=== PATIENT | male | born 1940 | race Caucasian/White ===

== ENCOUNTER 2017-02-26 05:14 | Emergency (ER) | payer MEDICARE, MEDICAID ==
[~2017-02-26] VITALS: Ht 165.1 cm; Wt 81.6 kg
[~2017-02-26 05:14] MED LIST: ACHD5005 PO; ALBU8.5H4 IH; ALLO100T PO; ALLP100T PO; ALPR0.254 PO; AMLO5TAB2 PO; AMOX-358 PO; ASP325T PO; ASPI-983 PO; ATOR20TA66 PO; ATOR40TA70 PO; ATOR80TA2 PO; BACL10TA PO; CEPH500C PO; CETI1SOL11; CETI1TAB2 PO; CFP200T PO; CILO50TA; CLOP75TA PO; CLOP75TA28 PO; CODE118S2 PO; CYCL10TA9 PO; DICY10CA12 PO; DICY10CA26 PO; FURO-124 PO; FURO20TA4 PO; GLUCOPHAGE; GLYB5TAB6 PO; HUM100VI15 SC; HUM100VI15 SQ; HUM100VI4 SQ; HYDR-707 PO; HYDR1TAB PO; INSU100V31; INSU300I SQ; LEVO250T7 PO; LEVOFLOXACIN OD; LINA5TAB PO; LISI-556 PO; LISI20TA PO; LISI5TAB PO; LORA10TA2; LSNP20T PO; MAGN300C PO; MAGN400C PO; METO-270 PO; METO25TA PO; METO50TA7 PO; MTF500T PO; MTP25TSR PO; MULT1CAP27 PO; MV,M1TAB2 PO; NF-PLET100 PO; NITR0.3T7 SL; ONDA-43 PO; PANT40TA3 PO; PHEN10TA32 PO; PIOG1TAB PO; PNT40TEC PO; POTA10TA10 PO; POTA20TA15 PO; PRD20T PO; PROP10DR3 OU; RFMP300C PO; ROSI1TAB25; SIMV40TA2; SIMV40TA2 PO; SULF1TAB38 PO; THP300TCR PO; [UNRECOGNIZED DRUG - OTHER]
[2017-02-26] MEDS ORDERED: PRAV40TA2 PO (05:30)
--- NOTE | 2017-02-26 05:33 | ED General ---
General Chief Complaint: Lower Extremity Stated Complaint: ANEURYSM,RT LEG Source of Information: Patient Exam Limitations: No Limitations History of Present Illness Time Seen by Provider: 05:17 Initial Comments This 76-year-old gentleman presents to the emergency room with complaints of paresthesias in his right thigh and buttock. Paresthesias resolved after he got up and walked around. He denies any pain. He is concerned because of history of lower extremity aneurysms. He believes he may be having a complication from aneurysm. Review of his chart reveals history of bypass grafting to the right lower extremity with chronically occluded SFA based on arterial ultrasound from last year. 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 Allergies and Home Medications Allergies Coded Allergies: NKANo Known Allergies (Unverified Allergy, Mild, 06/21/09) Home Medications Allopurinol 100 Mg Tablet, 200 MG PO DAILY, (Reported) TAKES 2 (100 MG) TABLETS / LAST FILLED 08/03/16 #60 Alprazolam 0.25 Mg Tablet, 0.25 MG PO DAILY@1900, (Reported) Amlodipine Besylate 5 Mg Tablet, 5 MG PO DAILY, (Reported) Aspirin 81 Mg Tablet.dr, 81 MG PO DAILY, (Reported) Atorvastatin Calcium 40 Mg Tablet, 40 MG PO HS, (Reported) Baclofen 10 Mg Tablet, 10 MG PO TID, (Reported) Clopidogrel Bisulfate 75 Mg Tablet, 75 MG PO DAILY, (Reported) Dicyclomine HCl 10 Mg Capsule, 10 MG PO QID, (Reported) LAST FILLED 08/03/16 #120 Furosemide 40 Mg Tablet, 40 MG PO UD for 30 Days, Ref 2 40MG LASIX EVERY OTHER DAY. Prescribed by: DEANA DIAZ on 09/17/161512 Insulin Glargine,Hum.rec.anlog 300 Unit/1 Ml Insuln.pen, 65 UNITS SQ BID, ( Reported) Mv,Minerals/FA/Lycopene/Ginkgo 1 Each Tablet, 1 TAB PO DAILY, (Reported) Nitroglycerin 0.3 Mg Tab.subl, 0.3 MG SL PRN, #30 Prescribed by: DEANA DIAZ on 09/17/161512 Pantoprazole Sodium 40 Mg Tablet.dr, 40 MG PO DAILY, (Reported) Phenylephrine HCl 10 Mg Tablet, 10 MG PO Q4H PRN for CONGESTION, (Reported) Potassium Chloride 10 Meq Tablet.er, 10 MEQ PO UD for 30 Days, Ref 2 10 MEQ POTASSIUM EVERY OTHER DAY. Prescribed by: DEANA DIAZ on 09/17/16 1513 Pravastatin Sodium 40 Mg Tablet, 1 TAB PO UD, #30 (Reported) Theophylline Anhydrous 300 Mg Tab.er.12h, 300 MG PO Q12H, (Reported) Constitutional: no symptoms reported EENTM: see HPI Respiratory: no symptoms reported Cardiovascular: no symptoms reported Musculoskeletal: no symptoms reported Skin: no symptoms reported Psychiatric/Neurological: See HPI Past Uaisnli-Kwoxhq-Dlpikp Hx Patient Social History Type Used: Cigarettes Recent Foreign Travel: No Contact w/Someone Who Travel: No Recent Hopitalizations: No Immunizations Up To Date Tetanus Booster (TDap): Less than 5yrs Date of Pneumonia Vaccine: Nov 18, 2009 Date of Influenza Vaccine: Sep 28, 2015 Seasonal Allergies Seasonal Allergies: No Surgeries HX Surgeries: Yes (CARDIAC CATHS/STENT, HIATAL HERNIA, TURP, LEFT FEM-TIB BYPASS, right lower extremity bypass) Surgeries: Abdominal, Cardiac, Coronary Stent, Transurethral Resection, Vascular Surgery Respiratory Hx Respiratory Disorders: Yes (COPD) Respiratory Disorders: COPD Cardiovascular Hx Cardiac Disorders: Yes Cardiac Disorders: Chronic Edema/Swelling, Coronary Artery Disease, High Cholesterol, Hypertension, Peripheral Vascular Neurological Hx Neurological Disorders: Yes (?PERIPHERAL NEUROPATHY?) Neurological Disorders: Dementia Reproductive System Hx Reproductive Disorders: No Sexually Transmitted Disease: No Genitourinary Hx Genitourinary Disorders: Yes (TURP) Genitourinary Disorders: Benign Prostatic Hyperpl, Prostate Problems Gastrointestinal Hx Gastrointestinal Disorders: Yes (GERD) Gastrointestinal Disorders: Gastroesophageal Reflux, Hiatal Hernia Musculoskeletal Hx Musculoskeletal Disorders: Yes Musculoskeletal Disorders: Arthritis Endocrine Hx Endocrine Disorders: Yes Endocrine Disorders: Diabetes, Insulin dep HEENT HX ENT Disorders: Yes HEENT Disorders: Cataract Loss of Vision: Right Hearing Impairment: Hard of Hearing Cancer Hx Cancer: No Psychosocial Hx Psychiatric Problems: No Integumentary HX Skin/Integumentary Disorder: Yes (MRSA) Blood Transfusions Hx Blood Disorders: No Family Medical History Family Medial History: Cancer 19 FATHER 19 MOTHER Family history: Cardiovascular disease Family history: Diabetes mellitus G8 SISTER 19 MOTHER Family history: Hypertension G8 BROTHER Physical Exam Vital Signs Vital Sign - Last 12Hours 02/26/17 05:30 Temp 97.7 Pulse 91 Resp 18 B/P (MAP) 197/89 Pulse Ox 94 O2 Delivery Room Air Capillary Refill : General Appearance: No Apparent Distress, WD/WN HEENT: Normal ENT Inspection, Other (blindness of right eye) Respiratory: Normal Breath Sounds, No Respiratory Distress Cardiovascular: Regular Rate, Rhythm, Normal Peripheral Pulses Extremity: Normal Inspection, Other (normal motor function, sensation, and pedal pulse of the right lower extremity. No tenderness in the thigh or buttock ) Neurologic/Psychiatric: Alert, Oriented x3, No Motor/Sensory Deficits, Normal Mood/Affect, acquisitions analyst II-XII Norm as Tested Skin: Normal Color, Warm/Dry Progress/Results/Core Measures Results/Orders Vital Signs/I&O Vital Sign - Last 12Hours 02/26/17 02/26/17 05:30 05:35 Temp 97.7 97.7 Pulse 91 90 Resp 18 18 B/P (MAP) 197/89 Pulse Ox 94 92 O2 Delivery Room Air Progress Note : Progress Note Symptoms resolved. Patient given reassurance after review of prior imaging. Departure Impression Impression: Primary Impression: Paresthesia of right leg Disposition: 01 HOME, SELF-CARE Condition: Stable Departure-Patient Inst. Decision time for Depature: 05:32 Referrals: ESTRELLITA العراقي MD (PCP/Family) Primary Care Physician Patient Instructions: Paresthesias (DC) Add. Discharge Instructions: Return to care if symptoms worsen. Otherwise follow-up with your primary care provider. All discharge instructions reviewed with patient and/or family. Voiced understanding. CINDY BARRIOS MD Feb 26, 2017 05:33
[2017-02-26 05:35] VITALS: BP 153/78
== END 2017-02-26 05:41 | disposition home or self-care (01) ==
LOC: EDUNIT# 05:14 → ER 05:17
DX: R20.2 Paresthesia of skin (principal); I72.4 Aneurysm of artery of lower extremity; I25.10 Atherosclerotic heart disease of native coronary artery without angina pectoris; I10 Essential (primary) hypertension; J44.9 Chronic obstructive pulmonary disease, unspecified; Z79.02 Long term (current) use of antithrombotics/antiplatelets; Z79.82 Long term (current) use of aspirin; Z79.899 Other long term (current) drug therapy
CPT/HCPCS: 99283

== ENCOUNTER 2017-04-05 02:07 | Emergency (ER) | payer MEDICARE, MEDICAID ==
[~2017-04-05] VITALS: Ht 165.1 cm; Wt 90.7 kg
[~2017-04-05 02:07] MED LIST changes: +PRAV40TA2 PO
--- NOTE | 2017-04-05 02:22 | ED Chest Pain ---
General Chief Complaint: Chest Pain Stated Complaint: CP,RT RT ARM PAIN Source: patient, RN notes reviewed Exam Limitations: no limitations History of Present Illness Time seen by provider: 02:10 Initial Comments Patient presents c/ c/o right sided chest pain that radiates into his right arm. States it began couple hours ago. Wasn't doing anything @ the time. Denies any associated diaphoresis, or N/V. Pain is worse c/ inspiration and cough. No known fever. Still smoking 2 packs of cigarettes a day. Timing/Duration: 1-3 hours Severity/Quality: mild, sharp, stabbing Location: other (right sided) Radiation: arms (right) Activities at Onset: none Prior CP/Workup: cardiac cath, echocardiography, stress test Modifying Factors: worse with breathing, worse with coughing ASA po AIR OPERATIONS MANAGER: No NTG SL AIR OPERATIONS MANAGER: No Associated Symptoms: No back pain, No diaphoresis, No fever/chills, No nausea/ vomiting, shortness of breath Allergies and Home Medications Allergies Coded Allergies: NKANo Known Allergies (Unverified Allergy, Mild, 06/21/09) Home Medications Allopurinol 100 Mg Tablet, 200 MG PO DAILY, (Reported) TAKES 2 (100 MG) TABLETS / LAST FILLED 08/03/16 #60 Alprazolam 0.25 Mg Tablet, 0.25 MG PO DAILY@1900, (Reported) Amlodipine Besylate 5 Mg Tablet, 5 MG PO DAILY, (Reported) Aspirin 81 Mg Tablet.dr, 81 MG PO DAILY, (Reported) Atorvastatin Calcium 40 Mg Tablet, 40 MG PO HS, (Reported) Baclofen 10 Mg Tablet, 10 MG PO TID, (Reported) Clopidogrel Bisulfate 75 Mg Tablet, 75 MG PO DAILY, (Reported) Dicyclomine HCl 10 Mg Capsule, 10 MG PO QID, (Reported) LAST FILLED 08/03/16 #120 Furosemide 40 Mg Tablet, 40 MG PO UD for 30 Days, Ref 2 40MG LASIX EVERY OTHER DAY. Prescribed by: DEANA DIAZ on 09/17/16 1513 Insulin Glargine,Hum.rec.anlog 300 Unit/1 Ml Insuln.pen, 65 UNITS SQ BID, ( Reported) Ipratropium/Albuterol Sulfate 3 Ml Ampul.neb, 3 ML IH Q6H PRN for SHORTNESS OF BREATH, #30 Ref 2 Prescribed by: CHELSI BARRERA on 04/05/17313 Methylprednisolone 4 Mg Tab.ds.pk, 4 MG PO UD, #1 Ref 0 Prescribed by: CHELSI BARRERA on 04/05/17313 Mv,Minerals/FA/Lycopene/Ginkgo 1 Each Tablet, 1 TAB PO DAILY, (Reported) Nitroglycerin 0.3 Mg Tab.subl, 0.3 MG SL PRN, #30 Prescribed by: DEANA DIAZ on 09/17/161512 Pantoprazole Sodium 40 Mg Tablet.dr, 40 MG PO DAILY, (Reported) Phenylephrine HCl 10 Mg Tablet, 10 MG PO Q4H PRN for CONGESTION, (Reported) Potassium Chloride 10 Meq Tablet.er, 10 MEQ PO UD for 30 Days, Ref 2 10 MEQ POTASSIUM EVERY OTHER DAY. Prescribed by: DEANA DIAZ on 09/17/163 Pravastatin Sodium 40 Mg Tablet, 1 TAB PO UD, #30 (Reported) Theophylline Anhydrous 300 Mg Tab.er.12h, 300 MG PO Q12H, (Reported) Review of Systems Constitutional: see HPI Respiratory: See HPI, Cough, Shortness of Air, SOA With Exertion, SOA at Rest Cardiovascular: See HPI, Chest Pain (inspiratory) All Other Systems Reviewed Negative Unless Noted: Yes (Negative excepted noted.) Past Dewpeew-Nqunfm-Pbmzhj Hx Patient Social History Type Used: Cigarettes Recent Foreign Travel: No Contact w/Someone Who Travel: No Recent Hopitalizations: No Immunizations Up To Date Tetanus Booster (TDap): Less than 5yrs Date of Pneumonia Vaccine: Nov 18, 2009 Date of Influenza Vaccine: Sep 28, 2015 Seasonal Allergies Seasonal Allergies: No Surgeries HX Surgeries: Yes Surgeries: Abdominal, Cardiac, Coronary Stent, Transurethral Resection, Vascular Surgery Respiratory Hx Respiratory Disorders: Yes (COPD) Respiratory Disorders: COPD Cardiovascular Hx Cardiac Disorders: Yes (left femoral aneurysm) Cardiac Disorders: Aneurysm, Chronic Edema/Swelling, Coronary Artery Disease, High Cholesterol, Hypertension, Peripheral Vascular Neurological Hx Neurological Disorders: Yes (PERIPHERAL NEUROPATHY) Neurological Disorders: Dementia Reproductive System Hx Reproductive Disorders: No Sexually Transmitted Disease: No Genitourinary Hx Genitourinary Disorders: Yes Genitourinary Disorders: Benign Prostatic Hyperpl, Prostate Problems Gastrointestinal Hx Gastrointestinal Disorders: Yes (GERD) Gastrointestinal Disorders: Gastroesophageal Reflux, Hiatal Hernia Musculoskeletal Hx Musculoskeletal Disorders: Yes Musculoskeletal Disorders: Arthritis Endocrine Hx Endocrine Disorders: Yes Endocrine Disorders: Diabetes, Insulin dep HEENT HX ENT Disorders: Yes HEENT Disorders: Cataract Loss of Vision: Right Hearing Impairment: Hard of Hearing Cancer Hx Cancer: No Psychosocial Hx Psychiatric Problems: No Integumentary HX Skin/Integumentary Disorder: Yes (MRSA) Blood Transfusions Hx Blood Disorders: No Family Medical History Family Medial History: Cancer 19 FATHER 19 MOTHER Family history: Cardiovascular disease Family history: Diabetes mellitus G8 SISTER 19 MOTHER Family history: Hypertension G8 BROTHER Physical Exam Vital Signs Vital Sign - Last 12Hours 04/05/17 02:51 O2 Flow Rate 2.00 Capillary Refill : General Appearance: No Apparent Distress, WD/WN Neck: Supple Respiratory: No Respiratory Distress, Decreased Breath Sounds Cardiovascular: Regular Rate, Rhythm Rectal: Deferred Neurologic/Psychiatric: Alert, Oriented x3, No Motor/Sensory Deficits Skin: Warm/Dry, Other (patient's hygiene is fair @ best) Progress/Results/Core Measures Results/Orders Lab Results Laboratory Tests Test 04/05/17 02:15 Range/Units White Blood Count 8.0 4.3-11.0 10^3/uL Red Blood Count 4.37 4.35-5.85 10^6/uL Hemoglobin 14.2 13.3-17.7 G/DL Hematocrit 41 40-54 % Mean Corpuscular Volume 93 80-99 FL Mean Corpuscular Hemoglobin 33 25-34 PG Mean Corpuscular Hemoglobin Concent 35 32-36 G/DL Red Cell Distribution Width 14.7 H 10.0-14.5 % Platelet Count 144 130-400 10^3/uL Mean Platelet Volume 11.7 H 7.4-10.4 FL Neutrophils (%) (Auto) 74 42-75 % Lymphocytes (%) (Auto) 14 12-44 % Monocytes (%) (Auto) 8 0-12 % Eosinophils (%) (Auto) 3 0-10 % Basophils (%) (Auto) 1 0-10 % Neutrophils # (Auto) 5.9 1.8-7.8 X 10^3 Lymphocytes # (Auto) 1.2 1.0-4.0 X 10^3 Monocytes # (Auto) 0.7 0.0-1.0 X 10^3 Eosinophils # (Auto) 0.2 0.0-0.3 10^3/uL Basophils # (Auto) 0.0 0.0-0.1 10^3/uL Sodium Level 137 135-145 MMOL/L Potassium Level 4.0 3.6-5.0 MMOL/L Chloride Level 102 98-107 MMOL/L Carbon Dioxide Level 22 21-32 MMOL/L Anion Gap 13 5-14 MMOL/L Blood Urea Nitrogen 36 H 7-18 MG/DL Creatinine 1.49 H 0.60-1.30 MG/DL Estimat Glomerular Filtration Rate 46 BUN/Creatinine Ratio 24 Glucose Level 277 H 70-105 MG/DL Calcium Level 9.6 8.5-10.1 MG/DL Magnesium Level 1.7 L 1.8-2.4 MG/DL Total Bilirubin 0.2 0.1-1.0 MG/DL Aspartate Amino Transf (AST/SGOT) 20 5-34 U/L Alanine Aminotransferase (ALT/SGPT) 18 0-55 U/L Alkaline Phosphatase 104 40-136 U/L Troponin I < 0.30 <0.30 NG/ML B-Type Natriuretic Peptide < 10.0 <100.0 PG/ML Total Protein 6.5 6.4-8.2 G/DL Albumin 3.6 3.2-4.5 G/DL Lipase 33 8-78 U/L My Orders Orders - CHELSI BARRERA DO Saline Lock/Iv-Start (04/05/17 02:19) Ekg Tracing (04/05/17 02:19) BNP (04/05/17 02:19) Cbc With Automated Diff (04/05/17 02:19) Comprehensive Metabolic Panel (04/05/17 02:19) Lipase (04/05/17 02:19) Magnesium (04/05/17 02:19) Troponin I (04/05/17 02:19) Chest 1 View, Ap/Pa Only (04/05/17 02:19) Albuterol/Ipra Inhalation Soln (Duoneb I (04/05/17 02:45) Svn Sm Volume Nebulizer Rt-Rfs (04/05/17 02:44) Dexamethasone Pf Injection (Decadron Pf (04/05/17 03:15) Rx-Albuterol Nebs (Rx-Proventil Nebs) (04/05/17 03:08) Rx-Albuterol Nebs (Rx-Proventil Nebs) (04/05/17 03:15) Svn Sm Volume Nebulizer Rt-Rfs (04/05/17 03:15) Svn Sm Volume Nebulizer Rt-Rfs (04/05/17 03:15) Medications Given in ED Current Medications Medications Dose Ordered Sig/Kuldeep Route Start Time Stop Time Status Last Admin Dose Admin Albuterol/ Ipratropium 3 ml ONCE ONCE INH 04/05/17 02:45 04/05/17 02:46 DC 04/05/17 02:50 3 ML Vital Signs/I&O Vital Sign - Last 12Hours 04/05/17 04/05/17 04/05/17 02:10 02:10 02:51 Temp 97.9 Pulse 89 Resp 20 B/P (MAP) 155/72 Pulse Ox 91 94 O2 Delivery Room Air Room Air O2 Flow Rate 2.00 Progress Note : Progress Note Patient refuses to be admitted. Agrees to sign out AMA. Will Rx a nebulizer for home use since it did seem to really help c/ his cough and air movement. Really needs to stop smoking. ECG Initial ECG Impression Date: April 05, 2017 Initial ECG Impression Time: 02:16 Initial ECG Rate: 88 Initial ECG Rhythm: Normal Sinus Initial ECG Intervals: Normal Initial ECG Impression: Normal Initial ECG Comparisson: Unchanged Diagnostic Imaging Diagonstic Imaging: Xray Plain Films/CT/US/NM/MRI: chest Departure Impression Impression: Primary Impression: Pleuritic chest pain Additional Impressions: COPD exacerbation Tobacco abuse Disposition: Condition: Stable Departure-Patient Inst. Decision time for Depature: 03:12 Referrals: ESTRELLITA العراقي MD (PCP/Family) Primary Care Physician Patient Instructions: Chronic Obstructive Pulmonary Disease (COPD), Including Emphysema, Pleuritic Chest Pain (DC) Scripts Ipratropium/Albuterol Sulfate (Iprat-Albut 0.5-3(2.5) mg/3 ml) 3 Ml Ampul.neb 3 ML IH Q6H Y for SHORTNESS OF BREATH, #30 EACH 2 Refills Prov: CHELSI BARRERA DO 04/05/17 Methylprednisolone (Medrol) 4 Mg Tab.ds.pk 4 MG PO UD, #1 PKG 0 Refills Prov: CHELSI BARRERA DO 04/05/17 CHELSI BARRERA DO April 05, 2017 02:22
[2017-04-05 02:25] LABS: BASOPHILS % (AUTO) 1 % (0-10); EOSINOPHILS # (AUTO) 0.2 10^3/uL (0.0-0.3); EOSINOPHILS % (AUTO) 3 % (0-10); LYMPHOCYTES # (AUTO) 1.2 X 10^3 (1.0-4.0); LYMPHOCYTES % (AUTO) 14 % (12-44); MEAN CORPUSCULAR HEMOGLOBIN 33 PG (25-34); MEAN CORPUSCULAR HGB CONC 35 G/DL (32-36); MEAN CORPUSCULAR VOLUME 93 FL (80-99); MEAN PLATELET VOLUME 11.7 FL (7.4-10.4); MONOCYTES # (AUTO) 0.7 X 10^3 (0.0-1.0); MONOCYTES % (AUTO) 8 % (0-12); NEUTROPHILS # (AUTO) 5.9 X 10^3 (1.8-7.8); NEUTROPHILS % (AUTO) 74 % (42-75); PLATELET COUNT 144 10^3/uL (130-400); RED BLOOD COUNT 4.37 10^6/uL (4.35-5.85); RED CELL DISTRIBUTION WIDTH 14.7 % (10.0-14.5)
[2017-04-05] MEDS ORDERED: RT-ALBUTEROL/IPRATROPIUM 3 ML (DUONEB) VIAL INH ONE (02:45)
[2017-04-05 02:47] LABS: ALANINE AMINOTRANSFERASE 18 U/L (0-55); ALBUMIN 3.6 G/DL (3.2-4.5); ANION GAP 13 MMOL/L (5-14); ASPARTATE AMINO TRANSFERASE 20 U/L (5-34); BILIRUBIN,TOTAL 0.2 MG/DL (0.1-1.0); BLOOD UREA NITROGEN 36 MG/DL (7-18); BUN/CREATININE RATIO 24; CALCIUM 9.6 MG/DL (8.5-10.1); CARBON DIOXIDE 22 MMOL/L (21-32); CHLORIDE 102 MMOL/L (98-107); CREATININE SERUM 1.49 MG/DL (0.60-1.30); GFR ESTIMATED 46; GLUCOSE 277 MG/DL (70-105); LIPASE 33 U/L (8-78); MAGNESIUM 1.7 MG/DL (1.8-2.4); SODIUM 137 MMOL/L (135-145); TOTAL PROTEIN 6.5 G/DL (6.4-8.2)
[2017-04-05 02:53] LABS: TROPONIN I < 0.30 NG/ML (<0.30)
[2017-04-05] MEDS ORDERED: RX-ALBUTEROL NEB 2.5 MG/3 ML PACK #5 IH ONE (03:08)
[2017-04-05] MEDS ORDERED: METH4TAB PO (03:14)
[2017-04-05] MEDS ORDERED: IPRA3AMP IH (03:14)
[2017-04-05] MEDS ORDERED: RX-ALBUTEROL NEB 2.5 MG/3 ML PACK #5 IH PRN (03:15)
[2017-04-05] MEDS ORDERED: DEXAMETHASONE PF 10 MG/ML (DECADRON) VIAL IV ONE (03:15)
[2017-04-05 03:26] VITALS: BP 115/83
--- NOTE | 2017-04-05 06:54 | Diagnostic Imaging Report ---
INDICATION: Chest pain. TECHNIQUE: Single view chest 2:32 a.m. CORRELATION STUDY: 09/17/2016. FINDINGS: Heart size borderline but relatively stable. Vascularity is slightly prominent. Mildly prominent interstitial markings overall appear unchanged. No definitive new infiltrate. IMPRESSION: 1. Heart size is stable, vascular slightly increased from prior study. Suspect chronic change of the lung parenchyma. Dictated by: Dictated on workstation # [id number]
== END 2017-04-05 03:26 | disposition left against medical advice (07) ==
LOC: EDUNIT# 02:07 → ER 02:10
DX: R07.81 Pleurodynia (principal); J44.1 Chronic obstructive pulmonary disease with (acute) exacerbation; F17.210 Nicotine dependence, cigarettes, uncomplicated; E11.9 Type 2 diabetes mellitus without complications; Z79.02 Long term (current) use of antithrombotics/antiplatelets; Z79.4 Long term (current) use of insulin; Z79.84 Long term (current) use of oral hypoglycemic drugs; Z79.899 Other long term (current) drug therapy
CPT/HCPCS: 36415; 71010; 80053; 83690; 83735; 83880; 84484; 85025; 93005; 94640; 96374

== ENCOUNTER 2017-04-27 23:34 | Emergency (ER) | payer MEDICARE, MEDICAID ==
[~2017-04-27] VITALS: Ht 165.1 cm; Wt 81.6 kg
[~2017-04-27 23:34] MED LIST changes: +IPRA3AMP IH; +METH4TAB PO
[2017-04-27] MEDS ORDERED: ASPIRIN 81 MG CHEW (CHILDREN'S ASA) PO ONE (23:45)
[2017-04-27] MEDS ORDERED: RX-NITROGLYCERIN 0.4 MG TAB BTL 25'S SL PRN (23:45)
[2017-04-27 23:58] LABS: BASOPHILS # (AUTO) 0.1 10^3/uL (0.0-0.1); BASOPHILS % (AUTO) 1 % (0-10); EOSINOPHILS # (AUTO) 0.2 10^3/uL (0.0-0.3); EOSINOPHILS % (AUTO) 2 % (0-10); LYMPHOCYTES # (AUTO) 1.1 X 10^3 (1.0-4.0); LYMPHOCYTES % (AUTO) 12 % (12-44); MEAN CORPUSCULAR HEMOGLOBIN 33 PG (25-34); MEAN CORPUSCULAR HGB CONC 35 G/DL (32-36); MEAN CORPUSCULAR VOLUME 93 FL (80-99); MEAN PLATELET VOLUME 11.8 FL (7.4-10.4); MONOCYTES # (AUTO) 0.7 X 10^3 (0.0-1.0); MONOCYTES % (AUTO) 8 % (0-12); NEUTROPHILS % (AUTO) 78 % (42-75); PLATELET COUNT 136 10^3/uL (130-400); RED BLOOD COUNT 4.79 10^6/uL (4.35-5.85); RED CELL DISTRIBUTION WIDTH 14.7 % (10.0-14.5)
--- NOTE | 2017-04-28 | ED Chest Pain ---
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 DENIES BREAKING OUT IN A SWEAT, SOA, N/V AT THIS TIME. Nursing Sepsis Screen: No Definite Risk Source: patient Exam Limitations: no limitations History of Present Illness Time seen by provider: 23:38 Initial Comments Here with report of chest pain that is right-sided and has been going on for about 4 hours. Denies associated symptoms. He did take a nitroglycerin and that did help. He states he really cannot qualify the pain to states that it hurts and gets a little bit. 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: Yes Associated Symptoms: No abdominal pain, No diaphoresis, No fever/chills, No nausea/vomiting, No shortness of breath, No weakness Allergies and Home Medications Allergies Coded Allergies: NKANo Known Allergies (Unverified Allergy, Mild, 06/21/09) Home Medications Allopurinol 100 Mg Tablet, 200 MG PO DAILY, (Reported) TAKES 2 (100 MG) TABLETS / LAST FILLED 08/03/16 #60 Alprazolam 0.25 Mg Tablet, 0.25 MG PO DAILY@1900, (Reported) Amlodipine Besylate 5 Mg Tablet, 5 MG PO DAILY, (Reported) Aspirin 81 Mg Tablet.dr, 81 MG PO DAILY, (Reported) Atorvastatin Calcium 40 Mg Tablet, 40 MG PO HS, (Reported) Baclofen 10 Mg Tablet, 10 MG PO TID, (Reported) Clopidogrel Bisulfate 75 Mg Tablet, 75 MG PO DAILY, (Reported) Dicyclomine HCl 10 Mg Capsule, 10 MG PO QID, (Reported) LAST FILLED 08/03/16 #120 Furosemide 40 Mg Tablet, 40 MG PO UD for 30 Days, Ref 2 40MG LASIX EVERY OTHER DAY. Prescribed by: DEANA DIAZ on 09/17/16 1513 Insulin Glargine,Hum.rec.anlog 300 Unit/1 Ml Insuln.pen, 65 UNITS SQ BID, ( Reported) Ipratropium/Albuterol Sulfate 3 Ml Ampul.neb, 3 ML IH Q6H PRN for SHORTNESS OF BREATH, #30 Ref 2 Prescribed by: CHELSI BARRERA on 04/05/17313 Methylprednisolone 4 Mg Tab.ds.pk, 4 MG PO UD, #1 Ref 0 Prescribed by: CHELSI BARRERA on 04/05/17313 Mv,Minerals/FA/Lycopene/Ginkgo 1 Each Tablet, 1 TAB PO DAILY, (Reported) Nitroglycerin 0.3 Mg Tab.subl, 0.3 MG SL PRN, #30 Prescribed by: DEANA DIAZ on 09/17/163 Pantoprazole Sodium 40 Mg Tablet.dr, 40 MG PO DAILY, (Reported) Phenylephrine HCl 10 Mg Tablet, 10 MG PO Q4H PRN for CONGESTION, (Reported) Potassium Chloride 10 Meq Tablet.er, 10 MEQ PO UD for 30 Days, Ref 2 10 MEQ POTASSIUM EVERY OTHER DAY. Prescribed by: DEANA DIAZ on 09/17/163 Pravastatin Sodium 40 Mg Tablet, 1 TAB PO UD, #30 (Reported) Theophylline Anhydrous 300 Mg Tab.er.12h, 300 MG PO Q12H, (Reported) Review of Systems Constitutional: see HPI, No chills, No fever EENTM: No Symptoms Reported Respiratory: No Symptoms Reported Cardiovascular: See HPI, Chest Pain, Denies Edema Gastrointestinal: Denies Abdominal Pain, Denies Diarrhea, Denies Vomiting Genitourinary: No Symptoms Reported Musculoskeletal: no symptoms reported Skin: no symptoms reported Psychiatric/Neurological: No Symptoms Reported All Other Systems Reviewed Negative Unless Noted: Yes Past Yhnwhot-Ziaipy-Guzizg Hx Patient Social History Alcohol Use: Denies Use Recreational Drug Use: No Smoking Status: Current Everyday Smoker Type Used: Cigarettes 2nd Hand Smoke Exposure: Yes Recent Foreign Travel: No Contact w/Someone Who Travel: No Recent Infectious Disease Expo: No Recent Hopitalizations: No Immunizations Up To Date Tetanus Booster (TDap): Less than 5yrs Date of Pneumonia Vaccine: Nov 18, 2009 Date of Influenza Vaccine: Sep 28, 2015 Seasonal Allergies Seasonal Allergies: No Surgeries HX Surgeries: Yes Surgeries: Abdominal, Cardiac, Coronary Stent, Transurethral Resection, Vascular Surgery Respiratory Hx Respiratory Disorders: Yes (COPD) Respiratory Disorders: COPD Cardiovascular Hx Cardiac Disorders: Yes (left femoral aneurysm) Cardiac Disorders: Aneurysm, Chronic Edema/Swelling, Coronary Artery Disease, High Cholesterol, Hypertension, Peripheral Vascular Neurological Hx Neurological Disorders: Yes (PERIPHERAL NEUROPATHY) Neurological Disorders: Dementia Reproductive System Hx Reproductive Disorders: No Sexually Transmitted Disease: No Genitourinary Hx Genitourinary Disorders: Yes Genitourinary Disorders: Benign Prostatic Hyperpl, Prostate Problems Gastrointestinal Hx Gastrointestinal Disorders: Yes (GERD) Gastrointestinal Disorders: Gastroesophageal Reflux, Hiatal Hernia Musculoskeletal Hx Musculoskeletal Disorders: Yes Musculoskeletal Disorders: Arthritis Endocrine Hx Endocrine Disorders: Yes Endocrine Disorders: Diabetes, Insulin dep HEENT HX ENT Disorders: Yes HEENT Disorders: Cataract Loss of Vision: Right Hearing Impairment: Hard of Hearing Cancer Hx Cancer: No Psychosocial Hx Psychiatric Problems: No Integumentary HX Skin/Integumentary Disorder: Yes (MRSA) Blood Transfusions Hx Blood Disorders: No Reviewed Nursing Assessment Reviewed/Agree w Nursing PMH: Yes Family Medical History Significant Family History: No Pertinent Family Hx Family Medial History: Cancer 19 FATHER 19 MOTHER Family history: Cardiovascular disease Family history: Diabetes mellitus G8 SISTER 19 MOTHER Family history: Hypertension G8 BROTHER Physical Exam Vital Signs Vital Sign - Last 12Hours 04/27/17 23:35 Temp 97.1 Pulse 96 Resp 18 B/P (MAP) 165/72 Pulse Ox 94 O2 Delivery Room Air Capillary Refill : Less Than 3 Seconds General Appearance: No Apparent Distress, WD/WN HEENT: Pharynx Normal, Other (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.) Neck: Non Tender, Supple Respiratory: Lungs Clear, Normal Breath Sounds Cardiovascular: Regular Rate, Rhythm, No Murmur Gastrointestinal: Non Tender, Soft Extremity: Non Tender, No Calf Tenderness, Pedal Edema (trace bilateral) Neurologic/Psychiatric: Alert, Oriented x3 Skin: Normal Color, Warm/Dry Progress/Results/Core Measures Results/Orders Lab Results Laboratory Tests Test 04/27/17 23:45 04/28/17 01:55 Range/Units White Blood Count 9.0 4.3-11.0 10^3/uL Red Blood Count 4.79 4.35-5.85 10^6/uL Hemoglobin 15.6 13.3-17.7 G/DL Hematocrit 44 40-54 % Mean Corpuscular Volume 93 80-99 FL Mean Corpuscular Hemoglobin 33 25-34 PG Mean Corpuscular Hemoglobin Concent 35 32-36 G/DL Red Cell Distribution Width 14.7 H 10.0-14.5 % Platelet Count 136 130-400 10^3/uL Mean Platelet Volume 11.8 H 7.4-10.4 FL Neutrophils (%) (Auto) 78 H 42-75 % Lymphocytes (%) (Auto) 12 12-44 % Monocytes (%) (Auto) 8 0-12 % Eosinophils (%) (Auto) 2 0-10 % Basophils (%) (Auto) 1 0-10 % Neutrophils # (Auto) 7.0 1.8-7.8 X 10^3 Lymphocytes # (Auto) 1.1 1.0-4.0 X 10^3 Monocytes # (Auto) 0.7 0.0-1.0 X 10^3 Eosinophils # (Auto) 0.2 0.0-0.3 10^3/uL Basophils # (Auto) 0.1 0.0-0.1 10^3/uL Prothrombin Time 11.6 L 12.2-14.7 SEC INR Comment 0.9 0.8-1.4 Activated Partial Thromboplast Time 27 24-35 SEC D-Dimer 1.01 H 0.00-0.49 UG/ML Sodium Level 138 135-145 MMOL/L Potassium Level 3.9 3.6-5.0 MMOL/L Chloride Level 99 98-107 MMOL/L Carbon Dioxide Level 25 21-32 MMOL/L Anion Gap 14 5-14 MMOL/L Blood Urea Nitrogen 24 H 7-18 MG/DL Creatinine 1.45 H 0.60-1.30 MG/DL Estimat Glomerular Filtration Rate 47 BUN/Creatinine Ratio 17 Glucose Level 297 H 70-105 MG/DL Calcium Level 10.2 H 8.5-10.1 MG/DL Magnesium Level 1.9 1.8-2.4 MG/DL Total Bilirubin 0.3 0.1-1.0 MG/DL Aspartate Amino Transf (AST/SGOT) 16 5-34 U/L Alanine Aminotransferase (ALT/SGPT) 15 0-55 U/L Alkaline Phosphatase 94 40-136 U/L Myoglobin 64.2 49.9 10.0-92.0 NG/ML Troponin I < 0.30 < 0.30 <0.30 NG/ML Total Protein 7.0 6.4-8.2 G/DL Albumin 3.9 3.2-4.5 G/DL My Orders Orders - BENOIT ALEMAN MD Cbc With Automated Diff (04/27/17 23:44) Magnesium (04/27/17 23:44) Ekg Tracing (04/27/17 23:44) Cardiac Profile 1 (04/27/17 23:44) Comprehensive Metabolic Panel (04/27/17 23:44) Myoglobin Serum (04/27/17 23:44) Protime With Inr (04/27/17 23:44) Partial Thromboplastin Time (04/27/17 23:44) O2 (04/27/17 23:44) Monitor-Rhythm Ecg Trace Only (04/27/17 23:44) Lipid Panel (04/28/17 06:00) Aspirin Chewable Tablet (Baby Aspirin Ch (04/27/17 23:45) Rx-Nitroglycerin Sl Tabs (Rx-Nitrostat S (04/27/17 23:45) Saline Lock/Iv-Start (04/27/17 23:44) Fibrin Degradation Products (04/27/17 23:44) Chest 1 View, Ap/Pa Only (04/28/17 00:01) Troponin I (04/28/17 01:36) Ekg Tracing (04/28/17 01:36) Myoglobin Serum (04/28/17 01:36) Medications Given in ED Current Medications Medications Dose Ordered Sig/Kuldeep Route Start Time Stop Time Status Last Admin Dose Admin Aspirin 324 mg ONCE ONCE PO 04/27/17 23:45 04/27/17 23:46 DC 04/27/17 23:52 324 MG Nitroglycerin 0.4 mg PRN PRN SL 04/27/17 23:45 04/27/17 23:53 0.4 MG Vital Signs/I&O Vital Sign - Last 12Hours 04/27/17 23:35 Temp 97.1 Pulse 96 Resp 18 B/P (MAP) 165/72 Pulse Ox 94 O2 Delivery Room Air Blood Pressure Mean: 103 Progress Note : Progress Note Seen and evaluated. IV, labs, EKG and chest x-ray ordered. ASA 324 mg by mouth. Nitroglycerin sublingual ordered. Monitor patient. Patient does not want to stay. He did relent to staying for repeat troponin and EKG. This will be done at 0145. 0250: Repeat EKG and labs are negative. Patient is with normal heart rate and O2 saturations 97 percent on room air. Discharged home with return precautions. Patient verbalize understanding instructions and agreement with plan. Patient will follow-up with his doctor. He has been chest pain-free for most of the ER visit including now and does not want to stay. ECG Initial ECG Impression Date: Apr 27, 2017 Initial ECG Impression Time: 23:41 Initial ECG Rate: 80 Initial ECG Rhythm: Normal Sinus Comment Sinus rhythm with normal axis. No evidence of ST elevation MS. Overall similar to previous of 04/05/17. Interpreted by me. EKG : EKG Time: 01:54 Rate: 73 Rhythm: Normal Sinus Comment Sinus rhythm with normal axis. No evidence of ST elevation MS. Similar to previous done earlier. Interpreted by me. Diagnostic Imaging Diagonstic Imaging: Xray Plain Films/CT/US/NM/MRI: chest Comments Chronic lung disease Reviewed: Reviewed by Me Departure Impression Impression: Primary Impression: Chest pain Qualified Codes: R07.9 - Chest pain, unspecified Disposition: 01 HOME, SELF-CARE Condition: Improved Departure-Patient Inst. Decision time for Depature: 03:01 Referrals: ESTRELLITA العراقي MD (PCP/Family) Primary Care Physician ANNELISE PIERRE MD [facility] Patient Instructions: Chest Pain (DC) Add. Discharge Instructions: All discharge instructions reviewed with patient and/or family. Voiced understanding. Take medications as previously prescribed. Follow-up with your doctor and your heart doctor this week for recheck and further evaluation. Return for worse pain, fever, vomiting, weakness, breathing problems or other concerns as needed. Copy Copies To 1: ANNELISE PIERRE MD [facility] BENOIT ALEMAN MD Apr 28, 2017 00:00
[2017-04-28 00:04] LABS: INR 0.9 (0.8-1.4); PROTHROMBIN TIME PATIENT 11.6 SEC (12.2-14.7)
[2017-04-28 00:16] LABS: ALANINE AMINOTRANSFERASE 15 U/L (0-55); ALBUMIN 3.9 G/DL (3.2-4.5); ANION GAP 14 MMOL/L (5-14); ASPARTATE AMINO TRANSFERASE 16 U/L (5-34); BILIRUBIN,TOTAL 0.3 MG/DL (0.1-1.0); BLOOD UREA NITROGEN 24 MG/DL (7-18); BUN/CREATININE RATIO 17; CALCIUM 10.2 MG/DL (8.5-10.1); CARBON DIOXIDE 25 MMOL/L (21-32); CHLORIDE 99 MMOL/L (98-107); CREATININE SERUM 1.45 MG/DL (0.60-1.30); GFR ESTIMATED 47; GLUCOSE 297 MG/DL (70-105); MAGNESIUM 1.9 MG/DL (1.8-2.4); POTASSIUM 3.9 MMOL/L (3.6-5.0); SODIUM 138 MMOL/L (135-145)
[2017-04-28 00:24] LABS: MYOGLOBIN SERUM 64.2 NG/ML (10.0-92.0)
[2017-04-28 02:36] LABS: MYOGLOBIN SERUM 49.9 NG/ML (10.0-92.0); TROPONIN I < 0.30 NG/ML (<0.30)
[2017-04-28 03:15] VITALS: BP 159/82
--- NOTE | 2017-04-28 09:50 | Diagnostic Imaging Report ---
INDICATION: Chest pain and shortness of breath. Comparison is made with prior examination from 04/05/17. FINDINGS: The heart size is normal. There is some bibasilar atelectasis and/or pneumonitis. There is no pleural effusion or pneumothorax. The mediastinum is unremarkable. IMPRESSION: Bibasilar atelectasis and/or pneumonitis. There may be some minimal central pulmonary venous congestion. Dictated by: Dictated on workstation # [id number]
== END 2017-04-28 03:15 | disposition home or self-care (01) ==
LOC: EDUNIT# 23:34 → ER 23:35
DX: R07.9 Chest pain, unspecified (principal); K21.9 Gastro-esophageal reflux disease without esophagitis; E11.9 Type 2 diabetes mellitus without complications; I25.10 Atherosclerotic heart disease of native coronary artery without angina pectoris; E78.00 Pure hypercholesterolemia, unspecified; I10 Essential (primary) hypertension; F17.210 Nicotine dependence, cigarettes, uncomplicated; Z79.82 Long term (current) use of aspirin; Z79.4 Long term (current) use of insulin
CPT/HCPCS: 36415; 71010; 80053; 83735; 83874; 84484; 85025; 85379; 85610; 85730; 93005; 93041

== ENCOUNTER 2017-06-25 16:15 | Emergency (ER) | payer MEDICARE, MEDICAID ==
[~2017-06-25] VITALS: Ht 165.1 cm; Wt 72.6 kg
[2017-06-25] MEDS ORDERED: morphine INJ 10 MG/ML 1ML (SYR OR VIAL) IV STA (16:25)
[2017-06-25] MEDS ORDERED: ASPIRIN 81 MG CHEW (CHILDREN'S ASA) PO ONE (16:30)
[2017-06-25 16:47] LABS: BASOPHILS # (AUTO) 0.1 10^3/uL (0.0-0.1); BASOPHILS % (AUTO) 1 % (0-10); EOSINOPHILS # (AUTO) 0.1 10^3/uL (0.0-0.3); EOSINOPHILS % (AUTO) 1 % (0-10); LYMPHOCYTES % (AUTO) 11 % (12-44); MEAN CORPUSCULAR HEMOGLOBIN 32 PG (25-34); MEAN CORPUSCULAR HGB CONC 35 G/DL (32-36); MEAN CORPUSCULAR VOLUME 92 FL (80-99); MEAN PLATELET VOLUME 11.7 FL (7.4-10.4); MONOCYTES # (AUTO) 0.6 X 10^3 (0.0-1.0); MONOCYTES % (AUTO) 6 % (0-12); NEUTROPHILS # (AUTO) 7.5 X 10^3 (1.8-7.8); NEUTROPHILS % (AUTO) 82 % (42-75); PLATELET COUNT 128 10^3/uL (130-400); RED CELL DISTRIBUTION WIDTH 14.1 % (10.0-14.5); WHITE BLOOD COUNT 9.2 10^3/uL (4.3-11.0)
--- NOTE | 2017-06-25 16:51 | ED Chest Pain ---
General Chief Complaint: Chest Pain Stated Complaint: CP History of Present Illness Time seen by provider: 16:15 Initial Comments Patient presents for right-sided chest pain that began yesterday evening, he had difficulty sleeping and awoke with continued chest pain. He reports eating breakfast and lunch today with no nausea or vomiting. He denies a previous cardiac history, however he is a poor historian. His friend is with him, has assisted in providing some of his history. He resides in [place] with his son who had a previous CVA and requires daily by home health aid, she also assists with Amadou's care and gives his insulin injections. The patient reports smoking 1-1/ 2-2 packs of cigarettes a day. He is blind in the right eye. Timing/Duration: 24 hours, intermittent Severity/Quality: mild (4-10) Location: other (right chest wall) Radiation: no radiation Activities at Onset: none Prior CP/Workup: no prior chest pain (per patient) Allergies and Home Medications Allergies Coded Allergies: NKANo Known Allergies (Unverified Allergy, Mild, 06/21/09) Home Medications Allopurinol 100 Mg Tablet, 200 MG PO DAILY, (Reported) TAKES 2 (100 MG) TABLETS / LAST FILLED 08/03/16 #60 Alprazolam 0.25 Mg Tablet, 0.25 MG PO DAILY@1900, (Reported) Amlodipine Besylate 5 Mg Tablet, 5 MG PO DAILY, (Reported) Aspirin 81 Mg Tablet.dr, 81 MG PO DAILY, (Reported) Atorvastatin Calcium 40 Mg Tablet, 40 MG PO HS, (Reported) Baclofen 10 Mg Tablet, 10 MG PO TID, (Reported) Clopidogrel Bisulfate 75 Mg Tablet, 75 MG PO DAILY, (Reported) Dicyclomine HCl 10 Mg Capsule, 10 MG PO QID, (Reported) LAST FILLED 08/03/16 #120 Furosemide 40 Mg Tablet, 40 MG PO UD for 30 Days, Ref 2 40MG LASIX EVERY OTHER DAY. Prescribed by: DEANA DIAZ on 09/17/16 1513 Insulin Glargine,Hum.rec.anlog 300 Unit/1 Ml Insuln.pen, 65 UNITS SQ BID, ( Reported) Ipratropium/Albuterol Sulfate 3 Ml Ampul.neb, 3 ML IH Q6H PRN for SHORTNESS OF BREATH, #30 Ref 2 Prescribed by: CHELSI BARRERA on 04/05/17313 Methylprednisolone 4 Mg Tab.ds.pk, 4 MG PO UD, #1 Ref 0 Prescribed by: CHELSI BARRERA on 04/05/17313 Mv,Minerals/FA/Lycopene/Ginkgo 1 Each Tablet, 1 TAB PO DAILY, (Reported) Nitroglycerin 0.3 Mg Tab.subl, 0.3 MG SL PRN, #30 Prescribed by: DEANA DIAZ on 09/17/161512 Pantoprazole Sodium 40 Mg Tablet.dr, 40 MG PO DAILY, (Reported) Phenylephrine HCl 10 Mg Tablet, 10 MG PO Q4H PRN for CONGESTION, (Reported) Potassium Chloride 10 Meq Tablet.er, 10 MEQ PO UD for 30 Days, Ref 2 10 MEQ POTASSIUM EVERY OTHER DAY. Prescribed by: DEANA DIAZ on 09/17/163 Pravastatin Sodium 40 Mg Tablet, 1 TAB PO UD, #30 (Reported) Theophylline Anhydrous 300 Mg Tab.er.12h, 300 MG PO Q12H, (Reported) Review of Systems Constitutional: no symptoms reported, see HPI Respiratory: See HPI, Denies Cough, Other (right-sided chest wall pain) Cardiovascular: See HPI, Chest Pain All Other Systems Reviewed Negative Unless Noted: Yes Past Fbtrqxd-Wxlytj-Ijndbj Hx Patient Social History Type Used: Cigarettes 2nd Hand Smoke Exposure: Yes Recent Foreign Travel: No Contact w/Someone Who Travel: No Recent Hopitalizations: No Immunizations Up To Date Tetanus Booster (TDap): Less than 5yrs Date of Pneumonia Vaccine: Nov 18, 2009 Date of Influenza Vaccine: Sep 28, 2015 Seasonal Allergies Seasonal Allergies: No Surgeries HX Surgeries: Yes Surgeries: Abdominal, Cardiac, Coronary Stent, Transurethral Resection, Vascular Surgery Respiratory Hx Respiratory Disorders: Yes (COPD) Respiratory Disorders: COPD Cardiovascular Hx Cardiac Disorders: Yes (left femoral aneurysm) Cardiac Disorders: Aneurysm, Chronic Edema/Swelling, Coronary Artery Disease, High Cholesterol, Hypertension, Peripheral Vascular Neurological Hx Neurological Disorders: Yes (PERIPHERAL NEUROPATHY) Neurological Disorders: Dementia Reproductive System Hx Reproductive Disorders: No Sexually Transmitted Disease: No Genitourinary Hx Genitourinary Disorders: Yes Genitourinary Disorders: Benign Prostatic Hyperpl, Prostate Problems Gastrointestinal Hx Gastrointestinal Disorders: Yes (GERD) Gastrointestinal Disorders: Gastroesophageal Reflux, Hiatal Hernia Musculoskeletal Hx Musculoskeletal Disorders: Yes Musculoskeletal Disorders: Arthritis Endocrine Hx Endocrine Disorders: Yes Endocrine Disorders: Diabetes, Insulin dep HEENT HX ENT Disorders: Yes HEENT Disorders: Cataract Loss of Vision: Right Hearing Impairment: Hard of Hearing Cancer Hx Cancer: No Psychosocial Hx Psychiatric Problems: No Integumentary HX Skin/Integumentary Disorder: Yes (MRSA) Blood Transfusions Hx Blood Disorders: No Reviewed Nursing Assessment Reviewed/Agree w Nursing PMH: Yes Family Medical History Significant Family History: No Pertinent Family Hx Family Medial History: Cancer 19 FATHER 19 MOTHER Family history: Cardiovascular disease Family history: Diabetes mellitus G8 SISTER 19 MOTHER Family history: Hypertension G8 BROTHER Physical Exam Vital Signs Vital Sign - Last 12Hours Capillary Refill : General Appearance: No Apparent Distress, WD/WN HEENT: TMs Normal, Pharynx Normal, Other (Opacity right lens, patient reports being blind) Neck: Full Range of Motion, Normal Inspection, Non Tender, Supple, No Carotid Bruit Respiratory: Lungs Clear, Normal Breath Sounds, No Accessory Muscle Use, Other (tenderness palpation right mid ribs) Cardiovascular: Regular Rate, Rhythm, No Murmur Gastrointestinal: Normal Bowel Sounds, Non Tender, Soft Extremity: Normal Inspection, Normal Range of Motion, Non Tender, No Calf Tenderness, Pedal Edema (1+ bilaterally), Slow Capillary Refill (proximally 5 seconds) Neurologic/Psychiatric: No Oriented x3 (oriented to person and place only, for states that it is winter and unable to state the year. Later in the exam he was unable to state that it was summer.), No Motor/Sensory Deficits, Normal Mood/ Affect (appropriate for age) Skin: Normal Color, Warm/Dry Progress/Results/Core Measures Results/Orders Lab Results Laboratory Tests Test 06/25/17 16:40 06/25/17 17:24 Range/Units White Blood Count 9.2 4.3-11.0 10^3/uL Red Blood Count 4.40 4.35-5.85 10^6/uL Hemoglobin 14.2 13.3-17.7 G/DL Hematocrit 41 40-54 % Mean Corpuscular Volume 92 80-99 FL Mean Corpuscular Hemoglobin 32 25-34 PG Mean Corpuscular Hemoglobin Concent 35 32-36 G/DL Red Cell Distribution Width 14.1 10.0-14.5 % Platelet Count 128 L 130-400 10^3/uL Mean Platelet Volume 11.7 H 7.4-10.4 FL Neutrophils (%) (Auto) 82 H 42-75 % Lymphocytes (%) (Auto) 11 L 12-44 % Monocytes (%) (Auto) 6 0-12 % Eosinophils (%) (Auto) 1 0-10 % Basophils (%) (Auto) 1 0-10 % Neutrophils # (Auto) 7.5 1.8-7.8 X 10^3 Lymphocytes # (Auto) 1.0 1.0-4.0 X 10^3 Monocytes # (Auto) 0.6 0.0-1.0 X 10^3 Eosinophils # (Auto) 0.1 0.0-0.3 10^3/uL Basophils # (Auto) 0.1 0.0-0.1 10^3/uL Prothrombin Time 13.9 12.2-14.7 SEC INR Comment 1.1 0.8-1.4 Activated Partial Thromboplast Time 29 24-35 SEC Sodium Level 138 135-145 MMOL/L Potassium Level 3.6 3.6-5.0 MMOL/L Chloride Level 100 98-107 MMOL/L Carbon Dioxide Level 25 21-32 MMOL/L Anion Gap 13 5-14 MMOL/L Blood Urea Nitrogen 24 H 7-18 MG/DL Creatinine 1.21 0.60-1.30 MG/DL Estimat Glomerular Filtration Rate 58 BUN/Creatinine Ratio 20 Glucose Level 141 H 70-105 MG/DL Calcium Level 9.7 8.5-10.1 MG/DL Magnesium Level 1.4 L 1.8-2.4 MG/DL Total Bilirubin 0.4 0.1-1.0 MG/DL Aspartate Amino Transf (AST/SGOT) 16 5-34 U/L Alanine Aminotransferase (ALT/SGPT) 13 0-55 U/L Alkaline Phosphatase 92 40-136 U/L Myoglobin 88.0 10.0-92.0 NG/ML Troponin I < 0.30 <0.30 NG/ML Total Protein 6.6 6.4-8.2 GM/DL Albumin 3.8 3.2-4.5 GM/DL Urine Color YELLOW Urine Clarity CLEAR Urine pH 7 5-9 Urine Specific [place] 1.005 L 1.016-1.022 Urine Protein 3+ H NEGATIVE Urine Glucose (UA) NEGATIVE NEGATIVE Urine Ketones NEGATIVE NEGATIVE Urine Nitrite NEGATIVE NEGATIVE Urine Bilirubin NEGATIVE NEGATIVE Urine Urobilinogen NORMAL NORMAL MG/DL Urine Leukocyte Esterase NEGATIVE NEGATIVE Urine RBC (Auto) 1+ H NEGATIVE Urine RBC 0-2 /HPF Urine WBC NONE /HPF Urine Crystals NONE /LPF Urine Bacteria NONE /HPF Urine Casts NONE /LPF Urine Mucus NEGATIVE /LPF Urine Culture Indicated NO My Orders Orders - GIORGIFRANCK Cbc With Automated Diff (06/25/17 16:25) Magnesium (06/25/17 16:25) Chest 1 View, Ap/Pa Only (06/25/17 16:25) Cardiac Profile 1 (06/25/17 16:25) Comprehensive Metabolic Panel (06/25/17 16:25) Myoglobin Serum (06/25/17 16:25) Protime With Inr (06/25/17 16:25) Partial Thromboplastin Time (06/25/17 16:25) Monitor-Rhythm Ecg Trace Only (06/25/17 16:25) Lipid Panel (06/26/17 06:00) Aspirin Chewable Tablet (Baby Aspirin Ch (06/25/17 16:30) Morphine Injection (Morphine Injection (06/25/17 16:25) Saline Lock/Iv-Start (06/25/17 16:25) Ua Culture If Indicated (06/25/17 17:15) Magnesium Oxide Tablet (Mag Ox Tablet) (06/25/17 17:30) Medications Given in ED Current Medications Medications Dose Ordered Sig/Kuldeep Route Start Time Stop Time Status Last Admin Dose Admin Aspirin 324 mg ONCE ONCE PO 06/25/17 16:30 06/25/17 16:31 DC 06/25/17 16:47 324 MG Vital Signs/I&O Vital Sign - Last 12Hours 06/25/17 06/25/17 16:52 16:52 Temp 98.0 Pulse 96 Resp 18 B/P (MAP) 142/99 Pulse Ox 93 O2 Delivery Room Air Room Air Progress Note : Time: 16:15 Progress Note Initial evaluation for right sided chest wall pain completed. Cardiac pain workup started. Patient unable to provide a medication list. He states that he has been taking his medications, a caregiver that is in the home for his son assists with his nightly insulin injection. 1640 spoke to [facility] the patient has not filled his medications since 04-19-17. They were ready for him on 05-19-17 and he was notified but they were never obtained by the patient. The patient declines that he has obtained his prescriptions elsewhere. He reports he is taking some pills but he is unsure what they are. 1700 reviewed previous emergency department notes from chest pain visit 04/05 and 04/27/17. Both were found to be noncardiac in nature. 1730 all labs essentially normal with hypo-magnesium treated with magnesium oxide 400 mg by mouth. Lung discussion with the patient and his friend regarding the importance of being compliant with daily medications. Discussed the fact that it is difficult for him to get to [place] to see Dr. العراقي on a regular basis and he should consider establishing with a primary care provider closer to his home. List of local medical staff provided to the patient. His friend will assure that the patient or his family make contact with [facility] pharmacy tomorrow to obtain his medications. QUESTIONS answered and discharge instructions reviewed with the patient and his friend. ECG Initial ECG Impression Date: Jun 25, 2017 Initial ECG Impression Time: 16:20 Initial ECG Rate: 92 Initial ECG Rhythm: Normal Sinus Initial ECG Intervals: Normal Initial ECG Intervals [place] 148, QRS D 86, QT 360, QTc 446. [place] P 49, QRS 2, PT 76. Initial ECG Impression: Normal Initial ECG Comparisson: No Previous ECG Available Comment Reviewed with Dr. Meneses concurred with interpretation. Diagnostic Imaging Diagonstic Imaging: Xray Plain Films/CT/US/NM/MRI: chest Comments NAME: AMADOU LEARY MED REC#: [id number] PT STATUS: REG ER : 1940 PHYSICIAN: FRANCK RAND ADMIT DATE: 06/25/17/ER Draft Date of Exam:06/25/17 CHEST 1 VIEW, AP/PA ONLY EXAM: Postoperative radiograph of the chest. INDICATION: Abnormal blood sugar and blood pressure. FINDINGS: The lungs demonstrate prominent interstitial markings similar to 04/28/2017, likely chronic. This is similar to 09/17/2016. There is no significant airspace consolidation otherwise. The heart size is the normal. No effusion or pneumothorax. The mediastinum and karen appear unremarkable. IMPRESSION: Chronic-appearing interstitial thickening with no significant airspace opacity seen. Dictated on workstation # [id number] Dict: 06/25/17 1705 Trans: 06/25/17 1730 [facility] [id number] Interpreted by: ALEX JEONG MD Electronically signed by: Departure Impression Impression: Primary Impression: Right-sided chest wall pain Additional Impressions: Tobacco abuse Noncompliance with medication regimen Disposition: HOME, SELF-CARE Condition: Improved Departure-Patient Inst. Decision time for Depature: 17:30 Referrals: ESTRELLITA العراقي MD (PCP/Family) Primary Care Physician Patient Instructions: Chest Pain That Is Not Caused by the Heart (DC), Smoking : Not Just Harmful to Your Lungs and Heart Add. Discharge Instructions: Call [facility] tomorrow to get Prescriptions [phone] Schedule appointment for this week with Dr. العراقي, if unable to get in with him or he would like to establish care with a local physician refer to list of local medical providers. Follow up with Dr. Jaramillo Ibuprofen 600 mg every 8 hours as needed for pain Continue all home medications, do not skip doses or forget to have prescriptions refilled. Return to emergency department for chest pain, difficulty breathing, or new problems. All discharge instructions reviewed with patient and/or family. Voiced understanding. Work/School Note: Local Medical Staff Listing Copy Copies To 1: ESTRELLITA العراقي MD Copies To 2: ANNELISE JARAMILLO MD FACP [facility] FRANCK RAND Jun 25, 2017 16:51
[2017-06-25 17:01] LABS: INR 1.1 (0.8-1.4); PROTHROMBIN TIME PATIENT 13.9 SEC (12.2-14.7)
[2017-06-25 17:15] LABS: ALANINE AMINOTRANSFERASE 13 U/L (0-55); ALBUMIN 3.8 GM/DL (3.2-4.5); ANION GAP 13 MMOL/L (5-14); ASPARTATE AMINO TRANSFERASE 16 U/L (5-34); BILIRUBIN,TOTAL 0.4 MG/DL (0.1-1.0); BLOOD UREA NITROGEN 24 MG/DL (7-18); BUN/CREATININE RATIO 20; CALCIUM 9.7 MG/DL (8.5-10.1); CARBON DIOXIDE 25 MMOL/L (21-32); CHLORIDE 100 MMOL/L (98-107); CREATININE SERUM 1.21 MG/DL (0.60-1.30); GFR ESTIMATED 58; GLUCOSE 141 MG/DL (70-105); MAGNESIUM 1.4 MG/DL (1.8-2.4); POTASSIUM 3.6 MMOL/L (3.6-5.0); SODIUM 138 MMOL/L (135-145); TOTAL PROTEIN 6.6 GM/DL (6.4-8.2)
[2017-06-25 17:30] LABS: BILIRUBIN,URINE NEGATIVE (NEGATIVE); KETONES,URINE NEGATIVE (NEGATIVE); LEUKOCYTE ESTERASE ,URINE NEGATIVE (NEGATIVE); NITRITE,URINE NEGATIVE (NEGATIVE); PH,URINE 7 (5-9); PROTEIN,URINE 3+ (NEGATIVE); UROBILINOGEN,URINE NORMAL (NORMAL)
[2017-06-25] MEDS ORDERED: MAGNESIUM OXIDE (MAG-OX)400 MG TAB PO ONE (17:30)
--- NOTE | 2017-06-25 17:31 | Diagnostic Imaging Report ---
EXAM: Postoperative radiograph of the chest. INDICATION: Abnormal blood sugar and blood pressure. FINDINGS: The lungs demonstrate prominent interstitial markings similar to 04/28/2017, likely chronic. This is similar to 09/17/2016. There is no significant airspace consolidation otherwise. The heart size is the normal. No effusion or pneumothorax. The mediastinum and karen appear unremarkable. IMPRESSION: Chronic-appearing interstitial thickening with no significant airspace opacity seen. Dictated by: Dictated on workstation # [id number]
[2017-06-25 18:15] VITALS: BP 178/85
== END 2017-06-25 18:15 | disposition home or self-care (01) ==
LOC: EDUNIT# 16:15 → ER 16:16
DX: R07.89 Other chest pain (principal); J44.9 Chronic obstructive pulmonary disease, unspecified; I25.10 Atherosclerotic heart disease of native coronary artery without angina pectoris; E78.00 Pure hypercholesterolemia, unspecified; I10 Essential (primary) hypertension; E11.51 Type 2 diabetes mellitus with diabetic peripheral angiopathy without gangrene; I73.9 Peripheral vascular disease, unspecified; F03.90 Unspecified dementia, unspecified severity, without behavioral disturbance, psychotic disturbance, mood disturbance, and anxiety; N40.0 Benign prostatic hyperplasia without lower urinary tract symptoms; K21.9 Gastro-esophageal reflux disease without esophagitis; E11.40 Type 2 diabetes mellitus with diabetic neuropathy, unspecified; F17.210 Nicotine dependence, cigarettes, uncomplicated; Z87.19 Personal history of other diseases of the digestive system; Z86.14 Personal history of Methicillin resistant Staphylococcus aureus infection; Z82.49 Family history of ischemic heart disease and other diseases of the circulatory system; Z79.82 Long term (current) use of aspirin; Z79.4 Long term (current) use of insulin; Z77.22 Contact with and (suspected) exposure to environmental tobacco smoke (acute) (chronic); Z95.5 Presence of coronary angioplasty implant and graft; Z91.14 Patient's other noncompliance with medication regimen
CPT/HCPCS: 36415; 71010; 80053; 81000; 83735; 83874; 84484; 85025; 85610; 85730; 93005; 93041; 96374

== ENCOUNTER 2017-07-31 06:25 | Emergency (ER) | payer MEDICARE, MEDICAID ==
[~2017-07-31] VITALS: Ht 165.1 cm; Wt 72.6 kg
--- NOTE | 2017-07-31 06:49 | ED Headache ---
General Chief Complaint: General Problems/Pain Stated Complaint: HEAD PAIN,SOB Nursing Triage Note: PT ARRIVED TO ROOM BY [facility]. PT COMPLAINS OF LEFT NECK PAIN RADIATING TO HIS UPPER HEAD SINCE 0300 TODAY. Nursing Sepsis Screen: No Definite Risk Source: patient, EMS Exam Limitations: no limitations History of Present Illness Time seen by provider: 06:40 Initial Comments Patient presents to ER by EMS with a chief complaint of a headache that started at 3:00 this morning. It has been constant, painful, left side of his head parietal and the top of his head. He took Tylenol approximately one to 2 hours ago and now he says the headache at this time is just about resolved. He says the Tylenol did not help however. He denies any weakness, chills, seizures, history of stroke or seizures, numbness, tingling, incontinence, changes in vision, changes in hearing, photophobia, history of migraines, ear pain, dental pain, sore throat, nausea, diarrhea, rash, fevers. He says he did feel a little shaky when the headache first came on but did not check his blood sugar despite being on insulin because he states he does not have a glucometer. EMS reports that sugar was 201 in route. Patient says he did not get anything to eat this morning. Patient does not remark that he's had a headache like this before. Patient denies coronary history. Allergies and Home Medications Allergies Coded Allergies: NKANo Known Allergies (Unverified Allergy, Mild, 06/21/09) Home Medications Allopurinol 100 Mg Tablet, 200 MG PO DAILY, (Reported) TAKES 2 (100 MG) TABLETS / LAST FILLED 08/03/16 #60 Alprazolam 0.25 Mg Tablet, 0.25 MG PO DAILY@1900, (Reported) Amlodipine Besylate 5 Mg Tablet, 5 MG PO DAILY, (Reported) Aspirin 81 Mg Tablet.dr, 81 MG PO DAILY, (Reported) Atorvastatin Calcium 40 Mg Tablet, 40 MG PO HS, (Reported) Baclofen 10 Mg Tablet, 10 MG PO TID, (Reported) Clopidogrel Bisulfate 75 Mg Tablet, 75 MG PO DAILY, (Reported) Dicyclomine HCl 10 Mg Capsule, 10 MG PO QID, (Reported) LAST FILLED 08/03/16 #120 Furosemide 40 Mg Tablet, 40 MG PO UD for 30 Days, Ref 2 40MG LASIX EVERY OTHER DAY. Prescribed by: DEANA DIAZ on 09/17/161512 Insulin Glargine,Hum.rec.anlog 300 Unit/1 Ml Insuln.pen, 65 UNITS SQ BID, ( Reported) Ipratropium/Albuterol Sulfate 3 Ml Ampul.neb, 3 ML IH Q6H PRN for SHORTNESS OF BREATH, #30 Ref 2 Prescribed by: CHELSI BARRERA on 04/05/17313 Methylprednisolone 4 Mg Tab.ds.pk, 4 MG PO UD, #1 Ref 0 Prescribed by: CHELSI BARRERA on 04/05/17313 Mv,Minerals/FA/Lycopene/Ginkgo 1 Each Tablet, 1 TAB PO DAILY, (Reported) Nitroglycerin 0.3 Mg Tab.subl, 0.3 MG SL PRN, #30 Prescribed by: DEANA DIAZ on 09/17/161512 Pantoprazole Sodium 40 Mg Tablet.dr, 40 MG PO DAILY, (Reported) Phenylephrine HCl 10 Mg Tablet, 10 MG PO Q4H PRN for CONGESTION, (Reported) Potassium Chloride 10 Meq Tablet.er, 10 MEQ PO UD for 30 Days, Ref 2 10 MEQ POTASSIUM EVERY OTHER DAY. 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.), Denies Blurred Vision Ears, Nose, Mouth, Throat: denies ear pain, denies ear discharge, denies nose pain, denies nose discharge (positive for nasal congestion), denies epistaxis Respiratory: No cough, No short of breath, No wheezing Cardiovascular: No chest pain, No edema, No Hx of Intervention, No palpitations , No syncope, No vascular heart diseas Gastrointestinal: No abdominal pain, No diarrhea, No nausea Genitourinary: No discharge, No dysuria Musculoskeletal: No back pain, No joint pain Skin: No pruritus, No rash Psychiatric/Neurological: See HPI, Headache, Denies Numbness, Denies Paresthesia, Denies Pre-Existing Deficit, Denies Seizure, Denies Tingling, Denies Tremors, Denies Weakness Past Jgwubtt-Nzrvrw-Qrbscv Hx Patient Social History Alcohol Use: Denies Use Recreational Drug Use: No Smoking Status: Current Everyday Smoker Type Used: Cigarettes 2nd Hand Smoke Exposure: Yes Recent Foreign Travel: No Contact w/Someone Who Travel: No Recent Infectious Disease Expo: No Recent Hopitalizations: No Physical Abuse: No Sexual Abuse: No Immunizations Up To Date Tetanus Booster (TDap): Less than 5yrs Date of Pneumonia Vaccine: Nov 18, 2009 Date of Influenza Vaccine: Sep 28, 2015 Seasonal Allergies Seasonal Allergies: No Surgeries History of Surgeries: Yes (CARDIAC CATH, HIATAL HERNIA, TURP, ) Surgeries: Abdominal, Cardiac, Coronary Stent, Transurethral Resection, Vascular Surgery Respiratory History of Respiratory Disorde: Yes (COPD) Respiratory Disorders: COPD Cardiovascular History of Cardiac Disorders: Yes (left femoral aneurysm) Cardiac Disorders: Aneurysm, Chronic Edema/Swelling, Coronary Artery Disease, High Cholesterol, Hypertension, Peripheral Vascular Neurological History of Neurological Disord: Yes (PERIPHERAL NEUROPATHY) Neurological Disorders: Dementia Reproductive System Hx Reproductive Disorders: No Sexually Transmitted Disease: No Genitourinary History of Genitourinary Disor: Yes Genitourinary Disorders: Benign Prostatic Hyperpl, Prostate Problems Gastrointestinal History of Gastrointestinal Di: Yes (GERD) Gastrointestinal Disorders: Gastroesophageal Reflux, Hiatal Hernia Musculoskeletal History of Musculoskeletal Dis: Yes Musculoskeletal Disorders: Arthritis Endocrine History of Endocrine Disorders: Yes Endocrine Disorders: Diabetes, Insulin dep HEENT History of HEENT Disorders: Yes HEENT Disorders: Cataract Loss of Vision: Right Hearing Impairment: Hard of Hearing Cancer History of Cancer: No Psychosocial History of Psychiatric Problem: No Suicide Risk Score: 0 Integumentary History of Skin or Integumenta: Yes (MRSA) Blood Transfusions History of Blood Disorders: No Family Medical History Significant Family History: No Pertinent Family Hx Family Medial History: Cancer 19 FATHER 19 MOTHER Family history: Cardiovascular disease Family history: Diabetes mellitus G8 SISTER 19 MOTHER Family history: Hypertension G8 BROTHER Physical Exam Vital Signs Vital Sign - Last 12Hours 07/31/17 06:25 Temp 98.1 Pulse 79 Resp 20 B/P (MAP) 186/81 Pulse Ox 97 O2 Delivery Room Air Capillary Refill : Less Than 3 Seconds General Appearance: WD/WN, no apparent distress HEENT: other (right eye is blind with cataracts and history of injury, left eye pupil reactive round and extraocular muscles are intact. Edontulous. Right TM with mild effusion and left TM with otosclerosis and significant mucoid effusion.) Neck: non-tender, full range of motion, supple, normal inspection Cardiovascular: normal peripheral pulses, regular rate, rhythm, no edema, no murmur Respiratory: chest non-tender, lungs clear, normal breath sounds, no respiratory distress, no accessory muscle use Gastrointestinal: normal bowel sounds, non tender, soft Psychiatric: alert, oriented x 3 [place] Nerves: normal hearing, normal speech Coordination/Gait: normal finger to nose, normal gait Motor/Sensory: no motor deficit, no sensory deficit, no pronator drift Skin: normal color, warm/dry Lymphatic: no adenopathy Progress/Results/Core Measures Results/Orders Vital Signs/I&O Vital Sign - Last 12Hours 07/31/17 06:25 Temp 98.1 Pulse 79 Resp 20 B/P (MAP) 186/81 Pulse Ox 97 O2 Delivery Room Air Blood Pressure Mean: 116 Progress Note : Time: 06:51 Progress Note Left-sided headache and there is a left sided otitis media effusion is very significant. No neurologic symptoms. His shaking could've been due to a low blood sugar but he does not have a glucometer. We will give him a prescription for a glucometer and Flonase and have him follow up in 1-2 weeks with his primary care physician. Departure Impression Impression: Primary Impression: Otitis media with effusion Qualified Codes: H65.92 - Unspecified nonsuppurative otitis media, left ear Disposition: 01 HOME, SELF-CARE Condition: Stable Departure-Patient Inst. Decision time for Depature: 06:52 Referrals: ESTRELLITA العراقي MD (PCP/Family) Primary Care Physician Patient Instructions: Serous Otitis Media (DC) Add. Discharge Instructions: You have an left-sided otitis media with mucoid effusion. You need to cloth picker a bottle of Flonase (fluticasone) and twice a day you should insert the nozzle in your nostril and put 1 puff each side of your nose for 2 weeks. He should start seeing some turnaround on your effusion and hopefully reduction of your headaches within 2-3 days. Today please call your primary care physician and make an appointment to follow up in 1-2 weeks for your otitis media as well as management of your diabetes. If you have the shakes again you should immediately checked her blood sugar with a glucometer. You been provided a prescription from the ER to cloth picker a glucometer at the pharmacy. All discharge instructions reviewed with patient and/or family. Voiced understanding. Copy Copies To 1: ESTRELLITA العراقي MD, TITUS J Jul 31, 2017 06:49
[2017-07-31 07:31] VITALS: BP 152/81
== END 2017-07-31 07:31 | disposition home or self-care (01) ==
LOC: EDUNIT# 06:25 → ER 06:27
DX: H60.92 Unspecified otitis externa, left ear (principal); K21.9 Gastro-esophageal reflux disease without esophagitis; E11.40 Type 2 diabetes mellitus with diabetic neuropathy, unspecified; Z87.2 Personal history of diseases of the skin and subcutaneous tissue; Z82.49 Family history of ischemic heart disease and other diseases of the circulatory system; Z80.9 Family history of malignant neoplasm, unspecified
CPT/HCPCS: 99283

== ENCOUNTER 2017-08-02 13:39 | Emergency (ER) | payer MEDICARE, MEDICAID ==
[~2017-08-02] VITALS: Ht 167.6 cm; Wt 79.4 kg
[~2017-08-02 13:39] MED LIST changes: -METO-270 PO; +METO-387 PO
--- NOTE | 2017-08-02 16:49 | ED EENT ---
History of Present Illness General Chief Complaint: Facial Problems Stated Complaint: L EYE SWELLING Nursing Triage Note: c/o facial swelling. Onset yesterday. Seen in ER 9-13 for OM with effusion. Source: patient, family Exam Limitations: no limitations History of Present Illness Time seen by provider: 15:30 Initial Comments 76-year-old male patient presents to the emergency Department with reports of left facial swelling and pain beginning yesterday. Was seen on 07/31/17 in the emergency department by Dr. Paul for left otitis media with effusion. Denies being given antibiotics. States he has been using the Flonase without improvement in symptoms. Timing/Duration: abrupt, yesterday Location: facial Prearrival Treatment: prescription meds (flonase) Presenting Symptoms/Injuries: left facial swelling and pain Modifying Factors: Worse With Other (no improvement with flonase) Allergies and Home Medications Allergies Coded Allergies: NKANo Known Allergies (Unverified Allergy, Mild, 06/21/09) Home Medications Allopurinol 100 Mg Tablet, 200 MG PO DAILY, (Reported) TAKES 2 (100 MG) TABLETS / LAST FILLED 08/03/16 #60 Alprazolam 0.25 Mg Tablet, 0.25 MG PO DAILY@1900, (Reported) Alprazolam 0.25 Mg Tablet, 0.25 MG PO HS, #20 Prescribed by: SYLVIA BONE on 08/19/171928 Amlodipine Besylate 5 Mg Tablet, 5 MG PO DAILY, (Reported) Aspirin 81 Mg Tablet.dr, 81 MG PO DAILY, (Reported) Atorvastatin Calcium 40 Mg Tablet, 40 MG PO HS, (Reported) Baclofen 10 Mg Tablet, 10 MG PO TID, (Reported) Clindamycin HCl 300 Mg Capsule, 300 MG PO Q6H, #21 Ref 0 Prescribed by: PAKO LARSEN on 08/02/17 190 Clopidogrel Bisulfate 75 Mg Tablet, 75 MG PO DAILY, (Reported) Dicyclomine HCl 10 Mg Capsule, 10 MG PO QID, (Reported) LAST FILLED 08/03/16 #120 Furosemide 40 Mg Tablet, 40 MG PO UD for 30 Days, Ref 2 40MG LASIX EVERY OTHER DAY. Prescribed by: DEANA DIAZ on 09/17/16 1513 Hydrocodone/Acetaminophen 1 Each Tablet, 1 EACH PO Q6H PRN for PAIN, #10 Ref 0 Prescribed by: PAKO LARSEN on 08/02/171908 Insulin Glargine,Hum.rec.anlog 300 Unit/1 Ml Insuln.pen, 65 UNITS SQ BID, ( Reported) Insulin Glargine,Hum.rec.anlog 300 Unit/1 Ml Insuln.pen, 65 UNIT SQ BID, #1 Ref 2 Prescribed by: SYLVIA BONE on 08/19/171928 Ipratropium/Albuterol Sulfate 3 Ml Ampul.neb, 3 ML IH Q6H PRN for SHORTNESS OF BREATH, #30 Ref 2 Prescribed by: CHELSI BARRERA on 04/05/17 0314 Levofloxacin 500 Mg Tablet, 500 MG PO DAILY, #7 Ref 0 Prescribed by: PAKO LARSEN on 08/02/171908 Methylprednisolone 4 Mg Tab.ds.pk, 4 MG PO UD, #1 Ref 0 Prescribed by: CHELSI BARRERA on 04/05/17313 Metoprolol Succinate 25 Mg Tab.er.24h, 25 MG PO DAILY, #20 Prescribed by: SYLVIA BONE on 08/19/171929 Mv,Minerals/FA/Lycopene/Ginkgo 1 Each Tablet, 1 TAB PO DAILY, (Reported) Nitroglycerin 0.3 Mg Tab.subl, 0.3 MG SL PRN, #30 Prescribed by: DEANA DIAZ on 09/17/161512 Pantoprazole Sodium 40 Mg Tablet.dr, 40 MG PO DAILY, (Reported) Phenylephrine HCl 10 Mg Tablet, 10 MG PO Q4H PRN for CONGESTION, (Reported) Potassium Chloride 10 Meq Tablet.er, 10 MEQ PO UD for 30 Days, Ref 2 10 MEQ POTASSIUM EVERY OTHER DAY. Prescribed by: DEANA DIAZ on 09/17/16 1513 Pravastatin Sodium 40 Mg Tablet, 1 TAB PO UD, #30 (Reported) Theophylline Anhydrous 300 Mg Tab.er.12h, 300 MG PO Q12H, (Reported) Review of Systems Constitutional: No chills, No dizziness, No fever, No malaise Eyes: See HPI, Denies Foreign Body Sensation, Denies Inflammation, Denies Photophobia, Denies Vision Changes, Other (swelling around the left eye) Ears: See HPI Nose: denies congestion, denies pain, denies bloody discharge, denies clear discharge, denies purulent discharge, denies serosanguinous discharge Mouth: no symptoms reported Throat: denies pain, denies swelling, denies painful swallowing, denies difficulty with fluids Respiratory: No cough, No short of breath, No stridor, No wheezing Cardiovascular: no symptoms reported Gastrointestinal: No abdominal pain, No diarrhea, No nausea, No vomiting Musculoskeletal: no symptoms reported Skin: see HPI Neurological: No Symptoms Reported All Other Systems Reviewed Negative Unless Noted: Yes (Negative excepted noted.) Past Wnpiuod-Khtcry-Hcvubt Hx Patient Social History Alcohol Use: Denies Use Recreational Drug Use: No Smoking Status: Current Everyday Smoker Type Used: Cigarettes 2nd Hand Smoke Exposure: Yes Recent Foreign Travel: No Contact w/Someone Who Travel: No Recent Infectious Disease Expo: No Recent Hopitalizations: No Immunizations Up To Date Tetanus Booster (TDap): Less than 5yrs Date of Pneumonia Vaccine: Nov 18, 2009 Date of Influenza Vaccine: Sep 28, 2015 Seasonal Allergies Seasonal Allergies: No Surgeries History of Surgeries: Yes (CARDIAC CATH, HIATAL HERNIA, TURP, ) Surgeries: Abdominal, Cardiac, Coronary Stent, Transurethral Resection, Vascular Surgery Respiratory History of Respiratory Disorde: Yes (COPD) Respiratory Disorders: COPD Cardiovascular History of Cardiac Disorders: Yes (left femoral aneurysm) Cardiac Disorders: Aneurysm, Chronic Edema/Swelling, Coronary Artery Disease, High Cholesterol, Hypertension, Peripheral Vascular Neurological History of Neurological Disord: Yes (PERIPHERAL NEUROPATHY) Neurological Disorders: Dementia Reproductive System Hx Reproductive Disorders: No Sexually Transmitted Disease: No Genitourinary History of Genitourinary Disor: Yes Genitourinary Disorders: Benign Prostatic Hyperpl, Prostate Problems Gastrointestinal History of Gastrointestinal Di: Yes (GERD) Gastrointestinal Disorders: Gastroesophageal Reflux, Hiatal Hernia Musculoskeletal History of Musculoskeletal Dis: Yes Musculoskeletal Disorders: Arthritis Endocrine History of Endocrine Disorders: Yes Endocrine Disorders: Diabetes, Insulin dep HEENT History of HEENT Disorders: Yes HEENT Disorders: Cataract Loss of Vision: Right Hearing Impairment: Hard of Hearing Cancer History of Cancer: No Psychosocial History of Psychiatric Problem: No Integumentary History of Skin or Integumenta: Yes (MRSA) Blood Transfusions History of Blood Disorders: No Reviewed Nursing Assessment Reviewed/Agree w Nursing PMH: Yes Family Medical History Significant Family History: No Pertinent Family Hx Family Medial History: Cancer 19 FATHER 19 MOTHER Family history: Cardiovascular disease Family history: Diabetes mellitus G8 SISTER 19 MOTHER Family history: Hypertension G8 BROTHER Physical Exam Vital Signs General Appearance: WD/WN, no apparent distress, other (dirty, malodorous, disheveled.) Eyes: left eye PERRL, left eye EOMI, bilateral eye other (rt eye shows cataracts and blindness (patient reports a h/o rt eye injury). left periorbital swelling noted without erythema.) Ears: bilateral ear auricle normal, bilateral ear canal normal, bilateral ear other (bilateral TM's show effusions with L>R. No erythema noted.) Nose: sinus tenderness (left maxillary tenderness. nasal mucosal swelling noted. ) Mouth/Throat: pharynx normal, mandibular swelling (left mandibular swelling noted with mild erythema), maxillary swelling (left maxillary swelling with erythema), other (Edentulous.) Neck: non-tender, full range of motion, supple, lymphadenopathy (R), lymphadenopathy (L) Cardiovascular: regular rate, rhythm, no murmur Respiratory: lungs clear, normal breath sounds, no respiratory distress, no accessory muscle use Gastrointestinal: normal bowel sounds, non tender, soft, no organomegaly Neurologic/Psychiatric: alert, normal mood/affect, oriented x 3 Skin: normal color, warm/dry, other (left facial erythema and swelling noted. no open wounds. ) Progress/Results/Core Measures Results/Orders Lab Results My Orders Medications Given in ED Vital Signs/I&O Blood Pressure Mean: 116 Diagnostic Imaging Diagonstic Imaging: CT Plain Films/CT/US/NM/MRI: facial bones, head Comments FINDINGS: Head CT: No acute intracranial hemorrhage, mass effect or edema is seen. There is mild diffuse atrophy. The ventricles appear normal. There are patchy areas of hypodensity in the periventricular white matter which are nonspecific but likely related to chronic microvascular ischemic change. No acute focal lesion is suspected. No basilar skull fracture is suspected. Maxillofacial CT: No acute osseous abnormality is seen. There is mild tortuosity of the nasal septum. There is mild mucosal thickening in the maxillary sinuses, bilaterally. There is some soft tissue swelling about the left orbit; however, there is no evidence of septal or postseptal involvement. Globes appear intact and symmetric, bilaterally, with bilateral scleral calcification. IMPRESSION: 1. No evidence of an acute intracranial abnormality. Chronic senescent changes. 2. There is some soft tissue swelling about the left orbit without evidence of postseptal cellulitis or osseous abnormality. 3. Incidental maxillary sinusitis. Dictated by: Dictated on workstation # [id number] Reviewed: Reviewed by Me (radiology report reviewed by me) Departure Communication (Admissions) Progress Notes Patient case discussed with dr. limon including history, VS, laboratory findings, diagnostic study findings, and exam findings. Dr. Limon recommends dsch to home with oral levaquin and cleocin. also recommends f/u with Dr. العراقي tomorrow for recheck. All laboratory findings, diagnostic study findings, and recommendations by Dr. Limon were discussed with the patient and family. All verbalize understanding and agree with the treatment plan. Patient case discussed with Dr. Meneses, he agrees with the plan of care. Impression Impression: Primary Impression: Cellulitis of face Additional Impression: Sinusitis, acute maxillary Qualified Codes: J01.00 - Acute maxillary sinusitis, unspecified Disposition: HOME, SELF-CARE Condition: Improved Departure-Patient Inst. Decision time for Depature: 19:06 Referrals: ESTRELLITA العراقي MD (PCP/Family) Primary Care Physician Patient Instructions: Cellulitis (Skin Infection), Adult (DC), Sinusitis, Adult (DC) Add. Discharge Instructions: All discharge instructions reviewed with patient and/or family. Voiced understanding. Medications as instructed. Continue usual home medications. Monitor blood sugars closely. Drink plenty of fluids. Follow-up with Dr. العراقي as an outpatient on Saturday for recheck, call first thing Saturday morning for appointment time. Return to the emergency department for worsened pain, swelling, redness, fever, drainage, or any other concerns. Scripts Hydrocodone/Acetaminophen (Hydrocodon -Acetaminophen 5-325) 1 Each Tablet 1 EACH PO Q6H Y for PAIN, #10 TAB 0 Refills Prov: PAKO LARSEN 08/02/17 Clindamycin HCl (Clindamycin HCl) 300 Mg Capsule 300 MG PO Q6H, #21 CAP 0 Refills Prov: PAKO LARSEN 08/02/17 Levofloxacin (Levofloxacin) 500 Mg Tablet 500 MG PO DAILY, #7 TAB 0 Refills Prov: PAKO LARSEN 08/02/17 PAKO LARSEN Aug 02, 2017 16:49
[2017-08-02 16:51] LABS: BASOPHILS % (AUTO) 0 % (0-10); EOSINOPHILS # (AUTO) 0.1 10^3/uL (0.0-0.3); EOSINOPHILS % (AUTO) 1 % (0-10); LYMPHOCYTES # (AUTO) 0.8 X 10^3 (1.0-4.0); LYMPHOCYTES % (AUTO) 6 % (12-44); MEAN CORPUSCULAR HEMOGLOBIN 32 PG (25-34); MEAN CORPUSCULAR HGB CONC 34 G/DL (32-36); MEAN CORPUSCULAR VOLUME 94 FL (80-99); MEAN PLATELET VOLUME 11.8 FL (7.4-10.4); MONOCYTES % (AUTO) 8 % (0-12); NEUTROPHILS # (AUTO) 10.7 X 10^3 (1.8-7.8); NEUTROPHILS % (AUTO) 85 % (42-75); PLATELET COUNT 111 10^3/uL (130-400); RED CELL DISTRIBUTION WIDTH 14.8 % (10.0-14.5); WHITE BLOOD COUNT 12.6 10^3/uL (4.3-11.0)
[2017-08-02] MEDS ORDERED: cefTRIAXone 1 GM (ROCEPHIN) VIAL IV STA (17:09)
[2017-08-02] MEDS ORDERED: NS IV 1000 ML 2,500 ML IV PRN (17:15)
[2017-08-02 17:17] LABS: ALBUMIN 3.3 GM/DL (3.2-4.5); BILIRUBIN,TOTAL 0.4 MG/DL (0.1-1.0); CALCIUM 9.2 MG/DL (8.5-10.1); CREATININE SERUM 1.45 MG/DL (0.60-1.30); POTASSIUM 3.8 MMOL/L (3.6-5.0); TOTAL PROTEIN 6.3 GM/DL (6.4-8.2); hs C REACTIVE PROTEIN 20.12 MG/DL (0.00-0.50)
[2017-08-02 17:53] LABS: BAND NEUTROPHILS 7 %; BASOPHILS % (MANUAL) 0 %; EOSINOPHILS % (MANUAL) 0 %; LYMPHOCYTES % (MANUAL) 9 %; NEUTROPHILS % (MANUAL) 78 %
[2017-08-02 18:00] LABS: PROTHROMBIN TIME PATIENT 12.8 SEC (12.2-14.7)
--- NOTE | 2017-08-02 18:07 | Diagnostic Imaging Report ---
PROCEDURE: CT head and maxillofacial without contrast. TECHNIQUE: Multiple contiguous axial images were obtained through the head and facial bones without the use of intravenous contrast. INDICATION: Left eye swelling. COMPARISON: None. FINDINGS: Head CT: No acute intracranial hemorrhage, mass effect or edema is seen. There is mild diffuse atrophy. The ventricles appear normal. There are patchy areas of hypodensity in the periventricular white matter which are nonspecific but likely related to chronic microvascular ischemic change. No acute focal lesion is suspected. No basilar skull fracture is suspected. Maxillofacial CT: No acute osseous abnormality is seen. There is mild tortuosity of the nasal septum. There is mild mucosal thickening in the maxillary sinuses, bilaterally. There is some soft tissue swelling about the left orbit; however, there is no evidence of septal or postseptal involvement. Globes appear intact and symmetric, bilaterally, with bilateral scleral calcification. IMPRESSION: 1. No evidence of an acute intracranial abnormality. Chronic senescent changes. 2. There is some soft tissue swelling about the left orbit without evidence of postseptal cellulitis or osseous abnormality. 3. Incidental maxillary sinusitis. Dictated by: Dictated on workstation # [id number]
[2017-08-02] MEDS ORDERED: LEVO500T80 PO (19:09)
[2017-08-02] MEDS ORDERED: CLIN300C11 PO (19:09)
[2017-08-02] MEDS ORDERED: HYDR-3812 PO (19:09)
[2017-08-02 19:31] VITALS: BP 169/72
[2017-08-19] MEDS ORDERED: METO-387 PO (19:30)
== END 2017-08-02 19:29 | disposition home or self-care (01) ==
LOC: EDUNIT# 13:39 → ER 13:41
DX: L03.211 Cellulitis of face (principal); J01.90 Acute sinusitis, unspecified; J44.9 Chronic obstructive pulmonary disease, unspecified; I25.10 Atherosclerotic heart disease of native coronary artery without angina pectoris; E78.00 Pure hypercholesterolemia, unspecified; I10 Essential (primary) hypertension; E11.51 Type 2 diabetes mellitus with diabetic peripheral angiopathy without gangrene; I73.9 Peripheral vascular disease, unspecified; F03.90 Unspecified dementia, unspecified severity, without behavioral disturbance, psychotic disturbance, mood disturbance, and anxiety; E11.40 Type 2 diabetes mellitus with diabetic neuropathy, unspecified; N40.0 Benign prostatic hyperplasia without lower urinary tract symptoms; K21.9 Gastro-esophageal reflux disease without esophagitis; M19.90 Unspecified osteoarthritis, unspecified site; F17.210 Nicotine dependence, cigarettes, uncomplicated; Z95.5 Presence of coronary angioplasty implant and graft; Z82.49 Family history of ischemic heart disease and other diseases of the circulatory system; Z86.19 Personal history of other infectious and parasitic diseases; Z87.19 Personal history of other diseases of the digestive system; Z79.82 Long term (current) use of aspirin; Z79.4 Long term (current) use of insulin
CPT/HCPCS: 36415; 70450; 70486; 80053; 83605; 85007; 85025; 85027; 85610; 85730; 86141; 87040; 96361; 96365

== ENCOUNTER 2017-08-19 19:06 | Emergency (ER) | payer MEDICARE, MEDICAID ==
[~2017-08-19] VITALS: Ht 167.6 cm; Wt 79.4 kg
[~2017-08-19 19:06] MED LIST changes: +CLIN300C11 PO; +HYDR-3812 PO; +LEVO500T80 PO; +METO-270 PO; -METO-387 PO
[2017-08-19] MEDS ORDERED: ALPR0.254 PO (19:29)
[2017-08-19] MEDS ORDERED: INSU300I SQ (19:29)
--- NOTE | 2017-08-19 19:29 | ED General ---
General Chief Complaint: Glucose Problems Stated Complaint: ELEV BLOOD SUGAR Source of Information: Patient Exam Limitations: No Limitations History of Present Illness Time Seen by Provider: 19:24 Initial Comments To ER with reports of needing medication refills. The patient states that his primary care provider is Dr. العراقي out of [facility] but that they have been unable to contact Dr. العراقي lately to get in touch to request refills. He takes Xanax 0.25 mg at bedtime, tujeo 65 units twice a day and something but unknown what for blood pressure. He feels fine and has no complaints. He is worried that his blood sugar will go up high because it has been in the 800 range before. Timing/Duration: 1-2 Days Severity: Moderate Associated Systoms: No Chest Pain, No Cough, No Diaphoresis, No Fever/Chills, No Headaches, No Nausea/Vomiting, No Seizure, No Syncope, No Weakness Allergies and Home Medications Allergies Coded Allergies: NKANo Known Allergies (Unverified Allergy, Mild, 06/21/09) Home Medications Allopurinol 100 Mg Tablet, 200 MG PO DAILY, (Reported) TAKES 2 (100 MG) TABLETS / LAST FILLED 08/03/16 #60 Alprazolam 0.25 Mg Tablet, 0.25 MG PO DAILY@1900, (Reported) Amlodipine Besylate 5 Mg Tablet, 5 MG PO DAILY, (Reported) Aspirin 81 Mg Tablet.dr, 81 MG PO DAILY, (Reported) Atorvastatin Calcium 40 Mg Tablet, 40 MG PO HS, (Reported) Baclofen 10 Mg Tablet, 10 MG PO TID, (Reported) Clindamycin HCl 300 Mg Capsule, 300 MG PO Q6H, #21 Ref 0 Prescribed by: PAKO LARSEN on 08/02/171908 Clopidogrel Bisulfate 75 Mg Tablet, 75 MG PO DAILY, (Reported) Dicyclomine HCl 10 Mg Capsule, 10 MG PO QID, (Reported) LAST FILLED 08/03/16 #120 Furosemide 40 Mg Tablet, 40 MG PO UD for 30 Days, Ref 2 40MG LASIX EVERY OTHER DAY. Prescribed by: DEANA DIAZ on 09/17/16 1513 Hydrocodone/Acetaminophen 1 Each Tablet, 1 EACH PO Q6H PRN for PAIN, #10 Ref 0 Prescribed by: PAKO LARSEN on 08/02/171908 Insulin Glargine,Hum.rec.anlog 300 Unit/1 Ml Insuln.pen, 65 UNITS SQ BID, ( Reported) Ipratropium/Albuterol Sulfate 3 Ml Ampul.neb, 3 ML IH Q6H PRN for SHORTNESS OF BREATH, #30 Ref 2 Prescribed by: CHELSI BARRERA on 04/05/17 031 Levofloxacin 500 Mg Tablet, 500 MG PO DAILY, #7 Ref 0 Prescribed by: PAKO LARSEN on 08/02/17 190 Methylprednisolone 4 Mg Tab.ds.pk, 4 MG PO UD, #1 Ref 0 Prescribed by: CHELSI BARRERA on 04/05/17313 Mv,Minerals/FA/Lycopene/Ginkgo 1 Each Tablet, 1 TAB PO DAILY, (Reported) Nitroglycerin 0.3 Mg Tab.subl, 0.3 MG SL PRN, #30 Prescribed by: DEANA DIAZ on 09/17/16 1513 Pantoprazole Sodium 40 Mg Tablet.dr, 40 MG PO DAILY, (Reported) Phenylephrine HCl 10 Mg Tablet, 10 MG PO Q4H PRN for CONGESTION, (Reported) Potassium Chloride 10 Meq Tablet.er, 10 MEQ PO UD for 30 Days, Ref 2 10 MEQ POTASSIUM EVERY OTHER DAY. Prescribed by: DEANA DIAZ on 09/17/16 1513 Pravastatin Sodium 40 Mg Tablet, 1 TAB PO UD, #30 (Reported) Theophylline Anhydrous 300 Mg Tab.er.12h, 300 MG PO Q12H, (Reported) Constitutional: see HPI, No chills, No diaphoresis, No fever, No weakness EENTM: see HPI Respiratory: no symptoms reported Cardiovascular: no symptoms reported Genitourinary: no symptoms reported Musculoskeletal: no symptoms reported Skin: no symptoms reported Psychiatric/Neurological: No Symptoms Reported Hematologic/Lymphatic: No Symptoms Reported Immunological/Allergic: no symptoms reported Past Chlzosz-Qxemev-Hjyfek Hx Patient Social History Type Used: Cigarettes 2nd Hand Smoke Exposure: Yes Recent Foreign Travel: No Contact w/Someone Who Travel: No Recent Hopitalizations: No Immunizations Up To Date Tetanus Booster (TDap): Less than 5yrs Date of Pneumonia Vaccine: Nov 18, 2009 Date of Influenza Vaccine: Sep 28, 2015 Seasonal Allergies Seasonal Allergies: No Surgeries History of Surgeries: Yes (CARDIAC CATH, HIATAL HERNIA, TURP, ) Surgeries: Abdominal, Cardiac, Coronary Stent, Transurethral Resection, Vascular Surgery Respiratory History of Respiratory Disorde: Yes (COPD) Respiratory Disorders: COPD Cardiovascular History of Cardiac Disorders: Yes (left femoral aneurysm) Cardiac Disorders: Aneurysm, Chronic Edema/Swelling, Coronary Artery Disease, High Cholesterol, Hypertension, Peripheral Vascular Neurological History of Neurological Disord: Yes (PERIPHERAL NEUROPATHY) Neurological Disorders: Dementia Reproductive System Hx Reproductive Disorders: No Sexually Transmitted Disease: No Genitourinary History of Genitourinary Disor: Yes Genitourinary Disorders: Benign Prostatic Hyperpl, Prostate Problems Gastrointestinal History of Gastrointestinal Di: Yes (GERD) Gastrointestinal Disorders: Gastroesophageal Reflux, Hiatal Hernia Musculoskeletal History of Musculoskeletal Dis: Yes Musculoskeletal Disorders: Arthritis Endocrine History of Endocrine Disorders: Yes Endocrine Disorders: Diabetes, Insulin dep HEENT History of HEENT Disorders: Yes HEENT Disorders: Cataract Loss of Vision: Right Hearing Impairment: Hard of Hearing Cancer History of Cancer: No Psychosocial History of Psychiatric Problem: No Integumentary History of Skin or Integumenta: Yes (MRSA) Blood Transfusions History of Blood Disorders: No Family Medical History Significant Family History: No Pertinent Family Hx Family Medial History: Cancer 19 FATHER 19 MOTHER Family history: Cardiovascular disease Family history: Diabetes mellitus G8 SISTER 19 MOTHER Family history: Hypertension G8 BROTHER Physical Exam Vital Signs Capillary Refill : General Appearance: No Apparent Distress, WD/WN Eyes: Bilateral Eye Normal Inspection, Bilateral Eye PERRL, Bilateral Eye EOMI HEENT: PERRL/EOMI, TMs Normal Neck: Full Range of Motion, Normal Inspection Respiratory: No Accessory Muscle Use, No Respiratory Distress Cardiovascular: Regular Rate, Rhythm, Normal Peripheral Pulses Gastrointestinal: Non Tender, Soft Extremity: Normal Capillary Refill, Normal Inspection, Other (his right pointer and middle finger nails are stained yellowish-brown from cigarettes. The right cornea is noted to have a large cataract. No jugular vein distention or distress.) Neurologic/Psychiatric: Alert, Oriented x3, No Motor/Sensory Deficits Skin: Normal Color, Warm/Dry Progress/Results/Core Measures Point of Care Testing Finger Stick Blood Glucose: 281 Blood Glucose Action Taken: RN AND NOTIFIED Departure Impression Impression: Primary Impression: Encounter for medication refill Disposition: HOME, SELF-CARE Condition: Stable Departure-Patient Inst. Decision time for Depature: 19:27 Referrals: ESTRELLITA العراقي MD (PCP/Family) Primary Care Physician Patient Instructions: NO INSTRUCTIONS GIVEN Add. Discharge Instructions: 1. Return to ER for any concerns 2. Follow-up with your doctor next week. If you are unable to contact him still you may start looking for a new physician. A list of local physicians has been provided. All discharge instructions reviewed with patient and/or family. Voiced understanding. Scripts Metoprolol Succinate (Metoprolol Succinate) 25 Mg Tab.er.24h 25 MG PO DAILY, #20 TAB Prov: SYLVIA BONE APRN 08/19/17 Alprazolam (Alprazolam) 0.25 Mg Tablet 0.25 MG PO HS, #20 TAB Prov: SYLVIA BONE APRN 08/19/17 Insulin Glargine,Hum.rec.anlog (Toukrys Solrosalina) 300 Unit/1 Ml Insuln.pen 65 UNIT SQ BID, #1 EA 2 Refills Prov: SYLVIA BONE APRN 08/19/17 SYLVIA BONE APRN Aug 19, 2017 19:29
[2017-08-19] MEDS ORDERED: METO-270 PO (19:30)
[2017-08-19 19:38] VITALS: BP 172/60
== END 2017-08-19 19:38 | disposition home or self-care (01) ==
LOC: EDUNIT# 19:06 → ER 19:07
DX: E11.40 Type 2 diabetes mellitus with diabetic neuropathy, unspecified (principal); K21.9 Gastro-esophageal reflux disease without esophagitis; I25.10 Atherosclerotic heart disease of native coronary artery without angina pectoris; E78.00 Pure hypercholesterolemia, unspecified; J44.9 Chronic obstructive pulmonary disease, unspecified; I10 Essential (primary) hypertension; Z87.438 Personal history of other diseases of male genital organs; Z95.5 Presence of coronary angioplasty implant and graft; Z90.79 Acquired absence of other genital organ(s); Z77.22 Contact with and (suspected) exposure to environmental tobacco smoke (acute) (chronic); Z79.4 Long term (current) use of insulin; Z79.82 Long term (current) use of aspirin
CPT/HCPCS: 82962; 99282

== ENCOUNTER 2017-08-29 01:26 | Emergency (ER) | payer MEDICARE, MEDICAID ==
[~2017-08-29] VITALS: Ht 165.1 cm; Wt 68.0 kg
[2017-08-29] MEDS ORDERED: DEXTROSE 50% 50 ML (IMS) SYR IV ONE (01:45)
[2017-08-29 01:50] LABS: BASOPHILS # (AUTO) 0.1 10^3/uL (0.0-0.1); BASOPHILS % (AUTO) 1 % (0-10); EOSINOPHILS # (AUTO) 0.2 10^3/uL (0.0-0.3); EOSINOPHILS % (AUTO) 3 % (0-10); LYMPHOCYTES # (AUTO) 1.7 X 10^3 (1.0-4.0); LYMPHOCYTES % (AUTO) 19 % (12-44); MEAN CORPUSCULAR HEMOGLOBIN 33 PG (25-34); MEAN CORPUSCULAR HGB CONC 35 G/DL (32-36); MEAN CORPUSCULAR VOLUME 95 FL (80-99); MEAN PLATELET VOLUME 11.2 FL (7.4-10.4); MONOCYTES % (AUTO) 11 % (0-12); NEUTROPHILS # (AUTO) 6.1 X 10^3 (1.8-7.8); NEUTROPHILS % (AUTO) 68 % (42-75); PLATELET COUNT 150 10^3/uL (130-400); RED BLOOD COUNT 4.19 10^6/uL (4.35-5.85); RED CELL DISTRIBUTION WIDTH 15.4 % (10.0-14.5); WHITE BLOOD COUNT 9.1 10^3/uL (4.3-11.0)
[2017-08-29 02:04] LABS: CALCIUM 9.8 MG/DL (8.5-10.1); CREATININE SERUM 1.33 MG/DL (0.60-1.30); POTASSIUM 3.7 MMOL/L (3.6-5.0)
--- NOTE | 2017-08-29 02:41 | ED General ---
General Chief Complaint: Glucose Problems Stated Complaint: HIGH BLOOD SUGAR Nursing Triage Note: PRESENTS TO ED WITH FAMILY, DGT REPORTS PT CAN NOT KEEP HIS BLOOD SUGAR UP. PT IS ALERT BUT APPEARS CONFUSED TO SITUATION/EVENTS. BLOOD SUGAR BEGAN TO GET TOO LOW ON NIGHT AND WENT TO [facility] SATURDAY WHERE ADVISED BY SOMEONE NOT DR العراقي (OUT OF OFFICE) TO ADJUST INSULIN FROM 65 TO 55. DGT STATES BLOOD SUGAR DOWN TO 40 AT HOME. Nursing Sepsis Screen: No Definite Risk Source of Information: Patient, Family, Old Records Exam Limitations: No Limitations History of Present Illness Time Seen by Provider: 01:33 Initial Comments This 77-year-old gentleman presents to the emergency room with hypoglycemia. He presents with his daughter who helps care for him. They apparently had a state worker who was recently dismissed from their service. They report his insulin dose was changed from 65 units twice a day to 55 units twice a day yesterday. Despite this change and continued consumption of 3 meals a day, his blood sugars have been low. He feels a little lightheaded and fatigued as a result. Fingerstick blood sugar on arrival was 42. It was noted the patient had been seen in mid July for cellulitis of the face and was on antibiotics at that time. This issue seems to be resolved which may have resulted in lower insulin requirements. Patient and family also report he has had some falls in recent days. He did strike the back of his head yesterday and has complained of some headache. He does take Plavix. He is slightly disoriented at present as he did not remember was his birthday. Allergies and Home Medications Allergies Coded Allergies: NKANo Known Allergies (Unverified Allergy, Mild, 06/21/09) Home Medications Allopurinol 100 Mg Tablet, 200 MG PO DAILY, (Reported) TAKES 2 (100 MG) TABLETS / LAST FILLED 08/03/16 #60 Alprazolam 0.25 Mg Tablet, 0.25 MG PO DAILY@1900, (Reported) Alprazolam 0.25 Mg Tablet, 0.25 MG PO HS, #20 Prescribed by: SYLVIA BONE on 08/19/171928 Amlodipine Besylate 5 Mg Tablet, 5 MG PO DAILY, (Reported) Aspirin 81 Mg Tablet.dr, 81 MG PO DAILY, (Reported) Atorvastatin Calcium 40 Mg Tablet, 40 MG PO HS, (Reported) Baclofen 10 Mg Tablet, 10 MG PO TID, (Reported) Clindamycin HCl 300 Mg Capsule, 300 MG PO Q6H, #21 Ref 0 Prescribed by: PAKO LARSEN on 08/02/171908 Clopidogrel Bisulfate 75 Mg Tablet, 75 MG PO DAILY, (Reported) Dicyclomine HCl 10 Mg Capsule, 10 MG PO QID, (Reported) LAST FILLED 08/03/16 #120 Furosemide 40 Mg Tablet, 40 MG PO UD for 30 Days, Ref 2 40MG LASIX EVERY OTHER DAY. Prescribed by: DEANA DIAZ on 09/17/161512 Hydrocodone/Acetaminophen 1 Each Tablet, 1 EACH PO Q6H PRN for PAIN, #10 Ref 0 Prescribed by: PAKO LARSEN on 08/02/171908 Insulin Glargine,Hum.rec.anlog 300 Unit/1 Ml Insuln.pen, 65 UNITS SQ BID, ( Reported) Insulin Glargine,Hum.rec.anlog 300 Unit/1 Ml Insuln.pen, 65 UNIT SQ BID, #1 Ref 2 Prescribed by: SYLVIA BONE on 08/19/171928 Ipratropium/Albuterol Sulfate 3 Ml Ampul.neb, 3 ML IH Q6H PRN for SHORTNESS OF BREATH, #30 Ref 2 Prescribed by: CHELSI BARRERA on 04/05/17313 Levofloxacin 500 Mg Tablet, 500 MG PO DAILY, #7 Ref 0 Prescribed by: PAKO LARSEN on 08/02/171908 Methylprednisolone 4 Mg Tab.ds.pk, 4 MG PO UD, #1 Ref 0 Prescribed by: CHELSI BARRERA on 04/05/17313 Metoprolol Succinate 25 Mg Tab.er.24h, 25 MG PO DAILY, #20 Prescribed by: SYLVIA BONE on 08/19/171929 Mv,Minerals/FA/Lycopene/Ginkgo 1 Each Tablet, 1 TAB PO DAILY, (Reported) Nitroglycerin 0.3 Mg Tab.subl, 0.3 MG SL PRN, #30 Prescribed by: DEANA DIAZ on 09/17/161512 Pantoprazole Sodium 40 Mg Tablet.dr, 40 MG PO DAILY, (Reported) Phenylephrine HCl 10 Mg Tablet, 10 MG PO Q4H PRN for CONGESTION, (Reported) Potassium Chloride 10 Meq Tablet.er, 10 MEQ PO UD for 30 Days, Ref 2 10 MEQ POTASSIUM EVERY OTHER DAY. Prescribed by: DEANA DIAZ on 09/17/16 1513 Pravastatin Sodium 40 Mg Tablet, 1 TAB PO UD, #30 (Reported) Theophylline Anhydrous 300 Mg Tab.er.12h, 300 MG PO Q12H, (Reported) Constitutional: see HPI EENTM: no symptoms reported Respiratory: no symptoms reported Cardiovascular: no symptoms reported Gastrointestinal: no symptoms reported Genitourinary: no symptoms reported Musculoskeletal: no symptoms reported Skin: no symptoms reported Psychiatric/Neurological: See HPI Hematologic/Lymphatic: No Symptoms Reported Past Wljfiaj-Jsprlf-Uvmrge Hx Patient Social History Alcohol Use: Denies Use Recreational Drug Use: No Smoking Status: Current Everyday Smoker Type Used: Cigarettes 2nd Hand Smoke Exposure: Yes Recent Foreign Travel: No Contact w/Someone Who Travel: No Recent Infectious Disease Expo: No Recent Hopitalizations: No Physical Abuse: No Sexual Abuse: No Mistreated: No Immunizations Up To Date Tetanus Booster (TDap): Less than 5yrs Date of Pneumonia Vaccine: Nov 18, 2009 Date of Influenza Vaccine: Sep 28, 2015 Seasonal Allergies Seasonal Allergies: No Surgeries History of Surgeries: Yes (CARDIAC CATH, HIATAL HERNIA, TURP, ) Surgeries: Abdominal, Cardiac, Coronary Stent, Transurethral Resection, Vascular Surgery Respiratory History of Respiratory Disorde: Yes Respiratory Disorders: COPD Cardiovascular History of Cardiac Disorders: Yes (LEFT FEMORAL ANEURYSM) Cardiac Disorders: Aneurysm, Chronic Edema/Swelling, Coronary Artery Disease, High Cholesterol, Hypertension, Peripheral Vascular Neurological History of Neurological Disord: Yes (PERIPHERAL NEUROPATHY) Neurological Disorders: Dementia Reproductive System Hx Reproductive Disorders: No Sexually Transmitted Disease: No Genitourinary History of Genitourinary Disor: Yes Genitourinary Disorders: Benign Prostatic Hyperpl, Prostate Problems Gastrointestinal History of Gastrointestinal Di: Yes Gastrointestinal Disorders: Gastroesophageal Reflux, Hiatal Hernia Musculoskeletal History of Musculoskeletal Dis: Yes Musculoskeletal Disorders: Arthritis Endocrine History of Endocrine Disorders: Yes Endocrine Disorders: Diabetes, Insulin dep HEENT History of HEENT Disorders: Yes HEENT Disorders: Cataract Loss of Vision: Right Hearing Impairment: Hard of Hearing Cancer History of Cancer: No Psychosocial History of Psychiatric Problem: No Suicide Risk Score: 0 Integumentary History of Skin or Integumenta: Yes (MRSA) Blood Transfusions History of Blood Disorders: No Family Medical History Significant Family History: No Pertinent Family Hx Family Medial History: Cancer 19 FATHER 19 MOTHER Family history: Cardiovascular disease Family history: Diabetes mellitus G8 SISTER 19 MOTHER Family history: Hypertension G8 BROTHER Physical Exam Vital Signs Vital Sign - Last 12Hours 08/29/17 01:34 Temp 97.2 Pulse 94 Resp 20 B/P (MAP) 140/62 Pulse Ox 93 O2 Delivery Room Air Capillary Refill : Less Than 3 Seconds General Appearance: No Apparent Distress, WD/WN HEENT: Normal ENT Inspection, Other (blind right eye) Neck: Normal Inspection, Non Tender, Supple Respiratory: Lungs Clear, Normal Breath Sounds, No Accessory Muscle Use, No Respiratory Distress Cardiovascular: Regular Rate, Rhythm, No Edema, No Murmur Gastrointestinal: Normal Bowel Sounds, Non Tender, Soft Extremity: Normal Inspection, No Pedal Edema Neurologic/Psychiatric: Alert, No Motor/Sensory Deficits, Normal Mood/Affect, 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 Norm as 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) Skin: Normal Color, Warm/Dry Progress/Results/Core Measures Results/Orders Lab Results Laboratory Tests Test 08/29/17 01:37 08/29/17 01:40 08/29/17 02:39 08/29/17 03:04 Range/Units Glucometer 42 *L 70 106 70-110 MG/DL White Blood Count 9.1 4.3-11.0 10^3/uL Red Blood Count 4.19 L 4.35-5.85 10^6/uL Hemoglobin 13.7 13.3-17.7 G/DL Hematocrit 40 40-54 % Mean Corpuscular Volume 95 80-99 FL Mean Corpuscular Hemoglobin 33 25-34 PG Mean Corpuscular Hemoglobin Concent 35 32-36 G/DL Red Cell Distribution Width 15.4 H 10.0-14.5 % Platelet Count 150 130-400 10^3/uL Mean Platelet Volume 11.2 H 7.4-10.4 FL Neutrophils (%) (Auto) 68 42-75 % Lymphocytes (%) (Auto) 19 12-44 % Monocytes (%) (Auto) 11 0-12 % Eosinophils (%) (Auto) 3 0-10 % Basophils (%) (Auto) 1 0-10 % Neutrophils # (Auto) 6.1 1.8-7.8 X 10^3 Lymphocytes # (Auto) 1.7 1.0-4.0 X 10^3 Monocytes # (Auto) 1.0 0.0-1.0 X 10^3 Eosinophils # (Auto) 0.2 0.0-0.3 10^3/uL Basophils # (Auto) 0.1 0.0-0.1 10^3/uL Sodium Level 141 135-145 MMOL/L Potassium Level 3.7 3.6-5.0 MMOL/L Chloride Level 103 98-107 MMOL/L Carbon Dioxide Level 25 21-32 MMOL/L Anion Gap 13 5-14 MMOL/L Blood Urea Nitrogen 44 H 7-18 MG/DL Creatinine 1.33 H 0.60-1.30 MG/DL Estimat Glomerular Filtration Rate 52 BUN/Creatinine Ratio 33 Glucose Level 39 *L 70-105 MG/DL Calcium Level 9.8 8.5-10.1 MG/DL My Orders Orders - CINDY BARRIOS MD D50w (Emergency) Syringe (Dextrose 50% 5 (08/29/17 01:45) Basic Metabolic Panel (08/29/17 01:40) Cbc With Automated Diff (08/29/17 01:40) Ct Head/Cervical Spine Wo (08/29/17 01:50) Accucheck Stat ONCE (08/29/17 02:09) Accucheck Stat ONCE (08/29/17 02:16) Accucheck Stat ONCE (08/29/17 02:59) Medications Given in ED Current Medications Medications Dose Ordered Sig/Kuldeep Route Start Time Stop Time Status Last Admin Dose Admin Dextrose 25 ml ONCE ONCE IV 08/29/17 01:45 08/29/17 01:46 DC 08/29/17 01:46 25 ML Vital Signs/I&O Vital Sign - Last 12Hours 08/29/17 08/29/17 01:34 04:44 Temp 97.2 97.2 Pulse 94 90 Resp 20 20 B/P (MAP) 140/62 Pulse Ox 93 93 O2 Delivery Room Air Room Air Blood Pressure Mean: 88 Point of Care Testing Finger Stick Blood Glucose: 42 Blood Glucose Action Taken: REPORTED TO GRACIELA LENNON VENOUS Progress Note #1: Progress Note Patient received 25 g of D50 and a meal was provided. Labs were relatively unremarkable. Due to recent history of fall, headache, and Plavix use, CT of the head and neck was obtained. Progress Note #2: Progress Note Blood sugars after eating were [address] head and C-spine was negative. Diagnostic Imaging Diagonstic Imaging: CT Plain Films/CT/US/NM/MRI: c-spine, head Comments CT head and C-spine viewed by me and [employer] report reviewed. No acute injuries were appreciated. Departure Impression Impression: Primary Impression: Hypoglycemia associated with diabetes Additional Impression: Fall on same level Qualified Codes: W18.30XA - Fall on same level, unspecified, initial encounter Disposition: HOME, SELF-CARE Condition: Improved Departure-Patient Inst. Decision time for Depature: 02:40 Referrals: ESTRELLITA العراقي MD (PCP/Family) Primary Care Physician Patient Instructions: HYPOGLYCEMIA Add. Discharge Instructions: Eat 3 well-balanced meals daily. Decrease your insulin dosing to 45 units twice a day. Follow-up with your primary care provider soon as possible. Check your blood sugars frequently until your blood sugars stabilize. Return to care if symptoms worsen. All discharge instructions reviewed with patient and/or family. Voiced understanding. CINDY BARRIOS MD Aug 29, 2017 02:41
[2017-08-29 04:44] VITALS: BP 136/65
--- NOTE | 2017-08-29 07:42 | Diagnostic Imaging Report ---
PROCEDURE: CT head and CT cervical spine without contrast. TECHNIQUE: Multiple contiguous axial images were obtained through the brain and cervical spine without the use of intravenous contrast. Sagittal and coronal reformations through the cervical spine were then performed. INDICATION: Fell, head, and neck pain CT head: There is no mass, shift of the midline or hemorrhage to suggest an acute intracranial abnormality. The ventricles are not abnormally dilated and stable in size when compared to the prior exam of 08/02/17. The senescent changes seen on the prior study including cortical atrophy and periventricular encephalomalacia are again evident and no different. The bone windows show no evidence for a fracture or for a destructive lesion. The previous study did show soft tissue edema over the left orbit. That abnormality has essentially resolved. The orbits where visualized are symmetrical. The sinuses were not imaged in their entirety. Where visualized, the sinuses are clear. IMPRESSION: 1. There is no evidence for an acute intracranial abnormality. 2. The soft tissue edema over the left orbit seen previously has essentially resolved. CT cervical spine: There are no prior studies available for comparison. 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 Specifically, there is marked narrowing of the disc spaces at these 3 levels with sclerosis of the vertebral bodies of C4, C5, and C6. There is also slight retrolisthesis of C4 with respect to C5 and C5 suspected C6. The axial images through these levels do show that there is spinal stenosis with narrowing of the neural foramen bilaterally. There is no fracture or acute bony abnormality identified. There is no sign of retropharyngeal edema. The thyroid gland is generally unremarkable. The lung apices are clear. IMPRESSION: 1. There is no evidence for an acute bony abnormality. 2. 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 Dictated by: Dictated on workstation # [id number]
== END 2017-08-29 04:44 | disposition home or self-care (01) ==
LOC: EDUNIT# 01:26 → ER 01:28
DX: R51 Headache (principal); E11.649 Type 2 diabetes mellitus with hypoglycemia without coma; E11.40 Type 2 diabetes mellitus with diabetic neuropathy, unspecified; K21.9 Gastro-esophageal reflux disease without esophagitis; I10 Essential (primary) hypertension; I25.10 Atherosclerotic heart disease of native coronary artery without angina pectoris; J44.9 Chronic obstructive pulmonary disease, unspecified; F17.210 Nicotine dependence, cigarettes, uncomplicated; Z90.79 Acquired absence of other genital organ(s); Z95.5 Presence of coronary angioplasty implant and graft; Z79.82 Long term (current) use of aspirin; Z79.4 Long term (current) use of insulin; W18.30XA Fall on same level, unspecified, initial encounter
CPT/HCPCS: 36415; 70450; 72125; 80048; 82962; 85025; 99282

== ENCOUNTER 2017-08-29 08:49 | Emergency (ER) | payer MEDICARE, MEDICAID ==
[~2017-08-29] VITALS: Ht 165.1 cm; Wt 68.0 kg
[2017-08-29] MEDS ORDERED: DEXTROSE 50% 50 ML (IMS) SYR IV ONE (09:15)
[2017-08-29 09:19] LABS: BASOPHILS % (AUTO) 0 % (0-10); EOSINOPHILS # (AUTO) 0.2 10^3/uL (0.0-0.3); EOSINOPHILS % (AUTO) 2 % (0-10); LYMPHOCYTES % (AUTO) 11 % (12-44); MEAN CORPUSCULAR HEMOGLOBIN 33 PG (25-34); MEAN CORPUSCULAR HGB CONC 34 G/DL (32-36); MEAN CORPUSCULAR VOLUME 96 FL (80-99); MEAN PLATELET VOLUME 11.8 FL (7.4-10.4); MONOCYTES # (AUTO) 0.6 X 10^3 (0.0-1.0); MONOCYTES % (AUTO) 7 % (0-12); NEUTROPHILS # (AUTO) 7.3 X 10^3 (1.8-7.8); NEUTROPHILS % (AUTO) 80 % (42-75); PLATELET COUNT 133 10^3/uL (130-400); RED BLOOD COUNT 4.33 10^6/uL (4.35-5.85); RED CELL DISTRIBUTION WIDTH 15.6 % (10.0-14.5); WHITE BLOOD COUNT 9.1 10^3/uL (4.3-11.0)
--- NOTE | 2017-08-29 09:27 | ED General ---
General Chief Complaint: Glucose Problems Stated Complaint: LOW BLOOD SUGAR Source of Information: Patient, EMS Exam Limitations: No Limitations History of Present Illness Time Seen by Provider: 08:55 Initial Comments Here by EMS with report of low blood sugar at home. Blood sugar noted to be in the 30s. When I put D50 given and blood sugar increased to the 240s. Apparently he had an additional dosing of his Truojeo because of concerns of blood sugar problems. Patient denies any complaints and states he feels fine now. Does smoke 2 packs of cigarettes a day. Denies breathing problems, fevers , dysuria, vomiting or diarrhea. States he is eating and drinking okay. Timing/Duration: 1 Hour Severity: Moderate Associated Systoms: No Fever/Chills, No Nausea/Vomiting, No Rash, No Shortness of Air, No Weakness Allergies and Home Medications Allergies Coded Allergies: NKANo Known Allergies (Unverified Allergy, Mild, 06/21/09) Home Medications Allopurinol 100 Mg Tablet, 200 MG PO DAILY, (Reported) TAKES 2 (100 MG) TABLETS / LAST FILLED 08/03/16 #60 Alprazolam 0.25 Mg Tablet, 0.25 MG PO DAILY@1900, (Reported) Alprazolam 0.25 Mg Tablet, 0.25 MG PO HS, #20 Prescribed by: SYLVIA BONE on 08/19/171928 Amlodipine Besylate 5 Mg Tablet, 5 MG PO DAILY, (Reported) Aspirin 81 Mg Tablet.dr, 81 MG PO DAILY, (Reported) Atorvastatin Calcium 40 Mg Tablet, 40 MG PO HS, (Reported) Baclofen 10 Mg Tablet, 10 MG PO TID, (Reported) Clindamycin HCl 300 Mg Capsule, 300 MG PO Q6H, #21 Ref 0 Prescribed by: PAKO LARSEN on 08/02/171908 Clopidogrel Bisulfate 75 Mg Tablet, 75 MG PO DAILY, (Reported) Dicyclomine HCl 10 Mg Capsule, 10 MG PO QID, (Reported) LAST FILLED 08/03/16 #120 Furosemide 40 Mg Tablet, 40 MG PO UD for 30 Days, Ref 2 40MG LASIX EVERY OTHER DAY. Prescribed by: DEANA DIAZ on 09/17/16 1513 Hydrocodone/Acetaminophen 1 Each Tablet, 1 EACH PO Q6H PRN for PAIN, #10 Ref 0 Prescribed by: PAKO LARSEN on 08/02/171908 Insulin Glargine,Hum.rec.anlog 300 Unit/1 Ml Insuln.pen, 65 UNITS SQ BID, ( Reported) Insulin Glargine,Hum.rec.anlog 300 Unit/1 Ml Insuln.pen, 65 UNIT SQ BID, #1 Ref 2 Prescribed by: SYLVIA BONE on 08/19/171928 Ipratropium/Albuterol Sulfate 3 Ml Ampul.neb, 3 ML IH Q6H PRN for SHORTNESS OF BREATH, #30 Ref 2 Prescribed by: CHELSI BARRERA on 04/05/17 0314 Levofloxacin 500 Mg Tablet, 500 MG PO DAILY, #7 Ref 0 Prescribed by: PAKO LARSEN on 08/02/171908 Methylprednisolone 4 Mg Tab.ds.pk, 4 MG PO UD, #1 Ref 0 Prescribed by: CHELSI BARRERA on 04/05/17313 Metoprolol Succinate 25 Mg Tab.er.24h, 25 MG PO DAILY, #20 Prescribed by: SYLVIA BONE on 08/19/171929 Mv,Minerals/FA/Lycopene/Ginkgo 1 Each Tablet, 1 TAB PO DAILY, (Reported) Nitroglycerin 0.3 Mg Tab.subl, 0.3 MG SL PRN, #30 Prescribed by: DEANA DIAZ on 09/17/16 1513 Pantoprazole Sodium 40 Mg Tablet.dr, 40 MG PO DAILY, (Reported) Phenylephrine HCl 10 Mg Tablet, 10 MG PO Q4H PRN for CONGESTION, (Reported) Potassium Chloride 10 Meq Tablet.er, 10 MEQ PO UD for 30 Days, Ref 2 10 MEQ POTASSIUM EVERY OTHER DAY. Prescribed by: DEANA DIAZ on 09/17/16 1513 Pravastatin Sodium 40 Mg Tablet, 1 TAB PO UD, #30 (Reported) Theophylline Anhydrous 300 Mg Tab.er.12h, 300 MG PO Q12H, (Reported) Constitutional: see HPI, No chills, No fever EENTM: no symptoms reported Respiratory: no symptoms reported Cardiovascular: no symptoms reported Gastrointestinal: no symptoms reported Genitourinary: no symptoms reported Musculoskeletal: no symptoms reported Skin: no symptoms reported Psychiatric/Neurological: See HPI, Denies Headache, Weakness (resolved) All Other Systems Reviewed Negative Unless Noted: Yes Past Avocggx-Rehpie-Bmvslp Hx Patient Social History Alcohol Use: Denies Use Recreational Drug Use: No Smoking Status: Current Everyday Smoker Type Used: Cigarettes 2nd Hand Smoke Exposure: Yes Recent Hopitalizations: No Immunizations Up To Date Tetanus Booster (TDap): Less than 5yrs Date of Pneumonia Vaccine: Nov 18, 2009 Date of Influenza Vaccine: Sep 28, 2015 Seasonal Allergies Seasonal Allergies: No Surgeries History of Surgeries: Yes (CARDIAC CATH, HIATAL HERNIA, TURP, ) Surgeries: Abdominal, Cardiac, Coronary Stent, Transurethral Resection, Vascular Surgery Respiratory History of Respiratory Disorde: Yes Respiratory Disorders: COPD Cardiovascular History of Cardiac Disorders: Yes (LEFT FEMORAL ANEURYSM) Cardiac Disorders: Aneurysm, Chronic Edema/Swelling, Coronary Artery Disease, High Cholesterol, Hypertension, Peripheral Vascular Neurological History of Neurological Disord: Yes (PERIPHERAL NEUROPATHY) Neurological Disorders: Dementia Reproductive System Hx Reproductive Disorders: No Sexually Transmitted Disease: No Genitourinary History of Genitourinary Disor: Yes Genitourinary Disorders: Benign Prostatic Hyperpl, Prostate Problems Gastrointestinal History of Gastrointestinal Di: Yes Gastrointestinal Disorders: Gastroesophageal Reflux, Hiatal Hernia Musculoskeletal History of Musculoskeletal Dis: Yes Musculoskeletal Disorders: Arthritis Endocrine History of Endocrine Disorders: Yes Endocrine Disorders: Diabetes, Insulin dep HEENT History of HEENT Disorders: Yes HEENT Disorders: Cataract Loss of Vision: Right Hearing Impairment: Hard of Hearing Cancer History of Cancer: No Psychosocial History of Psychiatric Problem: No Integumentary History of Skin or Integumenta: Yes (MRSA) Blood Transfusions History of Blood Disorders: No Reviewed Nursing Assessment Reviewed/Agree w Nursing PMH: Yes Family Medical History Significant Family History: No Pertinent Family Hx Family Medial History: Cancer 19 FATHER 19 MOTHER Family history: Cardiovascular disease Family history: Diabetes mellitus G8 SISTER 19 MOTHER Family history: Hypertension G8 BROTHER Physical Exam Vital Signs Vital Sign - Last 12Hours 08/29/17 09:00 Temp 95.9 Pulse 77 Resp 18 B/P (MAP) 175/85 Pulse Ox 93 O2 Delivery Room Air Capillary Refill : General Appearance: No Apparent Distress, WD/WN HEENT: PERRL/EOMI, Pharynx Normal Neck: Non Tender, Supple Respiratory: No Respiratory Distress, Crackles (bilateral bases) Cardiovascular: Regular Rate, Rhythm, No Murmur Gastrointestinal: Non Tender, Soft Back: Normal Inspection, No CVA Tenderness, No Vertebral Tenderness Extremity: Normal Range of Motion, Non Tender Neurologic/Psychiatric: Alert, Oriented x3 Skin: Normal Color, Warm/Dry Progress/Results/Core Measures Results/Orders Lab Results Laboratory Tests Test 08/29/17 09:10 Range/Units White Blood Count 9.1 4.3-11.0 10^3/uL Red Blood Count 4.33 L 4.35-5.85 10^6/uL Hemoglobin 14.1 13.3-17.7 G/DL Hematocrit 42 40-54 % Mean Corpuscular Volume 96 80-99 FL Mean Corpuscular Hemoglobin 33 25-34 PG Mean Corpuscular Hemoglobin Concent 34 32-36 G/DL Red Cell Distribution Width 15.6 H 10.0-14.5 % Platelet Count 133 130-400 10^3/uL Mean Platelet Volume 11.8 H 7.4-10.4 FL Neutrophils (%) (Auto) 80 H 42-75 % Lymphocytes (%) (Auto) 11 L 12-44 % Monocytes (%) (Auto) 7 0-12 % Eosinophils (%) (Auto) 2 0-10 % Basophils (%) (Auto) 0 0-10 % Neutrophils # (Auto) 7.3 1.8-7.8 X 10^3 Lymphocytes # (Auto) 1.0 1.0-4.0 X 10^3 Monocytes # (Auto) 0.6 0.0-1.0 X 10^3 Eosinophils # (Auto) 0.2 0.0-0.3 10^3/uL Basophils # (Auto) 0.0 0.0-0.1 10^3/uL Sodium Level 141 135-145 MMOL/L Potassium Level 3.9 3.6-5.0 MMOL/L Chloride Level 104 98-107 MMOL/L Carbon Dioxide Level 25 21-32 MMOL/L Anion Gap 12 5-14 MMOL/L Blood Urea Nitrogen 42 H 7-18 MG/DL Creatinine 1.32 H 0.60-1.30 MG/DL Estimat Glomerular Filtration Rate 52 BUN/Creatinine Ratio 32 Glucose Level 91 70-105 MG/DL Calcium Level 9.9 8.5-10.1 MG/DL Total Bilirubin 0.2 0.1-1.0 MG/DL Aspartate Amino Transf (AST/SGOT) 27 5-34 U/L Alanine Aminotransferase (ALT/SGPT) 16 0-55 U/L Alkaline Phosphatase 75 40-136 U/L Total Protein 6.9 6.4-8.2 GM/DL Albumin 3.6 3.2-4.5 GM/DL My Orders Orders - BENOIT ALEMAN MD Cbc With Automated Diff (08/29/17 09:02) Comprehensive Metabolic Panel (08/29/17 09:02) Chest 1 View, Ap/Pa Only (08/29/17 09:02) General/Regular (08/29/17 Breakfast) D50w (Emergency) Syringe (Dextrose 50% 5 (08/29/17 09:15) Medications Given in ED Current Medications Medications Dose Ordered Sig/Kuldeep Route Start Time Stop Time Status Last Admin Dose Admin Dextrose 50 ml ONCE ONCE IV 08/29/17 09:15 08/29/17 09:16 DC 08/29/17 09:15 50 ML Vital Signs/I&O Vital Sign - Last 12Hours 08/29/17 09:00 Temp 95.9 Pulse 77 Resp 18 B/P (MAP) 175/85 Pulse Ox 93 O2 Delivery Room Air Progress Note : Progress Note Seen and evaluated. Repeat blood sugar now 90. Patient states that he can eat. Meal ordered but one amp of D50 IV given in the interim to ensure that his blood sugar stayed up. Labs ordered. Chest x-ray ordered due to moderate congestion bilateral bases. 1015: Tolerated meal well. Repeat blood sugar done and is 188. Discharged home with return precautions. Patient verbalize understanding instructions and agreement with plan. Diagnostic Imaging Diagonstic Imaging: Xray Plain Films/CT/US/NM/MRI: chest Comments NAME: [facility] REC#: [id number] PT STATUS: REG ER : 1940 PHYSICIAN: BENOIT ALEMAN MD ADMIT DATE: 08/29/17/ER Signed Date of Exam: 08/29/17 CHEST 1 VIEW, AP/PA ONLY Portable upright radiograph of the chest. INDICATION: Hypoglycemia. Abnormal breath sounds. FINDINGS: The heart size is borderline. There is interstitial thickening suggestive of pulmonary vascular congestion and this appears slightly more prominent compared to 06/25/2017. No focal significant airspace consolidation. No effusion or pneumothorax. The mediastinum and karen appear unremarkable. IMPRESSION: Borderline cardiac size. Suggestion of pulmonary vascular congestion. Dictated by: Dictated on workstation # [id number] Dict: 08/29/17941 Trans: 08/29/17957 Interpreted by: ALEX JEONG MD Electronically signed by: ALEX JEONG MD 08/29/17957 Departure Impression Impression: Primary Impression: Hypoglycemia associated with diabetes Disposition: 01 HOME, SELF-CARE Condition: Improved Departure-Patient Inst. Referrals: ESTRELLITA العراقي MD (PCP/Family) Primary Care Physician Patient Instructions: HYPOGLYCEMIA Add. Discharge Instructions: All discharge instructions reviewed with patient and/or family. Voiced understanding. Continue home medications as directed. Ensure that you eat while taking your insulin. Follow-up with your Dr. in a few days for recheck. Return for worse pain, fever, vomiting, weakness, breathing problems or other concerns as needed. BENOIT ALEMAN MD Aug 29, 2017 09:27
[2017-08-29 09:37] LABS: ALBUMIN 3.6 GM/DL (3.2-4.5); BILIRUBIN,TOTAL 0.2 MG/DL (0.1-1.0); CALCIUM 9.9 MG/DL (8.5-10.1); CREATININE SERUM 1.32 MG/DL (0.60-1.30); POTASSIUM 3.9 MMOL/L (3.6-5.0); TOTAL PROTEIN 6.9 GM/DL (6.4-8.2)
--- NOTE | 2017-08-29 09:50 | Diagnostic Imaging Report ---
Portable upright radiograph of the chest. INDICATION: Hypoglycemia. Abnormal breath sounds. FINDINGS: The heart size is borderline. There is interstitial thickening suggestive of pulmonary vascular congestion and this appears slightly more prominent compared to 06/25/2017. No focal significant airspace consolidation. No effusion or pneumothorax. The mediastinum and karen appear unremarkable. IMPRESSION: Borderline cardiac size. Suggestion of pulmonary vascular congestion. Dictated by: Dictated on workstation # [id number]
[2017-08-29 11:25] VITALS: BP 177/88
== END 2017-08-29 11:25 | disposition home or self-care (01) ==
LOC: EDUNIT# 08:49 → ER 08:50
DX: E11.649 Type 2 diabetes mellitus with hypoglycemia without coma (principal); E11.40 Type 2 diabetes mellitus with diabetic neuropathy, unspecified; E78.00 Pure hypercholesterolemia, unspecified; I25.10 Atherosclerotic heart disease of native coronary artery without angina pectoris; J44.9 Chronic obstructive pulmonary disease, unspecified; I10 Essential (primary) hypertension; F17.210 Nicotine dependence, cigarettes, uncomplicated; Z79.4 Long term (current) use of insulin; Z90.79 Acquired absence of other genital organ(s); Z95.1 Presence of aortocoronary bypass graft; Z95.5 Presence of coronary angioplasty implant and graft; Z82.49 Family history of ischemic heart disease and other diseases of the circulatory system; Z80.9 Family history of malignant neoplasm, unspecified
CPT/HCPCS: 36415; 71010; 80053; 82962; 85025; 99283

== ENCOUNTER 2017-09-18 03:28 | Emergency (ER) | payer MEDICARE, MEDICAID ==
[~2017-09-18] VITALS: Ht 165.1 cm; Wt 81.6 kg
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
[2017-09-18 04:20] LABS: BASOPHILS % (AUTO) 0 % (0-10); EOSINOPHILS # (AUTO) 0.2 10^3/uL (0.0-0.3); EOSINOPHILS % (AUTO) 2 % (0-10); LYMPHOCYTES % (AUTO) 9 % (12-44); MEAN CORPUSCULAR HEMOGLOBIN 33 PG (25-34); MEAN CORPUSCULAR HGB CONC 35 G/DL (32-36); MEAN CORPUSCULAR VOLUME 94 FL (80-99); MEAN PLATELET VOLUME 11.1 FL (7.4-10.4); MONOCYTES # (AUTO) 0.7 X 10^3 (0.0-1.0); MONOCYTES % (AUTO) 6 % (0-12); NEUTROPHILS # (AUTO) 9.6 X 10^3 (1.8-7.8); NEUTROPHILS % (AUTO) 84 % (42-75); PLATELET COUNT 176 10^3/uL (130-400); RED BLOOD COUNT 4.17 10^6/uL (4.35-5.85); RED CELL DISTRIBUTION WIDTH 14.7 % (10.0-14.5); WHITE BLOOD COUNT 11.5 10^3/uL (4.3-11.0)
[2017-09-18 04:36] LABS: BILIRUBIN,URINE NEGATIVE (NEGATIVE); KETONES,URINE NEGATIVE (NEGATIVE); LEUKOCYTE ESTERASE ,URINE NEGATIVE (NEGATIVE); NITRITE,URINE NEGATIVE (NEGATIVE); PH,URINE 7 (5-9); PROTEIN,URINE 3+ (NEGATIVE); UROBILINOGEN,URINE NORMAL (NORMAL)
[2017-09-18 04:39] LABS: ALBUMIN 3.6 GM/DL (3.2-4.5); BILIRUBIN,TOTAL 0.2 MG/DL (0.1-1.0); CALCIUM 9.4 MG/DL (8.5-10.1); CREATININE SERUM 1.26 MG/DL (0.60-1.30); POTASSIUM 3.7 MMOL/L (3.6-5.0); TOTAL PROTEIN 6.6 GM/DL (6.4-8.2)
[2017-09-18 04:41] LABS: SQUAMOUS EPITHELIAL CELL,UR RARE /HPF; WBC,URINE RARE /HPF
[2017-09-18 05:24] VITALS: BP 130/68
== END 2017-09-18 05:25 | disposition home or self-care (01) ==
LOC: EDUNIT# 03:28 → ER 03:31
DX: E11.649 Type 2 diabetes mellitus with hypoglycemia without coma (principal); J44.9 Chronic obstructive pulmonary disease, unspecified; E78.00 Pure hypercholesterolemia, unspecified; I10 Essential (primary) hypertension; I25.10 Atherosclerotic heart disease of native coronary artery without angina pectoris; E11.40 Type 2 diabetes mellitus with diabetic neuropathy, unspecified; K21.9 Gastro-esophageal reflux disease without esophagitis; F41.9 Anxiety disorder, unspecified; F03.90 Unspecified dementia, unspecified severity, without behavioral disturbance, psychotic disturbance, mood disturbance, and anxiety; F17.210 Nicotine dependence, cigarettes, uncomplicated; Z95.5 Presence of coronary angioplasty implant and graft; Z79.82 Long term (current) use of aspirin; Z79.4 Long term (current) use of insulin
CPT/HCPCS: 36415; 80053; 81000; 82962; 85025

== ENCOUNTER 2017-11-16 04:12 | Emergency (ER) | payer MEDICARE, MEDICAID ==
[~2017-11-16] VITALS: Ht 165.1 cm; Wt 81.6 kg
[~2017-11-16 04:12] MED LIST changes: -HYDR-3812 PO; -METO-270 PO; +METO-387 PO
--- OUTSIDE RECORDS SUMMARY | 2017-11-16 04:26 | XMS REPORT | Continuity of Care Document ---
Author Author [facility] Organization [facility] Address Unknown Phone Unavailable Allergies Active Description Code Type Severity Reaction Onset Reported/Identified Relationship to Patient Clinical Status Yes NKANo Known Allergies NKA Miscellaneous Allergy Mild N/A 06/21/2009 Medications There is no data. Problems Date Dx Coded Attending Type Code Diagnosis Diagnosed By 06/07/2011 Ot 682.3 CELLULITIS OF ARM 07/04/2011 Ot 250.00 DIAB SHAWN WO COMPL, TYPE II OR UNSPEC TY 07/04/2011 Ot 272.4 HYPERLIPIDEMIA NEC/NOS 07/04/2011 Ot 401.9 HYPERTENSION NOS 07/04/2011 Ot 411.1 INTERMED CORONARY SYND 07/04/2011 Ot 412 OLD MYOCARDIAL INFARCT 07/04/2011 Ot 414.01 CORONARY ATHEROSCLEROSIS OF [place] CORON 07/04/2011 Ot 443.9 PERIPH VASCULAR DIS NOS 07/04/2011 Ot 496 CHR AIRWAY OBSTRUCT NEC 07/04/2011 Ot 530.81 ESOPHAGEAL REFLUX 07/04/2011 Ot 553.3 DIAPHRAGMATIC HERNIA 07/04/2011 Ot 564.00 UNSPEC CONSTIPATION 07/04/2011 Ot 575.8 DIS OF GALLBLADDER NEC 07/04/2011 Ot 584.9 ACUTE RENAL FAILURE, UNSPECIFIED 07/04/2011 Ot 600.00 HYPERTROPHY (BENIGN) OF PROSTATE W/O URI 08/31/2011 Ot 250.00 DIAB SHAWN WO COMPL, TYPE II OR UNSPEC TY 08/31/2011 Ot 272.4 HYPERLIPIDEMIA NEC/NOS 08/31/2011 Ot 403.90 HYPTNSV CHR KID DIS, UNSPEC, W CHR KD ST 08/31/2011 Ot 414.01 CORONARY ATHEROSCLEROSIS OF [place] CORON 08/31/2011 Ot 486 PNEUMONIA, ORGANISM NOS 08/31/2011 Ot 492.8 EMPHYSEMA NEC 08/31/2011 Ot 553.3 DIAPHRAGMATIC HERNIA 08/31/2011 Ot 584.9 ACUTE RENAL FAILURE, UNSPECIFIED 08/31/2011 Ot 585.9 CHRONIC KIDNEY DISEASE, UNSPECIFIED 08/31/2011 Ot 600.00 HYPERTROPHY (BENIGN) OF PROSTATE W/O URI 08/31/2011 Ot V12.04 PERSONAL HIST OF METHICILLIN RESISTANT S 08/31/2011 Ot V15.82 HISTORY OF TOBACCO USE 08/31/2011 Ot V17.3 FAM HX- ISCHEM HEART DIS 08/31/2011 Ot V45.82 PERCUTANEOUS TRANSLUM CORON ANGIOPLASTY 07/18/2012 Ot 883.0 OPEN WOUND OF FINGER 07/18/2012 Ot E000.8 OTHER EXTERNAL CAUSE STATUS 07/18/2012 Ot E849.0 ACCIDENT IN HOME 07/18/2012 Ot E885.9 FALL FROM SLIPPING, TRIPPING, OR STUMBLI 07/18/2012 Ot V03.7 TETANUS TOXOID INOCULAT 07/22/2012 Ot V58.30 ENCOUNTER FOR CHANGE OR REMOVAL OF NONSU 09/19/2012 Ot 826.0 FX PHALANX, FOOT-CLOSED 09/19/2012 Ot 959.7 LOWER LEG INJURY NOS 09/19/2012 Ot E000.8 OTHER EXTERNAL CAUSE STATUS 09/19/2012 Ot E849.0 ACCIDENT IN HOME 09/19/2012 Ot E928.9 ACCIDENT NOS 09/22/2012 Ot 250.00 DIAB SHAWN WO COMPL, TYPE II OR UNSPEC TY 09/22/2012 Ot 272.4 HYPERLIPIDEMIA NEC/NOS 09/22/2012 Ot 401.9 HYPERTENSION NOS 09/22/2012 Ot 414.01 CORONARY ATHEROSCLEROSIS OF [place] CORON 09/22/2012 Ot 440.21 ATHEROSCL [place] ARTER EXTREM W INTERMIT 09/22/2012 Ot 440.4 CHRONIC TOTAL OCCLUSION OF ARTERY OF THE 09/22/2012 Ot 496 CHR AIRWAY OBSTRUCT NEC 09/22/2012 Ot 794.30 ABN CARDIOVASC STUDY NOS 09/22/2012 Ot V45.82 PERCUTANEOUS TRANSLUM CORON ANGIOPLASTY 09/22/2012 Ot V58.69 OTH MED,LT, CURRENT USE 11/29/2013 PAKO MOTT Ot 487.1 FLU W RESP MANIFEST NEC 11/29/2013 PAKO MOTT Ot 786.05 SHORTNESS OF BREATH 03/19/2014 IGNACIO MOSES FACC, ALI FACP CCDS Ot 250.40 DIAB W RENAL MANIFEST, TYPE II OR UNSPEC 03/19/2014 IGNACIO MOSES FACC, ALI FACP CCDS Ot 272.4 HYPERLIPIDEMIA NEC/NOS 03/19/2014 IGNACIO MOSES FACC, ALI FACP CCDS Ot 276.50 VOLUME DEPLETION, UNSPECIFIED 03/19/2014 IGNACIO MOSES FACC, ALI FACP CCDS Ot 403.90 HYPTNSV CHR KID DIS, UNSPEC, W CHR KD ST 03/19/2014 IGNACIO MOSES FACC, ALI FACP CCDS Ot 414.01 CORONARY ATHEROSCLEROSIS OF [place] CORON 03/19/2014 IGNACIO MOSES FACC, ALI FACP CCDS Ot 530.81 ESOPHAGEAL REFLUX 03/19/2014 IGNACIO MOSES FACC, ALI FACP CCDS Ot 583.81 NEPHRITIS NOS IN OTH DIS 03/19/2014 IGNACIO MOSES FACC, ALI FACP CCDS Ot 585.9 CHRONIC KIDNEY DISEASE, UNSPECIFIED 03/19/2014 IGNACIO MOSES FACC, ALI FACP CCDS Ot 593.9 RENAL URETERAL DIS NOS 03/19/2014 IGNACIO MOSES FACC, ALI FACP CCDS Ot 716.90 ARTHROPATHY NOS-UNSPEC 03/19/2014 IGNACIO MOSES FACC, ALI FACP CCDS Ot 785.2 CARDIAC MURMURS NEC 03/19/2014 IGNACIO MOSES FACC, ALI FACP CCDS Ot 786.50 CHEST PAIN NOS 03/19/2014 IGNACIO MOSES FACC, ALI FACP CCDS Ot E944.4 ADV EFF DIURETICS NEC 03/19/2014 IGNACIO MOSES FACC, ALI FACP CCDS Ot V45.82 PERCUTANEOUS TRANSLUM CORON ANGIOPLASTY 09/27/2015 Ot 250.00 09/27/2015 Ot 414.01 09/27/2015 Ot 794.4 09/27/2015 Ot 786.50 09/27/2015 Ot V58.63 09/27/2015 Ot V58.69 09/27/2015 Ot 786.50 09/27/2015 Ot 428.0 09/27/2015 Ot 459.9 09/27/2015 Ot 786.05 09/27/2015 Ot 786.50 09/27/2015 Ot 414.00 09/27/2015 Ot 440.20 09/27/2015 Ot 729.5 09/27/2015 Ot 275.2 09/27/2015 Ot 440.22 09/28/2015 JAIME ANTONIO MD Ot E11.21 TYPE 2 DIABETES MELLITUS WITH DIABETIC N 09/28/2015 JAIME ANTONIO MD Ot 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 09/28/2015 JAIME ANTONIO MD Ot E11.65 TYPE 2 DIABETES MELLITUS WITH HYPERGLYCE 09/28/2015 JAIME ANTONIO MD Ot E83.42 HYPOMAGNESEMIA 09/28/2015 JAIME ANTONIO MD Ot F03.90 UNSPECIFIED DEMENTIA WITHOUT BEHAVIORAL 09/28/2015 JAIME ANTONIO MD Ot H54.60 UNQUALIFIED VISUAL LOSS, ONE EYE, UNSPEC 09/28/2015 JAIME ANTONIO MD Ot I12.9 HYPERTENSIVE CHRONIC KIDNEY DISEASE W ST 09/28/2015 JAIME ANTONIO MD Ot I25.10 ATHSCL HEART DISEASE OF [place] CORONARY 09/28/2015 JAIME ANTONIO MD Ot I73.9 PERIPHERAL VASCULAR DISEASE, UNSPECIFIED 09/28/2015 JAIME ANTONIO MD Ot J44.9 CHRONIC OBSTRUCTIVE PULMONARY DISEASE, U 09/28/2015 JAIME ANTONIO MD Ot K21.9 GASTRO-ESOPHAGEAL REFLUX DISEASE WITHOUT 09/28/2015 JAIME ANTONIO MD Ot N18.9 CHRONIC KIDNEY DISEASE, UNSPECIFIED 09/28/2015 JAIME ANTONIO MD Ot Z87.891 PERSONAL HISTORY OF NICOTINE DEPENDENCE 09/28/2015 JAIME ANTONIO MD Ot Z91.14 PATIENT'S OTHER NONCOMPLIANCE WITH MEDIC 03/10/2016 Ot 250.00 DIAB SHAWN WO COMPL, TYPE II OR UNSPEC TY 03/10/2016 Ot 414.01 CORONARY ATHEROSCLEROSIS OF [place] CORON 03/10/2016 Ot 794.4 ABN KIDNEY FUNCT STUDY 03/10/2016 Ot 786.50 CHEST PAIN NOS 03/10/2016 Ot V58.63 LONG-TERM( CURRENT)USE OF ANTIPLATELET/AN 03/10/2016 Ot V58.69 OTH MED,LT, CURRENT USE 03/10/2016 Ot 786.50 CHEST PAIN NOS 03/10/2016 Ot 428.0 CONGESTIVE HEART FAILURE NOS 03/10/2016 Ot 459.9 CIRCULATORY DISEASE NOS 03/10/2016 Ot 786.05 SHORTNESS OF BREATH 03/10/2016 Ot 786.50 CHEST PAIN NOS 03/10/2016 Ot 414.00 CORON ATHEROSCLER NOS TYPE VESSEL, NATIV 03/10/2016 Ot 440.20 ATHEROSCLEROSIS [place] ARTERIES EXTREMIT 03/10/2016 Ot 729.5 PAIN IN LIMB 03/10/2016 Ot 275.2 DIS MAGNESIUM METABOLISM 03/10/2016 Ot 440.22 ATHEROSCL [place] ARTER EXTREMITIES W/ R 03/11/2016 CHELSI BARRERA DO Ot E11.65 TYPE 2 DIABETES MELLITUS WITH HYPERGLYCE 03/11/2016 CHELSI BARRERA DO, Ot R41.0 DISORIENTATION, UNSPECIFIED 03/11/2016 CHELSI BARRERA DO Ot Z79.4 COUNTY AGENT (CURRENT) USE OF INSULIN 03/11/2016 CHELSI BARRERA DO, Ot Z79.82 GROUP HOME (CURRENT) USE OF ASPIRIN 03/11/2016 CHELSI BARRERA DO, Ot Z91.14 PATIENT'S OTHER NONCOMPLIANCE WITH MEDIC 03/13/2016 CHELSI BARRERA DO Ot E11.65 TYPE 2 DIABETES MELLITUS WITH HYPERGLYCE 03/13/2016 CHELSI BARRERA DO, Ot R41.0 DISORIENTATION, UNSPECIFIED 03/13/2016 CHELSI BARRERA DO, Ot Z79.4 GROUP HOME (CURRENT) USE OF INSULIN 03/13/2016 CHELSI BARRERA DO, Ot Z79.82 [place] AGENT (CURRENT) USE OF ASPIRIN 03/13/2016 CHELSI BARRERA DO, Ot Z91.14 PATIENT'S OTHER NONCOMPLIANCE WITH MEDIC 03/31/2016 Ot 250.00 DIAB SHAWN WO COMPL, TYPE II OR UNSPEC TY 03/31/2016 Ot 414.01 CORONARY ATHEROSCLEROSIS OF [place] CORON 03/31/2016 Ot 794.4 ABN KIDNEY FUNCT STUDY 03/31/2016 Ot 786.50 CHEST PAIN NOS 03/31/2016 Ot V58.63 LONG-TERM( CURRENT)USE OF ANTIPLATELET/AN 03/31/2016 Ot V58.69 OTH MED,LT, CURRENT USE 03/31/2016 Ot 786.50 CHEST PAIN NOS 03/31/2016 Ot 428.0 CONGESTIVE HEART FAILURE NOS 03/31/2016 Ot 459.9 CIRCULATORY DISEASE NOS 03/31/2016 Ot 786.05 SHORTNESS OF BREATH 03/31/2016 Ot 786.50 CHEST PAIN NOS 03/31/2016 Ot 414.00 CORON ATHEROSCLER NOS TYPE VESSEL, NATIV 03/31/2016 Ot 440.20 ATHEROSCLEROSIS [place] ARTERIES EXTREMIT 03/31/2016 Ot 729.5 PAIN IN LIMB 03/31/2016 Ot 275.2 DIS MAGNESIUM METABOLISM 03/31/2016 Ot 440.22 ATHEROSCL [place] ARTER EXTREMITIES W/ R 03/31/2016 LISA MOSES QUIQUE Jade Ot E11.65 TYPE 2 DIABETES MELLITUS WITH HYPERGLYCE 03/31/2016 LISA MOSES QUIQUE Jade Ot Z79.4 [place] AGENT (CURRENT) USE OF INSULIN 03/31/2016 LISA MOSES QUIQUE Jade Ot Z87.891 PERSONAL HISTORY OF NICOTINE DEPENDENCE 04/02/2016 LISA MOSES QUIQUE Jade Ot E11.65 TYPE 2 DIABETES MELLITUS WITH HYPERGLYCE 04/02/2016 LISA MOSES QUIQUE Jade Ot Z79.4 [place] AGENT (CURRENT) USE OF INSULIN 04/02/2016 LISA MOSES QUIQUE Jade Ot Z87.891 PERSONAL HISTORY OF NICOTINE DEPENDENCE 04/18/2016 LISA MOSES QUIQUE Jade Ot E11.65 TYPE 2 DIABETES MELLITUS WITH HYPERGLYCE 04/18/2016 LISA MOSES QUIQUE Jade Ot Z79.4 [place] AGENT (CURRENT) USE OF INSULIN 04/18/2016 LISA MOSES QUIQUE Jade Ot Z87.891 PERSONAL HISTORY OF NICOTINE DEPENDENCE 05/23/2016 Ot 250.00 DIAB SHAWN WO COMPL, TYPE II OR UNSPEC TY 05/23/2016 Ot 414.01 CORONARY ATHEROSCLEROSIS OF [place] CORON 05/23/2016 Ot 794.4 ABN KIDNEY FUNCT STUDY 05/23/2016 Ot 786.50 CHEST PAIN NOS 05/23/2016 Ot V58.63 LONG-TERM( CURRENT)USE OF ANTIPLATELET/AN 05/23/2016 Ot V58.69 OTH MED,LT, CURRENT USE 05/23/2016 Ot 786.50 CHEST PAIN NOS 05/23/2016 Ot 428.0 CONGESTIVE HEART FAILURE NOS 05/23/2016 Ot 459.9 CIRCULATORY DISEASE NOS 05/23/2016 Ot 786.05 SHORTNESS OF BREATH 05/23/2016 Ot 786.50 CHEST PAIN NOS 05/23/2016 Ot 414.00 CORON ATHEROSCLER NOS TYPE VESSEL, NATIV 05/23/2016 Ot 440.20 ATHEROSCLEROSIS [place] ARTERIES EXTREMIT 05/23/2016 Ot 729.5 PAIN IN LIMB 05/23/2016 Ot 275.2 DIS MAGNESIUM METABOLISM 05/23/2016 Ot 440.22 ATHEROSCL [place] ARTER EXTREMITIES W/ R 05/23/2016 BENOIT ALEMAN MD Ot E10.65 TYPE 1 DIABETES MELLITUS WITH HYPERGLYCE 05/23/2016 BENOIT ALEMAN MD Ot Z79.4 GROUP HOME (CURRENT) USE OF INSULIN 05/23/2016 BENOIT ALEMAN MD Ot Z79.82 [place] AG[place] (CURRENT) USE OF ASPIRIN 05/25/2016 BENOIT ALEMAN MD Ot E10.65 TYPE 1 DIABETES MELLITUS WITH HYPERGLYCE 05/25/2016 BENOIT ALEMAN MD Ot Z79.4 [place] AGENT (CURRENT) USE OF INSULIN 05/25/2016 BENOIT ALEMAN MD, Ot Z79.82 [place] AG[place] (CURRENT) USE OF ASPIRIN 06/15/2016 CINDY BARRIOS MD Ot E11.65 TYPE 2 DIABETES MELLITUS WITH HYPERGLYCE 06/15/2016 CINDY BARRIOS MD Ot R73.9 HYPERGLYCEMIA, UNSPECIFIED 06/15/2016 CINDY BARRIOS MD Ot E11.65 TYPE 2 DIABETES MELLITUS WITH HYPERGLYCE 06/15/2016 CINDY BARRIOS MD Ot R73.9 HYPERGLYCEMIA, UNSPECIFIED 08/16/2016 Ot 250.00 DIAB SHAWN WO COMPL, TYPE II OR UNSPEC TY 08/16/2016 Ot 414.01 CORONARY ATHEROSCLEROSIS OF [place] CORON 08/16/2016 Ot 794.4 ABN KIDNEY FUNCT STUDY 08/16/2016 Ot 786.50 CHEST PAIN NOS 08/16/2016 Ot V58.63 LONG-TERM( CURRENT)USE OF ANTIPLATELET/AN 08/16/2016 Ot V58.69 OTH MED,LT, CURRENT USE 08/16/2016 Ot 786.50 CHEST PAIN NOS 08/16/2016 Ot 428.0 CONGESTIVE HEART FAILURE NOS 08/16/2016 Ot 459.9 CIRCULATORY DISEASE NOS 08/16/2016 Ot 786.05 SHORTNESS OF BREATH 08/16/2016 Ot 786.50 CHEST PAIN NOS 08/16/2016 Ot 414.00 CORON ATHEROSCLER NOS TYPE VESSEL, NATIV 08/16/2016 Ot 440.20 ATHEROSCLEROSIS [place] ARTERIES EXTREMIT 08/16/2016 Ot 729.5 PAIN IN LIMB 08/16/2016 Ot 275.2 DIS MAGNESIUM METABOLISM 08/16/2016 Ot 440.22 ATHEROSCL [place] ARTER EXTREMITIES W/ R 08/16/2016 SYLVIA BONE APRN Ot E11.9 TYPE 2 DIABETES MELLITUS WITHOUT COMPLIC 08/16/2016 SYLVIA BONE APRN Ot I10 ESSENTIAL (PRIMARY) HYPERTENSION 08/16/2016 SYLVIA BONE APRN Ot L03.116 CELLULITIS OF LEFT LOWER LIMB 08/16/2016 SYLVIA BONE APRN Ot M79.89 OTHER SPECIFIED SOFT TISSUE DISORDERS 08/16/2016 SYLVIA BONE APRN Ot Z79.4 GROUP HOME (CURRENT) USE OF INSULIN 08/16/2016 SYLVIA BONE APRN Ot Z79.82 [place] AG[place] (CURRENT) USE OF ASPIRIN 08/16/2016 SYLVIA BONE APRN Ot Z79.899 OTHER [place] AG[place] (CURRENT) DRUG THERAPY 08/16/2016 SYLVIA BONE APRN Ot Z95.5 PRESENCE OF CORONARY ANGIOPLASTY IMPLANT 08/16/2016 Ot 250.00 DIAB SHAWN WO COMPL, TYPE II OR UNSPEC TY 08/16/2016 Ot 414.01 CORONARY ATHEROSCLEROSIS OF [place] CORON 08/16/2016 Ot 794.4 ABN KIDNEY FUNCT STUDY 08/16/2016 Ot 786.50 CHEST PAIN NOS 08/16/2016 Ot V58.63 LONG-TERM( CURRENT)USE OF ANTIPLATELET/AN 08/16/2016 Ot V58.69 OTH MED,LT, CURRENT USE 08/16/2016 Ot 786.50 CHEST PAIN NOS 08/16/2016 Ot 428.0 CONGESTIVE HEART FAILURE NOS 08/16/2016 Ot 459.9 CIRCULATORY DISEASE NOS 08/16/2016 Ot 786.05 SHORTNESS OF BREATH 08/16/2016 Ot 786.50 CHEST PAIN NOS 08/16/2016 Ot 414.00 CORON ATHEROSCLER NOS TYPE VESSEL, NATIV 08/16/2016 Ot 440.20 ATHEROSCLEROSIS [place] ARTERIES EXTREMIT 08/16/2016 Ot 729.5 PAIN IN LIMB 08/16/2016 Ot 275.2 DIS MAGNESIUM METABOLISM 08/16/2016 Ot 440.22 ATHEROSCL [place] ARTER EXTREMITIES W/ R 08/22/2016 SYLVIA BONE APRN Ot E11.9 TYPE 2 DIABETES MELLITUS WITHOUT COMPLIC 08/22/2016 SYLVIA BONE APRN Ot I10 ESSENTIAL (PRIMARY) HYPERTENSION 08/22/2016 SYLVIA BONE APRN Ot L03.116 CELLULITIS OF LEFT LOWER LIMB 08/22/2016 SYLVIA BONE APRN Ot M79.89 OTHER SPECIFIED SOFT TISSUE DISORDERS 08/22/2016 SYLVIA BONE APRN Ot Z79.4 [place] AG[place] (CURRENT) USE OF INSULIN 08/22/2016 SYLVIA BOEN APRN Ot Z79.82 [place] AG[place] (CURRENT) USE OF ASPIRIN 08/22/2016 SYLVIA BONE APRN Ot Z79.899 OTHER GROUP HOME (CURRENT) DRUG THERAPY 08/22/2016 SYLVIA BONE BABYSITTER Ot Z95.5 PRESENCE OF CORONARY ANGIOPLASTY IMPLANT 09/17/2016 JANIYA DOCHAII Ot E11.21 TYPE 2 DIABETES MELLITUS WITH DIABETIC N 09/17/2016 JANIYA DO WILLIAM Ot E78.5 HYPERLIPIDEMIA, UNSPECIFIED 09/17/2016 DENSON DO WILLIAM Ot E87.8 OTH DISORDERS OF ELECTROLYTE AND FLUID B 09/17/2016 JANIYA DO WILLIAM Ot F03.90 UNSPECIFIED DEMENTIA WITHOUT BEHAVIORAL 09/17/2016 DENSON DO, WILLIAM Ot F17.210 NICOTINE DEPENDENCE, CIGARETTES, UNCOMPL 09/17/2016 DENSON DO, WILLIAM Ot I10 ESSENTIAL (PRIMARY) HYPERTENSION 09/17/2016 JANIYA DO WILLIAM Ot I25.10 ATHSCL HEART DISEASE OF [place] CORONARY 09/17/2016 JANIYA DO WILLIAM Ot J44.9 CHRONIC OBSTRUCTIVE PULMONARY DISEASE, U 09/17/2016 JANIYA LAMAR WILLIAM Ot K21.9 GASTRO-ESOPHAGEAL REFLUX DISEASE WITHOUT 09/17/2016 JANIYA DO, WILLIAM Ot N18.9 CHRONIC KIDNEY DISEASE, UNSPECIFIED 09/17/2016 JANIYA DO WILLIAM Ot R07.89 OTHER CHEST PAIN 09/17/2016 CHAI DENSON DOI Ot Z79.4 GROUP HOME (CURRENT) USE OF INSULIN 09/17/2016 CHAI DENSON DOI Ot Z95.5 PRESENCE OF CORONARY ANGIOPLASTY IMPLANT 09/17/2016 JANIYA DO WILLIAM Ot E11.21 TYPE 2 DIABETES MELLITUS WITH DIABETIC N 09/17/2016 JANIYA DO WILLIAM Ot E78.5 HYPERLIPIDEMIA, UNSPECIFIED 09/17/2016 JANIYA DO WILLIAM Ot E87.8 OTH DISORDERS OF ELECTROLYTE AND FLUID B 09/17/2016 DENSON DO, WILLIAM Ot F03.90 UNSPECIFIED DEMENTIA WITHOUT BEHAVIORAL 09/17/2016 JANIYA DO WILLIAM Ot F17.210 NICOTINE DEPENDENCE, CIGARETTES, UNCOMPL 09/17/2016 DENSON DO, WILLIAM Ot I10 ESSENTIAL (PRIMARY) HYPERTENSION 09/17/2016 DENSON DO WILLIAM Ot I25.10 ATHSCL HEART DISEASE OF [place] CORONARY 09/17/2016 JANIYA DO WILLIAM Ot J44.9 CHRONIC OBSTRUCTIVE PULMONARY DISEASE, U 09/17/2016 JANIYA LAMAR WILLIAM Ot K21.9 GASTRO-ESOPHAGEAL REFLUX DISEASE WITHOUT 09/17/2016 JANIYA LAMAR WILLIAM Ot N18.9 CHRONIC KIDNEY DISEASE, UNSPECIFIED 09/17/2016 JANIYA LAMAR WILLIAM Ot R07.89 OTHER CHEST PAIN 09/17/2016 CHAI DENSON DOI Ot Z79.4 GROUP HOME (CURRENT) USE OF INSULIN 09/17/2016 CHAI DENSON DOI Ot Z95.5 PRESENCE OF CORONARY ANGIOPLASTY IMPLANT 10/09/2016 KIRBY DUEÑAS MD Ot E11.9 TYPE 2 DIABETES MELLITUS WITHOUT COMPLIC 10/09/2016 KIRBY DUEÑAS MD A Ot F03.90 UNSPECIFIED DEMENTIA WITHOUT BEHAVIORAL 10/09/2016 KIRBY DUEÑAS MD A Ot F17.210 NICOTINE DEPENDENCE, CIGARETTES, UNCOMPL 10/09/2016 KIRBY DUEÑAS MD Ot I10 ESSENTIAL (PRIMARY) HYPERTENSION 10/09/2016 KIRBY DUEÑAS MD Ot I25.10 ATHSCL HEART DISEASE OF [place] CORONARY 10/09/2016 KIRBY DUEÑAS MD Ot 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 10/09/2016 KIRBY DUEÑAS MD Ot J44.9 CHRONIC OBSTRUCTIVE PULMONARY DISEASE, U 10/09/2016 KIRBY DUEÑAS MD Ot K42.9 UMBILICAL HERNIA WITHOUT OBSTRUCTION OR 10/09/2016 KIRBY DUEÑAS MD Ot K57.30 DVRTCLOS OF LG INT W/O PERFORATION OR AB 10/09/2016 KIRBY DUEÑAS MD Ot K80.20 CALCULUS OF GALLBLADDER W/O CHOLECYSTITI 10/09/2016 KIRBY DUEÑAS MD Ot M54.5 LOW BACK PAIN 10/09/2016 KIRBY DUEÑAS MD Ot Z79.4 [place] AG[place] (CURRENT) USE OF INSULIN 10/09/2016 KIRBY DUEÑAS MD Ot Z79.82 GROUP HOME (CURRENT) USE OF ASPIRIN 10/09/2016 KIRBY DUEÑAS MD Ot Z79.899 OTHER [place] AG[place] (CURRENT) DRUG THERAPY 10/09/2016 KIRBY DUEÑAS MD Ot Z95.5 PRESENCE OF CORONARY ANGIOPLASTY IMPLANT 10/10/2016 KIRBY DUEÑAS MD Ot E11.9 TYPE 2 DIABETES MELLITUS WITHOUT COMPLIC 10/10/2016 KIRBY DUEÑAS MD Ot F03.90 UNSPECIFIED DEMENTIA WITHOUT BEHAVIORAL 10/10/2016 KIRBY DUEÑAS MD A Ot F17.210 NICOTINE DEPENDENCE, CIGARETTES, UNCOMPL 10/10/2016 KIRBY DUEÑAS MD Ot I10 ESSENTIAL (PRIMARY) HYPERTENSION 10/10/2016 KIRBY DUEÑAS MD Ot I25.10 ATHSCL HEART DISEASE OF [place] CORONARY 10/10/2016 KIRBY DUEÑAS MD Ot 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 10/10/2016 KIRBY DUEÑAS MD Ot J44.9 CHRONIC OBSTRUCTIVE PULMONARY DISEASE, U 10/10/2016 KIRBY DUEÑAS MD Ot K42.9 UMBILICAL HERNIA WITHOUT OBSTRUCTION OR 10/10/2016 KIRBY UDEÑAS MD Ot K57.30 DVRTCLOS OF LG INT W/O PERFORATION OR AB 10/10/2016 KIRBY DUEÑAS MD Ot K80.20 CALCULUS OF GALLBLADDER W/O CHOLECYSTITI 10/10/2016 KIRBY DUEÑAS MD Ot M54.5 LOW BACK PAIN 10/10/2016 KIRBY DUEÑAS MD Ot Z79.4 GROUP HOME (CURRENT) USE OF INSULIN 10/10/2016 KIRBY DUEÑAS MD Ot Z79.82 GROUP HOME (CURRENT) USE OF ASPIRIN 10/10/2016 KIRBY DUEÑAS MD Ot Z79.899 OTHER [place] AGENT (CURRENT) DRUG THERAPY 10/10/2016 KIRBY DUEÑAS MD Ot Z95.5 PRESENCE OF CORONARY ANGIOPLASTY IMPLANT 10/18/2016 Ot 250.00 DIAB SHAWN WO COMPL, TYPE II OR UNSPEC TY 10/18/2016 Ot 414.01 CORONARY ATHEROSCLEROSIS OF [place] CORON 10/18/2016 Ot 794.4 ABN KIDNEY FUNCT STUDY 10/18/2016 Ot 786.50 CHEST PAIN NOS 10/18/2016 Ot V58.63 LONG-TERM( CURRENT)USE OF ANTIPLATELET/AN 10/18/2016 Ot V58.69 OTH MED,LT, CURRENT USE 10/18/2016 Ot 786.50 CHEST PAIN NOS 10/18/2016 Ot 428.0 CONGESTIVE HEART FAILURE NOS 10/18/2016 Ot 459.9 CIRCULATORY DISEASE NOS 10/18/2016 Ot 786.05 SHORTNESS OF BREATH 10/18/2016 Ot 786.50 CHEST PAIN NOS 10/18/2016 Ot 414.00 CORON ATHEROSCLER NOS TYPE VESSEL, NATIV 10/18/2016 Ot 440.20 ATHEROSCLEROSIS [place] ARTERIES EXTREMIT 10/18/2016 Ot 729.5 PAIN IN LIMB 10/18/2016 Ot 275.2 DIS MAGNESIUM METABOLISM 10/18/2016 Ot 440.22 ATHEROSCL [place] ARTER EXTREMITIES W/ R 10/19/2016 IGNACIO MOSES FACC, ALI FACP CCDS Ot E11.9 TYPE 2 DIABETES MELLITUS WITHOUT COMPLIC 10/19/2016 IGNACIO MOSES FACC, ALI FACP CCDS Ot I10 ESSENTIAL (PRIMARY) HYPERTENSION 10/19/2016 IGNACIO MOSES FACC, ALI FACP CCDS Ot R06.02 SHORTNESS OF BREATH 10/19/2016 IGNACIO MOSES FACTrang, ALI FACP CCDS Ot R07.89 OTHER CHEST PAIN 10/19/2016 IGNACIO MOSES FACC, ALI FACP CCDS Ot Z72.0 TOBACCO USE 11/14/2016 IGNACIO MOSES FACTrang, ALI FACP CCDS Ot E11.9 TYPE 2 DIABETES MELLITUS WITHOUT COMPLIC 11/14/2016 IGNACIO MOSES FACC, ALI FACP CCDS Ot I10 ESSENTIAL (PRIMARY) HYPERTENSION 11/14/2016 IGNACIO MOSES FACC, ALI FACP CCDS Ot R06.02 SHORTNESS OF BREATH 11/14/2016 IGNACIO MOSES FACC, ALI FACP CCDS Ot R07.89 OTHER CHEST PAIN 11/14/2016 IGNACIO MOSES FACC, ALI FACP CCDS Ot Z72.0 TOBACCO USE 11/15/2016 IGNACIO MOSES FACC, ALI FACP CCDS Ot E11.9 TYPE 2 DIABETES MELLITUS WITHOUT COMPLIC 11/15/2016 IGNACIO MOSES FACC, ALI FACP CCDS Ot I10 ESSENTIAL (PRIMARY) HYPERTENSION 11/15/2016 IGNACIO MOSES FACC, ALI FACP CCDS Ot R06.02 SHORTNESS OF BREATH 11/15/2016 IGNACIO MOSES FACC, ALI FACP CCDS Ot R07.89 OTHER CHEST PAIN 11/15/2016 IGNACIO MOSES FACC, ALI FACP CCDS Ot Z72.0 TOBACCO USE 02/26/2017 CINDY BARRIOS MD Ot I10 ESSENTIAL (PRIMARY) HYPERTENSION 02/26/2017 CINDY BARRIOS MD Ot I25.10 ATHSCL HEART DISEASE OF [place] CORONARY 02/26/2017 CINDY BARRIOS MD Ot I72.4 ANEURYSM OF ARTERY OF LOWER EXTREMITY 02/26/2017 CINDY BARRIOS MD Ot J44.9 CHRONIC OBSTRUCTIVE PULMONARY DISEASE, U 02/26/2017 CINDY BARRIOS MD Ot R20.2 PARESTHESIA OF SKIN 02/26/2017 DENIS MOSES, CINDY Conrad Ot Z79.02 [place] AG[place] (CURRENT) USE OF ANTITHROMBOTI 02/26/2017 DENIS MOSES, CINDY Conrad Ot Z79.82 [place] (CURRENT) USE OF ASPIRIN 02/26/2017 CINDY BARRIOS MD, Ot Z79.899 OTHER [place] AG[place] (CURRENT) DRUG THERAPY 04/05/2017 CHELSI BARREAR DO Ot E11.9 TYPE 2 DIABETES MELLITUS WITHOUT COMPLIC 04/05/2017 CHELSI BARRERA DO, Ot F17.210 NICOTINE DEPENDENCE, CIGARETTES, UNCOMPL 04/05/2017 CHELSI BARRERA DO, Ot J44.1 CHRONIC OBSTRUCTIVE PULMONARY DISEASE W 04/05/2017 CHELSI BARRERA DO Ot R07.81 PLEURODYNIA 04/05/2017 CHELSI BARRERA DO Ot R07.9 CHEST PAIN, UNSPECIFIED 04/05/2017 CHELSI BARRERA DO, Ot Z79.02 [place] AG[place] (CURRENT) USE OF ANTITHROMBOTI 04/05/2017 CHELSI BARRERA DO Ot Z79.4 [place] AG[place] (CURRENT) USE OF INSULIN 04/05/2017 CHELSI BARRERA DO Ot Z79.84 [place] AG[place] (CURRENT) USE OF ORAL HYPOGLYC 04/05/2017 CHELSI BARRERA DO, Ot Z79.899 OTHER [place] AG[place] (CURRENT) DRUG THERAPY 04/08/2017 CHELSI BARRERA DO Ot E11.9 TYPE 2 DIABETES MELLITUS WITHOUT COMPLIC 04/08/2017 CHELSI BARRERA DO, Ot F17.210 NICOTINE DEPENDENCE, CIGARETTES, UNCOMPL 04/08/2017 CHELSI BARRERA DO Ot J44.1 CHRONIC OBSTRUCTIVE PULMONARY DISEASE W 04/08/2017 CHELSI BARRERA DO Ot R07.81 PLEURODYNIA 04/08/2017 CHELSI BARRERA DO Ot R07.9 CHEST PAIN, UNSPECIFIED 04/08/2017 CHELSI BARRERA DO Ot Z79.02 GROUP HOME (CURRENT) USE OF ANTITHROMBOTI 04/08/2017 CHELSI BARRERA DO Ot Z79.4 [place] AG[place] (CURRENT) USE OF INSULIN 04/08/2017 CHELSI BARRERA DO Ot Z79.84 GROUP HOME (CURRENT) USE OF ORAL HYPOGLYC 04/08/2017 CHELSI BARRERA DO, Ot Z79.899 OTHER [place] AG[place] (CURRENT) DRUG THERAPY 04/28/2017 BENOIT ALEMAN MD, Ot E11.9 TYPE 2 DIABETES MELLITUS WITHOUT COMPLIC 04/28/2017 BENOIT ALEMAN MD, Ot E78.00 PURE HYPERCHOLESTEROLEMIA, UNSPECIFIED 04/28/2017 BENOIT ALEMAN MD, Ot F17.210 NICOTINE DEPENDENCE, CIGARETTES, UNCOMPL 04/28/2017 BENOIT ALEMAN MD Ot I10 ESSENTIAL (PRIMARY) HYPERTENSION 04/28/2017 BENOIT ALEMAN MD Ot I25.10 ATHSCL HEART DISEASE OF [place] CORONARY 04/28/2017 BENOIT ALEMAN MD, Ot K21.9 GASTRO-ESOPHAGEAL REFLUX DISEASE WITHOUT 04/28/2017 BENOIT ALEMAN MD Ot R07.9 CHEST PAIN, UNSPECIFIED 04/28/2017 BENOIT ALEMAN MD Ot Z79.4 [place] AG[place] (CURRENT) USE OF INSULIN 04/28/2017 BENOIT ALEMAN MD Ot Z79.82 [place] AG[place] (CURRENT) USE OF ASPIRIN 04/29/2017 BENOIT ALEMAN MD Ot E11.9 TYPE 2 DIABETES MELLITUS WITHOUT COMPLIC 04/29/2017 BENOIT ALEMAN MD Ot E78.00 PURE HYPERCHOLESTEROLEMIA, UNSPECIFIED 04/29/2017 BENOIT ALEMAN MD, Ot F17.210 NICOTINE DEPENDENCE, CIGARETTES, UNCOMPL 04/29/2017 BENOIT ALEMAN MD Ot I10 ESSENTIAL (PRIMARY) HYPERTENSION 04/29/2017 BENOIT ALEMAN MD Ot I25.10 ATHSCL HEART DISEASE OF [place] CORONARY 04/29/2017 BENOIT ALEMAN MD Ot K21.9 GASTRO-ESOPHAGEAL REFLUX DISEASE WITHOUT 04/29/2017 BENOIT ALEMAN MD Ot R07.9 CHEST PAIN, UNSPECIFIED 04/29/2017 BENOIT ALEMAN MD Ot Z79.4 [place] AG[place] (CURRENT) USE OF INSULIN 04/29/2017 BENOIT ALEMAN MD Ot Z79.82 GROUP HOME (CURRENT) USE OF ASPIRIN 06/25/2017 Ot 459.9 CIRCULATORY DISEASE NOS 06/25/2017 Ot 786.05 SHORTNESS OF BREATH 06/25/2017 Ot 786.50 CHEST PAIN NOS 06/25/2017 Ot 414.00 CORON ATHEROSCLER NOS TYPE VESSEL, NATIV 06/25/2017 Ot 440.20 ATHEROSCLEROSIS [place] ARTERIES EXTREMIT 06/25/2017 Ot 729.5 PAIN IN LIMB 06/25/2017 Ot 275.2 DIS MAGNESIUM METABOLISM 06/25/2017 Ot 440.22 ATHEROSCL [place] ARTER EXTREMITIES W/ R 06/25/2017 IGNACIO MOSES FACTrang, [facility] Ot E11.9 TYPE 2 DIABETES MELLITUS WITHOUT COMPLIC 06/25/2017 IGNACIO MOSES FACC, ALI FACP CCDS Ot I10 ESSENTIAL (PRIMARY) HYPERTENSION 06/25/2017 IGNACIO MOSES FACC, ANNELISE FACP CCDS Ot R06.02 SHORTNESS OF BREATH 06/25/2017 IGNACIO MOSES FACC, ANNELISE FACP CCDS Ot R07.89 OTHER CHEST PAIN 06/25/2017 IGNACIO MOSES FACC, ANNELISE FACP CCDS Ot Z72.0 TOBACCO USE 06/25/2017 FRANCK RAND [employer] TENDER HELPER Ot E11.40 TYPE 2 DIABETES MELLITUS WITH DIABETIC N 06/25/2017 GIORGI, FRANCK [employer] HELPER Ot E11.51 TYPE 2 DIABETES W DIABETIC PERIPHERAL AN 06/25/2017 GIORGI FRANCK [employer] TENDER HELPER Ot E78.00 PURE HYPERCHOLESTEROLEMIA, UNSPECIFIED 06/25/2017 GIORGI, FRANCK [employer]END[employer] HELPER Ot F03.90 UNSPECIFIED DEMENTIA WITHOUT BEHAVIORAL 06/25/2017 GIORGI, FRANCK [employer] TENDER HELPER Ot F17.210 NICOTINE DEPENDENCE, CIGARETTES, UNCOMPL 06/25/2017 GIORGI, FRANCK P[employer] TENDER HELPER Ot I10 ESSENTIAL (PRIMARY) HYPERTENSION 06/25/2017 GIORGI FRANCK PICKER TENDER HELPER Ot I25.10 ATHSCL HEART DISEASE OF [place] CORONARY 06/25/2017 GIORGI, FRANCK PICKER TENDER HELPER Ot I73.9 PERIPHERAL VASCULAR DISEASE, UNSPECIFIED 06/25/2017 GIORGI FRANCK PICKER TENDER HELPER Ot J44.9 CHRONIC OBSTRUCTIVE PULMONARY DISEASE, U 06/25/2017 GIORGI, FRANCK PICKER TENDER HELPER Ot K21.9 GASTRO-ESOPHAGEAL REFLUX DISEASE WITHOUT 06/25/2017 GIORGI, FRANCK PICKER TENDER HELPER Ot N40.0 BENIGN PROSTATIC HYPERPLASIA WITHOUT LOW 06/25/2017 GIORGI, FRANCK PICKER TENDER HELPER Ot R07.89 OTHER CHEST PAIN 06/25/2017 GIORGI FRANCK PICKER TENDER HELPER Ot Z77.22 CNTCT W AND EXPSR TO ENVIRON TOBACCO SMO 06/25/2017 GIORGI FRANCK PICKER TENDER HELPER Ot Z79.4 GROUP HOME (CURRENT) USE OF INSULIN 06/25/2017 FRANCK RAND Ot Z79.82 GROUP HOME (CURRENT) USE OF ASPIRIN 06/25/2017 FRANCK RAND Ot Z82.49 FAMILY HX OF [place] HEART DIS AND OTH DI 06/25/2017 FRANCK RAND Ot Z86.14 PERSONAL HISTORY OF METHICILLIN RESIS ST 06/25/2017 FRANCK RAND Ot Z87.19 PERSONAL HISTORY OF OTHER DISEASES OF TH 06/25/2017 FRANCK RAND Ot Z91.14 PATIENT'S OTHER NONCOMPLIANCE WITH MEDIC 06/25/2017 FRANCK RAND Ot Z95.5 PRESENCE OF CORONARY ANGIOPLASTY IMPLANT 06/25/2017 Ot 459.9 CIRCULATORY DISEASE NOS 06/25/2017 Ot 786.05 SHORTNESS OF BREATH 06/25/2017 Ot 786.50 CHEST PAIN NOS 06/25/2017 Ot 414.00 CORON ATHEROSCLER NOS TYPE VESSEL, NATIV 06/25/2017 Ot 440.20 ATHEROSCLEROSIS [place] ARTERIES EXTREMIT 06/25/2017 Ot 729.5 PAIN IN LIMB 06/25/2017 Ot 275.2 DIS MAGNESIUM METABOLISM 06/25/2017 Ot 440.22 ATHEROSCL [place] ARTER EXTREMITIES W/ R 06/25/2017 IGNACIO MOSES FACC, ALI FACP CCDS Ot E11.9 TYPE 2 DIABETES MELLITUS WITHOUT COMPLIC 06/25/2017 IGNACIO MOSES FACC, ALI FACP CCDS Ot I10 ESSENTIAL (PRIMARY) HYPERTENSION 06/25/2017 IGNACIO MOSES FACC, ALI FACP CCDS Ot R06.02 SHORTNESS OF BREATH 06/25/2017 IGNACIO MOSES FACC, ALI FACP CCDS Ot R07.89 OTHER CHEST PAIN 06/25/2017 IGNACIO MOSES FAC, ALI FACP CCDS Ot Z72.0 TOBACCO USE 07/31/2017 JADEN COLLIER MD Ot E11.40 TYPE 2 DIABETES MELLITUS WITH DIABETIC N 07/31/2017 JADEN COLLIER MD Ot E78.00 PURE HYPERCHOLESTEROLEMIA, UNSPECIFIED 07/31/2017 JADEN COLLIER MD Ot F17.210 NICOTINE DEPENDENCE, CIGARETTES, UNCOMPL 07/31/2017 JADEN COLLIER MD Ot H60.92 UNSPECIFIED OTITIS EXTERNA, LEFT EAR 07/31/2017 JADEN COLLIER MD Ot I10 ESSENTIAL (PRIMARY) HYPERTENSION 07/31/2017 JADEN COLLIER MD Ot I25.10 ATHSCL HEART DISEASE OF [place] CORONARY 07/31/2017 JADEN COLLIER MD Ot J44.9 CHRONIC OBSTRUCTIVE PULMONARY DISEASE, U 07/31/2017 JADEN COLLIER MD Ot K21.9 GASTRO-ESOPHAGEAL REFLUX DISEASE WITHOUT 07/31/2017 JADEN COLLIER MD Ot R51 HEADACHE 07/31/2017 JADEN COLLIER MD Ot Z79.4 GROUP HOME (CURRENT) USE OF INSULIN 07/31/2017 JADEN COLLIER MD Ot Z79.82 COUNTY AGENT (CURRENT) USE OF ASPIRIN 07/31/2017 JADEN COLLIER MD Ot Z80.9 FAMILY HISTORY OF MALIGNANT NEOPLASM, UN 07/31/2017 JADEN COLLIER MD Ot Z82.49 FAMILY HX OF I[place]HE[place] HEART DIS AND OTH DI 07/31/2017 JADEN COLLIER MD Ot Z87.19 PERSONAL HISTORY OF OTHER DISEASES OF TH 07/31/2017 JADEN COLLIER MD Ot Z87.2 PERSONAL HISTORY OF DISEASES OF THE SKIN 07/31/2017 JADEN COLLIER MD Ot 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( 08/02/2017 Ot 459.9 CIRCULATORY DISEASE NOS 08/02/2017 Ot 786.05 SHORTNESS OF BREATH 08/02/2017 Ot 786.50 CHEST PAIN NOS 08/02/2017 Ot 414.00 CORON ATHEROSCLER NOS TYPE VESSEL, NATIV 08/02/2017 Ot 440.20 ATHEROSCLEROSIS [place] ARTERIES EXTREMIT 08/02/2017 Ot 729.5 PAIN IN LIMB 08/02/2017 Ot 275.2 DIS MAGNESIUM METABOLISM 08/02/2017 Ot 440.22 ATHEROSCL [place] ARTER EXTREMITIES W/ R 08/02/2017 IGNACIO MOSES FACC, ALI FACP CCDS Ot E11.9 TYPE 2 DIABETES MELLITUS WITHOUT COMPLIC 08/02/2017 IGNACIO MOSES FACC, ALI FACP CCDS Ot I10 ESSENTIAL (PRIMARY) HYPERTENSION 08/02/2017 IGNACIO MOSES FACC, ALI FACP CCDS Ot R06.02 SHORTNESS OF BREATH 08/02/2017 IGNACIO MOSES FACC, ALI FACP CCDS Ot R07.89 OTHER CHEST PAIN 08/02/2017 IGNACIO MOSES FACC, ANNELISE FACP CCDS Ot Z72.0 TOBACCO USE 08/02/2017 PAKO MOTT Ot E11.40 TYPE 2 DIABETES MELLITUS WITH DIABETIC N 08/02/2017 PAKO MOTT Ot E11.51 TYPE 2 DIABETES W DIABETIC PERIPHERAL AN 08/02/2017 PAKO MOTT Ot E78.00 PURE HYPERCHOLESTEROLEMIA, UNSPECIFIED 08/02/2017 PAKO MOTT Ot F03.90 UNSPECIFIED DEMENTIA WITHOUT BEHAVIORAL 08/02/2017 PAKO MOTT Ot F17.210 NICOTINE DEPENDENCE, CIGARETTES, UNCOMPL 08/02/2017 PAKO MOTT Ot I10 ESSENTIAL (PRIMARY) HYPERTENSION 08/02/2017 PAKO MOTT Ot I25.10 ATHSCL HEART DISEASE OF [place] CORONARY 08/02/2017 PAKO MOTT Ot I73.9 PERIPHERAL VASCULAR DISEASE, UNSPECIFIED 08/02/2017 PAKO MOTT Ot J01.90 ACUTE SINUSITIS, UNSPECIFIED 08/02/2017 PAKO MOTT Ot J44.9 CHRONIC OBSTRUCTIVE PULMONARY DISEASE, U 08/02/2017 PAKO MOTT Ot K21.9 GASTRO-ESOPHAGEAL REFLUX DISEASE WITHOUT 08/02/2017 PAKO MOTT Ot L03.211 CELLULITIS OF FACE 08/02/2017 PAKO MOTT Ot M19.90 UNSPECIFIED OSTEOARTHRITIS, UNSPECIFIED 08/02/2017 PAKO MOTT Ot N40.0 BENIGN PROSTATIC HYPERPLASIA WITHOUT LOW 08/02/2017 PAKO MOTT Ot R22.0 LOCALIZED SWELLING, MASS AND LUMP, HEAD 08/02/2017 PAKO MOTT Ot Z79.4 COUNTY AGENT (CURRENT) USE OF INSULIN 08/02/2017 PAKO MOTT Ot Z79.82 COUNTY AGENT (CURRENT) USE OF ASPIRIN 08/02/2017 PAKO MOTT Ot Z82.49 FAMILY HX OF I[place]HE[place] HEART DIS AND OTH DI 08/02/2017 PAKO MOTT Ot Z86.19 PERSONAL HISTORY OF OTHER INFECTIOUS AND 08/02/2017 PAKO MOTT Ot Z87.19 PERSONAL HISTORY OF OTHER DISEASES OF TH 08/02/2017 PAKO MOTT Ot Z95.5 PRESENCE OF CORONARY ANGIOPLASTY IMPLANT 08/05/2017 PAKO MOTT Ot E11.40 TYPE 2 DIABETES MELLITUS WITH DIABETIC N 08/05/2017 PAKO MOTT Ot E11.51 TYPE 2 DIABETES W DIABETIC PERIPHERAL AN 08/05/2017 PAKO MOTT Ot E78.00 PURE HYPERCHOLESTEROLEMIA, UNSPECIFIED 08/05/2017 PAKO MOTT Ot F03.90 UNSPECIFIED DEMENTIA WITHOUT BEHAVIORAL 08/05/2017 PAKO MOTT Ot F17.210 NICOTINE DEPENDENCE, CIGARETTES, UNCOMPL 08/05/2017 PAKO MOTT Ot I10 ESSENTIAL (PRIMARY) HYPERTENSION 08/05/2017 PAKO MOTT Ot I25.10 ATHSCL HEART DISEASE OF [place] CORONARY 08/05/2017 PAKO MOTT Ot I73.9 PERIPHERAL VASCULAR DISEASE, UNSPECIFIED 08/05/2017 PAKO MOTT Ot J01.90 ACUTE SINUSITIS, UNSPECIFIED 08/05/2017 PAKO MOTT Ot J44.9 CHRONIC OBSTRUCTIVE PULMONARY DISEASE, U 08/05/2017 PAKO MOTT Ot K21.9 GASTRO-ESOPHAGEAL REFLUX DISEASE WITHOUT 08/05/2017 PAKO MOTT Ot L03.211 CELLULITIS OF FACE 08/05/2017 PAKO MOTT Ot M19.90 UNSPECIFIED OSTEOARTHRITIS, UNSPECIFIED 08/05/2017 PAKO MOTT Ot N40.0 BENIGN PROSTATIC HYPERPLASIA WITHOUT LOW 08/05/2017 PAKO MOTT Ot R22.0 LOCALIZED SWELLING, MASS AND LUMP, HEAD 08/05/2017 PAKO MOTT Ot Z79.4 [place] AGENT (CURRENT) USE OF INSULIN 08/05/2017 PAKO MOTT Ot Z79.82 GROUP HOME (CURRENT) USE OF ASPIRIN 08/05/2017 PAKO MOTT Ot Z82.49 FAMILY HX OF [place]HE[place] HEART DIS AND OTH DI 08/05/2017 PAKO MOTT Ot Z86.19 PERSONAL HISTORY OF OTHER INFECTIOUS AND 08/05/2017 PAKO MOTT Ot Z87.19 PERSONAL HISTORY OF OTHER DISEASES OF TH 08/05/2017 PAKO MOTT Ot Z95.5 PRESENCE OF CORONARY ANGIOPLASTY IMPLANT 08/08/2017 JADEN COLLIER MD Ot E11.40 TYPE 2 DIABETES MELLITUS WITH DIABETIC N 08/08/2017 JADEN COLLIER MD Ot E78.00 PURE HYPERCHOLESTEROLEMIA, UNSPECIFIED 08/08/2017 JADEN COLLIER MD Ot F17.210 NICOTINE DEPENDENCE, CIGARETTES, UNCOMPL 08/08/2017 JADEN COLLIER MD Ot H60.92 UNSPECIFIED OTITIS EXTERNA, LEFT EAR 08/08/2017 JADEN COLLIER MD Ot I10 ESSENTIAL (PRIMARY) HYPERTENSION 08/08/2017 JADEN COLLIER MD Ot I25.10 ATHSCL HEART DISEASE OF [place] CORONARY 08/08/2017 JADEN COLLIER MD Ot J44.9 CHRONIC OBSTRUCTIVE PULMONARY DISEASE, U 08/08/2017 JADEN COLLIER MD Ot K21.9 GASTRO-ESOPHAGEAL REFLUX DISEASE WITHOUT 08/08/2017 JADEN COLLIER MD Ot R51 HEADACHE 08/08/2017 JADEN COLLIER MD, Ot Z79.4 [place] AGENT (CURRENT) USE OF INSULIN 08/08/2017 JADEN COLLIER MD Ot Z79.82 GROUP HOME (CURRENT) USE OF ASPIRIN 08/08/2017 JADEN COLLIER MD, Ot Z80.9 FAMILY HISTORY OF MALIGNANT NEOPLASM, UN 08/08/2017 JADEN COLLIER MD, Ot Z82.49 FAMILY HX OF I[place]HE[place] HEART DIS AND OTH DI 08/08/2017 JADEN COLLIER MD, Ot Z87.19 PERSONAL HISTORY OF OTHER DISEASES OF TH 08/08/2017 JADEN COLLIER MD, Ot Z87.2 PERSONAL HISTORY OF DISEASES OF THE SKIN 08/08/2017 JADEN COLLIER MD Ot 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( 08/09/2017 PAKO MOTT Ot E11.40 TYPE 2 DIABETES MELLITUS WITH DIABETIC N 08/09/2017 PAKO MOTT Ot E11.51 TYPE 2 DIABETES W DIABETIC PERIPHERAL AN 08/09/2017 PAKO MOTT Ot E78.00 PURE HYPERCHOLESTEROLEMIA, UNSPECIFIED 08/09/2017 PAKO MOTT Ot F03.90 UNSPECIFIED DEMENTIA WITHOUT BEHAVIORAL 08/09/2017 PAKO MOTT Ot F17.210 NICOTINE DEPENDENCE, CIGARETTES, UNCOMPL 08/09/2017 PAKO MOTT Ot I10 ESSENTIAL (PRIMARY) HYPERTENSION 08/09/2017 PAKO MOTT Ot I25.10 ATHSCL HEART DISEASE OF [place] CORONARY 08/09/2017 PAKO MOTT Ot I73.9 PERIPHERAL VASCULAR DISEASE, UNSPECIFIED 08/09/2017 PAKO MOTT Ot J01.90 ACUTE SINUSITIS, UNSPECIFIED 08/09/2017 PAKO MOTT Ot J44.9 CHRONIC OBSTRUCTIVE PULMONARY DISEASE, U 08/09/2017 PAKO MOTT Ot K21.9 GASTRO-ESOPHAGEAL REFLUX DISEASE WITHOUT 08/09/2017 PAKO MOTT Ot L03.211 CELLULITIS OF FACE 08/09/2017 PAKO MOTT Ot M19.90 UNSPECIFIED OSTEOARTHRITIS, UNSPECIFIED 08/09/2017 PAKO MOTT Ot N40.0 BENIGN PROSTATIC HYPERPLASIA WITHOUT LOW 08/09/2017 PAKO MOTT Ot R22.0 LOCALIZED SWELLING, MASS AND LUMP, HEAD 08/09/2017 PAKO MOTT Ot Z79.4 GROUP HOME (CURRENT) USE OF INSULIN 08/09/2017 PAKO MOTT Ot Z79.82 [place] AGENT (CURRENT) USE OF ASPIRIN 08/09/2017 PAKO MOTT Ot Z82.49 FAMILY HX OF [place] HEART DIS AND OTH DI 08/09/2017 PAKO MOTT Ot Z86.19 PERSONAL HISTORY OF OTHER INFECTIOUS AND 08/09/2017 PAKO MOTT Ot Z87.19 PERSONAL HISTORY OF OTHER DISEASES OF TH 08/09/2017 PAKO MOTT Ot Z95.5 PRESENCE OF CORONARY ANGIOPLASTY IMPLANT 08/19/2017 SYLVIA BONE APRN Ot E11.40 TYPE 2 DIABETES MELLITUS WITH DIABETIC N 08/19/2017 SYLVIA BONE APRN Ot E78.00 PURE HYPERCHOLESTEROLEMIA, UNSPECIFIED 08/19/2017 SYLVIA BONE APRN Ot I10 ESSENTIAL (PRIMARY) HYPERTENSION 08/19/2017 SYLVIA BONE APRN Ot I25.10 ATHSCL HEART DISEASE OF [place] CORONARY 08/19/2017 SYLVIA BONE APRN Ot J44.9 CHRONIC OBSTRUCTIVE PULMONARY DISEASE, U 08/19/2017 SYLVIA BONE APRN Ot K21.9 GASTRO-ESOPHAGEAL REFLUX DISEASE WITHOUT 08/19/2017 SYLVIA BONE APRN Ot R73.09 OTHER ABNORMAL GLUCOSE 08/19/2017 SYLVIA BONE APRN Ot Z77.22 CNTCT W AND EXPSR TO ENVIRON TOBACCO SMO 08/19/2017 SYLVIA BONE BABYSITTER Ot Z79.4 [place] AG[place] (CURRENT) USE OF INSULIN 08/19/2017 SYLVIA BONE BABYSITTER Ot Z79.82 [place] AGENT (CURRENT) USE OF ASPIRIN 08/19/2017 SYLVIA BONE BABYSITTER Ot Z87.438 PERSONAL HISTORY OF OTHER DISEASES OF [place] 08/19/2017 SYLVIA BONE BABYSITTER Ot 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( 08/19/2017 SYLVIA BONE BABYSITTER Ot Z95.5 PRESENCE OF CORONARY ANGIOPLASTY IMPLANT 2017 Ot 459.9 CIRCULATORY DISEASE NOS 2017 Ot 786.05 SHORTNESS OF BREATH 2017 Ot 786.50 CHEST PAIN NOS 2017 Ot 414.00 CORON ATHEROSCLER NOS TYPE VESSEL, NATIV 2017 Ot 440.20 ATHEROSCLEROSIS [place] ARTERIES EXTREMIT 2017 Ot 729.5 PAIN IN LIMB 2017 Ot 275.2 DIS MAGNESIUM METABOLISM 2017 Ot 440.22 ATHEROSCL [place] ARTER EXTREMITIES W/ R 2017 IGNACIO MOSES FACC, ALI FACP CCDS Ot E11.9 TYPE 2 DIABETES MELLITUS WITHOUT COMPLIC 2017 IGNACIO MOSES FACC, ALI FACP CCDS Ot I10 ESSENTIAL (PRIMARY) HYPERTENSION 2017 IGNACIO MOSES FACC, ALI FACP CCDS Ot R06.02 SHORTNESS OF BREATH 2017 IGNACIO MOSES FACC, ALI FACP CCDS Ot R07.89 OTHER CHEST PAIN 2017 IGNACIO MOSES FACC, ALI FACP CCDS Ot Z72.0 TOBACCO USE 2017 CINDY BARRIOS MD Ot E11.40 TYPE 2 DIABETES MELLITUS WITH DIABETIC N 2017 CINDY BARRIOS MD Ot E11.649 TYPE 2 DIABETES MELLITUS WITH HYPOGLYCEM 2017 CINDY BARRIOS MD Ot E16.2 HYPOGLYCEMIA, UNSPECIFIED 2017 CINDY BARRIOS MD Ot F17.210 NICOTINE DEPENDENCE, CIGARETTES, UNCOMPL 2017 CINDY BARRIOS MD Ot I10 ESSENTIAL (PRIMARY) HYPERTENSION 2017 CINDY BARRIOS MD, Ot I25.10 ATHSCL HEART DISEASE OF [place] CORONARY 2017 CINDY BARRIOS MD, Ot J44.9 CHRONIC OBSTRUCTIVE PULMONARY DISEASE, U 2017 CINDY BARRIOS MD, Ot K21.9 GASTRO-ESOPHAGEAL REFLUX DISEASE WITHOUT 2017 CINDY BARRIOS MD Ot R51 HEADACHE 2017 CINDY BARRIOS MD, Ot W18.30XA FALL ON SAME LEVEL, UNSPECIFIED, INITIAL 2017 CINDY BARRIOS MD, Ot Z79.4 GROUP HOME (CURRENT) USE OF INSULIN 2017 CINDY BARRIOS MD, Ot Z79.82 [place] AG[place] (CURRENT) USE OF ASPIRIN 2017 CINDY BARRIOS MD, Ot 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( 2017 CINDY BARRIOS MD, Ot Z95.5 PRESENCE OF CORONARY ANGIOPLASTY IMPLANT 2017 BENOIT ALEMAN MD Ot E11.40 TYPE 2 DIABETES MELLITUS WITH DIABETIC N 2017 BENOIT ALEMAN MD Ot E11.649 TYPE 2 DIABETES MELLITUS WITH HYPOGLYCEM 2017 BENOIT ALEMAN MD Ot E78.00 PURE HYPERCHOLESTEROLEMIA, UNSPECIFIED 2017 BENOIT ALEMAN MD Ot F17.210 NICOTINE DEPENDENCE, CIGARETTES, UNCOMPL 2017 BENOIT ALEMAN MD Ot I10 ESSENTIAL (PRIMARY) HYPERTENSION 2017 BENOIT ALEMAN MD, Ot I25.10 ATHSCL HEART DISEASE OF [place] CORONARY 2017 BENOIT ALEMAN MD, Ot J44.9 CHRONIC OBSTRUCTIVE PULMONARY DISEASE, U 2017 BENOIT ALEMAN MD, Ot R73.09 OTHER ABNORMAL GLUCOSE 2017 BENOIT ALEMAN MD, Ot Z79.4 [place] AG[place] (CURRENT) USE OF INSULIN 2017 BENOIT ALEMAN MD Ot Z80.9 FAMILY HISTORY OF MALIGNANT NEOPLASM, UN 2017 BENOIT ALEMAN MD, Ot Z82.49 FAMILY HX OF [place]HE[place] HEART DIS AND OTH DI 2017 BENOIT LAEMAN MD Ot 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( 2017 BENOIT ALEMAN MD Ot Z95.1 PRESENCE OF AORTOCORONARY BYPASS GRAFT 2017 BENOIT ALEMAN MD Ot Z95.5 PRESENCE OF CORONARY ANGIOPLASTY IMPLANT 09/02/2017 BENOIT ALEMAN MD Ot E11.40 TYPE 2 DIABETES MELLITUS WITH DIABETIC N 09/02/2017 BENOIT ALEMAN MD Ot E11.649 TYPE 2 DIABETES MELLITUS WITH HYPOGLYCEM 09/02/2017 BENOIT ALEMAN MD Ot E78.00 PURE HYPERCHOLESTEROLEMIA, UNSPECIFIED 09/02/2017 BENOIT ALEMAN MD Ot F17.210 NICOTINE DEPENDENCE, CIGARETTES, UNCOMPL 09/02/2017 BENOIT ALEMAN MD Ot I10 ESSENTIAL (PRIMARY) HYPERTENSION 09/02/2017 BENOIT ALEMAN MD Ot I25.10 ATHSCL HEART DISEASE OF [place] CORONARY 09/02/2017 BENOIT ALEMAN MD Ot J44.9 CHRONIC OBSTRUCTIVE PULMONARY DISEASE, U 09/02/2017 BENOIT ALEMAN MD Ot Z79.4 [place] AGENT (CURRENT) USE OF INSULIN 09/02/2017 BENOIT ALEMAN MD Ot Z80.9 FAMILY HISTORY OF MALIGNANT NEOPLASM, UN 09/02/2017 BENOIT ALEMAN MD Ot Z82.49 FAMILY HX OF I[place]HE[place] HEART DIS AND OTH DI 09/02/2017 BENOIT ALEMAN MD Ot 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( 09/02/2017 BENOIT ALEMAN MD Ot Z95.1 PRESENCE OF AORTOCORONARY BYPASS GRAFT 09/02/2017 BENOIT ALEMAN MD Ot Z95.5 PRESENCE OF CORONARY ANGIOPLASTY IMPLANT 09/04/2017 BENOIT ALEMAN MD Ot E11.40 TYPE 2 DIABETES MELLITUS WITH DIABETIC N 09/04/2017 BENOIT ALEMAN MD Ot E11.649 TYPE 2 DIABETES MELLITUS WITH HYPOGLYCEM 09/04/2017 BENOIT ALEMAN MD Ot E78.00 PURE HYPERCHOLESTEROLEMIA, UNSPECIFIED 09/04/2017 BENOIT ALEMAN MD Ot F17.210 NICOTINE DEPENDENCE, CIGARETTES, UNCOMPL 09/04/2017 BENOIT ALEMAN MD Ot I10 ESSENTIAL (PRIMARY) HYPERTENSION 09/04/2017 BENOIT ALEMAN MD, Ot I25.10 ATHSCL HEART DISEASE OF [place] CORONARY 09/04/2017 BENOIT ALEMAN MD, Ot J44.9 CHRONIC OBSTRUCTIVE PULMONARY DISEASE, U 09/04/2017 BENOIT ALEMAN MD, Ot R73.09 OTHER ABNORMAL GLUCOSE 09/04/2017 BENOIT ALEMAN MD, Ot Z79.4 [place] AGENT (CURRENT) USE OF INSULIN 09/04/2017 BENOIT ALEMAN MD, Ot Z80.9 FAMILY HISTORY OF MALIGNANT NEOPLASM, UN 09/04/2017 BENOIT ALEMAN MD, Ot Z82.49 FAMILY HX OF I[place]HE[place] HEART DIS AND OTH DI 09/04/2017 BENOIT ALEMAN MD, Ot 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( 09/04/2017 BENOIT ALEMAN MD, Ot Z95.1 PRESENCE OF AORTOCORONARY BYPASS GRAFT 09/04/2017 BENOIT ALEMAN MD, Ot Z95.5 PRESENCE OF CORONARY ANGIOPLASTY IMPLANT 09/18/2017 DUSTY DO LAKEISHA K Ot E11.40 TYPE 2 DIABETES MELLITUS WITH DIABETIC N 09/18/2017 DUSTY DO LAKEISHA K Ot E11.649 TYPE 2 DIABETES MELLITUS WITH HYPOGLYCEM 09/18/2017 DUSTY DO LAKEISHA K Ot E78.00 PURE HYPERCHOLESTEROLEMIA, UNSPECIFIED 09/18/2017 DUSTY DO LAKEISHA K Ot F03.90 UNSPECIFIED DEMENTIA WITHOUT BEHAVIORAL 09/18/2017 DUSTY DO LAKEISHA K Ot F17.210 NICOTINE DEPENDENCE, CIGARETTES, UNCOMPL 09/18/2017 DUSTY DO LAKEISHA K Ot F41.9 ANXIETY DISORDER, UNSPECIFIED 09/18/2017 DUSTY DO LAKEISHA K Ot I10 ESSENTIAL (PRIMARY) HYPERTENSION 09/18/2017 DUSTY DO LAKEISHA K Ot I25.10 ATHSCL HEART DISEASE OF [place] CORONARY 09/18/2017 DUSTY LAMAR LAKEISHA K Ot J44.9 CHRONIC OBSTRUCTIVE PULMONARY DISEASE, U 09/18/2017 DUSTY DO LAKEISHA K Ot K21.9 GASTRO-ESOPHAGEAL REFLUX DISEASE WITHOUT 09/18/2017 DUSTY DO LAKEISHA K Ot R73.09 OTHER ABNORMAL GLUCOSE 09/18/2017 LAKEISHA MONTANO DO Ot Z79.4 [place] AG[place] (CURRENT) USE OF INSULIN 09/18/2017 LAKEISHA MONTANO DO Ot Z79.82 [place] AG[place] (CURRENT) USE OF ASPIRIN 09/18/2017 LAKEISHA MONTANO DO Ot Z95.5 PRESENCE OF CORONARY ANGIOPLASTY IMPLANT Procedures Code Description Performed By Performed On 00.40 PROCEDURE ON SINGLE VESSEL 07/03/2011 00.46 INSERTION OF TWO VASCULAR STENTS 07/03/2011 00.66 PERC TRANSLUMINAL CORON ANGIOPLASTY PTCA 07/03/2011 36.07 INSRT OF DRUG-ELUTING CORON ARTERY STENT 07/03/2011 37.22 LEFT HEART CARDIAC CATH 07/03/2011 88.53 LT HEART ANGIOCARDIOGRAM 07/03/2011 88.56 CORONAR ARTERIOGR-2 CATH 07/03/2011 Results Test Result Range Capillary blood glucose measurement by glucometer (mass/volume) - 06/15/16 03: 52 Capillary blood glucose measurement by glucometer (mass/volume) 215 mg/dL 70-110 Complete blood count (CBC) with automated white blood cell (WBC) differential - 08/16/16 11:43 Blood leukocytes automated count (number/volume) 8.7 10*3/uL 4.3-11.0 Blood erythrocytes automated count (number/volume) 4.30 10*6/uL 4.35-5.85 Venous blood hemoglobin measurement (mass/volume) 13.1 g/dL 13.3-17.7 Blood hematocrit (volume fraction) 39 % 40-54 Automated erythrocyte mean corpuscular volume 90 [foz_us] 80-99 Automated erythrocyte mean corpuscular hemoglobin (mass per erythrocyte) 31 pg 25-34 Automated erythrocyte mean corpuscular hemoglobin concentration measurement ( mass/volume) 34 g/dL 32-36 Automated erythrocyte distribution width ratio 14.3 % 10.0-14.5 Automated blood platelet count (count/volume) 205 10*3/uL 130-400 Automated blood platelet mean volume measurement 11.0 [foz_us] 7.4-10.4 Automated blood neutrophils/100 leukocytes 81 % 42-75 Automated blood lymphocytes/100 leukocytes 10 % 12-44 Blood monocytes/100 leukocytes 6 % 0-12 Automated blood eosinophils/100 leukocytes 3 % 0-10 Automated blood basophils/100 leukocytes 0 % 0-10 Blood neutrophils automated count (number/volume) 7.1 10*3 1.8-7.8 Blood lymphocytes automated count (number/volume) 0.8 10*3 1.0-4.0 Blood monocytes automated count (number/volume) 0.5 10*3 0.0-1.0 Automated eosinophil count 0.3 10*3/uL 0.0-0.3 Automated blood basophil count (count/volume) 0.0 10*3/uL 0.0-0.1 Whole blood basic metabolic panel - 08/16/16 11:43 Serum or plasma sodium measurement (moles/volume) 143 mmol/L 135-145 Serum or plasma potassium measurement (moles/volume) 3.3 mmol/L 3.6-5.0 Serum or plasma chloride measurement (moles/volume) 108 mmol/L 98-107 Carbon dioxide 21 mmol/L 21-32 Serum or plasma anion gap determination (moles/volume) 14 mmol/L 5-14 Serum or plasma urea nitrogen measurement (mass/volume) 13 mg/dL 7-18 Serum or plasma creatinine measurement (mass/volume) 1.06 mg/dL 0.60-1.30 Serum or plasma urea nitrogen/creatinine mass ratio 12 NRG Serum or plasma creatinine measurement with calculation of estimated glomerular filtration rate > NRG Serum or plasma glucose measurement (mass/volume) 89 mg/dL 70-105 Serum or plasma calcium measurement (mass/volume) 9.6 mg/dL 8.5-10.1 Complete blood count (CBC) with automated white blood cell (WBC) differential - 09/17/16 03:58 Blood leukocytes automated count (number/volume) 9.7 10*3/uL 4.3-11.0 Blood erythrocytes automated count (number/volume) 4.70 10*6/uL 4.35-5.85 Venous blood hemoglobin measurement (mass/volume) 14.6 g/dL 13.3-17.7 Blood hematocrit (volume fraction) 43 % 40-54 Automated erythrocyte mean corpuscular volume 91 [foz_us] 80-99 Automated erythrocyte mean corpuscular hemoglobin (mass per erythrocyte) 31 pg 25-34 Automated erythrocyte mean corpuscular hemoglobin concentration measurement ( mass/volume) 34 g/dL 32-36 Automated erythrocyte distribution width ratio 16.2 % 10.0-14.5 Automated blood platelet count (count/volume) 174 10*3/uL 130-400 Automated blood platelet mean volume measurement 11.4 [foz_us] 7.4-10.4 Automated blood neutrophils/100 leukocytes 83 % 42-75 Automated blood lymphocytes/100 leukocytes 8 % 12-44 Blood monocytes/100 leukocytes 6 % 0-12 Automated blood eosinophils/100 leukocytes 2 % 0-10 Automated blood basophils/100 leukocytes 0 % 0-10 Blood neutrophils automated count (number/volume) 8.1 10*3 1.8-7.8 Blood lymphocytes automated count (number/volume) 0.8 10*3 1.0-4.0 Blood monocytes automated count (number/volume) 0.6 10*3 0.0-1.0 Automated eosinophil count 0.2 10*3/uL 0.0-0.3 Automated blood basophil count (count/volume) 0.0 10*3/uL 0.0-0.1 PT panel in platelet poor plasma by coagulation assay - 09/17/16 03:58 Prothrombin time (PT) in platelet poor plasma by coagulation assay 12.1 s 12.2-14.7 INR in platelet poor plasma or blood by coagulation assay 0.9 0.8-1.4 Activated partial thromboplastin time (aPTT) in platelet poor plasma bycoagulation assay - 09/17/16 03:58 Activated partial thromboplastin time (aPTT) in platelet poor plasma bycoagulation assay 31 s 24-35 Comprehensive metabolic panel - 09/17/16 03:58 Serum or plasma sodium measurement (moles/volume) 139 mmol/L 135-145 Serum or plasma potassium measurement (moles/volume) 3.9 mmol/L 3.6-5.0 Serum or plasma chloride measurement (moles/volume) 103 mmol/L 98-107 Carbon dioxide 25 mmol/L 21-32 Serum or plasma anion gap determination (moles/volume) 11 mmol/L 5-14 Serum or plasma urea nitrogen measurement (mass/volume) 17 mg/dL 7-18 Serum or plasma creatinine measurement (mass/volume) 1.10 mg/dL 0.60-1.30 Serum or plasma urea nitrogen/creatinine mass ratio 15 NRG Serum or plasma creatinine measurement with calculation of estimated glomerular filtration rate > NRG Serum or plasma glucose measurement (mass/volume) 191 mg/dL 70-105 Serum or plasma calcium measurement (mass/volume) 9.6 mg/dL 8.5-10.1 Serum or plasma total bilirubin measurement (mass/volume) 0.3 mg/dL 0.1-1.0 Serum or plasma alkaline phosphatase measurement (enzymatic activity/volume) 150 U/L 40-136 Serum or plasma aspartate aminotransferase measurement (enzymatic activity/ volume) 25 U/L 5-34 Serum or plasma alanine aminotransferase measurement (enzymatic activity/volume ) 42 U/L 0-55 Serum or plasma protein measurement (mass/volume) 7.2 g/dL 6.4-8.2 Serum or plasma albumin measurement (mass/volume) 4.1 g/dL 3.2-4.5 Magnesium - 09/17/16 03:58 Magnesium 1.8 mg/dL 1.8-2.4 Serum or plasma creatine kinase measurement (enzymatic activity/volume) - 09/17 03:58 Serum or plasma creatine kinase measurement (enzymatic activity/volume) 72 U/L 30-200 Serum or plasma creatine kinase MB measurement (enzymatic activity/volume) - 03:58 Serum or plasma creatine kinase MB measurement (enzymatic activity/volume) 2.6 ng/mL <6.6 Serum or plasma troponin i.cardiac measurement (mass/volume) - 09/17/16 03:58 Serum or plasma troponin i.cardiac measurement (mass/volume) < ng/ mL <0.30 Serum or plasma lithium measurement (moles/volume) - 09/17/16 03:58 BNP level 12.7 pg/mL <100.0 Serum or plasma amylase measurement (enzymatic activity/volume) - 09/17/16 03: 58 Serum or plasma amylase measurement (enzymatic activity/volume) 51 U /L 25-125 Lipase - 09/17/16 03:58 Lipase 41 U/L 8-78 Lipid 1996 panel - 09/17/16 03:58 Serum or plasma triglyceride measurement (mass/volume) 142 mg/dL <150 Serum or plasma cholesterol measurement (mass/volume) 137 mg/dL < 200 Serum or plasma cholesterol in HDL measurement (mass/volume) 34 mg/ dL 40-60 Cholesterol in LDL [mass/volume] in serum or plasma by direct assay 80 mg/dL 1-129 Serum or plasma cholesterol in VLDL measurement (mass/volume) 28 mg/ dL 5-40 Serum or plasma troponin i.cardiac measurement (mass/volume) - 09/17/16 09:56 Serum or plasma troponin i.cardiac measurement (mass/volume) < ng/ mL <0.30 Serum or plasma troponin i.cardiac measurement (mass/volume) - 09/17/16 09:56 Serum or plasma troponin i.cardiac measurement (mass/volume) < ng/ mL <0.30 Serum or plasma troponin i.cardiac measurement (mass/volume) - 09/17/16 09:56 Serum or plasma troponin i.cardiac measurement (mass/volume) < ng/ mL <0.30 Capillary blood glucose measurement by glucometer (mass/volume) - 09/17/16 10: 24 Capillary blood glucose measurement by glucometer (mass/volume) 180 mg/dL 70-110 Complete urinalysis with reflex to culture - 10/09/16 15:07 Urine color determination YELLOW NRG Urine clarity determination CLEAR NRG Urine pH measurement by test strip 7 5-9 Specific gravity of urine by test strip 1.015 1.016- 1.022 Urine protein assay by test strip, semi-quantitative 3+ NEGATIVE Urine glucose detection by automated test strip NEGATIVE NEGATIVE Erythrocytes detection in urine sediment by light microscopy NEGATIVE NEGATIVE Urine ketones detection by automated test strip NEGATIVE NEGATIVE Urine nitrite detection by test strip NEGATIVE NEGATIVE Urine total bilirubin detection by test strip NEGATIVE NEGATIVE Urine urobilinogen measurement by automated test strip (mass/volume) NORMAL NORMAL Urine leukocyte esterase detection by dipstick NEGATIVE NEGATIVE Automated urine sediment erythrocyte count by microscopy (number/high power field) RARE NRG Automated urine sediment leukocyte count by microscopy (number/high power field ) [HPF] NRG Bacteria detection in urine sediment by light microscopy NEGATIVE NRG Squamous epithelial cells detection in urine sediment by light microscopy RARE NRG Crystals detection in urine sediment by light microscopy NONE NRG Casts detection in urine sediment by light microscopy NONE NRG Mucus detection in urine sediment by light microscopy NEGATIVE NRG Complete urinalysis with reflex to culture NO NRG Complete blood count (CBC) with automated white blood cell (WBC) differential - 10/09/16 15:20 Blood leukocytes automated count (number/volume) 6.9 10*3/uL 4.3-11.0 Blood erythrocytes automated count (number/volume) 4.92 10*6/uL 4.35-5.85 Venous blood hemoglobin measurement (mass/volume) 15.1 g/dL 13.3-17.7 Blood hematocrit (volume fraction) 44 % 40-54 Automated erythrocyte mean corpuscular volume 89 [foz_us] 80-99 Automated erythrocyte mean corpuscular hemoglobin (mass per erythrocyte) 31 pg 25-34 Automated erythrocyte mean corpuscular hemoglobin concentration measurement ( mass/volume) 35 g/dL 32-36 Automated erythrocyte distribution width ratio 15.9 % 10.0-14.5 Automated blood platelet count (count/volume) 151 10*3/uL 130-400 Automated blood platelet mean volume measurement 11.4 [foz_us] 7.4-10.4 Automated blood neutrophils/100 leukocytes 77 % 42-75 Automated blood lymphocytes/100 leukocytes 13 % 12-44 Blood monocytes/100 leukocytes 9 % 0-12 Automated blood eosinophils/100 leukocytes 2 % 0-10 Automated blood basophils/100 leukocytes 0 % 0-10 Blood neutrophils automated count (number/volume) 5.3 10*3 1.8-7.8 Blood lymphocytes automated count (number/volume) 0.9 10*3 1.0-4.0 Blood monocytes automated count (number/volume) 0.6 10*3 0.0-1.0 Automated eosinophil count 0.1 10*3/uL 0.0-0.3 Automated blood basophil count (count/volume) 0.0 10*3/uL 0.0-0.1 Comprehensive metabolic panel - 10/09/16 15:20 Serum or plasma sodium measurement (moles/volume) 138 mmol/L 135-145 Serum or plasma potassium measurement (moles/volume) 4.0 mmol/L 3.6-5.0 Serum or plasma chloride measurement (moles/volume) 104 mmol/L 98-107 Carbon dioxide 24 mmol/L 21-32 Serum or plasma anion gap determination (moles/volume) 10 mmol/L 5-14 Serum or plasma urea nitrogen measurement (mass/volume) 18 mg/dL 7-18 Serum or plasma creatinine measurement (mass/volume) 1.07 mg/dL 0.60-1.30 Serum or plasma urea nitrogen/creatinine mass ratio 17 NRG Serum or plasma creatinine measurement with calculation of estimated glomerular filtration rate > NRG Serum or plasma glucose measurement (mass/volume) 201 mg/dL 70-105 Serum or plasma calcium measurement (mass/volume) 9.5 mg/dL 8.5-10.1 Serum or plasma total bilirubin measurement (mass/volume) 0.2 mg/dL 0.1-1.0 Serum or plasma alkaline phosphatase measurement (enzymatic activity/volume) 123 U/L 40-136 Serum or plasma aspartate aminotransferase measurement (enzymatic activity/ volume) 20 U/L 5-34 Serum or plasma alanine aminotransferase measurement (enzymatic activity/volume ) 15 U/L 0-55 Serum or plasma protein measurement (mass/volume) 6.2 g/dL 6.4-8.2 Serum or plasma albumin measurement (mass/volume) 3.9 g/dL 3.2-4.5 Complete blood count (CBC) with automated white blood cell (WBC) differential - 04/05/17 02:15 Blood leukocytes automated count (number/volume) 8.0 10*3/uL 4.3-11.0 Blood erythrocytes automated count (number/volume) 4.37 10*6/uL 4.35-5.85 Venous blood hemoglobin measurement (mass/volume) 14.2 g/dL 13.3-17.7 Blood hematocrit (volume fraction) 41 % 40-54 Automated erythrocyte mean corpuscular volume 93 [foz_us] 80-99 Automated erythrocyte mean corpuscular hemoglobin (mass per erythrocyte) 33 pg 25-34 Automated erythrocyte mean corpuscular hemoglobin concentration measurement ( mass/volume) 35 g/dL 32-36 Automated erythrocyte distribution width ratio 14.7 % 10.0-14.5 Automated blood platelet count (count/volume) 144 10*3/uL 130-400 Automated blood platelet mean volume measurement 11.7 [foz_us] 7.4-10.4 Automated blood neutrophils/100 leukocytes 74 % 42-75 Automated blood lymphocytes/100 leukocytes 14 % 12-44 Blood monocytes/100 leukocytes 8 % 0-12 Automated blood eosinophils/100 leukocytes 3 % 0-10 Automated blood basophils/100 leukocytes 1 % 0-10 Blood neutrophils automated count (number/volume) 5.9 10*3 1.8-7.8 Blood lymphocytes automated count (number/volume) 1.2 10*3 1.0-4.0 Blood monocytes automated count (number/volume) 0.7 10*3 0.0-1.0 Automated eosinophil count 0.2 10*3/uL 0.0-0.3 Automated blood basophil count (count/volume) 0.0 10*3/uL 0.0-0.1 Comprehensive metabolic panel - 04/05/17 02:15 Serum or plasma sodium measurement (moles/volume) 137 mmol/L 135-145 Serum or plasma potassium measurement (moles/volume) 4.0 mmol/L 3.6-5.0 Serum or plasma chloride measurement (moles/volume) 102 mmol/L 98-107 Carbon dioxide 22 mmol/L 21-32 Serum or plasma anion gap determination (moles/volume) 13 mmol/L 5-14 Serum or plasma urea nitrogen measurement (mass/volume) 36 mg/dL 7-18 Serum or plasma creatinine measurement (mass/volume) 1.49 mg/dL 0.60-1.30 Serum or plasma urea nitrogen/creatinine mass ratio 24 NRG Serum or plasma creatinine measurement with calculation of estimated glomerular filtration rate 46 NRG Serum or plasma glucose measurement (mass/volume) 277 mg/dL 70-105 Serum or plasma calcium measurement (mass/volume) 9.6 mg/dL 8.5-10.1 Serum or plasma total bilirubin measurement (mass/volume) 0.2 mg/dL 0.1-1.0 Serum or plasma alkaline phosphatase measurement (enzymatic activity/volume) 104 U/L 40-136 Serum or plasma aspartate aminotransferase measurement (enzymatic activity/ volume) 20 U/L 5-34 Serum or plasma alanine aminotransferase measurement (enzymatic activity/volume ) 18 U/L 0-55 Serum or plasma protein measurement (mass/volume) 6.5 g/dL 6.4-8.2 Serum or plasma albumin measurement (mass/volume) 3.6 g/dL 3.2-4.5 Magnesium - 04/05/17 02:15 Magnesium 1.7 mg/dL 1.8-2.4 Serum or plasma troponin i.cardiac measurement (mass/volume) - 04/05/17 02:15 Serum or plasma troponin i.cardiac measurement (mass/volume) < ng/ mL <0.30 Lipase - 04/05/17 02:15 Lipase 33 U/L 8-78 Serum or plasma lithium measurement (moles/volume) - 04/05/17 02:15 BNP level < pg/mL <100.0 Complete blood count (CBC) with automated white blood cell (WBC) differential - 04/27/17 23:45 Blood leukocytes automated count (number/volume) 9.0 10*3/uL 4.3-11.0 Blood erythrocytes automated count (number/volume) 4.79 10*6/uL 4.35-5.85 Venous blood hemoglobin measurement (mass/volume) 15.6 g/dL 13.3-17.7 Blood hematocrit (volume fraction) 44 % 40-54 Automated erythrocyte mean corpuscular volume 93 [foz_us] 80-99 Automated erythrocyte mean corpuscular hemoglobin (mass per erythrocyte) 33 pg 25-34 Automated erythrocyte mean corpuscular hemoglobin concentration measurement ( mass/volume) 35 g/dL 32-36 Automated erythrocyte distribution width ratio 14.7 % 10.0-14.5 Automated blood platelet count (count/volume) 136 10*3/uL 130-400 Automated blood platelet mean volume measurement 11.8 [foz_us] 7.4-10.4 Automated blood neutrophils/100 leukocytes 78 % 42-75 Automated blood lymphocytes/100 leukocytes 12 % 12-44 Blood monocytes/100 leukocytes 8 % 0-12 Automated blood eosinophils/100 leukocytes 2 % 0-10 Automated blood basophils/100 leukocytes 1 % 0-10 Blood neutrophils automated count (number/volume) 7.0 10*3 1.8-7.8 Blood lymphocytes automated count (number/volume) 1.1 10*3 1.0-4.0 Blood monocytes automated count (number/volume) 0.7 10*3 0.0-1.0 Automated eosinophil count 0.2 10*3/uL 0.0-0.3 Automated blood basophil count (count/volume) 0.1 10*3/uL 0.0-0.1 PT panel in platelet poor plasma by coagulation assay - 04/27/17 23:45 Prothrombin time (PT) in platelet poor plasma by coagulation assay 11.6 s 12.2-14.7 INR in platelet poor plasma or blood by coagulation assay 0.9 0.8-1.4 Activated partial thromboplastin time (aPTT) in platelet poor plasma bycoagulation assay - 04/27/17 23:45 Activated partial thromboplastin time (aPTT) in platelet poor plasma bycoagulation assay 27 s 24-35 Fibrin D-dimer FEU measurement in platelet poor plasma (mass/volume) - 23:45 Fibrin D-dimer FEU measurement in platelet poor plasma (mass/volume) 1.01 ug/mL 0.00-0.49 Comprehensive metabolic panel - 04/27/17 23:45 Serum or plasma sodium measurement (moles/volume) 138 mmol/L 135-145 Serum or plasma potassium measurement (moles/volume) 3.9 mmol/L 3.6-5.0 Serum or plasma chloride measurement (moles/volume) 99 mmol/L 98-107 Carbon dioxide 25 mmol/L 21-32 Serum or plasma anion gap determination (moles/volume) 14 mmol/L 5-14 Serum or plasma urea nitrogen measurement (mass/volume) 24 mg/dL 7-18 Serum or plasma creatinine measurement (mass/volume) 1.45 mg/dL 0.60-1.30 Serum or plasma urea nitrogen/creatinine mass ratio 17 NRG Serum or plasma creatinine measurement with calculation of estimated glomerular filtration rate 47 NRG Serum or plasma glucose measurement (mass/volume) 297 mg/dL 70-105 Serum or plasma calcium measurement (mass/volume) 10.2 mg/dL 8.5-10.1 Serum or plasma total bilirubin measurement (mass/volume) 0.3 mg/dL 0.1-1.0 Serum or plasma alkaline phosphatase measurement (enzymatic activity/volume) 94 U/L 40-136 Serum or plasma aspartate aminotransferase measurement (enzymatic activity/ volume) 16 U/L 5-34 Serum or plasma alanine aminotransferase measurement (enzymatic activity/volume ) 15 U/L 0-55 Serum or plasma protein measurement (mass/volume) 7.0 g/dL 6.4-8.2 Serum or plasma albumin measurement (mass/volume) 3.9 g/dL 3.2-4.5 Magnesium - 04/27/17 23:45 Magnesium 1.9 mg/dL 1.8-2.4 Serum or plasma troponin i.cardiac measurement (mass/volume) - 04/27/17 23:45 Serum or plasma troponin i.cardiac measurement (mass/volume) < ng/ mL <0.30 Myoglobin, serum - 04/27/17 23:45 Myoglobin, serum 64.2 ng/mL 10.0-92.0 Serum or plasma troponin i.cardiac measurement (mass/volume) - 04/28/17 01:55 Serum or plasma troponin i.cardiac measurement (mass/volume) < ng/ mL <0.30 Myoglobin, serum - 04/28/17 01:55 Myoglobin, serum 49.9 ng/mL 10.0-92.0 Complete blood count (CBC) with automated white blood cell (WBC) differential - 06/25/17 16:40 Blood leukocytes automated count (number/volume) 9.2 10*3/uL 4.3-11.0 Blood erythrocytes automated count (number/volume) 4.40 10*6/uL 4.35-5.85 Venous blood hemoglobin measurement (mass/volume) 14.2 g/dL 13.3-17.7 Blood hematocrit (volume fraction) 41 % 40-54 Automated erythrocyte mean corpuscular volume 92 [foz_us] 80-99 Automated erythrocyte mean corpuscular hemoglobin (mass per erythrocyte) 32 pg 25-34 Automated erythrocyte mean corpuscular hemoglobin concentration measurement ( mass/volume) 35 g/dL 32-36 Automated erythrocyte distribution width ratio 14.1 % 10.0-14.5 Automated blood platelet count (count/volume) 128 10*3/uL 130-400 Automated blood platelet mean volume measurement 11.7 [foz_us] 7.4-10.4 Automated blood neutrophils/100 leukocytes 82 % 42-75 Automated blood lymphocytes/100 leukocytes 11 % 12-44 Blood monocytes/100 leukocytes 6 % 0-12 Automated blood eosinophils/100 leukocytes 1 % 0-10 Automated blood basophils/100 leukocytes 1 % 0-10 Blood neutrophils automated count (number/volume) 7.5 10*3 1.8-7.8 Blood lymphocytes automated count (number/volume) 1.0 10*3 1.0-4.0 Blood monocytes automated count (number/volume) 0.6 10*3 0.0-1.0 Automated eosinophil count 0.1 10*3/uL 0.0-0.3 Automated blood basophil count (count/volume) 0.1 10*3/uL 0.0-0.1 Comprehensive metabolic panel - 06/25/17 16:40 Serum or plasma sodium measurement (moles/volume) 138 mmol/L 135-145 Serum or plasma potassium measurement (moles/volume) 3.6 mmol/L 3.6-5.0 Serum or plasma chloride measurement (moles/volume) 100 mmol/L 98-107 Carbon dioxide 25 mmol/L 21-32 Serum or plasma anion gap determination (moles/volume) 13 mmol/L 5-14 Serum or plasma urea nitrogen measurement (mass/volume) 24 mg/dL 7-18 Serum or plasma creatinine measurement (mass/volume) 1.21 mg/dL 0.60-1.30 Serum or plasma urea nitrogen/creatinine mass ratio 20 NRG Serum or plasma creatinine measurement with calculation of estimated glomerular filtration rate 58 NRG Serum or plasma glucose measurement (mass/volume) 141 mg/dL 70-105 Serum or plasma calcium measurement (mass/volume) 9.7 mg/dL 8.5-10.1 Serum or plasma total bilirubin measurement (mass/volume) 0.4 mg/dL 0.1-1.0 Serum or plasma alkaline phosphatase measurement (enzymatic activity/volume) 92 U/L 40-136 Serum or plasma aspartate aminotransferase measurement (enzymatic activity/ volume) 16 U/L 5-34 Serum or plasma alanine aminotransferase measurement (enzymatic activity/volume ) 13 U/L 0-55 Serum or plasma protein measurement (mass/volume) 6.6 g/dL 6.4-8.2 Serum or plasma albumin measurement (mass/volume) 3.8 g/dL 3.2-4.5 Magnesium - 06/25/17 16:40 Magnesium 1.4 mg/dL 1.8-2.4 PT panel in platelet poor plasma by coagulation assay - 06/25/17 16:40 Prothrombin time (PT) in platelet poor plasma by coagulation assay 13.9 s 12.2-14.7 INR in platelet poor plasma or blood by coagulation assay 1.1 0.8-1.4 Activated partial thromboplastin time (aPTT) in platelet poor plasma bycoagulation assay - 06/25/17 16:40 Activated partial thromboplastin time (aPTT) in platelet poor plasma bycoagulation assay 29 s 24-35 Serum or plasma troponin i.cardiac measurement (mass/volume) - 06/25/17 16:40 Serum or plasma troponin i.cardiac measurement (mass/volume) < ng/ mL <0.30 Myoglobin, serum - 06/25/17 16:40 Myoglobin, serum 88.0 ng/mL 10.0-92.0 Complete urinalysis with reflex to culture - 06/25/17 17:24 Urine color determination YELLOW NRG Urine clarity determination CLEAR NRG Urine pH measurement by test strip 7 5-9 Specific gravity of urine by test strip 1.005 1.016- 1.022 Urine protein assay by test strip, semi-quantitative 3+ NEGATIVE Urine glucose detection by automated test strip NEGATIVE NEGATIVE Erythrocytes detection in urine sediment by light microscopy 1+ NEGATIVE Urine ketones detection by automated test strip NEGATIVE NEGATIVE Urine nitrite detection by test strip NEGATIVE NEGATIVE Urine total bilirubin detection by test strip NEGATIVE NEGATIVE Urine urobilinogen measurement by automated test strip (mass/volume) NORMAL NORMAL Urine leukocyte esterase detection by dipstick NEGATIVE NEGATIVE Automated urine sediment erythrocyte count by microscopy (number/high power field) [HPF] NRG Automated urine sediment leukocyte count by microscopy (number/high power field ) NONE NRG Bacteria detection in urine sediment by light microscopy NONE NRG Crystals detection in urine sediment by light microscopy NONE NRG Casts detection in urine sediment by light microscopy NONE NRG Mucus detection in urine sediment by light microscopy NEGATIVE NRG Complete urinalysis with reflex to culture NO NRG Complete blood count (CBC) with automated white blood cell (WBC) differential - 08/02/17 16:45 Blood leukocytes automated count (number/volume) 12.6 10*3/uL 4.3-11.0 Blood erythrocytes automated count (number/volume) 4.20 10*6/uL 4.35-5.85 Venous blood hemoglobin measurement (mass/volume) 13.6 g/dL 13.3-17.7 Blood hematocrit (volume fraction) 40 % 40-54 Automated erythrocyte mean corpuscular volume 94 [foz_us] 80-99 Automated erythrocyte mean corpuscular hemoglobin (mass per erythrocyte) 32 pg 25-34 Automated erythrocyte mean corpuscular hemoglobin concentration measurement ( mass/volume) 34 g/dL 32-36 Automated erythrocyte distribution width ratio 14.8 % 10.0-14.5 Automated blood platelet count (count/volume) 111 10*3/uL 130-400 Automated blood platelet mean volume measurement 11.8 [foz_us] 7.4-10.4 Automated blood neutrophils/100 leukocytes 85 % 42-75 Automated blood lymphocytes/100 leukocytes 6 % 12-44 Blood monocytes/100 leukocytes 8 % 0-12 Automated blood eosinophils/100 leukocytes 1 % 0-10 Automated blood basophils/100 leukocytes 0 % 0-10 Blood neutrophils automated count (number/volume) 10.7 10*3 1.8-7.8 Blood lymphocytes automated count (number/volume) 0.8 10*3 1.0-4.0 Blood monocytes automated count (number/volume) 1.0 10*3 0.0-1.0 Automated eosinophil count 0.1 10*3/uL 0.0-0.3 Automated blood basophil count (count/volume) 0.0 10*3/uL 0.0-0.1 Comprehensive metabolic panel - 08/02/17 16:45 Serum or plasma sodium measurement (moles/volume) 138 mmol/L 135-145 Serum or plasma potassium measurement (moles/volume) 3.8 mmol/L 3.6-5.0 Serum or plasma chloride measurement (moles/volume) 101 mmol/L 98-107 Carbon dioxide 25 mmol/L 21-32 Serum or plasma anion gap determination (moles/volume) 12 mmol/L 5-14 Serum or plasma urea nitrogen measurement (mass/volume) 29 mg/dL 7-18 Serum or plasma creatinine measurement (mass/volume) 1.45 mg/dL 0.60-1.30 Serum or plasma urea nitrogen/creatinine mass ratio 20 NRG Serum or plasma creatinine measurement with calculation of estimated glomerular filtration rate 47 NRG Serum or plasma glucose measurement (mass/volume) 332 mg/dL 70-105 Serum or plasma calcium measurement (mass/volume) 9.2 mg/dL 8.5-10.1 Serum or plasma total bilirubin measurement (mass/volume) 0.4 mg/dL 0.1-1.0 Serum or plasma alkaline phosphatase measurement (enzymatic activity/volume) 111 U/L 40-136 Serum or plasma aspartate aminotransferase measurement (enzymatic activity/ volume) 16 U/L 5-34 Serum or plasma alanine aminotransferase measurement (enzymatic activity/volume ) 18 U/L 0-55 Serum or plasma protein measurement (mass/volume) 6.3 g/dL 6.4-8.2 Serum or plasma albumin measurement (mass/volume) 3.3 g/dL 3.2-4.5 Serum or plasma C reactive protein measurement (mass/volume) - 08/02/17 16:45 Serum or plasma C reactive protein measurement (mass/volume) 20.12 mg/dL 0.00-0.50 Blood manual differential performed detection - 08/02/17 16:45 Blood monocytes/100 leukocytes 6 % NRG Manual blood segmented neutrophils/100 leukocytes 78 % NRG Blood band neutrophils/100 leukocytes 7 % NRG Manual blood lymphocytes/100 leukocytes 9 % NRG Manual eosinophils/100 leukocytes in nose 0 % NRG Manual blood basophils/100 leukocytes 0 % NRG Blood erythrocyte morphology finding identification NORMAL NRG Bacterial blood culture - 08/02/17 17:20 Bacterial blood culture NG NRG PT panel in platelet poor plasma by coagulation assay - 08/02/17 17:38 Prothrombin time (PT) in platelet poor plasma by coagulation assay 12.8 s 12.2-14.7 INR in platelet poor plasma or blood by coagulation assay 1.0 0.8-1.4 Activated partial thromboplastin time (aPTT) in platelet poor plasma bycoagulation assay - 08/02/17 17:38 Activated partial thromboplastin time (aPTT) in platelet poor plasma bycoagulation assay 30 s 24-35 Blood lactic acid measurement (moles/volume) - 08/02/17 17:38 Blood lactic acid measurement (moles/volume) 1.89 mmol/L 0.50-2.00 Bacterial blood culture - 08/02/17 17:38 Bacterial blood culture NG NR Capillary blood glucose measurement by glucometer (mass/volume) - 08/19/17 19: 14 Capillary blood glucose measurement by glucometer (mass/volume) 281 mg/dL 70-110 Capillary blood glucose measurement by glucometer (mass/volume) - 08/29/17 01: 37 Capillary blood glucose measurement by glucometer (mass/volume) 42 mg/dL 70-110 Complete blood count (CBC) with automated white blood cell (WBC) differential - 08/29/17 01:40 Blood leukocytes automated count (number/volume) 9.1 10*3/uL 4.3-11.0 Blood erythrocytes automated count (number/volume) 4.19 10*6/uL 4.35-5.85 Venous blood hemoglobin measurement (mass/volume) 13.7 g/dL 13.3-17.7 Blood hematocrit (volume fraction) 40 % 40-54 Automated erythrocyte mean corpuscular volume 95 [foz_us] 80-99 Automated erythrocyte mean corpuscular hemoglobin (mass per erythrocyte) 33 pg 25-34 Automated erythrocyte mean corpuscular hemoglobin concentration measurement ( mass/volume) 35 g/dL 32-36 Automated erythrocyte distribution width ratio 15.4 % 10.0-14.5 Automated blood platelet count (count/volume) 150 10*3/uL 130-400 Automated blood platelet mean volume measurement 11.2 [foz_us] 7.4-10.4 Automated blood neutrophils/100 leukocytes 68 % 42-75 Automated blood lymphocytes/100 leukocytes 19 % 12-44 Blood monocytes/100 leukocytes 11 % 0-12 Automated blood eosinophils/100 leukocytes 3 % 0-10 Automated blood basophils/100 leukocytes 1 % 0-10 Blood neutrophils automated count (number/volume) 6.1 10*3 1.8-7.8 Blood lymphocytes automated count (number/volume) 1.7 10*3 1.0-4.0 Blood monocytes automated count (number/volume) 1.0 10*3 0.0-1.0 Automated eosinophil count 0.2 10*3/uL 0.0-0.3 Automated blood basophil count (count/volume) 0.1 10*3/uL 0.0-0.1 Whole blood basic metabolic panel - 08/29/17 01:40 Serum or plasma sodium measurement (moles/volume) 141 mmol/L 135-145 Serum or plasma potassium measurement (moles/volume) 3.7 mmol/L 3.6-5.0 Serum or plasma chloride measurement (moles/volume) 103 mmol/L 98-107 Carbon dioxide 25 mmol/L 21-32 Serum or plasma anion gap determination (moles/volume) 13 mmol/L 5-14 Serum or plasma urea nitrogen measurement (mass/volume) 44 mg/dL 7-18 Serum or plasma creatinine measurement (mass/volume) 1.33 mg/dL 0.60-1.30 Serum or plasma urea nitrogen/creatinine mass ratio 33 NRG Serum or plasma creatinine measurement with calculation of estimated glomerular filtration rate 52 NRG Serum or plasma glucose measurement (mass/volume) 39 mg/dL 70-105 Serum or plasma calcium measurement (mass/volume) 9.8 mg/dL 8.5-10.1 Capillary blood glucose measurement by glucometer (mass/volume) - 08/29/17 02: 39 Capillary blood glucose measurement by glucometer (mass/volume) 70 mg/dL 70-110 Capillary blood glucose measurement by glucometer (mass/volume) - 08/29/17 03: 04 Capillary blood glucose measurement by glucometer (mass/volume) 106 mg/dL 70-110 Capillary blood glucose measurement by glucometer (mass/volume) - 08/29/17 09: 07 Capillary blood glucose measurement by glucometer (mass/volume) 90 mg/dL 70-110 Complete blood count (CBC) with automated white blood cell (WBC) differential - 08/29/17 09:10 Blood leukocytes automated count (number/volume) 9.1 10*3/uL 4.3-11.0 Blood erythrocytes automated count (number/volume) 4.33 10*6/uL 4.35-5.85 Venous blood hemoglobin measurement (mass/volume) 14.1 g/dL 13.3-17.7 Blood hematocrit (volume fraction) 42 % 40-54 Automated erythrocyte mean corpuscular volume 96 [foz_us] 80-99 Automated erythrocyte mean corpuscular hemoglobin (mass per erythrocyte) 33 pg 25-34 Automated erythrocyte mean corpuscular hemoglobin concentration measurement ( mass/volume) 34 g/dL 32-36 Automated erythrocyte distribution width ratio 15.6 % 10.0-14.5 Automated blood platelet count (count/volume) 133 10*3/uL 130-400 Automated blood platelet mean volume measurement 11.8 [foz_us] 7.4-10.4 Automated blood neutrophils/100 leukocytes 80 % 42-75 Automated blood lymphocytes/100 leukocytes 11 % 12-44 Blood monocytes/100 leukocytes 7 % 0-12 Automated blood eosinophils/100 leukocytes 2 % 0-10 Automated blood basophils/100 leukocytes 0 % 0-10 Blood neutrophils automated count (number/volume) 7.3 10*3 1.8-7.8 Blood lymphocytes automated count (number/volume) 1.0 10*3 1.0-4.0 Blood monocytes automated count (number/volume) 0.6 10*3 0.0-1.0 Automated eosinophil count 0.2 10*3/uL 0.0-0.3 Automated blood basophil count (count/volume) 0.0 10*3/uL 0.0-0.1 Comprehensive metabolic panel - 08/29/17 09:10 Serum or plasma sodium measurement (moles/volume) 141 mmol/L 135-145 Serum or plasma potassium measurement (moles/volume) 3.9 mmol/L 3.6-5.0 Serum or plasma chloride measurement (moles/volume) 104 mmol/L 98-107 Carbon dioxide 25 mmol/L 21-32 Serum or plasma anion gap determination (moles/volume) 12 mmol/L 5-14 Serum or plasma urea nitrogen measurement (mass/volume) 42 mg/dL 7-18 Serum or plasma creatinine measurement (mass/volume) 1.32 mg/dL 0.60-1.30 Serum or plasma urea nitrogen/creatinine mass ratio 32 NRG Serum or plasma creatinine measurement with calculation of estimated glomerular filtration rate 52 NRG Serum or plasma glucose measurement (mass/volume) 91 mg/dL 70-105 Serum or plasma calcium measurement (mass/volume) 9.9 mg/dL 8.5-10.1 Serum or plasma total bilirubin measurement (mass/volume) 0.2 mg/dL 0.1-1.0 Serum or plasma alkaline phosphatase measurement (enzymatic activity/volume) 75 U/L 40-136 Serum or plasma aspartate aminotransferase measurement (enzymatic activity/ volume) 27 U/L 5-34 Serum or plasma alanine aminotransferase measurement (enzymatic activity/volume ) 16 U/L 0-55 Serum or plasma protein measurement (mass/volume) 6.9 g/dL 6.4-8.2 Serum or plasma albumin measurement (mass/volume) 3.6 g/dL 3.2-4.5 Capillary blood glucose measurement by glucometer (mass/volume) - 08/29/17 10: 20 Capillary blood glucose measurement by glucometer (mass/volume) 175 mg/dL 70-110 Capillary blood glucose measurement by glucometer (mass/volume) - 08/29/17 11: 14 Capillary blood glucose measurement by glucometer (mass/volume) 188 mg/dL 70-110 Capillary blood glucose measurement by glucometer (mass/volume) - 09/18/17 03: 38 Capillary blood glucose measurement by glucometer (mass/volume) 83 mg/dL 70-110 Complete blood count (CBC) with automated white blood cell (WBC) differential - 09/18/17 04:10 Blood leukocytes automated count (number/volume) 11.5 10*3/uL 4.3-11.0 Blood erythrocytes automated count (number/volume) 4.17 10*6/uL 4.35-5.85 Venous blood hemoglobin measurement (mass/volume) 13.7 g/dL 13.3-17.7 Blood hematocrit (volume fraction) 39 % 40-54 Automated erythrocyte mean corpuscular volume 94 [foz_us] 80-99 Automated erythrocyte mean corpuscular hemoglobin (mass per erythrocyte) 33 pg 25-34 Automated erythrocyte mean corpuscular hemoglobin concentration measurement ( mass/volume) 35 g/dL 32-36 Automated erythrocyte distribution width ratio 14.7 % 10.0-14.5 Automated blood platelet count (count/volume) 176 10*3/uL 130-400 Automated blood platelet mean volume measurement 11.1 [foz_us] 7.4-10.4 Automated blood neutrophils/100 leukocytes 84 % 42-75 Automated blood lymphocytes/100 leukocytes 9 % 12-44 Blood monocytes/100 leukocytes 6 % 0-12 Automated blood eosinophils/100 leukocytes 2 % 0-10 Automated blood basophils/100 leukocytes 0 % 0-10 Blood neutrophils automated count (number/volume) 9.6 10*3 1.8-7.8 Blood lymphocytes automated count (number/volume) 1.0 10*3 1.0-4.0 Blood monocytes automated count (number/volume) 0.7 10*3 0.0-1.0 Automated eosinophil count 0.2 10*3/uL 0.0-0.3 Automated blood basophil count (count/volume) 0.0 10*3/uL 0.0-0.1 Comprehensive metabolic panel - 09/18/17 04:10 Serum or plasma sodium measurement (moles/volume) 141 mmol/L 135-145 Serum or plasma potassium measurement (moles/volume) 3.7 mmol/L 3.6-5.0 Serum or plasma chloride measurement (moles/volume) 104 mmol/L 98-107 Carbon dioxide 23 mmol/L 21-32 Serum or plasma anion gap determination (moles/volume) 14 mmol/L 5-14 Serum or plasma urea nitrogen measurement (mass/volume) 28 mg/dL 7-18 Serum or plasma creatinine measurement (mass/volume) 1.26 mg/dL 0.60-1.30 Serum or plasma urea nitrogen/creatinine mass ratio 22 NRG Serum or plasma creatinine measurement with calculation of estimated glomerular filtration rate 55 NRG Serum or plasma glucose measurement (mass/volume) 80 mg/dL 70-105 Serum or plasma calcium measurement (mass/volume) 9.4 mg/dL 8.5-10.1 Serum or plasma total bilirubin measurement (mass/volume) 0.2 mg/dL 0.1-1.0 Serum or plasma alkaline phosphatase measurement (enzymatic activity/volume) 88 U/L 40-136 Serum or plasma aspartate aminotransferase measurement (enzymatic activity/ volume) 17 U/L 5-34 Serum or plasma alanine aminotransferase measurement (enzymatic activity/volume ) 12 U/L 0-55 Serum or plasma protein measurement (mass/volume) 6.6 g/dL 6.4-8.2 Serum or plasma albumin measurement (mass/volume) 3.6 g/dL 3.2-4.5 Complete urinalysis with reflex to culture - 09/18/17 04:25 Urine color determination YELLOW NRG Urine clarity determination CLEAR NRG Urine pH measurement by test strip 7 5-9 Specific gravity of urine by test strip 1.005 1.016- 1.022 Urine protein assay by test strip, semi-quantitative 3+ NEGATIVE Urine glucose detection by automated test strip NEGATIVE NEGATIVE Erythrocytes detection in urine sediment by light microscopy 1+ NEGATIVE Urine ketones detection by automated test strip NEGATIVE NEGATIVE Urine nitrite detection by test strip NEGATIVE NEGATIVE Urine total bilirubin detection by test strip NEGATIVE NEGATIVE Urine urobilinogen measurement by automated test strip (mass/volume) NORMAL NORMAL Urine leukocyte esterase detection by dipstick NEGATIVE NEGATIVE Automated urine sediment erythrocyte count by microscopy (number/high power field) RARE NRG Automated urine sediment leukocyte count by microscopy (number/high power field ) RARE NRG Bacteria detection in urine sediment by light microscopy NEGATIVE NRG Squamous epithelial cells detection in urine sediment by light microscopy RARE NRG Crystals detection in urine sediment by light microscopy NONE NRG Casts detection in urine sediment by light microscopy NONE NRG Mucus detection in urine sediment by light microscopy NEGATIVE NRG Complete urinalysis with reflex to culture NO NRG Encounters ACCT No. Visit Date/Time Discharge Status Pt. Type Provider Facility Loc./Unit Complaint [id number] 09/18/2017 03:31:00 09/18/2017 05:25:00 DIS Emergency DUSTY LAMAR, LAKEISHA Puente [facility] ER LOW BLOOD SUGAR 54, SHAKING [id number] 2017 08:50:00 2017 11:25:00 DIS Emergency ASH MOSES, BENOIT Lennon [facility] ER LOW BLOOD SUGAR [id number] 2017 01:28:00 2017 04:44:00 DIS Emergency DENIS MOSES, CINDY Conrad [facility] ER BLOOD SUGAR PROBLEMS, FALL [id number] 08/19/2017 19:07:00 08/19/2017 19:38:00 DIS Emergency SYLVIA BONE APRN [facility] ER ELEV BLOOD SUGAR [id number] 08/02/2017 13:41:00 08/02/2017 19:29:00 DIS Emergency PAKO MOTT [facility] ER L EYE SWELLING [id number] 07/31/2017 06:27:00 07/31/2017 07:31:00 DIS Emergency JADEN COLLIER MD [facility] ER HEAD PAIN,SOB [id number] 06/25/2017 16:16:00 06/25/2017 18:15:00 DIS Emergency GIORGIFRANCK [facility] ER CP [id number] 04/27/2017 23:35:00 04/28/2017 03:15:00 DIS Emergency BENOIT ALEMAN MD [facility] ER CP [id number] 04/05/2017 02:10:00 04/05/2017 03:26:00 DIS Emergency CHELSI BARRERA DO [facility] ER CP,RT RT ARM PAIN [id number] 02/26/2017 05:17:00 02/26/2017 05:41:00 DIS Emergency CINDY BARRIOS MD [facility] ER ANEURYSM,RT LEG [id number] 10/18/2016 08:47:00 10/18/2016 23:59:59 CLS Outpatient IGNACIO MOSES FACC, ANNELISE OSHEA CCDS [facility] CARD CHEST DISCOMFORT,SOB,HTN,DMII [id number] 10/09/2016 15:00:00 10/09/2016 16:25:00 DIS Emergency KIRBY DUEÑAS MD [facility] ER LEFT FLANK PAIN [id number] 09/17/2016 05:41:00 09/17/2016 15:35:00 DIS Inpatient WILLIAM DENSON DO [facility] ICU CHEST PAIN [id number] 08/16/2016 10:01:00 08/16/2016 12:32:00 DIS Emergency SYLVIA BONE APRN [facility] ER L FOOT SWELLING [id number] 06/15/2016 03:47:00 06/15/2016 04:14:00 DIS Emergency CINDY BARRIOS MD [facility] ER HIGH BLOOD SUGAR [id number] 05/23/2016 06:34:00 05/23/2016 08:53:00 DIS Emergency ASH MOSES, BENOIT Lennon [facility] ER LEGS HURTING,BLOOD SUGAR HIGH [id number] 03/31/2016 12:53:00 03/31/2016 16:35:00 DIS Emergency LISA MOSES, QUIQUE S [facility] ER BLOOD SUGAR ISSUES [id number] 03/10/2016 22:54:00 03/11/2016 01:58:00 DIS Emergency BRUCE LAMAR, CHELSI D [facility] ER ELEVATED BLOOD SUGAR [id number] 09/27/2015 09:29:00 09/28/2015 12:45:00 DIS Inpatient PACO MOSES, JAIME Murphy [facility] CSD CHEST PAIN UNCONTROLLED DIABETES [id number] 03/18/2014 08:12:00 03/19/2014 11:15:00 DIS Inpatient IGNACIO MOSES FACC, ANNELISE OSHEA CCDS [facility] CSD CHEST PAIN/ ASHD WITH STENTS [id number] 11/29/2013 12:34:00 11/29/2013 17:59:00 DIS Emergency PAKO MOTT [facility] ER SOA,VOMITING, CONGESTION [id number] 12/19/2012 14:04:00 Document Registration [id number] 12/19/2012 13:34:00 Document Registration [id number] 09/22/2012 09:00:00 Document Registration [id number] 09/19/2012 12:33:00 Document Registration [id number] 09/19/2012 10:42:00 Document Registration [id number] 08/22/2012 08:12:00 Document Registration [id number] 07/22/2012 11:58:00 Document Registration [id number] 07/18/2012 07:33:00 Document Registration [id number] 08/28/2011 01:05:00 Document Registration [id number] 08/08/2011 16:55:00 Document Registration [id number] 07/30/2011 09:45:00 Document Registration [id number] 07/27/2011 08:10:00 Document Registration [id number] 07/20/2011 10:12:00 Document Registration [id number] 07/06/2011 10:38:00 Document Registration [id number] 07/02/2011 13:15:00 Document Registration [id number] 06/07/2011 01:27:00 Document Registration
[2017-11-16] MEDS ORDERED: FUROSEMIDE 40 MG/4 ML INJ (LASIX) IVP ONE (04:30)
--- NOTE | 2017-11-16 04:34 | ED Cardiac General ---
History of Present Illness General Chief Complaint: Cardiac/General Problems Stated Complaint: FEET SWOLLEN,HIGH BLOOD SUGAR,ANXIETY Source: patient, family (daughter) Exam Limitations: no limitations History of Present Illness Time seen by provider: 04:21 Initial Comments Patient resists ER by private conveyance with his daughter with a chief complaint that in the last day he has complained of leg swelling and tenderness especially on the right side. He's had mild shortness of breath but no chest pain, nausea, fatigue, chills, fever. He doesn't history of heart failure and about a month ago his Lasix was reduced to every other day 40 mg by mouth because he had apparently had a kidney injury at that time. He has plans to follow-up with his primary care physician sometime in the next 1-2 weeks. Dress his Lasix dosing. His last dose of Lasix was yesterday morning. He denies dysuria, cough. He has also recently restarted smoking and is up to about 3 packs per day after the of his . Allergies and Home Medications Allergies Coded Allergies: Gerardo Known Allergies (Unverified Allergy, Mild, 06/21/09) Home Medications Allopurinol 100 Mg Tablet, 200 MG PO DAILY, (Reported) TAKES 2 (100 MG) TABLETS / LAST FILLED 08/03/16 #60 Alprazolam 0.25 Mg Tablet, 0.25 MG PO DAILY@1900, (Reported) Alprazolam 0.25 Mg Tablet, 0.25 MG PO HS, #20 Prescribed by: SYLVIA BONE on 08/19/17 192 Amlodipine Besylate 5 Mg Tablet, 5 MG PO DAILY, (Reported) Aspirin 81 Mg Tablet.dr, 81 MG PO DAILY, (Reported) Atorvastatin Calcium 40 Mg Tablet, 40 MG PO HS, (Reported) Baclofen 10 Mg Tablet, 10 MG PO TID, (Reported) Clopidogrel Bisulfate 75 Mg Tablet, 75 MG PO DAILY, (Reported) Furosemide 40 Mg Tablet, 40 MG PO UD for 30 Days, Ref 2 40MG LASIX EVERY OTHER DAY. Prescribed by: DEANA DIAZ on 09/17/16 1513 Hydrocodone Bit/Acetaminophen 1 Each Tablet, 1 EACH PO Q6H PRN for PAIN, #10 Ref 0 Prescribed by: PAKO LARSEN on 08/02/171908 Insulin Glargine,Hum.rec.anlog 300 Unit/1 Ml Insuln.pen, 65 UNITS SQ BID, ( Reported) Insulin Glargine,Hum.rec.anlog 300 Unit/1 Ml Insuln.pen, 65 UNIT SQ BID, #1 Ref 2 Prescribed by: SYLVIA BONE on 08/19/171928 Ipratropium/Albuterol Sulfate 3 Ml Ampul.neb, 3 ML IH Q6H PRN for SHORTNESS OF BREATH, #30 Ref 2 Prescribed by: CHELSI BARRERA on 04/05/17 0314 Metoprolol Succinate 25 Mg Tab.er.24h, 25 MG PO DAILY, #20 Prescribed by: SYLVIA BONE on 08/19/17 193 Mv,Minerals/FA/Lycopene/Ginkgo 1 Each Tablet, 1 TAB PO DAILY, (Reported) Nitroglycerin 0.3 Mg Tab.subl, 0.3 MG SL PRN, #30 Prescribed by: DEANA DIAZ on 09/17/16 1513 Pantoprazole Sodium 40 Mg Tablet.dr, 40 MG PO DAILY, (Reported) Potassium Chloride 10 Meq Tablet.er, 10 MEQ PO UD for 30 Days, Ref 2 10 MEQ POTASSIUM EVERY OTHER DAY. Prescribed by: DEANA DIAZ on 09/17/16 1513 Pravastatin Sodium 40 Mg Tablet, 1 TAB PO UD, #30 (Reported) Theophylline Anhydrous 300 Mg Tab.er.12h, 300 MG PO Q12H, (Reported) Review of Systems Constitutional: No chills, No diaphoresis, No fever, No malaise Respiratory: Denies Cough, Orthopnea, Shortness of Air (mild), Denies Wheezing Cardiovascular: See HPI, Denies Chest Pain, Edema, Denies Palpitations Gastrointestinal: Denies Abdomen Distended, Denies Abdominal Pain Genitourinary: Denies Burning, Denies Discharge, Denies Incontinence Musculoskeletal: No back pain, No joint swelling Skin: No pruritus, No rash Past Xelwmuh-Egcbej-Bzwvlc Hx Patient Social History Alcohol Use: Denies Use Recreational Drug Use: No Smoking Status: Current Everyday Smoker Type Used: Cigarettes 2nd Hand Smoke Exposure: Yes Recent Foreign Travel: No Contact w/Someone Who Travel: No Recent Hopitalizations: No Immunizations Up To Date Tetanus Booster (TDap): Less than 5yrs Date of Pneumonia Vaccine: Nov 18, 2009 Date of Influenza Vaccine: Sep 28, 2015 Seasonal Allergies Seasonal Allergies: No Surgeries History of Surgeries: Yes (CARDIAC CATH/STENT, HIATAL HERNIA REPAIR; TURP; LEFT FEM-TIB BYPASS) Surgeries: Abdominal, Cardiac, Coronary Stent, Transurethral Resection, Vascular Surgery Respiratory History of Respiratory Disorde: Yes Respiratory Disorders: COPD Cardiovascular History of Cardiac Disorders: Yes (LEFT FEMORAL ANEURYSM) Cardiac Disorders: Aneurysm, Chronic Edema/Swelling, Coronary Artery Disease, High Cholesterol, Hypertension, Peripheral Vascular Neurological History of Neurological Disord: Yes (PERIPHERAL NEUROPATHY) Neurological Disorders: Dementia Reproductive System Hx Reproductive Disorders: No Sexually Transmitted Disease: No Genitourinary History of Genitourinary Disor: Yes Genitourinary Disorders: Benign Prostatic Hyperpl, Prostate Problems Gastrointestinal History of Gastrointestinal Di: Yes Gastrointestinal Disorders: Gastroesophageal Reflux, Hiatal Hernia Musculoskeletal History of Musculoskeletal Dis: Yes Musculoskeletal Disorders: Arthritis Endocrine History of Endocrine Disorders: Yes Endocrine Disorders: Diabetes, Insulin dep HEENT History of HEENT Disorders: Yes HEENT Disorders: Cataract Loss of Vision: Right Hearing Impairment: Hard of Hearing Cancer History of Cancer: No Psychosocial History of Psychiatric Problem: Yes Behavioral Health Disorders: Anxiety Integumentary History of Skin or Integumenta: Yes (MRSA) Blood Transfusions History of Blood Disorders: No Family Medical History Significant Family History: No Pertinent Family Hx Family Medial History: Cancer 19 FATHER 19 MOTHER Family history: Cardiovascular disease Family history: Diabetes mellitus G8 SISTER 19 MOTHER Family history: Hypertension G8 BROTHER Physical Exam Vital Signs Vital Sign - Last 12Hours 11/16/17 04:28 Temp 97.7 Pulse 94 Resp 18 B/P (MAP) 184/79 (114) Pulse Ox 97 O2 Delivery Room Air Capillary Refill : General Appearance: No Apparent Distress, WD/WN HEENT: PERRL/EOMI, Normal ENT Inspection, Pharynx Normal Neck: Non Tender, Supple Respiratory: Chest Non Tender, Lungs Clear, Normal Breath Sounds, No Accessory Muscle Use, No Respiratory Distress Cardiovascular: Regular Rate, Rhythm, Normal Peripheral Pulses, Other (edema up to the level of the calves bilateral 2+ pitting) Gastrointestinal: Non Tender, Soft Extremity: Normal Capillary Refill, Non Tender, No Calf Tenderness, Pedal Edema (bilateral, symmetric, 2+ pitting up to the level of the calf) Neurologic/Psychiatric: Alert, Oriented x3 Skin: Normal Color, Warm/Dry Progress/Results/Core Measures Results/Orders Lab Results Laboratory Tests Test 11/16/17 04:24 12/30/17 04:35 Range/Units Glucometer 222 H 70-110 MG/DL White Blood Count 6.8 4.3-11.0 10^3/uL Red Blood Count 4.12 L 4.35-5.85 10^6/uL Hemoglobin 13.8 13.3-17.7 G/DL Hematocrit 39 L 40-54 % Mean Corpuscular Volume 95 80-99 FL Mean Corpuscular Hemoglobin 34 25-34 PG Mean Corpuscular Hemoglobin Concent 35 32-36 G/DL Red Cell Distribution Width 15.0 H 10.0-14.5 % Platelet Count 142 130-400 10^3/uL Mean Platelet Volume 11.2 H 7.4-10.4 FL Neutrophils (%) (Auto) 74 42-75 % Lymphocytes (%) (Auto) 14 12-44 % Monocytes (%) (Auto) 10 0-12 % Eosinophils (%) (Auto) 2 0-10 % Basophils (%) (Auto) 0 0-10 % Neutrophils # (Auto) 5.0 1.8-7.8 X 10^3 Lymphocytes # (Auto) 1.0 1.0-4.0 X 10^3 Monocytes # (Auto) 0.7 0.0-1.0 X 10^3 Eosinophils # (Auto) 0.1 0.0-0.3 10^3/uL Basophils # (Auto) 0.0 0.0-0.1 10^3/uL Sodium Level 142 135-145 MMOL/L Potassium Level 3.8 3.6-5.0 MMOL/L Chloride Level 105 98-107 MMOL/L Carbon Dioxide Level 24 21-32 MMOL/L Anion Gap 13 5-14 MMOL/L Blood Urea Nitrogen 35 H 7-18 MG/DL Creatinine 1.15 0.60-1.30 MG/DL Estimat Glomerular Filtration Rate > 60 BUN/Creatinine Ratio 30 Glucose Level 207 H 70-105 MG/DL Calcium Level 9.3 8.5-10.1 MG/DL Total Bilirubin 0.2 0.1-1.0 MG/DL Aspartate Amino Transf (AST/SGOT) 18 5-34 U/L Alanine Aminotransferase (ALT/SGPT) 21 0-55 U/L Alkaline Phosphatase 99 40-136 U/L B-Type Natriuretic Peptide 10.9 <100.0 PG/ML Total Protein 6.4 6.4-8.2 GM/DL Albumin 3.4 3.2-4.5 GM/DL My Orders Orders - JADEN COLLIER Furosemide Injection (Lasix Injection) (11/16/17 04:30) Saline Lock/Iv-Start (11/16/17 04:27) Cbc With Automated Diff (11/16/17 04:28) Comprehensive Metabolic Panel (11/16/17 04:28) BNP (11/16/17 04:28) Accucheck Stat ONCE (11/16/17 04:28) Medications Given in ED Current Medications Medications Dose Ordered Sig/Kuldeep Route Start Time Stop Time Status Last Admin Dose Admin Furosemide 40 mg ONCE ONCE IVP 11/16/17 04:30 11/16/17 04:31 DC 11/16/17 04:40 40 MG Vital Signs/I&O Vital Sign - Last 12Hours 11/16/17 04:28 Temp 97.7 Pulse 94 Resp 18 B/P (MAP) 184/79 (114) Pulse Ox 97 O2 Delivery Room Air Progress Note #1: Time: 04:34 Progress Note Plan is to give him a dose of Lasix and check some blood work. Seems to 3 day holiday weekend and it may be difficult to get him follow-up in a reasonable amount of time it may be reasonable to do an observation stay trying get his fluid status under control. Echocardiogram from August [address] Jaramillo: 1. Technically difficult study. 2. Well preserved global left ventricular systolic function with an ejection fraction of 50 to 55%. 3. Trivial, mitral and tricuspid regurgitation. 4. Pulmonary artery systolic pressure is estimated to be within normal limits. Progress Note #2: Time: 05:44 Progress Note BNP is negligible he has no cough nor shortness of breath since he's been here. Sats are good vitals are good. He started putting out urine on a gave him the Lasix so are going to try and have him go home due the Lasix one more time this afternoon 40 mg and then daily until he sees his doctor at his scheduled appointment on the fourth, 5 days from now. I've also given the daughters taking care of his medications permission to use an extra dose in the afternoon if she feels he is not improving fast enough. We've also given strict return precautions to the ER. Diagnostic Imaging Diagonstic Imaging: Xray Plain Films/CT/US/NM/MRI: chest (2v) Reviewed: Reviewed by Me Departure Impression Impression: Primary Impression: Congestive heart failure Qualified Codes: I50.9 - Heart failure, unspecified Additional Impression: Pedal edema Disposition: 01 HOME, SELF-CARE Condition: Improved Departure-Patient Inst. Decision time for Depature: 05:45 Referrals: ESTRELLITA العراقي MD (PCP/Family) Primary Care Physician Patient Instructions: Dependent Edema (DC) Add. Discharge Instructions: Watch his diet and keep his blood sugars under control. Keep your follow-up appointment on November 21, 2017 with the primary care physician. Return to the ER to begin to have chest pain, shortness of breath, worsening condition. This afternoon at 1:00 please give him a second dose of 40 mg Lasix. Then given his Lasix daily 40 mg in the morning until you see the primary care physician. If he feels that he is not improving soon enough it's okay to give him 1 extra dose of Lasix in the afternoon. For sleep he may use the 0.25 mg Ativan at bedtime as needed. All discharge instructions reviewed with patient and/or family. Voiced understanding. Scripts Lorazepam (Ativan) 0.5 Mg Tablet 0.25 MG PO HS Y for INSOMNIA, #5 TAB 0 Refills Prov: JADEN COLLIER 11/16/17 Copy Copies To 1: ESTRELLITA العراقي MD, TITUS J Nov 16, 2017 04:34
[2017-11-16 04:43] LABS: BASOPHILS % (AUTO) 0 % (0-10); EOSINOPHILS # (AUTO) 0.1 10^3/uL (0.0-0.3); EOSINOPHILS % (AUTO) 2 % (0-10); HEMATOCRIT 39 % (40-54); HEMOGLOBIN 13.8 G/DL (13.3-17.7); LYMPHOCYTES % (AUTO) 14 % (12-44); MEAN CORPUSCULAR HEMOGLOBIN 34 PG (25-34); MEAN CORPUSCULAR HGB CONC 35 G/DL (32-36); MEAN CORPUSCULAR VOLUME 95 FL (80-99); MEAN PLATELET VOLUME 11.2 FL (7.4-10.4); MONOCYTES # (AUTO) 0.7 X 10^3 (0.0-1.0); MONOCYTES % (AUTO) 10 % (0-12); NEUTROPHILS % (AUTO) 74 % (42-75); PLATELET COUNT 142 10^3/uL (130-400); RED BLOOD COUNT 4.12 10^6/uL (4.35-5.85); WHITE BLOOD COUNT 6.8 10^3/uL (4.3-11.0)
[2017-11-16 05:01] LABS: ALANINE AMINOTRANSFERASE 21 U/L (0-55); ALBUMIN 3.4 GM/DL (3.2-4.5); ALKALINE PHOSPHATASE 99 U/L (40-136); BILIRUBIN,TOTAL 0.2 MG/DL (0.1-1.0); BUN/CREATININE RATIO 30; CALCIUM 9.3 MG/DL (8.5-10.1); CARBON DIOXIDE 24 MMOL/L (21-32); CHLORIDE 105 MMOL/L (98-107); CREATININE SERUM 1.15 MG/DL (0.60-1.30); GFR ESTIMATED > 60; GLUCOSE 207 MG/DL (70-105); POTASSIUM 3.8 MMOL/L (3.6-5.0); SODIUM 142 MMOL/L (135-145); TOTAL PROTEIN 6.4 GM/DL (6.4-8.2)
[2017-11-16] MEDS ORDERED: LORA-404 PO (05:49)
[2017-11-16 05:58] VITALS: BP 160/75
== END 2017-11-16 05:51 | disposition home or self-care (01) ==
LOC: EDUNIT# 04:12 → ER 04:15
DX: I50.9 Heart failure, unspecified (principal); R60.0 Localized edema; J44.9 Chronic obstructive pulmonary disease, unspecified; I25.10 Atherosclerotic heart disease of native coronary artery without angina pectoris; E78.00 Pure hypercholesterolemia, unspecified; I10 Essential (primary) hypertension; E11.51 Type 2 diabetes mellitus with diabetic peripheral angiopathy without gangrene; I73.9 Peripheral vascular disease, unspecified; K21.9 Gastro-esophageal reflux disease without esophagitis; N40.0 Benign prostatic hyperplasia without lower urinary tract symptoms; E11.9 Type 2 diabetes mellitus without complications; F41.9 Anxiety disorder, unspecified; F03.90 Unspecified dementia, unspecified severity, without behavioral disturbance, psychotic disturbance, mood disturbance, and anxiety; Z79.82 Long term (current) use of aspirin; Z86.14 Personal history of Methicillin resistant Staphylococcus aureus infection; Z82.49 Family history of ischemic heart disease and other diseases of the circulatory system; Z79.02 Long term (current) use of antithrombotics/antiplatelets; Z95.5 Presence of coronary angioplasty implant and graft; Z87.19 Personal history of other diseases of the digestive system; Z98.890 Other specified postprocedural states
CPT/HCPCS: 36415; 80053; 82962; 83880; 85025

== ENCOUNTER 2018-04-19 12:17 | Observation (INO) | payer MEDICARE, MEDICAID ==
[~2018-04-19] VITALS: Ht 165.1 cm; Wt 73.2 kg
[~2018-04-19 12:17] MED LIST changes: +LORA-404 PO
[2018-04-19 12:54] LABS: BASOPHILS % (AUTO) 0 % (0-10); EOSINOPHILS # (AUTO) 0.1 10^3/uL (0.0-0.3); EOSINOPHILS % (AUTO) 0 % (0-10); HEMATOCRIT 36 % (40-54); HEMOGLOBIN 12.3 G/DL (13.3-17.7); LYMPHOCYTES # (AUTO) 0.6 X 10^3 (1.0-4.0); LYMPHOCYTES % (AUTO) 5 % (12-44); MEAN CORPUSCULAR HEMOGLOBIN 33 PG (25-34); MEAN CORPUSCULAR HGB CONC 35 G/DL (32-36); MEAN CORPUSCULAR VOLUME 96 FL (80-99); MEAN PLATELET VOLUME 11.6 FL (7.4-10.4); MONOCYTES # (AUTO) 0.6 X 10^3 (0.0-1.0); MONOCYTES % (AUTO) 5 % (0-12); NEUTROPHILS # (AUTO) 10.9 X 10^3 (1.8-7.8); NEUTROPHILS % (AUTO) 90 % (42-75); PLATELET COUNT 179 10^3/uL (130-400); RED BLOOD COUNT 3.72 10^6/uL (4.35-5.85); WHITE BLOOD COUNT 12.1 10^3/uL (4.3-11.0)
--- NOTE | 2018-04-19 13:03 | Diagnostic Imaging Report ---
INDICATION: Confusion. COMPARISON: 08/29/2017. TECHNIQUE: Single frontal radiograph of the chest dated 04/19/2018. FINDINGS: The cardiac silhouette is stable, though borderline enlarged. Mild central pulmonary vascular congestion. Calcified granuloma are associated with the lungs bilaterally. Chronic senescent-type interstitial opacities are also identified. However, bibasilar interstitial opacities have slightly increased since the prior examination. No significant pleural effusion. No pneumothorax. No acute osseous abnormality. IMPRESSION: Mild bibasilar atelectasis and/or pneumonitis superimposed upon mild chronic interstitial lung changes. Dictated by: Dictated on workstation # [id number]
[2018-04-19 13:05] LABS: PROTHROMBIN TIME PATIENT 13.3 SEC (12.2-14.7)
[2018-04-19 13:12] LABS: ALANINE AMINOTRANSFERASE 10 U/L (0-55); ALBUMIN 3.9 GM/DL (3.2-4.5); ALKALINE PHOSPHATASE 90 U/L (40-136); BILIRUBIN,TOTAL 0.3 MG/DL (0.1-1.0); BUN/CREATININE RATIO 17; CARBON DIOXIDE 23 MMOL/L (21-32); CHLORIDE 105 MMOL/L (98-107); CREATININE SERUM 2.94 MG/DL (0.60-1.30); GFR ESTIMATED 21; GLUCOSE 155 MG/DL (70-105); MAGNESIUM 1.8 MG/DL (1.8-2.4); POTASSIUM 4.2 MMOL/L (3.6-5.0); SODIUM 142 MMOL/L (135-145); TOTAL PROTEIN 6.9 GM/DL (6.4-8.2)
--- NOTE | 2018-04-19 13:17 | Diagnostic Imaging Report ---
CT head without contrast. INDICATION: Altered mental status. TECHNIQUE: Contiguous axial sections were taken through the skull. FINDINGS: There is no mass, shift of midline or hemorrhage to suggest an acute intracranial abnormality. The ventricles are prominent but stable in size when compared to the prior exam of 08/29/2017. The cortical atrophy and periventricular encephalomalacia seen on the prior study are again evident and no different. The bone windows show no sign of a fracture or of a destructive lesion. The orbits and sinuses were not visualized in their entirety. Where visualized, there is no acute abnormality. As noted on the prior exam, there has been a scleral banding procedure on the right. IMPRESSION: 1. There is no evidence for an acute intracranial abnormality. 2. If clinical concern regarding an acute abnormality persists, then MRI would be recommended for further study. Dictated by: Dictated on workstation # [id number]
[2018-04-19 13:31] LABS: TSH (THYROID ANALYZER) 0.88 UIU/ML (0.35-4.94)
[2018-04-19 13:35] LABS: BASOPHILS % (MANUAL) 1 %; LYMPHOCYTES % (MANUAL) 2 %; MONOCYTES % (MANUAL) 3 %; NEUTROPHILS % (MANUAL) 94 %; RBC MORPH NORMAL
[2018-04-19 13:42] LABS: CLARITY,URINE SLIGHTLY CLOUDY; COLOR,URINE YELLOW; GLUCOSE, URINE (UA) NEGATIVE (NEGATIVE); KETONES,URINE NEGATIVE (NEGATIVE); LEUKOCYTE ESTERASE ,URINE 1+ (NEGATIVE); NITRITE,URINE NEGATIVE (NEGATIVE); PH,URINE 5 (5-9); PROTEIN,URINE 4+ (NEGATIVE); UROBILINOGEN,URINE 1 MG/DL (NORMAL)
[2018-04-19] MEDS ORDERED: LACTATED RINGERS 1,000 ML IV ONE (13:43)
[2018-04-19 14:00] LABS: BACTERIA,URINE TRACE /HPF; BILIRUBIN,URINE 1+ (NEGATIVE); WBC,URINE 0-2 /HPF
[2018-04-19 14:01] LABS: AMPHETAMINE SCREEN, URINE NEGATIVE (NEGATIVE); BARBITURATE SCREEN URINE NEGATIVE (NEGATIVE); BENZODIAZEPINES SCREEN URINE POSITIVE (NEGATIVE); CANNABINOID SCREEN, URINE NEGATIVE (NEGATIVE); COCAINE SCREEN URINE NEGATIVE (NEGATIVE); METHADONE STAT NEGATIVE (NEGATIVE); METHAMPHETAMINE SCREEN URINE S NEGATIVE (NEGATIVE); OPIATE SCREEN URINE POSITIVE (NEGATIVE); OXYCODONE STAT NEGATIVE (NEGATIVE); PROPOXYPHENE STAT NEGATIVE (NEGATIVE); TRICYCLIC ANTIDEPRESSANTS SCRE NEGATIVE (NEGATIVE)
--- NOTE | 2018-04-19 14:22 | ED General ---
General Chief Complaint: Altered Mental Status Stated Complaint: CONFUSION Source of Information: Family (DAUGHTER), Old Records Exam Limitations: Other (PT IS UNABLE TO GIVE ANY INFORMATION--MINIMALLY VERBAL AND NOT FOLLOWING COMMANDS) History of Present Illness Date Seen by Provider: Apr 19, 2018 Time Seen by Provider: 12:16 Initial Comments PT ARRIVES VIA [facility] FROM HOME--LIVES WITH DAUGHTER DAUGHTER REPORTS THAT PT WAS CONFUSED ON WAKING THIS AM, AND SLEPT LATER THAN NORMAL--WOKE UP BETWEEN 10 AND 11:00 AM INITIALLY WAS REPORTED THAT PT HAD BOTTLE OF MORPHINE ER 15 MG, FILLED ON FOR #30 --TO BE TAKEN BID, WITH ONLY 2 PILLS LEFT IN BOTTLE. DAUGHTER LATER REPORTS THAT ALL OF HIS PILLS ARE ACCOUNTED FOR, SHE KEEPS THEM IN A PILL ORGANIZER. PILL ORGANIZER AND PILL BOTTLES WERE NOT BROUGHT TO ER. NO RECENT ILLNESS, FEVER, COUGH/CONGESTION/URI SYMPTOMS NO VOMITING OR DIARRHEA PT WAS AT NORMAL BASELINE YESTERDAY--PT HAS DEMENTIA ACCUCHECK 140 PCP: FT. KALPANA BUENO Allergies and Home Medications Allergies Coded Allergies: Gerardo Known Allergies (Unverified Allergy, Mild, 06/21/09) Home Medications Allopurinol 100 Mg Tablet, 200 MG PO DAILY, (Reported) TAKE 2 (100 MG) TABLETS DAILY Alprazolam 0.25 Mg Tablet, 0.25 MG PO HS PRN for ANXIETY, (Reported) Amlodipine Besylate 5 Mg Tablet, 5 MG PO DAILY, (Reported) Baclofen 10 Mg Tablet, 10 MG PO TID, (Reported) Clopidogrel Bisulfate 75 Mg Tablet, 75 MG PO DAILY, (Reported) Furosemide 40 Mg Tablet, 40 MG PO DAILY, (Reported) Insulin Detemir 100 Unit/1 Ml Insuln.pen, 45 UNITS SQ BID, (Reported) Lisinopril 5 Mg Tablet, 5 MG PO DAILY, (Reported) Metoprolol Succinate 25 Mg Tab.er.24h, 25 MG PO DAILY, (Reported) Morphine Sulfate 15 Mg Tablet.er, 15 MG PO Q12H, (Reported) Pantoprazole Sodium 40 Mg Tablet.dr, 40 MG PO DAILY, (Reported) Pravastatin Sodium 40 Mg Tablet, 40 MG PO DAILY, (Reported) Theophylline Anhydrous 300 Mg Tab.er.12h, 300 MG PO Q12H, (Reported) Patient Home Medication List Home Medication List Reviewed: Yes Review of Systems Constitutional: other (PT UNABLE TO ANSWER QUESTIONS) Past Dmxhorp-Fjrgwa-Neelzq Hx Patient Social History Alcohol Use: Past History (HISTORY OF ABUSE) Recreational Drug Use: No (BUT TAKES MORPHINE, XANAX, BACLOFEN ON DAILY BASIS) Smoking Status: Current Everyday Smoker (4 PPD) Type Used: Cigarettes 2nd Hand Smoke Exposure: Yes Recent Hopitalizations: No Immunizations Up To Date Tetanus Booster (TDap): Less than 5yrs Date of Pneumonia Vaccine: Nov 18, 2009 Date of Influenza Vaccine: Sep 28, 2015 Seasonal Allergies Seasonal Allergies: No Past Medical History Surgeries: Yes (CARDIAC CATH/STENT, HIATAL HERNIA REPAIR; TURP; LEFT FEM-TIB BYPASS) Abdominal, Cardiac, Coronary Stent, Transurethral Resection, Vascular Surgery Respiratory: Yes COPD Cardiac: Yes (LEFT FEMORAL ANEURYSM;CARDIAC CATH-STENT; LEFT FEM-TIB BYPASS) Aneurysm, Chronic Edema/Swelling, Coronary Artery Disease, High Cholesterol, Hypertension, Peripheral Vascular Neurological: Yes (PERIPHERAL NEUROPATHY) Dementia, Neuropathy Reproductive Disorders: No Sexually Transmitted Disease: No Genitourinary: Yes Benign Prostatic Hyperpl, Prostate Problems Gastrointestinal: Yes Gastroesophageal Reflux, Hiatal Hernia Musculoskeletal: Yes Arthritis Endocrine: Yes Diabetes, Insulin dep HEENT: Yes Cataract Loss of Vision: Right Hearing Impairment: Hard of Hearing Cancer: No Psychosocial: Yes Anxiety Integumentary: Yes (MRSA) Blood Disorders: No Family Medical History Cancer 19 FATHER 19 MOTHER Family history: Cardiovascular disease Family history: Diabetes mellitus G8 SISTER 19 MOTHER Family history: Hypertension G8 BROTHER No Pertinent Family Hx Physical Exam Vital Signs Capillary Refill : General Appearance: No Apparent Distress, WD/WN, Other (FLAT AFFECT/BLANK STARE ; PT IS FILTHY, MALODOROUS, VERY UNKEMPT, FRONTAL HAIR IS SINGED AND HEAVILY TOBACCO STAINED, FINGERS ARE HEAVILY TOBACCO STAINED. REEKS OF CIGARETTES) HEENT: Other (EDENTULOUS, DRY ORAL MUCOSA; RIGHT CORNEA OPACIFIED. ) Neck: Normal Inspection Respiratory: Normal Breath Sounds, No Accessory Muscle Use, No Respiratory Distress Cardiovascular: Regular Rate, Rhythm, No Murmur Gastrointestinal: Non Tender, Soft Back: No CVA Tenderness Extremity: Normal Capillary Refill, Normal Range of Motion, Non Tender, No Calf Tenderness, Pedal Edema (TRACE-1+ BILATERALLY) Neurologic/Psychiatric: Alert, No Motor/Sensory Deficits (GROSSLY INTACT, BUT HISTORY OF PERIPHERAL NEUROPATHY), Other (PT MINIMALLY VERBAL, VERY FLAT AFFECT. ORIENTED TO PERSON, AND KNOWS HE IS IN HOSPITAL. DOES NOT FOLLOW COMMANDS, OR ANSWER MOST QUESTIONS--MOSTLY BLANK STARE) Skin: Normal Color, Warm/Dry, Other (FINGERS HEAVILY TOBACCO STAINED) Progress/Results/Core Measures Suspected Sepsis SIRS Temperature: Pulse: Respiratory Rate: Laboratory Tests 04/19/18 12:47: White Blood Count 12.1H Blood Pressure / Mean: Laboratory Tests 04/19/18 12:47: Creatinine 2.94H, INR Comment 1.0, Platelet Count 179, Total Bilirubin 0.3 Results/Orders Lab Results Laboratory Tests Test 04/19/18 12:47 04/19/18 13:25 Range/Units White Blood Count 12.1 H 4.3-11.0 10^3/uL Red Blood Count 3.72 L 4.35-5.85 10^6/uL Hemoglobin 12.3 L 13.3-17.7 G/DL Hematocrit 36 L 40-54 % Mean Corpuscular Volume 96 80-99 FL Mean Corpuscular Hemoglobin 33 25-34 PG Mean Corpuscular Hemoglobin Concent 35 32-36 G/DL Red Cell Distribution Width 15.0 H 10.0-14.5 % Platelet Count 179 130-400 10^3/uL Mean Platelet Volume 11.6 H 7.4-10.4 FL Neutrophils (%) (Auto) 90 H 42-75 % Lymphocytes (%) (Auto) 5 L 12-44 % Monocytes (%) (Auto) 5 0-12 % Eosinophils (%) (Auto) 0 0-10 % Basophils (%) (Auto) 0 0-10 % Neutrophils # (Auto) 10.9 H 1.8-7.8 X 10^3 Lymphocytes # (Auto) 0.6 L 1.0-4.0 X 10^3 Monocytes # (Auto) 0.6 0.0-1.0 X 10^3 Eosinophils # (Auto) 0.1 0.0-0.3 10^3/uL Basophils # (Auto) 0.0 0.0-0.1 10^3/uL Neutrophils % (Manual) 94 % Lymphocytes % (Manual) 2 % Monocytes % (Manual) 3 % Basophils % (Manual) 1 % Blood Morphology Comment NORMAL Prothrombin Time 13.3 12.2-14.7 SEC INR Comment 1.0 0.8-1.4 Activated Partial Thromboplast Time 31 24-35 SEC Sodium Level 142 135-145 MMOL/L Potassium Level 4.2 3.6-5.0 MMOL/L Chloride Level 105 98-107 MMOL/L Carbon Dioxide Level 23 21-32 MMOL/L Anion Gap 14 5-14 MMOL/L Blood Urea Nitrogen 51 H 7-18 MG/DL Creatinine 2.94 H 0.60-1.30 MG/DL Estimat Glomerular Filtration Rate 21 BUN/Creatinine Ratio 17 Glucose Level 155 H 70-105 MG/DL Calcium Level 10.0 8.5-10.1 MG/DL Magnesium Level 1.8 1.8-2.4 MG/DL Total Bilirubin 0.3 0.1-1.0 MG/DL Aspartate Amino Transf (AST/SGOT) 10 5-34 U/L Alanine Aminotransferase (ALT/SGPT) 10 0-55 U/L Alkaline Phosphatase 90 40-136 U/L Troponin I < 0.30 <0.30 NG/ML Total Protein 6.9 6.4-8.2 GM/DL Albumin 3.9 3.2-4.5 GM/DL TSH [place] Testing 0.88 0.35-4.94 UIU/ML Serum Alcohol < 10 <10 MG/DL Urine Color YELLOW Urine Clarity SLIGHTLY CLOUDY Urine pH 5 5-9 Urine Specific [place] 1.025 H 1.016-1.022 Urine Protein 4+ NEGATIVE Urine Glucose (UA) NEGATIVE NEGATIVE Urine Ketones NEGATIVE NEGATIVE Urine Nitrite NEGATIVE NEGATIVE Urine Bilirubin 1+ H NEGATIVE Urine Urobilinogen 1 NORMAL MG/DL Urine Leukocyte Esterase 1+ H NEGATIVE Urine RBC (Auto) 1+ H NEGATIVE Urine RBC NONE /HPF Urine WBC 0-2 /HPF Urine Squamous Epithelial Cells 2-5 /HPF Urine Crystals NONE /LPF Urine Bacteria TRACE /HPF Urine Casts PRESENT /LPF Urine Hyaline Casts 10-25 H /LPF Urine Mucus NEGATIVE /LPF Urine Culture Indicated NO Urine Opiates Screen POSITIVE H NEGATIVE Urine Oxycodone Screen NEGATIVE NEGATIVE Urine Methadone Screen NEGATIVE NEGATIVE Urine Propoxyphene Screen NEGATIVE NEGATIVE Urine Barbiturates Screen NEGATIVE NEGATIVE Ur Tricyclic Antidepressants Screen NEGATIVE NEGATIVE Urine Phencyclidine Screen NEGATIVE NEGATIVE Urine Amphetamines Screen NEGATIVE NEGATIVE Urine Methamphetamines Screen NEGATIVE NEGATIVE Urine Benzodiazepines Screen POSITIVE H NEGATIVE Urine Cocaine Screen NEGATIVE NEGATIVE Urine Cannabinoids Screen NEGATIVE NEGATIVE My Orders Orders - DUSTYLAKEISHA K DO Saline Lock/Iv-Start (04/19/18 12:21) Ekg Tracing (04/19/18 12:21) O2 (04/19/18 12:21) Monitor-Rhythm Ecg Trace Only (04/19/18 12:21) Alcohol (04/19/18 12:21) Cbc With Automated Diff (04/19/18 12:21) Comprehensive Metabolic Panel (04/19/18 12:21) Drug Screen Stat (Urine) (04/19/18 12:21) Magnesium (04/19/18 12:21) Protime With Inr (04/19/18 12:21) Partial Thromboplastin Time (04/19/18 12:21) Thyroid Analyzer (04/19/18 12:21) Troponin I (04/19/18 12:21) Ua Culture If Indicated (04/19/18 12:21) Ct Head Wo-R/O Stroke (04/19/18 12:21) Chest 1 View, Ap/Pa Only (04/19/18 12:21) Manual Differential (04/19/18 12:47) Saline Lock/Iv-Start (04/19/18 13:43) Lactated Ringers (Lr 1000 Ml Iv Solution (04/19/18 13:43) Medications Given in ED Current Medications Medications Dose Ordered Sig/Kuldeep Route Start Time Stop Time Status Last Admin Dose Admin Lactated Ringer's 1,000 ml @ 0 mls/hr Q0M ONCE IV 04/19/18 13:43 04/19/18 13:44 DC 04/19/18 13:53 1,000 MLS/HR Vital Signs/I&O Capillary Refill : Progress Note : Progress Note NO DETERIORATION IN PT'S CONDITION DURING ER STAY ECG Initial ECG Impression Date: Apr 19, 2018 Initial ECG Impression Time: 14:12 Initial ECG Rate: 90 Initial ECG Rhythm: Normal Sinus Initial ECG Impression: Nonspecific Changes Initial ECG Comparisson: No Previous ECG Available Diagnostic Imaging Comments CT HEAD--NO ACUTE PROCESS, CHRONIC MICROVASCULAR CHANGES CXR--MILD BIBASILAR ATELECTASIS PER RADIOLOGIST REPORTS @ 1320 Reviewed: Reviewed by Me Departure Communication (Admissions) 1410--SPOKE WITH DR. LARA, HOSPITALIST. ACCEPTS PT FOR ADMIT Impression Primary Impression: Altered mental status Qualified Codes: R41.0 - Disorientation, unspecified Additional Impressions: Dehydration IDDM (insulin dependent diabetes mellitus) Acute renal failure Dementia HX OF NONCOMPLIANCE Tobacco abuse Disposition: ADMITTED INPATIENT Condition: Stable/Unchanged Admissions Decision to Admit Reason: Admit from ER (General) Decision to Admit/Date: Apr 19, 2018 Time/Decision to Admit Time: 14:10 Departure-Patient Inst. Referrals: ESTRELLITA العراقي MD (PCP/Family) Primary Care Physician LAKEISHA MONTANO DO Apr 19, 2018 14:22
--- OUTSIDE RECORDS SUMMARY | 2018-04-19 14:40 | XMS REPORT | Continuity of Care Document ---
Author Author [facility] Organization [facility] Address Unknown Phone Unavailable Allergies Active Description [...] INFARCT 07/04/2011 Ot 414.01 CORONARY ATHEROSCLEROSIS OF [place] CORON 07/04/2011 Ot 443.9 PERIPH VASCULAR DIS [...] ST 08/31/2011 Ot 414.01 CORONARY ATHEROSCLEROSIS OF [place] CORON 08/31/2011 Ot 486 PNEUMONIA, ORGANISM NOS [...] NOS 09/22/2012 Ot 414.01 CORONARY ATHEROSCLEROSIS OF [place] CORON 09/22/2012 Ot 440.21 ATHEROSCL [place] ARTER EXTREM W INTERMIT 09/22/2012 Ot 440.4 [...] FACP CCDS Ot 414.01 CORONARY ATHEROSCLEROSIS OF [place] CORON 03/19/2014 IGNACIO MOSES FACC, ALI FACP [...] 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 09/28/2015 JAIME ANTONIO MD Ot E11.65 TYPE 2 DIABETES MELLITUS WITH HYPERGLYCE 09/28/2015 JAIME ANTONIO MD Ot E83.42 HYPOMAGNESEMIA 09/28/2015 JAIME ANTONIO MD Ot F03.90 UNSPECIFIED DEMENTIA WITHOUT BEHAVIORAL 09/28/2015 JAIME ANTONIO MD Ot H54.60 UNQUALIFIED VISUAL LOSS, ONE EYE, UNSPEC 09/28/2015 JAIME ANTONIO MD Ot I12.9 HYPERTENSIVE CHRONIC KIDNEY DISEASE W ST 09/28/2015 JAIME ANTONIO MD Ot I25.10 ATHSCL HEART DISEASE OF [place] CORONARY 09/28/2015 JAIME ANTONIO MD Ot I73.9 [...] TY 03/10/2016 Ot 414.01 CORONARY ATHEROSCLEROSIS OF [place] CORON 03/10/2016 Ot 794.4 ABN KIDNEY FUNCT [...] TYPE VESSEL, NATIV 03/10/2016 Ot 440.20 ATHEROSCLEROSIS [place] ARTERIES EXTREMIT 03/10/2016 Ot 729.5 PAIN IN LIMB 03/10/2016 Ot 275.2 DIS MAGNESIUM METABOLISM 03/10/2016 Ot 440.22 ATHEROSCL [place] ARTER EXTREMITIES W/ R 03/11/2016 CHELSI BARRERA DO Ot E11.65 TYPE 2 DIABETES MELLITUS WITH HYPERGLYCE 03/11/2016 CHELSI BARRERA DO, Ot R41.0 DISORIENTATION, UNSPECIFIED 03/11/2016 CHELSI BARRERA DO Ot Z79.4 MEDICAL ASST (CURRENT) USE OF INSULIN 03/11/2016 CHELSI BARRERA DO, Ot Z79.82 INTERMEDIATE (CURRENT) USE OF ASPIRIN 03/11/2016 CHELSI BARRERA DO, Ot Z91.14 PATIENT'S OTHER NONCOMPLIANCE WITH MEDIC 03/13/2016 CHELSI BARRERA DO Ot E11.65 TYPE 2 DIABETES MELLITUS WITH HYPERGLYCE 03/13/2016 CHELSI BARRERA DO, Ot R41.0 DISORIENTATION, UNSPECIFIED 03/13/2016 CHELSI BARRERA DO, Ot Z79.4 INTERMEDIATE (CURRENT) USE OF INSULIN 03/13/2016 CHELSI BARRERA DO, Ot Z79.82 MEDICAL ASST (CURRENT) USE OF ASPIRIN 03/13/2016 CHELSI BARRERA DO, Ot Z91.14 PATIENT'S OTHER NONCOMPLIANCE WITH MEDIC 03/31/2016 Ot 250.00 DIAB SHAWN WO COMPL, TYPE II OR UNSPEC TY 03/31/2016 Ot 414.01 CORONARY ATHEROSCLEROSIS OF [place] CORON 03/31/2016 Ot 794.4 ABN KIDNEY FUNCT [...] TYPE VESSEL, NATIV 03/31/2016 Ot 440.20 ATHEROSCLEROSIS [place] ARTERIES EXTREMIT 03/31/2016 Ot 729.5 PAIN IN LIMB 03/31/2016 Ot 275.2 DIS MAGNESIUM METABOLISM 03/31/2016 Ot 440.22 ATHEROSCL [place] ARTER EXTREMITIES W/ R 03/31/2016 LISA MOSES QUIQUE Jade Ot E11.65 TYPE 2 DIABETES MELLITUS WITH HYPERGLYCE 03/31/2016 LISA MOSES QUIQUE Jade Ot Z79.4 MEDICAL ASST (CURRENT) USE OF INSULIN 03/31/2016 LISA MOSES QUIQUE Jade Ot Z87.891 PERSONAL HISTORY OF NICOTINE DEPENDENCE 04/02/2016 LISA MOSES QUIQUE Jade Ot E11.65 TYPE 2 DIABETES MELLITUS WITH HYPERGLYCE 04/02/2016 LISA MOSES QUIQUE Jade Ot Z79.4 MEDICAL ASST (CURRENT) USE OF INSULIN 04/02/2016 LISA MOSES QUIQUE Jade Ot Z87.891 PERSONAL HISTORY OF NICOTINE DEPENDENCE 04/18/2016 LISA MOSES QUIQUE Jade Ot E11.65 TYPE 2 DIABETES MELLITUS WITH HYPERGLYCE 04/18/2016 LISA MOSES QUIQUE Jade Ot Z79.4 MEDICAL ASST (CURRENT) USE OF INSULIN 04/18/2016 LISA MOSES QUIQUE Jade Ot Z87.891 PERSONAL HISTORY OF NICOTINE DEPENDENCE 05/23/2016 Ot 250.00 DIAB SHAWN WO COMPL, TYPE II OR UNSPEC TY 05/23/2016 Ot 414.01 CORONARY ATHEROSCLEROSIS OF [place] CORON 05/23/2016 Ot 794.4 ABN KIDNEY FUNCT [...] TYPE VESSEL, NATIV 05/23/2016 Ot 440.20 ATHEROSCLEROSIS [place] ARTERIES EXTREMIT 05/23/2016 Ot 729.5 PAIN IN LIMB 05/23/2016 Ot 275.2 DIS MAGNESIUM METABOLISM 05/23/2016 Ot 440.22 ATHEROSCL [place] ARTER EXTREMITIES W/ R 05/23/2016 BENOIT ALEMAN MD Ot E10.65 TYPE 1 DIABETES MELLITUS WITH HYPERGLYCE 05/23/2016 BENOIT ALEMAN MD Ot Z79.4 INTERMEDIATE (CURRENT) USE OF INSULIN 05/23/2016 BENOIT ALEMAN MD Ot Z79.82 MEDICAL ASST (CURRENT) USE OF ASPIRIN 05/25/2016 BENOIT ALEMAN MD Ot E10.65 TYPE 1 DIABETES MELLITUS WITH HYPERGLYCE 05/25/2016 BENOIT ALEMAN MD Ot Z79.4 MEDICAL ASST (CURRENT) USE OF INSULIN 05/25/2016 BENOIT ALEMAN MD, Ot Z79.82 MEDICAL ASST (CURRENT) USE OF ASPIRIN 06/15/2016 CINDY BARRIOS MD Ot E11.65 TYPE 2 DIABETES MELLITUS WITH HYPERGLYCE 06/15/2016 CINDY BARRIOS MD Ot R73.9 HYPERGLYCEMIA, UNSPECIFIED 06/15/2016 CINDY BARRIOS MD Ot E11.65 TYPE 2 DIABETES MELLITUS WITH HYPERGLYCE 06/15/2016 CINDY BARRIOS MD Ot R73.9 HYPERGLYCEMIA, UNSPECIFIED 08/16/2016 Ot 250.00 DIAB SHAWN WO COMPL, TYPE II OR UNSPEC TY 08/16/2016 Ot 414.01 CORONARY ATHEROSCLEROSIS OF [place] CORON 08/16/2016 Ot 794.4 ABN KIDNEY FUNCT [...] TYPE VESSEL, NATIV 08/16/2016 Ot 440.20 ATHEROSCLEROSIS [place] ARTERIES EXTREMIT 08/16/2016 Ot 729.5 PAIN IN LIMB 08/16/2016 Ot 275.2 DIS MAGNESIUM METABOLISM 08/16/2016 Ot 440.22 ATHEROSCL [place] ARTER EXTREMITIES W/ R 08/16/2016 SYLVIA BONE APRN Ot E11.9 TYPE 2 DIABETES MELLITUS WITHOUT COMPLIC 08/16/2016 SYLVIA BONE APRN Ot I10 ESSENTIAL (PRIMARY) HYPERTENSION 08/16/2016 SYLVIA BONE APRN Ot L03.116 CELLULITIS OF LEFT LOWER LIMB 08/16/2016 SYLVIA BONE APRN Ot M79.89 OTHER SPECIFIED SOFT TISSUE DISORDERS 08/16/2016 SYLVIA BONE APRN Ot Z79.4 INTERMEDIATE (CURRENT) USE OF INSULIN 08/16/2016 SYLVIA BONE APRN Ot Z79.82 MEDICAL ASST (CURRENT) USE OF ASPIRIN 08/16/2016 SYLVIA BONE APRN Ot Z79.899 OTHER MEDICAL ASST (CURRENT) DRUG THERAPY 08/16/2016 SYLVIA BONE APRN Ot Z95.5 PRESENCE OF CORONARY ANGIOPLASTY IMPLANT 08/16/2016 Ot 250.00 DIAB SHAWN WO COMPL, TYPE II OR UNSPEC TY 08/16/2016 Ot 414.01 CORONARY ATHEROSCLEROSIS OF [place] CORON 08/16/2016 Ot 794.4 ABN KIDNEY FUNCT [...] TYPE VESSEL, NATIV 08/16/2016 Ot 440.20 ATHEROSCLEROSIS [place] ARTERIES EXTREMIT 08/16/2016 Ot 729.5 PAIN IN LIMB 08/16/2016 Ot 275.2 DIS MAGNESIUM METABOLISM 08/16/2016 Ot 440.22 ATHEROSCL [place] ARTER EXTREMITIES W/ R 08/22/2016 SYLVIA BONE APRN Ot E11.9 TYPE 2 DIABETES MELLITUS WITHOUT COMPLIC 08/22/2016 SYLVIA BONE APRN Ot I10 ESSENTIAL (PRIMARY) HYPERTENSION 08/22/2016 SYLVIA BONE APRN Ot L03.116 CELLULITIS OF LEFT LOWER LIMB 08/22/2016 SYLVAI BONE APRN Ot M79.89 OTHER SPECIFIED SOFT TISSUE DISORDERS 08/22/2016 SYLVIA BONE APRN Ot Z79.4 MEDICAL ASST (CURRENT) USE OF INSULIN 08/22/2016 SYLVIA BONE APRN Ot Z79.82 MEDICAL ASST (CURRENT) USE OF ASPIRIN 08/22/2016 SYLVIA BONE APRN Ot Z79.899 OTHER INTERMEDIATE (CURRENT) DRUG THERAPY 08/22/2016 SYLVIA BONE PARACHUTE/COMBATANT DIVER OFFICER Ot Z95.5 PRESENCE OF CORONARY ANGIOPLASTY IMPLANT [...] WILLIAM Ot I25.10 ATHSCL HEART DISEASE OF [place] CORONARY 09/17/2016 JANIYA DO WILLIAM Ot J44.9 CHRONIC OBSTRUCTIVE PULMONARY DISEASE, U 09/17/2016 JANIYA LAMAR WILLIAM Ot K21.9 GASTRO-ESOPHAGEAL REFLUX DISEASE WITHOUT 09/17/2016 JANIYA DO, WILLIAM Ot N18.9 CHRONIC KIDNEY DISEASE, UNSPECIFIED 09/17/2016 JANIYA DO WILLIAM Ot R07.89 OTHER CHEST PAIN 09/17/2016 CHAI DENSON DOI Ot Z79.4 INTERMEDIATE (CURRENT) USE OF INSULIN 09/17/2016 CHAI DENSON [...] WILLIAM Ot I25.10 ATHSCL HEART DISEASE OF [place] CORONARY 09/17/2016 JANIYA DO WILLIAM Ot J44.9 CHRONIC OBSTRUCTIVE PULMONARY DISEASE, U 09/17/2016 JANIYA LAMAR WILLIAM Ot K21.9 GASTRO-ESOPHAGEAL REFLUX DISEASE WITHOUT 09/17/2016 JANIYA LAMAR WILLIAM Ot N18.9 CHRONIC KIDNEY DISEASE, UNSPECIFIED 09/17/2016 JANIYA LMAAR WILLIAM Ot R07.89 OTHER CHEST PAIN 09/17/2016 CHAI DENSON DOI Ot Z79.4 INTERMEDIATE (CURRENT) USE OF INSULIN 09/17/2016 CHAI DENSON [...] MD Ot I25.10 ATHSCL HEART DISEASE OF [place] CORONARY 10/09/2016 KIRBY DUEÑAS MD Ot I72.3 [...] PAIN 10/09/2016 KIRBY DUEÑAS MD Ot Z79.4 MEDICAL ASST (CURRENT) USE OF INSULIN 10/09/2016 KIRBY DUEÑAS MD Ot Z79.82 INTERMEDIATE (CURRENT) USE OF ASPIRIN 10/09/2016 KIRBY DUEÑAS MD Ot Z79.899 OTHER MEDICAL ASST (CURRENT) DRUG THERAPY 10/09/2016 KIRBY DUEÑAS MD Ot Z95.5 PRESENCE OF CORONARY ANGIOPLASTY IMPLANT 10/10/2016 KIRBY DUEÑAS MD Ot E11.9 TYPE 2 DIABETES MELLITUS WITHOUT COMPLIC 10/10/2016 KIRBY DUEÑAS MD Ot F03.90 UNSPECIFIED DEMENTIA WITHOUT BEHAVIORAL 10/10/2016 KIRBY DUEÑAS MD A Ot F17.210 NICOTINE DEPENDENCE, CIGARETTES, UNCOMPL 10/10/2016 KIRBY DUEÑSA MD Ot I10 ESSENTIAL (PRIMARY) HYPERTENSION 10/10/2016 KIRBY DUEÑAS MD Ot I25.10 ATHSCL HEART DISEASE OF [place] CORONARY 10/10/2016 KIRBY DUEÑAS MD Ot 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 10/10/2016 KIRBY DUEÑAS MD Ot J44.9 CHRONIC OBSTRUCTIVE PULMONARY DISEASE, U 10/10/2016 KIRBY DUEÑAS MD Ot K42.9 UMBILICAL HERNIA WITHOUT OBSTRUCTION OR 10/10/2016 KIRBY DUEÑAS MD Ot K57.30 DVRTCLOS OF LG INT W/O PERFORATION OR AB 10/10/2016 KIRBY DUEÑAS MD Ot K80.20 CALCULUS OF GALLBLADDER W/O CHOLECYSTITI 10/10/2016 KIRBY DUEÑAS MD Ot M54.5 LOW BACK PAIN 10/10/2016 KIRBY DUEÑAS MD Ot Z79.4 INTERMEDIATE (CURRENT) USE OF INSULIN 10/10/2016 KIRBY DUEÑAS MD Ot Z79.82 INTERMEDIATE (CURRENT) USE OF ASPIRIN 10/10/2016 KIRBY DUEÑAS MD Ot Z79.899 OTHER MEDICAL ASST (CURRENT) DRUG THERAPY 10/10/2016 KIRBY DUEÑAS MD Ot Z95.5 PRESENCE OF CORONARY ANGIOPLASTY IMPLANT 10/18/2016 Ot 250.00 DIAB SHAWN WO COMPL, TYPE II OR UNSPEC TY 10/18/2016 Ot 414.01 CORONARY ATHEROSCLEROSIS OF [place] CORON 10/18/2016 Ot 794.4 ABN KIDNEY FUNCT [...] TYPE VESSEL, NATIV 10/18/2016 Ot 440.20 ATHEROSCLEROSIS [place] ARTERIES EXTREMIT 10/18/2016 Ot 729.5 PAIN IN LIMB 10/18/2016 Ot 275.2 DIS MAGNESIUM METABOLISM 10/18/2016 Ot 440.22 ATHEROSCL [place] ARTER EXTREMITIES W/ R 10/19/2016 IGNACIO MOSES [...] MD Ot I25.10 ATHSCL HEART DISEASE OF [place] CORONARY 02/26/2017 CINDY BARRIOS MD Ot I72.4 ANEURYSM OF ARTERY OF LOWER EXTREMITY 02/26/2017 CINDY BARRIOS MD Ot J44.9 CHRONIC OBSTRUCTIVE PULMONARY DISEASE, U 02/26/2017 CINDY BARRIOS MD Ot R20.2 PARESTHESIA OF SKIN 02/26/2017 DENIS MOSES, CINDY Conrad Ot Z79.02 MEDICAL ASST (CURRENT) USE OF ANTITHROMBOTI 02/26/2017 DENIS MOSES, CINDY Conrad Ot Z79.82 MEDICAL ASST (CURRENT) USE OF ASPIRIN 02/26/2017 CINDY BARRIOS MD, Ot Z79.899 OTHER MEDICAL ASST (CURRENT) DRUG THERAPY 04/05/2017 CHELSI BARRERA DO Ot E11.9 TYPE 2 DIABETES MELLITUS WITHOUT COMPLIC 04/05/2017 CHELSI BARRERA DO, Ot F17.210 NICOTINE DEPENDENCE, CIGARETTES, UNCOMPL 04/05/2017 CHELSI BARRERA DO, Ot J44.1 CHRONIC OBSTRUCTIVE PULMONARY DISEASE W 04/05/2017 CHELSI BARRERA DO Ot R07.81 PLEURODYNIA 04/05/2017 CHELSI BARRERA DO Ot R07.9 CHEST PAIN, UNSPECIFIED 04/05/2017 CHELSI BARRERA DO, Ot Z79.02 MEDICAL ASST (CURRENT) USE OF ANTITHROMBOTI 04/05/2017 CHELSI BARRERA DO Ot Z79.4 MEDICAL ASST (CURRENT) USE OF INSULIN 04/05/2017 CHELSI BARRERA DO Ot Z79.84 MEDICAL ASST (CURRENT) USE OF ORAL HYPOGLYC 04/05/2017 CHELSI BARRERA DO, Ot Z79.899 OTHER MEDICAL ASST (CURRENT) DRUG THERAPY 04/08/2017 CHELSI BARRERA DO Ot E11.9 TYPE 2 DIABETES MELLITUS WITHOUT COMPLIC 04/08/2017 CHELSI BARRERA DO, Ot F17.210 NICOTINE DEPENDENCE, CIGARETTES, UNCOMPL 04/08/2017 CHELSI BARRERA DO Ot J44.1 CHRONIC OBSTRUCTIVE PULMONARY DISEASE W 04/08/2017 CHELSI BARRERA DO Ot R07.81 PLEURODYNIA 04/08/2017 CHELSI BARRERA DO Ot R07.9 CHEST PAIN, UNSPECIFIED 04/08/2017 CHELSI BARRERA DO Ot Z79.02 INTERMEDIATE (CURRENT) USE OF ANTITHROMBOTI 04/08/2017 CHELSI BARRERA DO Ot Z79.4 MEDICAL ASST (CURRENT) USE OF INSULIN 04/08/2017 CHELSI BARRERA DO Ot Z79.84 INTERMEDIATE (CURRENT) USE OF ORAL HYPOGLYC 04/08/2017 CHELSI BARRERA DO, Ot Z79.899 OTHER MEDICAL ASST (CURRENT) DRUG THERAPY 04/28/2017 BENOIT ALEMAN MD, Ot E11.9 TYPE 2 DIABETES MELLITUS WITHOUT COMPLIC 04/28/2017 BENOIT ALEMAN MD, Ot E78.00 PURE HYPERCHOLESTEROLEMIA, UNSPECIFIED 04/28/2017 BENOIT ALEMAN MD, Ot F17.210 NICOTINE DEPENDENCE, CIGARETTES, UNCOMPL 04/28/2017 BENOIT ALEMAN MD Ot I10 ESSENTIAL (PRIMARY) HYPERTENSION 04/28/2017 BENOIT ALEMAN MD Ot I25.10 ATHSCL HEART DISEASE OF [place] CORONARY 04/28/2017 BENOIT ALEMAN MD, Ot K21.9 GASTRO-ESOPHAGEAL REFLUX DISEASE WITHOUT 04/28/2017 BENOIT ALEMAN MD Ot R07.9 CHEST PAIN, UNSPECIFIED 04/28/2017 BENOIT ALEMAN MD Ot Z79.4 MEDICAL ASST (CURRENT) USE OF INSULIN 04/28/2017 BENOIT ALEMAN MD Ot Z79.82 MEDICAL ASST (CURRENT) USE OF ASPIRIN 04/29/2017 BENOIT ALEMAN MD Ot E11.9 TYPE 2 DIABETES MELLITUS WITHOUT COMPLIC 04/29/2017 BENOIT ALEMAN MD Ot E78.00 PURE HYPERCHOLESTEROLEMIA, UNSPECIFIED 04/29/2017 BENOIT ALEMAN MD, Ot F17.210 NICOTINE DEPENDENCE, CIGARETTES, UNCOMPL 04/29/2017 BENOIT ALEMAN MD Ot I10 ESSENTIAL (PRIMARY) HYPERTENSION 04/29/2017 BENOIT ALEMAN MD Ot I25.10 ATHSCL HEART DISEASE OF [place] CORONARY 04/29/2017 BENOIT ALEMAN MD Ot K21.9 GASTRO-ESOPHAGEAL REFLUX DISEASE WITHOUT 04/29/2017 BENOIT ALEMAN MD Ot R07.9 CHEST PAIN, UNSPECIFIED 04/29/2017 BENOIT ALEMAN MD Ot Z79.4 MEDICAL ASST (CURRENT) USE OF INSULIN 04/29/2017 BENOIT ALEMAN MD Ot Z79.82 INTERMEDIATE (CURRENT) USE OF ASPIRIN 06/25/2017 Ot 459.9 CIRCULATORY DISEASE NOS 06/25/2017 Ot 786.05 SHORTNESS OF BREATH 06/25/2017 Ot 786.50 CHEST PAIN NOS 06/25/2017 Ot 414.00 CORON ATHEROSCLER NOS TYPE VESSEL, NATIV 06/25/2017 Ot 440.20 ATHEROSCLEROSIS [place] ARTERIES EXTREMIT 06/25/2017 Ot 729.5 PAIN IN LIMB 06/25/2017 Ot 275.2 DIS MAGNESIUM METABOLISM 06/25/2017 Ot 440.22 ATHEROSCL [place] ARTER EXTREMITIES W/ R 06/25/2017 IGNACIO MOSES FACTrang, [facility]ISE [facility] CCDS Ot E11.9 TYPE 2 DIABETES MELLITUS WITHOUT COMPLIC 06/25/2017 IGNACIO MOSES FACC, ALI FACP CCDS Ot I10 ESSENTIAL (PRIMARY) HYPERTENSION 06/25/2017 IGNACIO MOSES FACC, ANNELISE FACP CCDS Ot R06.02 SHORTNESS OF BREATH 06/25/2017 IGNACIO MOSES FACC, ANNELISE FACP CCDS Ot R07.89 OTHER CHEST PAIN 06/25/2017 IGNACIO MOSES FACC, ANNELISE FACP CCDS Ot Z72.0 TOBACCO USE 06/25/2017 FRANCK RAND CLINICAL TRAINING COORDINATOR Ot E11.40 TYPE 2 DIABETES MELLITUS WITH DIABETIC N 06/25/2017 GIORGI, FRANCK CLINICAL TRAINING COORDINATOR Ot E11.51 TYPE 2 DIABETES W DIABETIC PERIPHERAL AN 06/25/2017 GIORGI FRANCK CLINICAL TRAINING COORDINATOR Ot E78.00 PURE HYPERCHOLESTEROLEMIA, UNSPECIFIED 06/25/2017 GIORGI, FRANCK CLINICAL TRAINING COORDINATOR Ot F03.90 UNSPECIFIED DEMENTIA WITHOUT BEHAVIORAL 06/25/2017 GIORGI, FRANCK CLINICAL TRAINING COORDINATOR Ot F17.210 NICOTINE DEPENDENCE, CIGARETTES, UNCOMPL 06/25/2017 GIORGI, FRANCK CLINICAL TRAINING COORDINATOR Ot I10 ESSENTIAL (PRIMARY) HYPERTENSION 06/25/2017 GIORGI FRANCK CLINICAL TRAINING COORDINATOR Ot I25.10 ATHSCL HEART DISEASE OF [place] CORONARY 06/25/2017 GIORGI, FRANCK CLINICAL TRAINING COORDINATOR Ot I73.9 PERIPHERAL VASCULAR DISEASE, UNSPECIFIED 06/25/2017 GIORGI FRANCK CLINICAL TRAINING COORDINATOR Ot J44.9 CHRONIC OBSTRUCTIVE PULMONARY DISEASE, U 06/25/2017 GIORGI, FRANCK CLINICAL TRAINING COORDINATOR Ot K21.9 GASTRO-ESOPHAGEAL REFLUX DISEASE WITHOUT 06/25/2017 GIORGI, FRANCK CLINICAL TRAINING COORDINATOR Ot N40.0 BENIGN PROSTATIC HYPERPLASIA WITHOUT LOW 06/25/2017 GIORGI, FRANCK CLINICAL TRAINING COORDINATOR Ot R07.89 OTHER CHEST PAIN 06/25/2017 GIORGI FRANCK CLINICAL TRAINING COORDINATOR Ot Z77.22 CNTCT W AND EXPSR TO ENVIRON TOBACCO SMO 06/25/2017 GIORGI FRANCK CLINICAL TRAINING COORDINATOR Ot Z79.4 INTERMEDIATE (CURRENT) USE OF INSULIN 06/25/2017 FRANCK RAND Ot Z79.82 INTERMEDIATE (CURRENT) USE OF ASPIRIN 06/25/2017 FRANCK RAND [...] TYPE VESSEL, NATIV 06/25/2017 Ot 440.20 ATHEROSCLEROSIS [place] ARTERIES EXTREMIT 06/25/2017 Ot 729.5 PAIN IN LIMB 06/25/2017 Ot 275.2 DIS MAGNESIUM METABOLISM 06/25/2017 Ot 440.22 ATHEROSCL [place] ARTER EXTREMITIES W/ R 06/25/2017 IGNACIO MOSES [...] MD Ot I25.10 ATHSCL HEART DISEASE OF [place] CORONARY 07/31/2017 JADEN COLLIER MD Ot J44.9 CHRONIC OBSTRUCTIVE PULMONARY DISEASE, U 07/31/2017 JADEN COLLIER MD Ot K21.9 GASTRO-ESOPHAGEAL REFLUX DISEASE WITHOUT 07/31/2017 JADEN COLLIER MD Ot R51 HEADACHE 07/31/2017 JADEN COLLIER MD Ot Z79.4 INTERMEDIATE (CURRENT) USE OF INSULIN 07/31/2017 JADEN COLLIER MD Ot Z79.82 MEDICAL ASST (CURRENT) USE OF ASPIRIN 07/31/2017 JADEN COLLIER [...] TYPE VESSEL, NATIV 08/02/2017 Ot 440.20 ATHEROSCLEROSIS [place] ARTERIES EXTREMIT 08/02/2017 Ot 729.5 PAIN IN LIMB 08/02/2017 Ot 275.2 DIS MAGNESIUM METABOLISM 08/02/2017 Ot 440.22 ATHEROSCL [place] ARTER EXTREMITIES W/ R 08/02/2017 IGNACIO MOSES [...] MOTT Ot I25.10 ATHSCL HEART DISEASE OF [place] CORONARY 08/02/2017 PAKO MOTT Ot I73.9 PERIPHERAL [...] LUMP, HEAD 08/02/2017 PAKO MOTT Ot Z79.4 MEDICAL ASST (CURRENT) USE OF INSULIN 08/02/2017 PAKO MOTT Ot Z79.82 MEDICAL ASST (CURRENT) USE OF ASPIRIN 08/02/2017 PAKO MOTT [...] MOTT Ot I25.10 ATHSCL HEART DISEASE OF [place] CORONARY 08/05/2017 PAKO MOTT Ot I73.9 PERIPHERAL [...] LUMP, HEAD 08/05/2017 PAKO MOTT Ot Z79.4 MEDICAL ASST (CURRENT) USE OF INSULIN 08/05/2017 PAKO MOTT Ot Z79.82 INTERMEDIATE (CURRENT) USE OF ASPIRIN 08/05/2017 PAKO MOTT [...] MD Ot I25.10 ATHSCL HEART DISEASE OF [place] CORONARY 08/08/2017 JADEN COLLIER MD Ot J44.9 CHRONIC OBSTRUCTIVE PULMONARY DISEASE, U 08/08/2017 JADEN COLLIER MD Ot K21.9 GASTRO-ESOPHAGEAL REFLUX DISEASE WITHOUT 08/08/2017 JADEN COLLIER MD Ot R51 HEADACHE 08/08/2017 JADEN COLLIER MD, Ot Z79.4 MEDICAL ASST (CURRENT) USE OF INSULIN 08/08/2017 JADEN COLLIER MD Ot Z79.82 INTERMEDIATE (CURRENT) USE OF ASPIRIN 08/08/2017 JADEN COLLIER [...] MOTT Ot I25.10 ATHSCL HEART DISEASE OF [place] CORONARY 08/09/2017 PAKO MOTT Ot I73.9 PERIPHERAL [...] LUMP, HEAD 08/09/2017 PAKO MOTT Ot Z79.4 INTERMEDIATE (CURRENT) USE OF INSULIN 08/09/2017 PAKO MOTT Ot Z79.82 MEDICAL ASST (CURRENT) USE OF ASPIRIN 08/09/2017 PAKO MOTT [...] APRN Ot I25.10 ATHSCL HEART DISEASE OF [place] CORONARY 08/19/2017 SYLVIA BONE APRN Ot J44.9 CHRONIC OBSTRUCTIVE PULMONARY DISEASE, U 08/19/2017 SYLVIA BONE APRN Ot K21.9 GASTRO-ESOPHAGEAL REFLUX DISEASE WITHOUT 08/19/2017 SYLVIA BONE APRN Ot R73.09 OTHER ABNORMAL GLUCOSE 08/19/2017 SYLVIA BONE APRN Ot Z77.22 CNTCT W AND EXPSR TO ENVIRON TOBACCO SMO 08/19/2017 SYLVIA BONE PARACHUTE/COMBATANT DIVER OFFICER Ot Z79.4 MEDICAL ASST (CURRENT) USE OF INSULIN 08/19/2017 SYLVIA BONE PARACHUTE/COMBATANT DIVER OFFICER Ot Z79.82 MEDICAL ASST (CURRENT) USE OF ASPIRIN 08/19/2017 SYLVIA BONE PARACHUTE/COMBATANT DIVER OFFICER Ot Z87.438 PERSONAL HISTORY OF OTHER DISEASES OF [place] 08/19/2017 SYLVIA BONE PARACHUTE/COMBATANT DIVER OFFICER Ot 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( 08/19/2017 SYLVIA BONE PARACHUTE/COMBATANT DIVER OFFICER Ot Z95.5 PRESENCE OF CORONARY ANGIOPLASTY IMPLANT 2017 Ot 459.9 CIRCULATORY DISEASE NOS 2017 Ot 786.05 SHORTNESS OF BREATH 2017 Ot 786.50 CHEST PAIN NOS 2017 Ot 414.00 CORON ATHEROSCLER NOS TYPE VESSEL, NATIV 2017 Ot 440.20 ATHEROSCLEROSIS [place] ARTERIES EXTREMIT 2017 Ot 729.5 PAIN IN LIMB 2017 Ot 275.2 DIS MAGNESIUM METABOLISM 2017 Ot 440.22 ATHEROSCL [place] ARTER EXTREMITIES W/ R 2017 IGNACIO MOSES [...] MD, Ot I25.10 ATHSCL HEART DISEASE OF [place] CORONARY 2017 CINDY BARRIOS MD, Ot J44.9 CHRONIC OBSTRUCTIVE PULMONARY DISEASE, U 2017 CINDY BARRIOS MD, Ot K21.9 GASTRO-ESOPHAGEAL REFLUX DISEASE WITHOUT 2017 CINDY BARRIOS MD Ot R51 HEADACHE 2017 CINDY BARRIOS MD, Ot W18.30XA FALL ON SAME LEVEL, UNSPECIFIED, INITIAL 2017 CINDY BARRIOS MD, Ot Z79.4 INTERMEDIATE (CURRENT) USE OF INSULIN 2017 CINDY BARRIOS MD, Ot Z79.82 MEDICAL ASST (CURRENT) USE OF ASPIRIN 2017 CINDY BARRIOS [...] MD, Ot I25.10 ATHSCL HEART DISEASE OF [place] CORONARY 2017 BENOIT ALEMAN MD, Ot J44.9 CHRONIC OBSTRUCTIVE PULMONARY DISEASE, U 2017 BENOIT ALEMAN MD, Ot R73.09 OTHER ABNORMAL GLUCOSE 2017 BENOIT ALEMAN MD, Ot Z79.4 MEDICAL ASST (CURRENT) USE OF INSULIN 2017 BENOIT ALEMAN MD Ot Z80.9 FAMILY HISTORY OF MALIGNANT NEOPLASM, UN 2017 BENOIT ALEMAN MD, Ot Z82.49 FAMILY HX OF ISCHEM HEART DIS AND OTH DI 2017 BENOIT ALEMAN MD Ot Z90.79 ACQUIRED ABSENCE [...] MD Ot I25.10 ATHSCL HEART DISEASE OF [place] CORONARY 09/02/2017 BENOIT ALEMAN MD Ot J44.9 CHRONIC OBSTRUCTIVE PULMONARY DISEASE, U 09/02/2017 BENOIT ALEMAN MD Ot Z79.4 MEDICAL ASST (CURRENT) USE OF INSULIN 09/02/2017 BENOIT ALEMAN [...] MD, Ot I25.10 ATHSCL HEART DISEASE OF [place] CORONARY 09/04/2017 BENOIT ALEMAN MD, Ot J44.9 CHRONIC OBSTRUCTIVE PULMONARY DISEASE, U 09/04/2017 BENOIT ALEMAN MD, Ot R73.09 OTHER ABNORMAL GLUCOSE 09/04/2017 BENOIT ALEMAN MD, Ot Z79.4 MEDICAL ASST (CURRENT) USE OF INSULIN 09/04/2017 BENOIT ALEMAN [...] K Ot I25.10 ATHSCL HEART DISEASE OF [place] CORONARY 09/18/2017 DUSTY LAMAR [place] K Ot J44.9 CHRONIC OBSTRUCTIVE PULMONARY DISEASE, U 09/18/2017 DUSTY DO [place] K Ot K21.9 GASTRO-ESOPHAGEAL REFLUX DISEASE WITHOUT 09/18/2017 DUSTY DO [place] K Ot R73.09 OTHER ABNORMAL GLUCOSE 09/18/2017 DUSTY LAMAR, [place] K Ot Z79.4 MEDICAL ASST (CURRENT) USE OF INSULIN 09/18/2017 DUSTYLAKEISHA Santiago DO Kwame Ot Z79.82 MEDICAL ASST (CURRENT) USE OF ASPIRIN 09/18/2017 DUSTY DOESTEFANYA Kwame Ot Z95.5 PRESENCE OF CORONARY ANGIOPLASTY IMPLANT 11/16/2017 JADEN COLLIER MD Ot E11.51 TYPE 2 DIABETES W DIABETIC PERIPHERAL AN 11/16/2017 JADEN COLLIER MD Ot E11.9 TYPE 2 DIABETES MELLITUS WITHOUT COMPLIC 11/16/2017 JADEN COLLIER MD Ot E78.00 PURE HYPERCHOLESTEROLEMIA, UNSPECIFIED 11/16/2017 JADEN COLLIER MD Ot F03.90 UNSPECIFIED DEMENTIA WITHOUT BEHAVIORAL 11/16/2017 JADEN COLLIER MD Ot F41.9 ANXIETY DISORDER, UNSPECIFIED 11/16/2017 JADEN COLLIER MD Ot I10 ESSENTIAL (PRIMARY) HYPERTENSION 11/16/2017 JADEN COLLIER MD Ot I25.10 ATHSCL HEART DISEASE OF [place] CORONARY 11/16/2017 JADEN COLLIER MD Ot I50.9 HEART FAILURE, UNSPECIFIED 11/16/2017 JADEN COLLIER MD Ot I73.9 PERIPHERAL VASCULAR DISEASE, UNSPECIFIED 11/16/2017 JADEN COLLIER MD Ot J44.9 CHRONIC OBSTRUCTIVE PULMONARY DISEASE, U 11/16/2017 JADEN COLLIER MD Ot K21.9 GASTRO-ESOPHAGEAL REFLUX DISEASE WITHOUT 11/16/2017 JADEN COLLIER MD Ot M79.89 OTHER SPECIFIED SOFT TISSUE DISORDERS 11/16/2017 JADEN COLLIER MD Ot N40.0 BENIGN PROSTATIC HYPERPLASIA WITHOUT LOW 11/16/2017 JADEN COLLIER MD Ot R60.0 LOCALIZED EDEMA 11/16/2017 JADEN COLLIER MD Ot Z79.02 INTERMEDIATE (CURRENT) USE OF ANTITHROMBOTI 11/16/2017 JADEN COLLIER MD Ot Z79.82 INTERMEDIATE (CURRENT) USE OF ASPIRIN 11/16/2017 JADEN COLLIER MD Ot Z82.49 FAMILY HX OF ISCHEM HEART DIS AND OTH DI 11/16/2017 JADEN COLLIER MD Ot Z86.14 PERSONAL HISTORY OF METHICILLIN RESIS ST 11/16/2017 JADEN COLLIER MD Ot Z87.19 PERSONAL HISTORY OF OTHER DISEASES OF TH 11/16/2017 JADEN COLLIER MD, Ot Z95.5 PRESENCE OF CORONARY ANGIOPLASTY IMPLANT 11/16/2017 JADEN COLLIER MD Ot Z98.890 OTHER SPECIFIED POSTPROCEDURAL STATES 01/10/2018 CINDY BARRIOS MD, Ot E11.40 TYPE 2 DIABETES MELLITUS WITH DIABETIC N 01/10/2018 CINDY BARRIOS MD, Ot E11.649 TYPE 2 DIABETES MELLITUS WITH HYPOGLYCEM 01/10/2018 CINDY BARRIOS MD, Ot E16.2 HYPOGLYCEMIA, UNSPECIFIED 01/10/2018 CINDY BARRIOS MD, Ot E78.00 PURE HYPERCHOLESTEROLEMIA, UNSPECIFIED 01/10/2018 CINDY BARRIOS MD, Ot F17.210 NICOTINE DEPENDENCE, CIGARETTES, UNCOMPL 01/10/2018 CINDY BARRIOS MD, Ot I10 ESSENTIAL (PRIMARY) HYPERTENSION 01/10/2018 CINDY BARRIOS MD, Ot I25.10 ATHSCL HEART DISEASE OF [place] CORONARY 01/10/2018 CINDY BARRIOS MD, Ot J44.9 CHRONIC OBSTRUCTIVE PULMONARY DISEASE, U 01/10/2018 CINDY BARRIOS MD, Ot K21.9 GASTRO-ESOPHAGEAL REFLUX DISEASE WITHOUT 01/10/2018 CINDY BARRIOS MD, Ot R51 HEADACHE 01/10/2018 CINDY BARRIOS MD, Ot W18.30XA FALL ON SAME LEVEL, UNSPECIFIED, INITIAL 01/10/2018 CINDY BARRIOS MD, Ot Z79.4 MEDICAL ASST (CURRENT) USE OF INSULIN 01/10/2018 CINDY BARRIOS MD, Ot Z79.82 MEDICAL ASST (CURRENT) USE OF ASPIRIN 01/10/2018 CINDY BARRIOS MD, Ot 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( 01/10/2018 CINDY BARRIOS MD, Ot Z95.5 PRESENCE OF [...] blood glucose measurement by glucometer (mass/volume) - 10/31/16 10: 24 Capillary blood glucose measurement by [...] - 08/02/17 17:38 Bacterial blood culture NG NRG Capillary blood glucose measurement by glucometer (mass/volume) [...] urinalysis with reflex to culture NO NRG Capillary blood glucose measurement by glucometer (mass/volume) - 11/16/17 04: 24 Capillary blood glucose measurement by glucometer (mass/volume) 222 mg/dL 70-110 Complete blood count (CBC) with automated white blood cell (WBC) differential - 11/16/17 04:35 Blood leukocytes automated count (number/volume) 6.8 10*3/uL 4.3-11.0 Blood erythrocytes automated count (number/volume) 4.12 10*6/uL 4.35-5.85 Venous blood hemoglobin measurement (mass/volume) 13.8 g/dL 13.3-17.7 Blood hematocrit (volume fraction) 39 % 40-54 Automated erythrocyte mean corpuscular volume 95 [foz_us] 80-99 Automated erythrocyte mean corpuscular hemoglobin (mass per erythrocyte) 34 pg 25-34 Automated erythrocyte mean corpuscular hemoglobin concentration measurement ( mass/volume) 35 g/dL 32-36 Automated erythrocyte distribution width ratio 15.0 % 10.0-14.5 Automated blood platelet count (count/volume) 142 10*3/uL 130-400 Automated blood platelet mean volume measurement 11.2 [foz_us] 7.4-10.4 Automated blood neutrophils/100 leukocytes 74 % 42-75 Automated blood lymphocytes/100 leukocytes 14 % 12-44 Blood monocytes/100 leukocytes 10 % 0-12 Automated blood eosinophils/100 leukocytes 2 % 0-10 Automated blood basophils/100 leukocytes 0 % 0-10 Blood neutrophils automated count (number/volume) 5.0 10*3 1.8-7.8 Blood lymphocytes automated count (number/volume) 1.0 10*3 1.0-4.0 Blood monocytes automated count (number/volume) 0.7 10*3 0.0-1.0 Automated eosinophil count 0.1 10*3/uL 0.0-0.3 Automated blood basophil count (count/volume) 0.0 10*3/uL 0.0-0.1 Comprehensive metabolic panel - 11/16/17 04:35 Serum or plasma sodium measurement (moles/volume) 142 mmol/L 135-145 Serum or plasma potassium measurement (moles/volume) 3.8 mmol/L 3.6-5.0 Serum or plasma chloride measurement (moles/volume) 105 mmol/L 98-107 Carbon dioxide 24 mmol/L 21-32 Serum or plasma anion gap determination (moles/volume) 13 mmol/L 5-14 Serum or plasma urea nitrogen measurement (mass/volume) 35 mg/dL 7-18 Serum or plasma creatinine measurement (mass/volume) 1.15 mg/dL 0.60-1.30 Serum or plasma urea nitrogen/creatinine mass ratio 30 NRG Serum or plasma creatinine measurement with calculation of estimated glomerular filtration rate > NRG Serum or plasma glucose measurement (mass/volume) 207 mg/dL 70-105 Serum or plasma calcium measurement (mass/volume) 9.3 mg/dL 8.5-10.1 Serum or plasma total bilirubin measurement (mass/volume) 0.2 mg/dL 0.1-1.0 Serum or plasma alkaline phosphatase measurement (enzymatic activity/volume) 99 U/L 40-136 Serum or plasma aspartate aminotransferase measurement (enzymatic activity/ volume) 18 U/L 5-34 Serum or plasma alanine aminotransferase measurement (enzymatic activity/volume ) 21 U/L 0-55 Serum or plasma protein measurement (mass/volume) 6.4 g/dL 6.4-8.2 Serum or plasma albumin measurement (mass/volume) 3.4 g/dL 3.2-4.5 Serum or plasma lithium measurement (moles/volume) - 11/16/17 04:35 BNP level 10.9 pg/mL <100.0 Complete blood count (CBC) with automated white blood cell (WBC) differential - 04/19/18 12:47 Blood leukocytes automated count (number/volume) 12.1 10*3/uL 4.3-11.0 Blood erythrocytes automated count (number/volume) 3.72 10*6/uL 4.35-5.85 Venous blood hemoglobin measurement (mass/volume) 12.3 g/dL 13.3-17.7 Blood hematocrit (volume fraction) 36 % 40-54 Automated erythrocyte mean corpuscular volume 96 [foz_us] 80-99 Automated erythrocyte mean corpuscular hemoglobin (mass per erythrocyte) 33 pg 25-34 Automated erythrocyte mean corpuscular hemoglobin concentration measurement ( mass/volume) 35 g/dL 32-36 Automated erythrocyte distribution width ratio 15.0 % 10.0-14.5 Automated blood platelet count (count/volume) 179 10*3/uL 130-400 Automated blood platelet mean volume measurement 11.6 [foz_us] 7.4-10.4 Automated blood neutrophils/100 leukocytes 90 % 42-75 Automated blood lymphocytes/100 leukocytes 5 % 12-44 Blood monocytes/100 leukocytes 5 % 0-12 Automated blood eosinophils/100 leukocytes 0 % 0-10 Automated blood basophils/100 leukocytes 0 % 0-10 Blood neutrophils automated count (number/volume) 10.9 10*3 1.8-7.8 Blood lymphocytes automated count (number/volume) 0.6 10*3 1.0-4.0 Blood monocytes automated count (number/volume) 0.6 10*3 0.0-1.0 Automated eosinophil count 0.1 10*3/uL 0.0-0.3 Automated blood basophil count (count/volume) 0.0 10*3/uL 0.0-0.1 PT panel in platelet poor plasma by coagulation assay - 04/19/18 12:47 Prothrombin time (PT) in platelet poor plasma by coagulation assay 13.3 s 12.2-14.7 INR in platelet poor plasma or blood by coagulation assay 1.0 0.8-1.4 Activated partial thromboplastin time (aPTT) in platelet poor plasma bycoagulation assay - 04/19/18 12:47 Activated partial thromboplastin time (aPTT) in platelet poor plasma bycoagulation assay 31 s 24-35 Comprehensive metabolic panel - 04/19/18 12:47 Serum or plasma sodium measurement (moles/volume) 142 mmol/L 135-145 Serum or plasma potassium measurement (moles/volume) 4.2 mmol/L 3.6-5.0 Serum or plasma chloride measurement (moles/volume) 105 mmol/L 98-107 Carbon dioxide 23 mmol/L 21-32 Serum or plasma anion gap determination (moles/volume) 14 mmol/L 5-14 Serum or plasma urea nitrogen measurement (mass/volume) 51 mg/dL 7-18 Serum or plasma creatinine measurement (mass/volume) 2.94 mg/dL 0.60-1.30 Serum or plasma urea nitrogen/creatinine mass ratio 17 NRG Serum or plasma creatinine measurement with calculation of estimated glomerular filtration rate 21 NRG Serum or plasma glucose measurement (mass/volume) 155 mg/dL 70-105 Serum or plasma calcium measurement (mass/volume) 10.0 mg/dL 8.5-10.1 Serum or plasma total bilirubin measurement (mass/volume) 0.3 mg/dL 0.1-1.0 Serum or plasma alkaline phosphatase measurement (enzymatic activity/volume) 90 U/L 40-136 Serum or plasma aspartate aminotransferase measurement (enzymatic activity/ volume) 10 U/L 5-34 Serum or plasma alanine aminotransferase measurement (enzymatic activity/volume ) 10 U/L 0-55 Serum or plasma protein measurement (mass/volume) 6.9 g/dL 6.4-8.2 Serum or plasma albumin measurement (mass/volume) 3.9 g/dL 3.2-4.5 Magnesium - 04/19/18 12:47 Magnesium 1.8 mg/dL 1.8-2.4 Serum or plasma troponin i.cardiac measurement (mass/volume) - 04/19/18 12:47 Serum or plasma troponin i.cardiac measurement (mass/volume) < ng/ mL <0.30 Serum or plasma thyrotropin measurement by detection limit <=0.05 miu/l (units/ volume) - 04/19/18 12:47 Serum or plasma thyrotropin measurement by detection limit <=0.05 miu/l (units/ volume) 0.88 u[iU]/mL 0.35-4.94 Blood manual differential performed detection - 04/19/18 12:47 Blood monocytes/100 leukocytes 3 % NRG Manual blood segmented neutrophils/100 leukocytes 94 % NRG Manual blood lymphocytes/100 leukocytes 2 % NRG Manual blood basophils/100 leukocytes 1 % NRG Blood erythrocyte morphology finding identification NORMAL NRG Serum or plasma ethanol measurement (mass/volume) - 04/19/18 12:47 Serum or plasma ethanol measurement (mass/volume) < mg/dL <10 Complete urinalysis with reflex to culture - 04/19/18 13:25 Urine color determination YELLOW NRG Urine clarity determination SLIGHTLY CLOUDY NRG Urine pH measurement by test strip 5 5-9 Specific gravity of urine by test strip 1.025 1.016- 1.022 Urine protein assay by test strip, semi-quantitative 4+ NEGATIVE Urine glucose detection by automated test strip NEGATIVE NEGATIVE Erythrocytes detection in urine sediment by light microscopy 1+ NEGATIVE Urine ketones detection by automated test strip NEGATIVE NEGATIVE Urine nitrite detection by test strip NEGATIVE NEGATIVE Urine total bilirubin detection by test strip 1+ NEGATIVE Urine urobilinogen measurement by automated test strip (mass/volume) 1 mg/dL NORMAL Urine leukocyte esterase detection by dipstick 1+ NEGATIVE Automated urine sediment erythrocyte count by microscopy (number/high power field) NONE NRG Automated urine sediment leukocyte count by microscopy (number/high power field ) [HPF] NRG Bacteria detection in urine sediment by light microscopy TRACE NRG Squamous epithelial cells detection in urine sediment by light microscopy 2-5 NRG Crystals detection in urine sediment by light microscopy NONE NRG Casts detection in urine sediment by light microscopy PRESENT NRG Mucus detection in urine sediment by light microscopy NEGATIVE NRG Complete urinalysis with reflex to culture NO NRG Hyaline casts detection in urine sediment by light microscopy 10-25 NRG Urine drug screening test - 04/19/18 13:25 Urine phencyclidine detection by screening method NEGATIVE NEGATIVE Urine benzodiazepines detection by screening method POSITIVE NEGATIVE Urine cocaine detection NEGATIVE NEGATIVE Urine amphetamines detection by screening method NEGATIVE NEGATIVE Urine methamphetamine detection by screening method NEGATIVE NEGATIVE Urine cannabinoids detection by screening method NEGATIVE NEGATIVE Urine opiates detection by screening method POSITIVE NEGATIVE Urine barbiturates detection NEGATIVE NEGATIVE Screening urine tricyclic antidepressants detection NEGATIVE NEGATIVE Urine methadone detection by screening method NEGATIVE NEGATIVE Urine oxycodone detection NEGATIVE NEGATIVE Urine propoxyphene detection NEGATIVE NEGATIVE Encounters ACCT No. Visit Date/Time Discharge Status Pt. Type Provider Facility Loc./Unit Complaint [id number] 11/16/2017 04:15:00 11/16/2017 05:51:00 DIS Emergency JADEN COLLIER MD [facility] ER FEET SWOLLEN,HIGH BLOOD SUGAR,ANXIETY [id number] 09/18/2017 03:31:00 09/18/2017 05:25:00 DIS Emergency LAKEISHA MONTANO DO [facility] ER LOW BLOOD SUGAR 54, SHAKING [id number] 2017 08:50:00 2017 11:25:00 DIS Emergency BENOIT ALEMAN MD [facility] ER LOW BLOOD SUGAR [id number] 2017 01:28:00 2017 04:44:00 DIS Outpatient CINDY BARRIOS MD [facility] ER BLOOD SUGAR PROBLEMS ,FALL [id number] 08/19/2017 19:07:00 08/19/2017 19:38:00 DIS Emergency SYLVIA BONE APRN [facility] ER ELEV BLOOD SUGAR [id number] 08/02/2017 13:41:00 08/02/2017 19:29:00 DIS Emergency PAKO MOTT [facility] ER L EYE SWELLING [id number] 07/31/2017 06:27:00 07/31/2017 07:31:00 DIS Emergency JADEN COLLIER MD [facility] ER HEAD PAIN,SOB [id number] 06/25/2017 16:16:00 06/25/2017 18:15:00 DIS Emergency GIORGIFRANCK CLINICAL TRAINING COORDINATOR [facility] ER CP [id number] 04/27/2017 23:35:00 04/28/2017 03:15:00 DIS Emergency BENOIT ALEMAN MD [facility] ER CP [id number] 04/05/2017 02:10:00 04/05/2017 03:26:00 DIS Emergency CHELSI BARRERA DO [facility] ER CP,RT RT ARM PAIN [id number] 02/26/2017 05:17:00 02/26/2017 05:41:00 DIS Emergency CINDY BARRIOS MD [facility] ER ANEURYSM,RT LEG [id number] 10/18/2016 08:47:00 10/18/2016 23:59:59 CLS Outpatient IGNACIO MOSES FACC, ANNELISE FACP CCDS [facility] CARD CHEST DISCOMFORT,SOB,HTN,DMII [id number] 10/09/2016 15:00:00 10/09/2016 16:25:00 DIS Emergency LEANA MOSES, KIRBY Dewitt [facility] ER LEFT FLANK PAIN [id number] 09/17/2016 05:41:00 09/17/2016 15:35:00 DIS Inpatient WILLIAM DENSON DO [facility] ICU CHEST PAIN [id number] 08/16/2016 10:01:00 08/16/2016 12:32:00 DIS Emergency SYLVIA BONE APRN [facility] ER L FOOT SWELLING [id number] 06/15/2016 03:47:00 06/15/2016 04:14:00 DIS Emergency DENIS MOSES, CINDY Conrad [facility] ER HIGH BLOOD SUGAR [id number] 05/23/2016 06:34:00 05/23/2016 08:53:00 DIS Emergency ASH MOSES, BENOIT Lennon [facility] ER LEGS HURTING,BLOOD SUGAR HIGH [id number] 03/31/2016 12:53:00 03/31/2016 16:35:00 DIS Emergency LISA MOSES, QUIQUE S [facility] ER BLOOD SUGAR ISSUES [id number] 03/10/2016 22:54:00 03/11/2016 01:58:00 DIS Emergency CHELSI BARRERA DO [facility] ER ELEVATED BLOOD SUGAR [id number] 09/27/2015 09:29:00 09/28/2015 12:45:00 DIS Inpatient PACO MOSES, JAIME Murphy [facility] CSD CHEST PAIN UNCONTROLLED DIABETES [id number] 03/18/2014 08:12:00 03/19/2014 11:15:00 DIS Inpatient IGNACIO MOSES FACC, ANNELISE OSHEA CCDS [facility] CSD CHEST PAIN/ ASHD WITH STENTS [id number] 11/29/2013 12:34:00 11/29/2013 17:59:00 DIS Emergency PAKO MOTT [facility] ER SOA,VOMITING, CONGESTION [id number] 04/19/2018 12:55:00 Document Registration [id number] 12/19/2012 14:04:00 Document Registration [id number] 12/19/2012 13:34:00 Document Registration [id number] 09/22/2012 09:00:00 Document Registration [id number] 09/19/2012 12:33:00 Document Registration [id number] 09/19/2012 10:42:00 Document Registration [id number] 08/22/2012 08:12:00 Document Registration [id number] 07/22/2012 11:58:00 Document Registration [id number] 07/18/2012 07:33:00 Document Registration [id number] 08/28/2011 01:05:00 Document Registration [id number] 08/08/2011 16:55:00 Document Registration [id number] 07/30/2011 09:45:00 Document Registration [id number] 07/27/2011 08:10:00 Document Registration [id number] 07/20/2011 10:12:00 Document Registration [id number] 07/06/2011 10:38:00 Document Registration [id number] 07/02/2011 13:15:00 Document Registration [id number] 06/07/2011 01:27:00 Document Registration
[2018-04-19 15:08] VITALS: BP 183/69
[2018-04-19 16:00] VITALS: BP 124/50
[2018-04-19] MEDS ORDERED: D5 1/2 NS W/KCL 20 MEQ/L 1,000 ML IV SCH (16:30)
[2018-04-19] MEDS ORDERED: CATHETER FLUSH 10 ML SYR IV PRN (16:30)
[2018-04-19] MEDS: inSUlin ASPART (NovoLOG) 1 UNIT/0.01 ML (CHARGE PER UNIT) SC SCH ×2 (16:46→22:13)
[2018-04-19] MEDS ORDERED: ANTACID SUSP 30 ML UDC (MYLANTA) PO PRN (18:00)
[2018-04-19] MEDS ORDERED: MELATONIN 3 MG TABLET PO PRN (18:00)
[2018-04-19] MEDS ORDERED: ACETAMINOPHEN 500 MG TAB (TYLENOL) PO PRN (18:00)
[2018-04-19] MEDS ORDERED: MILK OF MAGNESIA 400 MG/5 ML 30 ML UDC PO PRN (18:00)
[2018-04-19] MEDS ORDERED: ONDANSETRON 4 MG/2 ML (SDV) Z0FRAN IV PRN (18:00)
[2018-04-19] MEDS: NS IV 1000 ML 1,000 ML IV SCH (18:59)
[2018-04-19] MEDS: HALOPERIDOL 5 MG/ML (HALDOL) AMP IM/IV PRN (20:38)
[2018-04-19] MEDS ORDERED: inSUlin DETERMIR 1 UNIT/0.01 ML (LEVEMIR) CHARGE PER UNIT SQ SCH ×2 (21:00)
[2018-04-19] MEDS ORDERED: ZIPRASIDONE 20 MG INJ (GEODON) VIAL IM ONE (21:25)
[2018-04-19] MEDS ORDERED: WATER (STERILE) FOR INJECTION 10 ML ONE (21:26)
[2018-04-19] MEDS: ZIPRASIDONE 20 MG INJ (GEODON) VIAL IM PRN (21:32)
[2018-04-19 22:00] VITALS: BP 110/38
[2018-04-19 23:00] VITALS: BP 86/73
[2018-04-20] VITALS (14 sets, daily range): BP systolic 114–187; BP diastolic 43–75
[2018-04-20] MEDS: HALOPERIDOL 5 MG/ML (HALDOL) AMP IM/IV PRN ×4 (01:01→14:11)
[2018-04-20] MEDS: NS IV 1000 ML 1,000 ML IV SCH ×3 (03:03→18:34)
[2018-04-20] MEDS: ZIPRASIDONE 20 MG INJ (GEODON) VIAL IM PRN ×4 (03:28→21:12)
[2018-04-20 03:39] LABS: BASOPHILS # (AUTO) 0.1 10^3/uL (0.0-0.1); BASOPHILS % (AUTO) 1 % (0-10); EOSINOPHILS # (AUTO) 0.2 10^3/uL (0.0-0.3); EOSINOPHILS % (AUTO) 3 % (0-10); HEMATOCRIT 35 % (40-54); HEMOGLOBIN 11.9 G/DL (13.3-17.7); LYMPHOCYTES % (AUTO) 13 % (12-44); MEAN CORPUSCULAR HEMOGLOBIN 32 PG (25-34); MEAN CORPUSCULAR HGB CONC 34 G/DL (32-36); MEAN CORPUSCULAR VOLUME 96 FL (80-99); MEAN PLATELET VOLUME 11.1 FL (7.4-10.4); MONOCYTES # (AUTO) 0.7 X 10^3 (0.0-1.0); MONOCYTES % (AUTO) 9 % (0-12); NEUTROPHILS % (AUTO) 75 % (42-75); PLATELET COUNT 161 10^3/uL (130-400); RED BLOOD COUNT 3.67 10^6/uL (4.35-5.85); RED CELL DISTRIBUTION WIDTH 15.1 % (10.0-14.5); WHITE BLOOD COUNT 8.1 10^3/uL (4.3-11.0)
[2018-04-20 03:58] LABS: ALBUMIN 3.4 GM/DL (3.2-4.5); BILIRUBIN,TOTAL 0.3 MG/DL (0.1-1.0); CALCIUM 9.6 MG/DL (8.5-10.1); CREATININE SERUM 2.15 MG/DL (0.60-1.30); POTASSIUM 4.1 MMOL/L (3.6-5.0); TOTAL PROTEIN 6.3 GM/DL (6.4-8.2)
[2018-04-20] MEDS: inSUlin ASPART (NovoLOG) 1 UNIT/0.01 ML (CHARGE PER UNIT) SC SCH ×4 (06:21→20:32)
--- NOTE | 2018-04-20 09:35 | History & Physical-Hospitalist ---
History of Present Illness HPI/Chief Complaint Pt is a 78yoCM with a PMH of IDDMII and dementia who presented to the ER with CC of AMS. He is unablet o provide me any history. He is alert and responds to some questions but only knows his name and that he is in a hospital. He does not know why he is here and did not answer and did not respond to most of my questions. Per ER physician report he was brought in by his daughter for confusion. He does have opiate prescriptions at home which were originally believed to be the cause of his confusion (they thought he took too many) but his daughter reported to the ED staff that his bottles and pill boxes were not missing any pills. He again is not able to tell me any of this and there is no family at bedside. He was admitted for AMS and ANGEL. Overnight he was very agitated and attempted to leave multiple times despite being unsteady on his feet. He required multiple doses of Geodon to control his agitation. Source: patient Exam Limitations: clinical condition Date Seen 04/20/18 Time Seen by Provider: 09:30 Attending Physician Beverly Rose MD PCP Duarte Lopes MD Referring Physician Date of Admission Apr 19, 2018 at 14:29 Home Medications & Allergies Home Medications Reviewed patient Home Medication Reconciliation performed by pharmacy medication reconciliations technician biological health and/or nursing. Patients Allergies have been reviewed. Allergies Allergies Coded Allergies NKANo Known Allergies (Unverified Allergy, Mild, 06/21/09) Past Mzblune-Ywerca-Nabqff Hx Past Med/Social Hx: Reviewed Nursing Past Med/Soc Hx Patient Social History Alcohol Use: Denies Use Recreational Drug Use: No Smoking Status: Current Everyday Smoker Type Used: Cigarettes 2nd Hand Smoke Exposure: Yes Recent Foreign Travel: No Contact w/other who traveled: No Recent Hopitalizations: No Recent Infectious Disease Expo: No Immunizations Up To Date Tetanus Booster (TDap): Less than 5yrs Date of Pneumonia Vaccine: Nov 18, 2009 Date of Influenza Vaccine: Sep 28, 2015 Seasonal Allergies Seasonal Allergies: No Past Medical History Surgeries: Abdominal, Cardiac, Coronary Stent, Transurethral Resection, Vascular Surgery Cardiac: Aneurysm, Chronic Edema/Swelling, Coronary Artery Disease, High Cholesterol, Hypertension, Peripheral Vascular Neurological: Dementia Reproductive: No Sexually Transmitted Disease: No Genitourinary: Benign Prostatic Hyperpl, Prostate Problems Gastrointestinal: Gastroesophageal Reflux, Hiatal Hernia Musculoskeletal: Arthritis Endocrine: Diabetes, Insulin dep HEENT: Cataract Loss of Vision: Right Hearing Impairment: Hard of Hearing Psychosocial: Anxiety History of Blood Disorders: No Family History Reviewed Nursing Family Hx Cancer 19 FATHER 19 MOTHER Family history: Cardiovascular disease Family history: Diabetes mellitus G8 SISTER 19 MOTHER Family history: Hypertension G8 BROTHER Heart Disease, Cancer, Diabetes, Hypertension Review of Systems ROS-Unable to Obtain: AMS Constitutional: see HPI Physical Exam Physical Exam Vital Signs Vital Signs - First Documented 04/19/18 12:17 Temp 97.1 Pulse 95 Resp 18 B/P (MAP) 166/75 (105) Pulse Ox 95 O2 Delivery Nasal Cannula O2 Flow Rate 2.00 Capillary Refill : Less Than 3 Seconds General Appearance: No Apparent Distress, Chronically ill, Other (disheveled) HEENT: Moist Mucous Membranes; No Scleral Icterus (L), No Scleral Icterus (R); Other (cataract noted- right eye) Neck: Supple; No JVD, No Thyromegaly Respiratory: Lungs Clear, No Accessory Muscle Use, No Respiratory Distress Cardiovascular: Regular Rate, Rhythm, No Murmur Gastrointestinal: Normal Bowel Sounds, Non Tender, Soft Extremity: No Calf Tenderness, Swelling (trace-bilateral) Neurologic/Psychiatric: Alert, Other (oriented to person and place only) Results Results/Procedures Labs Laboratory Tests 04/19/18 12:47 04/20/18 03:14 Patient resulted labs reviewed. Imaging: Reviewed Imaging Report Assessment/Plan Admission Diagnosis ANGEL, AMS Admission Status: Inpatient Order (span 2 midnights) Reason for Inpatient Admission: altered mental status, unsafe to ambulate, ANGEL, needs IVF Diagnosis/Problems Diagnosis/Problems (1) Altered mental status Status: Acute Assessment & Plan: Reviewed most recent note from October and was reportedly alert and oriented x3 so markedly off from baseline at that time Likely multifactorial from ANGEL and narcotic build up Attempted to leave multipel times overnight so will keep in ICU for ability to lock unit Can transition to [facility] bed if needed Continue to reorient as able Qualifiers: Altered mental status type: disorientation Qualified Codes: R41.0 - Disorientation, unspecified (2) ANGEL (acute kidney injury) Status: Acute Assessment & Plan: Continue IVF Monitor UOP Trend labs (3) Insulin dependent diabetes mellitus Assessment & Plan: Fill records show that his rx is for 45 units BID Has history of noncompliance and has multiple ER visit due to hypoglycemia Levemir 30 units given last night and fasting BS is 102 Continue SSI as well as trend Likely does not need 45 units BID at discharge Last a1c on file was 10.5 2.5 years ago (4) Tobacco abuse Status: Acute Assessment & Plan: Reportedly smokes 4ppd Will start nicotine patch prn Clinical Quality Measures DVT/VTE Risk/Contraindication: Risk Factor Score Per Nursin RFS Level Per Nursing on Admit: 4+=Very High BEVERLY ROSE MD Apr 20, 2018 09:35
[2018-04-20] MEDS ORDERED: NICOTINE 21 MG (NICODERM) PATCH TD NR (10:00)
[2018-04-20] MEDS: hydrALAZINE (APESOLINE) 20 MG/ML VIAL IV PRN (20:32)
[2018-04-20] MEDS ORDERED: inSUlin DETERMIR 1 UNIT/0.01 ML (LEVEMIR) CHARGE PER UNIT SQ SCH (21:00)
[2018-04-20] MEDS ORDERED: WATER (STERILE) FOR INJECTION 10 ML ONE (21:09)
[2018-04-21] MEDS: NS IV 1000 ML 1,000 ML IV SCH ×3 (03:01→19:35)
[2018-04-21 04:00] VITALS: BP 130/59
[2018-04-21] MEDS: ZIPRASIDONE 20 MG INJ (GEODON) VIAL IM PRN ×2 (07:08→22:54)
[2018-04-21] MEDS: inSUlin ASPART (NovoLOG) 1 UNIT/0.01 ML (CHARGE PER UNIT) SC SCH ×4 (07:08→21:17)
[2018-04-21 07:30] VITALS: BP 184/69
[2018-04-21] MEDS: LORazepam INJ 2 MG/ML (ATIVAN) VIAL IVP PRN (08:16)
[2018-04-21] MEDS: NICOTINE PATCH REMOVAL TP SCH (08:16)
[2018-04-21] MEDS: NICOTINE 21 MG (NICODERM) PATCH TD SCH (08:16)
[2018-04-21] MEDS: hydrALAZINE (APESOLINE) 20 MG/ML VIAL IV PRN (08:20)
[2018-04-21] MEDS ORDERED: PRAV40TA2 PO (10:23)
[2018-04-21] MEDS ORDERED: MORP-33 PO (10:23)
[2018-04-21] MEDS ORDERED: LISI-556 PO (10:23)
[2018-04-21] MEDS ORDERED: INSU100I29 SQ (10:23)
[2018-04-21] MEDS ORDERED: ALLO100T PO (10:23)
[2018-04-21] MEDS ORDERED: FURO40TA4 PO (10:23)
[2018-04-21] MEDS ORDERED: ALPR0.254 PO (10:23)
[2018-04-21] MEDS ORDERED: METO-387 PO (10:26)
[2018-04-21] MEDS: HALOPERIDOL 5 MG/ML (HALDOL) AMP IM/IV PRN (11:19)
[2018-04-21 11:21] VITALS: BP 183/69
[2018-04-21] MEDS ORDERED: THEOPHYLLINE CR 300 MG (THEO-DUR) TAB PO SCH (14:15)
[2018-04-21] MEDS ORDERED: morphine ER 15 MG (MS CONTIN) TAB PO SCH (14:15)
--- NOTE | 2018-04-21 14:29 | Progress Note-Hospitalist ---
Progress Note Progress Notes/Assess & Plan Date Seen 04/21/18 Time Seen by Provider: 14:24 Assessment & Plan The patient is a 77-year-old white male known to me from previous admission. His family states that he became apparently confused on Saturday morning. He has had previous admissions with confusion. On 1 when I provided care for him he was quite confused. He had the a tendency to get aggressive during this stay. He smokes rather considerably and continues to do so. His laboratory suggested dehydration by virtue of creatinine and urine specific gravity. There was no history of vomiting or diarrhea. The UA shows no evidence of pyuria. Physical exam showed a rather poorly groomed white male. He knew that he was in [facility]. He had little other memory of the events of the past 2 days. His mustache and frontal scalp hair are stained with cigarette smoke. Lungs show distant breath sounds and inspiratory rhonchi. CV is regular. Abdomen is soft. Ankles show no pedal edema. Impression: Confusion. 2.evidence of dehydration. 3.tobaccoism Plan: Transfer to floor. RACHAEL SY MD Apr 21, 2018 14:29
[2018-04-21 15:20] VITALS: BP 182/74
[2018-04-21 20:30] VITALS: BP 144/64
[2018-04-21] MEDS ORDERED: NON-FORMULARY MEDICATION 1 EA EA (Insulin Detemir (Levemir Flextouch) 45 UNITS) SQ SCH (21:00)
[2018-04-21] MEDS: morphine ER 15 MG (MS CONTIN) TAB PO SCH (21:16)
[2018-04-21] MEDS: inSUlin DETERMIR 1 UNIT/0.01 ML (LEVEMIR) CHARGE PER UNIT SQ SCH (21:17)
[2018-04-21] MEDS ORDERED: WATER (STERILE) FOR INJECTION 20 ML ONE (22:48)
[2018-04-21 23:14] VITALS: BP 148/68
[2018-04-22] MEDS: LORazepam INJ 2 MG/ML (ATIVAN) VIAL IVP PRN (01:31)
[2018-04-22] MEDS: NS IV 1000 ML 1,000 ML IV SCH (03:18)
[2018-04-22 04:08] VITALS: BP 140/71
[2018-04-22] MEDS: HALOPERIDOL 5 MG/ML (HALDOL) AMP IM/IV PRN (04:28)
[2018-04-22] MEDS: inSUlin ASPART (NovoLOG) 1 UNIT/0.01 ML (CHARGE PER UNIT) SC SCH ×2 (06:13→12:05)
[2018-04-22] MEDS ORDERED: PANTOPRAZOLE 40 MG (PROTONIX) TAB PO SCH (07:00)
[2018-04-22 08:50] VITALS: BP 157/77
[2018-04-22] MEDS ORDERED: CLOPIDOGREL 75 MG (PLAVIX) TABLET PO SCH (09:00)
[2018-04-22] MEDS ORDERED: lisINopril 5 MG (PRINIVIL) TABLET PO SCH (09:00)
[2018-04-22] MEDS ORDERED: FUROSEMIDE 40 MG (LASIX) TAB PO SCH (09:00)
[2018-04-22] MEDS: morphine ER 15 MG (MS CONTIN) TAB PO SCH (10:14)
[2018-04-22] MEDS: NICOTINE 21 MG (NICODERM) PATCH TD SCH (10:15)
[2018-04-22] MEDS: inSUlin DETERMIR 1 UNIT/0.01 ML (LEVEMIR) CHARGE PER UNIT SQ SCH (10:15)
[2018-04-22] MEDS: NICOTINE PATCH REMOVAL TP SCH (10:16)
--- NOTE | 2018-04-22 11:46 | Progress Note-Hospitalist ---
Progress Note Progress Notes/Assess & Plan Date Seen 04/22/18 Time Seen by Provider: 11:42 Assessment & Plan The patient is alert and sitting up in a chair. He reports he is eager to get out of here. He is unable to tell me where he is or what the date is. This is consistent with his performance on a previous admission in which I participated. Physical exam: Lungs show distant breath sounds but are clear. CV is regular without murmur. Ankles show no pedal edema. Skin particularly on the arms shows actinic injury. Impression: Dementia. 2.COPD/tobaccoism. 3.dehydration/acute kidney failure Plan: Discharge to home. See discharge sequence for medications and routines RACHAEL SY MD Apr 22, 2018 11:46
--- NOTE | 2018-04-22 11:59 | Discharge Instructions ---
Discharge Instructions Patient Instructions Patient Instructions: Lots of liquids Minimize cigarette use Discussed with your primary care physician relative to stream lining your medications, especially sedatives and pain medicines Activity & Diet Discharge Diet: No Restrictions Activity as Tolerated: Yes Copy Copies To 1: ESTRELLITA العراقي MD, RODNEY K MD Apr 22, 2018 11:59
[2018-04-22 12:22] LABS: CALCIUM 9.1 MG/DL (8.5-10.1); CREATININE SERUM 1.2 MG/DL (0.60-1.30)
[2018-04-22 13:07] VITALS: BP 174/77
[2018-04-22 15:11] VITALS: BP 174/77
== END 2018-04-22 11:57 | disposition home or self-care (01) ==
LOC: EDUNIT# 12:17 → ER 12:18 → UNDOADMOB 14:29 → ICU 14:29 → 4TH 04-21 15:30 → UNDODISOB 04-22 14:55
PROVIDERS: ADMIT Family Medicine; ATTEND Family Medicine
DX: F03.90 Unspecified dementia, unspecified severity, without behavioral disturbance, psychotic disturbance, mood disturbance, and anxiety (principal); R41.0 Disorientation, unspecified; J44.9 Chronic obstructive pulmonary disease, unspecified; F17.210 Nicotine dependence, cigarettes, uncomplicated; E86.0 Dehydration; N17.9 Acute kidney failure, unspecified; I25.10 Atherosclerotic heart disease of native coronary artery without angina pectoris; E78.00 Pure hypercholesterolemia, unspecified; I10 Essential (primary) hypertension; I73.9 Peripheral vascular disease, unspecified; Z95.5 Presence of coronary angioplasty implant and graft; N40.0 Benign prostatic hyperplasia without lower urinary tract symptoms; K21.9 Gastro-esophageal reflux disease without esophagitis; E11.51 Type 2 diabetes mellitus with diabetic peripheral angiopathy without gangrene; F41.9 Anxiety disorder, unspecified; Z79.4 Long term (current) use of insulin
CPT/HCPCS: 36415; 70450; 71045; 80048; 80053; 80198; 80306; 80320; 81000; 82962; 83735; 84443; 84484; 85007; 85025; 85027; 85610; 85730; 93005; 93041; 96360

== ENCOUNTER 2018-04-26 03:28 | Inpatient (IN) | payer MEDICARE, MEDICAID ==
[~2018-04-26] VITALS: Ht 162.6 cm; Wt 74.6 kg
[~2018-04-26 03:28] MED LIST changes: +FURO40TA4 PO; +INSU100I29 SQ; +MORP-33 PO
[2018-04-26 04:17] LABS: BASOPHILS % (AUTO) 0 % (0-10); EOSINOPHILS # (AUTO) 0.2 10^3/uL (0.0-0.3); EOSINOPHILS % (AUTO) 2 % (0-10); HEMATOCRIT 37 % (40-54); HEMOGLOBIN 12.4 G/DL (13.3-17.7); LYMPHOCYTES # (AUTO) 0.9 X 10^3 (1.0-4.0); LYMPHOCYTES % (AUTO) 9 % (12-44); MEAN CORPUSCULAR HEMOGLOBIN 32 PG (25-34); MEAN CORPUSCULAR HGB CONC 34 G/DL (32-36); MEAN CORPUSCULAR VOLUME 94 FL (80-99); MEAN PLATELET VOLUME 11.5 FL (7.4-10.4); MONOCYTES % (AUTO) 10 % (0-12); NEUTROPHILS # (AUTO) 7.7 X 10^3 (1.8-7.8); NEUTROPHILS % (AUTO) 79 % (42-75); PLATELET COUNT 182 10^3/uL (130-400); RED BLOOD COUNT 3.92 10^6/uL (4.35-5.85); WHITE BLOOD COUNT 9.8 10^3/uL (4.3-11.0)
[2018-04-26 04:27] LABS: INR 1.1 (0.8-1.4); PROTHROMBIN TIME PATIENT 14.4 SEC (12.2-14.7)
--- NOTE | 2018-04-26 04:31 | ED General ---
General Chief Complaint: Altered Mental Status Stated Complaint: RENAL FAILURE Nursing Triage Note: PT TO ED 6 PER [facility] FOR C/O "RENAL FAILURE". PER FAMILY, PT WAS RECENLTY DISCHARGED FROM THIS FACILITY W/ LETHARGY, DECREASED APPETITE ET ALTERED MENTAL STATUS. PT MUMBLES INCOHERENTLY AT THIS TIME. DOES NOT FOLLOW COMMANDS AT THIS TIME. Nursing Sepsis Screen: No Definite Risk Source of Information: Old Records (ALL PMH IS FROM OLD CHART) Exam Limitations: Other (PT IS NOT TALKING, FOLLOWING COMMANDS OR ANSWERING QUESTIONS. NO FAMILY CAME WITH PT, AND ESSENTIALLY NO INFORMATION FROM EMS. ) History of Present Illness Date Seen by Provider: Apr 26, 2018 Time Seen by Provider: 03:52 Initial Comments PT ARRIVES VIA [facility] FROM HOME NO IV, NO ACCUCHECK OR MEDICATIONS GIVEN BY EMS REPORTEDLY THE FAMILY CALLED EMS, BUT DID NOT ACCOMPANY PT TO ER PT IS UNABLE TO ANSWER QUESTIONS--REPEATEDLY ASKED PT WHY HE WAS HERE, AND EITHER DID NOT ACKNOWLEDGE THAT ANY ONE WAS IN ROOM, OR GAVE A BLANK STARE. PT DID EVENTUALLY SPEAK "MY HEAD" AND "MIGRAINE" --THESE WERE THE ONLY WORDS PT UTTERED, AND SPEECH WAS MUMBLED, BUT IS PT'S NORMAL BASELINE PT WILL NOT SIT DOWN, IS NOT FOLLOWING COMMANDS, AND IS WANDERING AIMLESSLY AROUND THE ROOM. PT DOES NOT APPEAR TO BE IN ANY DISCOMFORT OR DISTRESS WHATSOEVER RN CALLED FAMILY TO OBTAIN INFORMATION TO WHY HE IS HERE. PT WAS ADMITTED 04/19/18-04/22/18 FOR ALTERED MENTAL STATUS, DEHYDRATION/RENAL FAILURE, LETHARGY, NOT EATING. PT HAS HISTORY OF DEMENTIA FAMILY REPORTS TO RN THAT HE IS THE SAME WHEN HE WAS ADMITTED LAST WEEK, AND HAS NOT IMPROVED---IS NO DIFFERENT AT ALL TONIGHT/THIS AM--IS UNCLEAR WHY EMS WAS CALLED, THEY DO NOT REPORT ANY ACUTE CHANGE IN PT'S CONDITION. FAMILY WAS ADVISED THAT SOMEONE WHO COULD PROVIDE INFORMATION ABOUT THE PT SHOULD COME TO ER, BUT DID NOT APPEAR THAT ANYONE WOULD BE COMING. PT LIVES WITH DAUGHTER PT WITH MULTIPLE VISITS FOR VARIOUS COMPLAINTS PT HAS LONG HISTORY OF NON-COMPLIANCE IN ALL ASPECTS OF CARE PT IS INSULIN DEPENDENT DIABETIC--IS UNKNOWN IF HE HAS HAD ANY MEDICATIONS TODAY ON PRIOR VISITS, DAUGHTER HAS REPORTED THAT PT STAYS UP ALL NIGHT DRINKING COFFEE, AND WILL NOT DRINK ANYTHING ELSE. WAS REPORTED ON 09/18/17 VISIT, THAT PT HAD LOST 30# IN THE LAST YEAR. IS UNKNOWN IF HE HAS CONTINUED TO LOSE WEIGHT. PCP: DULCE [facility] Allergies and Home Medications Allergies Coded Allergies: SELMAAlexandra Known Allergies (Unverified Allergy, Mild, 06/21/09) Home Medications Allopurinol 100 Mg Tablet, 200 MG PO DAILY, (Reported) TAKE 2 (100 MG) TABLETS DAILY Alprazolam 0.25 Mg Tablet, 0.25 MG PO HS PRN for ANXIETY, (Reported) Amlodipine Besylate 5 Mg Tablet, 5 MG PO DAILY, (Reported) Baclofen 10 Mg Tablet, 10 MG PO TID, (Reported) Clopidogrel Bisulfate 75 Mg Tablet, 75 MG PO DAILY, (Reported) Furosemide 40 Mg Tablet, 40 MG PO DAILY, (Reported) Insulin Detemir 100 Unit/1 Ml Insuln.pen, 45 UNITS SQ BID, (Reported) Lisinopril 5 Mg Tablet, 5 MG PO DAILY, (Reported) Metoprolol Succinate 25 Mg Tab.er.24h, 25 MG PO DAILY, (Reported) Morphine Sulfate 15 Mg Tablet.er, 15 MG PO Q12H, (Reported) Pantoprazole Sodium 40 Mg Tablet.dr, 40 MG PO DAILY, (Reported) Pravastatin Sodium 40 Mg Tablet, 40 MG PO DAILY, (Reported) Theophylline Anhydrous 300 Mg Tab.er.12h, 300 MG PO Q12H, (Reported) Patient Home Medication List Home Medication List Reviewed: Yes Review of Systems Constitutional: other (UNABLE TO OBTAIN FROM PT) Past Tbrmzgz-Ulfdnb-Ofsxfu Hx Patient Social History Alcohol Use: Past History (HISTORY OF ABUSE) Recreational Drug Use: No (BUT IS ON MORPHINE, XANAX, BACLOFEN DAILY) Smoking Status: Current Everyday Smoker (4 PPD) Type Used: Cigarettes (4 PPD) 2nd Hand Smoke Exposure: Yes Recent Foreign Travel: No Contact w/Someone Who Travel: No Recent Infectious Disease Expo: No Recent Hopitalizations: No Immunizations Up To Date Tetanus Booster (TDap): Less than 5yrs Date of Pneumonia Vaccine: Nov 18, 2009 Date of Influenza Vaccine: Sep 28, 2015 Seasonal Allergies Seasonal Allergies: No Past Medical History Surgeries: Yes (CARDIAC CATH/STENT, HIATAL HERNIA REPAIR; TURP; LEFT FEM-TIB BYPASS) Abdominal, Cardiac, Coronary Stent, Transurethral Resection, Vascular Surgery Respiratory: Yes COPD Cardiac: Yes (LEFT FEMORAL ANEURYSM; CARDIAC STENT; LEFT FEM-TIB BYPASS) Aneurysm, Chronic Edema/Swelling, Coronary Artery Disease, High Cholesterol, Hypertension, Peripheral Vascular Neurological: Yes (PERIPHERAL NEUROPATHY) Dementia, Neuropathy Reproductive Disorders: No Sexually Transmitted Disease: No Genitourinary: Yes Benign Prostatic Hyperpl, Prostate Problems Gastrointestinal: Yes Gastroesophageal Reflux, Hiatal Hernia Musculoskeletal: Yes Arthritis Endocrine: Yes Diabetes, Insulin dep HEENT: Yes (RIGHT CORNEA OPACIFIED) Cataract Loss of Vision: Right Hearing Impairment: Hard of Hearing Cancer: No Psychosocial: Yes Anxiety Integumentary: Yes (MRSA) Blood Disorders: No Family Medical History Cancer 19 FATHER 19 MOTHER Family history: Cardiovascular disease Family history: Diabetes mellitus G8 SISTER 19 MOTHER Family history: Hypertension G8 BROTHER Heart Disease, Cancer, Diabetes, Hypertension Physical Exam Vital Signs Vital Signs - First Documented 04/26/18 03:28 Temp 96.8 Pulse 85 Resp 16 B/P (MAP) 156/89 (111) Pulse Ox 93 O2 Delivery Room Air Capillary Refill : Less Than 3 Seconds General Appearance: No Apparent Distress, Other (PT FILTHY, MALODOROUS, VERY POOR HYGIENE/UMKEMPT, BAREFOOT, REEKS OF CIGARETTES, FRONT PART OF HAIR HEAVILY TOBACCO STAINED, FINGERS HEAVILY TOBACCO STAINED. PT IS WANDERING AIMLESSLY AROUND IN ROOM, SHUFFLING GAIT. ) HEENT: Other (RIGHT CORNEA OPACIFIED. LEFT PUPIL PINPOINT; EDENTULOUS, ORAL MUCOSA VERY DRY) Neck: Normal Inspection Respiratory: Normal Breath Sounds, No Accessory Muscle Use, No Respiratory Distress Cardiovascular: Regular Rate, Rhythm, No Murmur, Other (1+ EDEMA BILATERALLY) Gastrointestinal: Non Tender, Soft Back: No CVA Tenderness Extremity: Normal Capillary Refill, Normal Range of Motion, Non Tender, No Calf Tenderness, Pedal Edema (1+ BILATERALLY) Neurologic/Psychiatric: Alert, No Motor/Sensory Deficits (GROSS MOTOR INTACT. PT WITH HISTORY OF PERIPHERAL NEUROPATHY), Other (UNABLE TO DETERMINE ORIENTATION BUT KNOWS NAME, BUT APPEARS DISORIENTED TO PLACE, TIME, SITUATION. PT IS MINIMALLY VERBAL AND CANNOT FOLLOW SIMPLE COMMANDS. PT WITH BLANK STARE/ VERY FLAT AFFECT. ) Skin: Normal Color, Warm/Dry, Other (FINGERS AND HAIR HEAVILY TOBACCO STAINED. ) Focused Exam Lactate Level 04/26/18 04:51: Lactic Acid Level 0.91 Lactic Acid Level Laboratory Tests Test 04/26/18 04:51 Lactic Acid Level 0.91 MMOL/L (0.50-2.00) Progress/Results/Core Measures Suspected Sepsis Recent Fever Within 48 Hours: No Infection Criteria Present: None New/Unexplained Altered Menta: No Sepsis Screen: No Definite Risk SIRS Temperature:96.8 Pulse: 85 Respiratory Rate: 16 Laboratory Tests 04/26/18 04:05: White Blood Count 9.8 Blood Pressure 156 /89 Mean: 111 04/26/18 04:51: Lactic Acid Level 0.91 Laboratory Tests 04/26/18 04:05: Creatinine 2.25H, INR Comment 1.1, Platelet Count 182, Total Bilirubin 0.4 Results/Orders Lab Results Laboratory Tests Test 04/26/18 04:05 04/26/18 04:06 04/26/18 04:51 Range/Units White Blood Count 9.8 4.3-11.0 10^3/uL Red Blood Count 3.92 L 4.35-5.85 10^6/uL Hemoglobin 12.4 L 13.3-17.7 G/DL Hematocrit 37 L 40-54 % Mean Corpuscular Volume 94 80-99 FL Mean Corpuscular Hemoglobin 32 25-34 PG Mean Corpuscular Hemoglobin Concent 34 32-36 G/DL Red Cell Distribution Width 15.0 H 10.0-14.5 % Platelet Count 182 130-400 10^3/uL Mean Platelet Volume 11.5 H 7.4-10.4 FL Neutrophils (%) (Auto) 79 H 42-75 % Lymphocytes (%) (Auto) 9 L 12-44 % Monocytes (%) (Auto) 10 0-12 % Eosinophils (%) (Auto) 2 0-10 % Basophils (%) (Auto) 0 0-10 % Neutrophils # (Auto) 7.7 1.8-7.8 X 10^3 Lymphocytes # (Auto) 0.9 L 1.0-4.0 X 10^3 Monocytes # (Auto) 1.0 0.0-1.0 X 10^3 Eosinophils # (Auto) 0.2 0.0-0.3 10^3/uL Basophils # (Auto) 0.0 0.0-0.1 10^3/uL Prothrombin Time 14.4 12.2-14.7 SEC INR Comment 1.1 0.8-1.4 Activated Partial Thromboplast Time 33 24-35 SEC Sodium Level 143 135-145 MMOL/L Potassium Level 4.2 3.6-5.0 MMOL/L Chloride Level 108 H 98-107 MMOL/L Carbon Dioxide Level 20 L 21-32 MMOL/L Anion Gap 15 H 5-14 MMOL/L Blood Urea Nitrogen 44 H 7-18 MG/DL Creatinine 2.25 H 0.60-1.30 MG/DL Estimat Glomerular Filtration Rate 28 BUN/Creatinine Ratio 20 Glucose Level 143 H 70-105 MG/DL Calcium Level 9.8 8.5-10.1 MG/DL Magnesium Level 1.7 L 1.8-2.4 MG/DL Total Bilirubin 0.4 0.1-1.0 MG/DL Aspartate Amino Transf (AST/SGOT) 38 H 5-34 U/L Alanine Aminotransferase (ALT/SGPT) 23 0-55 U/L Alkaline Phosphatase 90 40-136 U/L Ammonia 27 11-32 UMOL/L Troponin I < 0.30 <0.30 NG/ML Total Protein 7.0 6.4-8.2 GM/DL Albumin 3.8 3.2-4.5 GM/DL TSH [place] Testing 0.87 0.35-4.94 UIU/ML Acetaminophen Level < 10 L 10-30 UG/ML Serum Alcohol < 10 <10 MG/DL Glucometer 142 H 70-110 MG/DL Lactic Acid Level 0.91 0.50-2.00 MMOL/L My Orders Orders - LAKEISHA MONTANO DO Accucheck Stat ONCE (04/26/18 03:57) Saline Lock/Iv-Start (04/26/18 03:57) Ekg Tracing (04/26/18 03:57) Monitor-Rhythm Ecg Trace Only (04/26/18 03:57) Acetaminophen (04/26/18 03:57) Alcohol (04/26/18 03:57) Ammonia (04/26/18 03:57) Cbc With Automated Diff (04/26/18 03:57) Comprehensive Metabolic Panel (04/26/18 03:57) Drug Screen Stat (Urine) (04/26/18 03:57) Lactic Acid Analyzer (04/26/18 03:57) Magnesium (04/26/18 03:57) Protime With Inr (04/26/18 03:57) Partial Thromboplastin Time (04/26/18 03:57) Thyroid Analyzer (04/26/18 03:57) Troponin I (04/26/18 03:57) Ua Culture If Indicated (04/26/18 03:57) Chest 1 View, Ap/Pa Only (04/26/18 03:57) Saline Lock/Iv-Start (04/26/18 03:57) Theophylline (04/26/18 03:57) Ct Head Wo-R/O Stroke (04/26/18 03:57) Vital Signs/I&O 04/26/18 03:28 Temp 96.8 Pulse 85 Resp 16 B/P (MAP) 156/89 (111) Pulse Ox 93 O2 Delivery Room Air Capillary Refill : Less Than 3 Seconds Blood Pressure Mean: 111 Point of Care Testing Finger Stick Blood Glucose: 142 Progress Note : Progress Note ACCUCHECK 142 ON ARRIVAL NO DETERIORATION IN PT'S CONDITION PT WAS MINIMALLY VERBAL DURING ER STAY. PT CONTINUED TO TRY TO GET OUT OF BED, TRYING TO PULL OUT IV/PULL OFF TAPE, UNABLE TO FOLLOW COMMANDS. PT DID NOT VOID DURING ER STAY ECG Initial ECG Impression Date: Apr 26, 2018 Initial ECG Impression Time: 04:37 Initial ECG Rate: 82 Initial ECG Rhythm: Normal Sinus Initial ECG Impression: Nonspecific Changes Initial ECG Comparisson: Unchanged Diagnostic Imaging Comments CXR--NO ACUTE PROCESS, CHRONIC BIBASILAR ATELECTASIS--UNCHANGED FROM PREVIOUS. PENDING RADIOLOGIST REVIEW CT HEAD--CHRONIC MICROVASCULAR CHANGES/WHITE MATTER DISEASE AND ATROPHY, NO ACUTE PROCESS, UNCHANGED FROM PREVIOUS--PER [facility] VIA FAX @ [phone] Reviewed: Reviewed by Id Departure Communication (Admissions) [id number]--SPOKE WITH DR. ANTONIO, HOSPITALIST, ACCEPTS PT FOR ADMIT. Impression Primary Impression: Altered mental status Additional Impressions: Dehydration Acute renal failure IDDM (insulin dependent diabetes mellitus) Hypomagnesemia INABILITY TO CARE FOR SELF Disposition: ADMITTED INPATIENT Condition: Stable/Unchanged Admissions Decision to Admit Reason: Admit from ER (General) Decision to Admit/Date: Apr 26, 2018 Time/Decision to Admit Time: 05:00 Departure-Patient Inst. Referrals: ESTRELLITA العراقي MD (PCP/Family) Primary Care Physician LAKEISHA MONTANO DO Apr 26, 2018 04:31
[2018-04-26 04:33] LABS: ALANINE AMINOTRANSFERASE 23 U/L (0-55); ALBUMIN 3.8 GM/DL (3.2-4.5); ALKALINE PHOSPHATASE 90 U/L (40-136); AMMONIA 27 UMOL/L (11-32); BILIRUBIN,TOTAL 0.4 MG/DL (0.1-1.0); BUN/CREATININE RATIO 20; CALCIUM 9.8 MG/DL (8.5-10.1); CARBON DIOXIDE 20 MMOL/L (21-32); CHLORIDE 108 MMOL/L (98-107); CREATININE SERUM 2.25 MG/DL (0.60-1.30); GFR ESTIMATED 28; GLUCOSE 143 MG/DL (70-105); MAGNESIUM 1.7 MG/DL (1.8-2.4); POTASSIUM 4.2 MMOL/L (3.6-5.0); SODIUM 143 MMOL/L (135-145)
[2018-04-26 04:46] LABS: ACETAMINOPHEN < 10 UG/ML (10-30)
[2018-04-26 04:57] LABS: TSH (THYROID ANALYZER) 0.87 UIU/ML (0.35-4.94)
--- NOTE | 2018-04-26 06:02 | Diagnostic Imaging Report ---
INDICATION: Altered mental status. COMPARISON: 04/19/2018. FINDINGS: No hyperdense hemorrhage or space-occupying mass. No hydrocephalus or midline shift. Age-appropriate global atrophy. Periventricular white matter hypoattenuation is unchanged and compatible with chronic microvascular ischemic disease. No acute calvarial abnormality. Paranasal sinuses and mastoid air cells are clear. IMPRESSION: 1. No acute intracranial process by CT. 2. Stable exam compared to 04/19/2018. 3. Findings are in agreement with the preliminary report. Dictated by: Dictated on workstation # [id number]
--- NOTE | 2018-04-26 06:03 | Diagnostic Imaging Report ---
INDICATION: Altered mental status. COMPARISON: 04/19/2018. FINDINGS: Bibasilar heterogeneous consolidations have not changed. No pleural effusion or pneumothorax. Heart is normal in size. IMPRESSION: Stable bibasilar heterogeneous consolidations which may be due to multifocal pneumonia or aspiration. Dictated by: Dictated on workstation # [id number]
[2018-04-26] MEDS ORDERED: MAGNESIUM 1 GM/D5W 100 ML IVPB IV ONE (06:30)
[2018-04-26] MEDS: D5 1/2 NS 1000 ML IV SOLUTION 1,000 ML IV SCH ×3 (06:39→21:00)
[2018-04-26] MEDS: ZIPRASIDONE 20 MG INJ (GEODON) VIAL IM PRN ×2 (06:53→22:31)
[2018-04-26 08:00] VITALS: BP 179/67
--- NOTE | 2018-04-26 08:02 | Pulmonary Consultation ---
History of Present Illness History of Present Illness Date of Consultation 04/26/18 07:49 Time Seen by Provider: 07:49 Date of Admission History of Present Illness 77yo with hx of dementia, renal failure, recent hospitalization pt presented to ER secondary to increased confusion and lethargy. Family called EMS however was not sure what his main complaint was. It appears patient continues to become progressively more weak and is unable to take care of him self. It appears this admission is for ECF placement. Family is not at bedside. Can not obtain info from patient. Allergies and Home Medications Allergies Coded Allergies: SELMAANo Known Allergies (Unverified Allergy, Mild, 06/21/09) Home Medications Allopurinol 100 Mg Tablet, 200 MG PO DAILY, (Reported) TAKE 2 (100 MG) TABLETS DAILY Alprazolam 0.25 Mg Tablet, 0.25 MG PO HS PRN for ANXIETY, (Reported) Amlodipine Besylate 5 Mg Tablet, 5 MG PO DAILY, (Reported) Baclofen 10 Mg Tablet, 10 MG PO TID, (Reported) Clopidogrel Bisulfate 75 Mg Tablet, 75 MG PO DAILY, (Reported) Furosemide 40 Mg Tablet, 40 MG PO DAILY, (Reported) Insulin Detemir 100 Unit/1 Ml Insuln.pen, 45 UNITS SQ BID, (Reported) Lisinopril 5 Mg Tablet, 5 MG PO DAILY, (Reported) Metoprolol Succinate 25 Mg Tab.er.24h, 25 MG PO DAILY, (Reported) Morphine Sulfate 15 Mg Tablet.er, 15 MG PO Q12H, (Reported) Pantoprazole Sodium 40 Mg Tablet.dr, 40 MG PO DAILY, (Reported) Pravastatin Sodium 40 Mg Tablet, 40 MG PO DAILY, (Reported) Theophylline Anhydrous 300 Mg Tab.er.12h, 300 MG PO Q12H, (Reported) Past Xwynvze-Wlvqqf-Uhgyvp Hx Patient Social History Alcohol Use: Past History (HISTORY OF ABUSE) Recreational Drug Use: No (BUT IS ON MORPHINE, XANAX, BACLOFEN DAILY) Smoking Status: Current Everyday Smoker (4 PPD) Type Used: Cigarettes (4 PPD) 2nd Hand Smoke Exposure: Yes Recent Foreign Travel: No Contact w/Someone Who Travel: No Recent Infectious Disease Expo: No Recent Hopitalizations: No Immunizations Up To Date Tetanus Booster (TDap): Less than 5yrs Date of Pneumonia Vaccine: Nov 18, 2009 Date of Influenza Vaccine: Sep 28, 2015 Seasonal Allergies Seasonal Allergies: No Past Medical History Surgeries: Yes (CARDIAC CATH/STENT, HIATAL HERNIA REPAIR; TURP; LEFT FEM-TIB BYPASS) Abdominal, Cardiac, Coronary Stent, Transurethral Resection, Vascular Surgery Respiratory: Yes COPD Cardiac: Yes (LEFT FEMORAL ANEURYSM; CARDIAC STENT; LEFT FEM-TIB BYPASS) Aneurysm, Chronic Edema/Swelling, Coronary Artery Disease, High Cholesterol, Hypertension, Peripheral Vascular Neurological: Yes (PERIPHERAL NEUROPATHY) Dementia, Neuropathy Reproductive Disorders: No Sexually Transmitted Disease: No Genitourinary: Yes Benign Prostatic Hyperpl, Prostate Problems Gastrointestinal: Yes Gastroesophageal Reflux, Hiatal Hernia Musculoskeletal: Yes Arthritis Endocrine: Yes Diabetes, Insulin dep HEENT: Yes (RIGHT CORNEA OPACIFIED) Cataract Loss of Vision: Right Hearing Impairment: Hard of Hearing Cancer: No Psychosocial: Yes Anxiety Integumentary: Yes (MRSA) Blood Disorders: No Family Medical History Cancer 19 FATHER 19 MOTHER Family history: Cardiovascular disease Family history: Diabetes mellitus G8 SISTER 19 MOTHER Family history: Hypertension G8 BROTHER Heart Disease, Cancer, Diabetes, Hypertension Review of Systems Time Seen by Provider: 08:04 Exam Exam Vital Signs Date Time Temp Pulse Resp B/P (MAP) Pulse Ox O2 Delivery O2 Flow Rate FiO2 04/26/18 05:37 79 16 124/56 95 Room Air 04/26/18 03:28 96.8 85 16 156/89 (111) 93 Room Air I & O 04/26/18 07:00 Intake Total 0 ml Output Total 0 ml Balance 0 ml General Appearance: No Apparent Distress, Other (PT FILTHY, MALODOROUS, VERY POOR HYGIENE/UMKEMPT, BAREFOOT, REEKS OF CIGARETTES, FRONT PART OF HAIR HEAVILY TOBACCO STAINED, FINGERS HEAVILY TOBACCO STAINED. PT IS WANDERING AIMLESSLY AROUND IN ROOM, SHUFFLING GAIT. ) HEENT: Other (RIGHT CORNEA OPACIFIED. LEFT PUPIL PINPOINT; EDENTULOUS, ORAL MUCOSA VERY DRY) Neck: Normal Inspection Respiratory: Normal Breath Sounds, No Accessory Muscle Use, No Respiratory Distress Cardiovascular: Regular Rate, Rhythm, No Murmur, Other (1+ EDEMA BILATERALLY) Capillary Refill: Less Than 3 Seconds Extremity: Normal Capillary Refill, Normal Range of Motion, Non Tender, No Calf Tenderness, Pedal Edema (1+ BILATERALLY) Neurologic/Psychiatric: Alert, No Motor/Sensory Deficits (GROSS MOTOR INTACT. PT WITH HISTORY OF PERIPHERAL NEUROPATHY), Other (UNABLE TO DETERMINE ORIENTATION BUT KNOWS NAME, BUT APPEARS DISORIENTED TO PLACE, TIME, SITUATION. PT IS MINIMALLY VERBAL AND CANNOT FOLLOW SIMPLE COMMANDS. PT WITH BLANK STARE/ VERY FLAT AFFECT. ) Skin: Normal Color, Warm/Dry, Other (FINGERS AND HAIR HEAVILY TOBACCO STAINED. ) Results Lab Laboratory Tests 04/26/18 04:05 Assessment/Plan Assessment/Plan Chronic progressive dementia Debility/weakness Pt needs ECF placement vs hospice care. Will consult SW and Hospice for education. Transfer to 4th floor status. I am going to sign off. 254 RYLEY FERRER DO Apr 26, 2018 08:02
[2018-04-26] MEDS: NICOTINE 21 MG (NICODERM) PATCH TD SCH (08:31)
--- NOTE | 2018-04-26 09:36 | History & Physical-Hospitalist ---
History of Present Illness HPI/Chief Complaint This is a 77-year-old white male recently discharged after an admission for mental status changes. The patient was brought to the emergency room by EMS and at the time of my interview this morning is no one present to give additional history. The patient himself is unable to give me any additional history but he knows his name and that he said to the hospital. Other than that he won't answer questions and does not follow commands well. He sits hunched forward with his mouth open drooling. Source: RN/MD, old records Exam Limitations: clinical condition Date Seen 04/26/18 Time Seen by Provider: 08:30 Attending Physician Cecilia Liu MD PCP Estrellita Lopes MD Referring Physician Date of Admission Apr 26, 2018 at 05:00 Home Medications & Allergies Home Medications Reviewed patient Home Medication Reconciliation performed by pharmacy medication reconciliations tissue technician and/or nursing. Patients Allergies have been reviewed. Allergies Allergies Coded Allergies NKANo Known Allergies (Unverified Allergy, Mild, 06/21/09) Past Eaotdla-Rycqfv-Aonseq Hx Past Med/Social Hx: Reviewed Nursing Past Med/Soc Hx Patient Social History Marrital Status: Employed/Student: retired Alcohol Use: Past History (HISTORY OF ABUSE) Recreational Drug Use: No (BUT IS ON MORPHINE, XANAX, BACLOFEN DAILY) Smoking Status: Current Everyday Smoker (4 PPD) Type Used: Cigarettes (4 PPD) 2nd Hand Smoke Exposure: Yes Physical Abuse Screen: No Sexual Abuse: No Recent Foreign Travel: No Contact w/other who traveled: No Recent Hopitalizations: No Recent Infectious Disease Expo: No Immunizations Up To Date Tetanus Booster (TDap): Less than 5yrs Date of Pneumonia Vaccine: Nov 18, 2009 Date of Influenza Vaccine: Sep 28, 2015 Seasonal Allergies Seasonal Allergies: No Past Medical History Surgeries: Abdominal, Cardiac, Coronary Stent, Transurethral Resection, Vascular Surgery Cardiac: Aneurysm, Chronic Edema/Swelling, Coronary Artery Disease, High Cholesterol, Hypertension, Peripheral Vascular Neurological: Dementia, Neuropathy Reproductive: No Sexually Transmitted Disease: No Genitourinary: Benign Prostatic Hyperpl, Prostate Problems Gastrointestinal: Gastroesophageal Reflux, Hiatal Hernia Musculoskeletal: Arthritis Endocrine: Diabetes, Insulin dep HEENT: Cataract Loss of Vision: Right Hearing Impairment: Hard of Hearing Psychosocial: Anxiety History of Blood Disorders: No Family History Reviewed Nursing Family Hx Cancer 19 FATHER 19 MOTHER Family history: Cardiovascular disease Family history: Diabetes mellitus G8 SISTER 19 MOTHER Family history: Hypertension G8 BROTHER Heart Disease, Cancer, Diabetes, Hypertension Review of Systems Constitutional: no symptoms reported EENTM: no symptoms reported Respiratory: no symptoms reported Cardiovascular: no symptoms reported Gastrointestinal: no symptoms reported Genitourinary: no symptoms reported Musculoskeletal: no symptoms reported Skin: no symptoms reported Psychiatric/Neurological: No Symptoms Reported Physical Exam Physical Exam Vital Signs Vital Signs - First Documented 04/26/18 03:28 Temp 96.8 Pulse 85 Resp 16 B/P (MAP) 156/89 (111) Pulse Ox 93 O2 Delivery Room Air Capillary Refill : Less Than 3 Seconds General Appearance: Chronically ill Eyes: Right Eye Other ([place]) Neck: Limited Range of Motion Respiratory: Lungs Clear, Normal Breath Sounds, No Accessory Muscle Use, No Respiratory Distress Cardiovascular: Regular Rate, Rhythm, No Gallop, No Murmur Gastrointestinal: Normal Bowel Sounds, Non Tender, Soft Rectal: Deferred Extremity: Pedal Edema Neurologic/Psychiatric: Depressed Affect, Disoriented, Motor Weakness Skin: Pallor Lymphatic: No Adenopathy Results Results/Procedures Labs Laboratory Tests 04/26/18 04:05 Patient resulted labs reviewed. Imaging: Reviewed Imaging Report Assessment/Plan Admission Diagnosis 1. Acute renal failure 2. Dehydration 3. Type II diabetes on insulin 4. Mental status changes acute on chronic 5. Inability to care for self 6. 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 History of hypertension 8. History of COPD Plan to admit for IV fluid hydration social work consult and discharge to full care facility Admission Status: Inpatient Order (span 2 midnights) Reason for Inpatient Admission: Patient will have to be hydrated slowly has multiple medical problems and is unable to care for self Diagnosis/Problems Diagnosis/Problems (1) ANGEL (acute kidney injury) Status: Acute (2) Dehydration (3) Insulin dependent diabetes mellitus Status: Chronic (4) Non-compliance Status: Chronic (5) Hypomagnesemia Status: Acute (6) Altered mental status Status: Acute Qualifiers: Altered mental status type: disorientation Qualified Codes: R41.0 - Disorientation, unspecified (7) Tobacco abuse Status: Chronic (8) Dementia Status: Chronic Qualifiers: Dementia type: vascular dementia Dementia behavioral disturbance: with behavioral disturbance Qualified Codes: F01.51 - Vascular dementia with behavioral disturbance Clinical Quality Measures DVT/VTE Risk/Contraindication: Risk Factor Score Per Nursin RFS Level Per Nursing on Admit: 4+=Very High Copy Copies To 1: ESTRELLITA LOPES MD, KATHLEEN M MD Apr 26, 2018 09:36
[2018-04-26] MEDS: ENOXAPARIN 30 MG/0.3 ML (LOVENOX) SYR SC SCH (11:20)
[2018-04-26] MEDS: amLODIPine 5 MG (NORVASC) TAB PO SCH (11:20)
[2018-04-26] MEDS: CLOPIDOGREL 75 MG (PLAVIX) TABLET PO SCH (11:21)
[2018-04-26] MEDS: PANTOPRAZOLE 40 MG (PROTONIX) TAB PO SCH (11:21)
[2018-04-26] MEDS: inSUlin ASPART (NovoLOG) 1 UNIT/0.01 ML (CHARGE PER UNIT) SC SCH ×3 (11:21→20:55)
[2018-04-26 12:00] VITALS: BP 188/67
[2018-04-26 16:40] VITALS: BP 168/69
[2018-04-26] MEDS: ZIPRASIDONE 20 MG (GEODON) CAP PO SCH (17:00)
[2018-04-26 19:03] VITALS: BP 170/67
[2018-04-26] MEDS: SIMvastatin 10 MG (ZOCOR) TAB PO SCH (21:01)
[2018-04-27] VITALS (8 sets, daily range): BP systolic 144–192; BP diastolic 69–85
[2018-04-27] MEDS: D5 1/2 NS 1000 ML IV SOLUTION 1,000 ML IV SCH ×4 (03:41→23:33)
[2018-04-27] MEDS: ZIPRASIDONE 20 MG (GEODON) CAP PO SCH ×3 (06:37→16:40)
[2018-04-27] MEDS: inSUlin ASPART (NovoLOG) 1 UNIT/0.01 ML (CHARGE PER UNIT) SC SCH ×4 (06:37→21:00)
[2018-04-27] MEDS: PANTOPRAZOLE 40 MG (PROTONIX) TAB PO SCH (07:35)
[2018-04-27] MEDS: ENOXAPARIN 30 MG/0.3 ML (LOVENOX) SYR SC SCH (07:36)
[2018-04-27] MEDS: amLODIPine 5 MG (NORVASC) TAB PO SCH (07:36)
[2018-04-27] MEDS: CLOPIDOGREL 75 MG (PLAVIX) TABLET PO SCH (07:36)
[2018-04-27] MEDS: NICOTINE 21 MG (NICODERM) PATCH TD SCH (07:36)
[2018-04-27] MEDS: ZIPRASIDONE 20 MG INJ (GEODON) VIAL IM PRN ×2 (07:51→23:34)
[2018-04-27] MEDS: WATER (STERILE) FOR INJECTION 20 ML VIAL IV PRN (07:52)
[2018-04-27] MEDS ORDERED: WATER (STERILE) FOR INJECTION 20 ML VIAL IV PRN (08:00)
--- NOTE | 2018-04-27 09:26 | Progress Note-Hospitalist ---
Subjective HPI/CC On Admission Date Seen by Provider: Apr 27, 2018 Time Seen by Provider: 08:45 This is a 77-year-old white male recently discharged after an admission for mental status changes. The patient was brought to the emergency room by EMS and at the time of my interview this morning is no one present to give additional history. The patient himself is unable to give me any additional history but he knows his name and that he said to the hospital. Other than that he won't answer questions and does not follow commands well. He sits hunched forward with his mouth open drooling. Subjective/Events-last exam Patient has been very active overnight getting up and wanted to go to the bathroom repeatedly. He is been willing to take his pills but he has not been willing to eat. He has extremely dry oral mucosa. Many of his medications of been held since they were sedating types of medications. He has recently been started on some Geodon low dose twice a day and is sleeping peacefully at the time of my interview this morning. Focused Exam Lactate Level 04/26/18 04:51: Lactic Acid Level 0.91 Objective Exam Vital Signs Vital Signs Date Time Temp Pulse Resp B/P (MAP) Pulse Ox O2 Delivery O2 Flow Rate FiO2 04/27/18 08:00 97.6 80 18 192/85 (120) Room Air 04/27/18 04:00 93 Capillary Refill : Less Than 3 Seconds General Appearance: No Apparent Distress HEENT: Other (Poor dentition with very dry mucous membranes possible thrush) Neck: Limited Range of Motion Respiratory: Lungs Clear, Normal Breath Sounds, No Accessory Muscle Use, No Respiratory Distress Cardiovascular: Regular Rate, Rhythm, Systolic Murmur Gastrointestinal: Normal Bowel Sounds, No Organomegaly, Non Tender, Soft Rectal: Deferred Extremity: Normal Capillary Refill, Normal Range of Motion, No Pedal Edema Neurologic/Psychiatric: Other (Sleeping) Skin: Normal Color Results/Procedures Lab Patient resulted labs reviewed. Imaging: Reviewed Imaging Report Assessment/Plan Assessment and Plan Assess & Plan/Chief Complaint 1. Acute renal failure labs pending 2. Dementia with increased confusion and agitation secondary to number 1 3. History of hypertension-restarted on home medications 4. Type II diabetes on insulin currently on sliding scale because of erratic oral intake 5. COPD on theophylline, currently exam is clear Plan is for aids social worker consult in the morning for jail placement since patient is no longer able to state care for himself. Diagnosis/Problems Diagnosis/Problems (1) ANGEL (acute kidney injury) Status: Acute (2) Dehydration (3) Insulin dependent diabetes mellitus Status: Chronic (4) Non-compliance Status: Chronic (5) Hypomagnesemia Status: Acute (6) Altered mental status Status: Acute Qualifiers: Altered mental status type: disorientation Qualified Codes: R41.0 - Disorientation, unspecified (7) Tobacco abuse Status: Chronic (8) Dementia Status: Chronic Qualifiers: Dementia type: vascular dementia Dementia behavioral disturbance: with behavioral disturbance Qualified Codes: F01.51 - Vascular dementia with behavioral disturbance Clinical Quality Measures DVT/VTE Risk/Contraindication: Risk Factor Score Per Nursin RFS Level Per Nursing on Admit: 4+=Very High JAIME ANTONIO MD Apr 27, 2018 09:26
[2018-04-27] MEDS: lisINopril 5 MG (PRINIVIL) TABLET PO SCH (09:36)
[2018-04-27 09:55] LABS: BASOPHILS % (AUTO) 1 % (0-10); EOSINOPHILS # (AUTO) 0.2 10^3/uL (0.0-0.3); EOSINOPHILS % (AUTO) 3 % (0-10); HEMATOCRIT 30 % (40-54); HEMOGLOBIN 10.5 G/DL (13.3-17.7); LYMPHOCYTES # (AUTO) 0.8 X 10^3 (1.0-4.0); LYMPHOCYTES % (AUTO) 11 % (12-44); MEAN CORPUSCULAR HEMOGLOBIN 33 PG (25-34); MEAN CORPUSCULAR HGB CONC 35 G/DL (32-36); MEAN CORPUSCULAR VOLUME 94 FL (80-99); MEAN PLATELET VOLUME 11.2 FL (7.4-10.4); MONOCYTES # (AUTO) 0.8 X 10^3 (0.0-1.0); MONOCYTES % (AUTO) 11 % (0-12); NEUTROPHILS # (AUTO) 5.5 X 10^3 (1.8-7.8); NEUTROPHILS % (AUTO) 75 % (42-75); PLATELET COUNT 156 10^3/uL (130-400); RED BLOOD COUNT 3.22 10^6/uL (4.35-5.85); RED CELL DISTRIBUTION WIDTH 14.4 % (10.0-14.5); WHITE BLOOD COUNT 7.4 10^3/uL (4.3-11.0)
[2018-04-27 10:16] LABS: SMEAR SCAN COMMENT YES
[2018-04-27 10:19] LABS: ALBUMIN 3.2 GM/DL (3.2-4.5); BILIRUBIN,TOTAL 0.5 MG/DL (0.1-1.0); CALCIUM 8.8 MG/DL (8.5-10.1); CREATININE SERUM 1.23 MG/DL (0.60-1.30); MAGNESIUM 1.7 MG/DL (1.8-2.4); POTASSIUM 3.8 MMOL/L (3.6-5.0); TOTAL PROTEIN 5.8 GM/DL (6.4-8.2)
[2018-04-27] MEDS: SIMvastatin 10 MG (ZOCOR) TAB PO SCH (21:24)
[2018-04-28] VITALS (7 sets, daily range): BP systolic 158–179; BP diastolic 69–84
[2018-04-28] MEDS: ZIPRASIDONE 20 MG INJ (GEODON) VIAL IM PRN (05:37)
[2018-04-28] MEDS: D5 1/2 NS 1000 ML IV SOLUTION 1,000 ML IV SCH (06:19)
[2018-04-28] MEDS: inSUlin ASPART (NovoLOG) 1 UNIT/0.01 ML (CHARGE PER UNIT) SC SCH ×4 (06:24→22:50)
[2018-04-28 06:40] LABS: MEAN PLATELET VOLUME 11.8 FL (7.4-10.4); RED BLOOD COUNT 3.51 10^6/uL (4.35-5.85); RED CELL DISTRIBUTION WIDTH 14.4 % (10.0-14.5)
[2018-04-28 07:10] LABS: BUN/CREATININE RATIO 17; CALCIUM 8.7 MG/DL (8.5-10.1); CARBON DIOXIDE 22 MMOL/L (21-32); CHLORIDE 108 MMOL/L (98-107); CREATININE SERUM 1.09 MG/DL (0.60-1.30); GFR ESTIMATED > 60; GLUCOSE 213 MG/DL (70-105); POTASSIUM 3.4 MMOL/L (3.6-5.0); SODIUM 141 MMOL/L (135-145)
[2018-04-28] MEDS: ENOXAPARIN 40 MG/0.4 ML (LOVENOX) SYR SC SCH (08:59)
[2018-04-28] MEDS: ZIPRASIDONE 20 MG (GEODON) CAP PO SCH ×2 (09:00→17:28)
[2018-04-28] MEDS: amLODIPine 5 MG (NORVASC) TAB PO SCH (09:00)
[2018-04-28] MEDS: lisINopril 5 MG (PRINIVIL) TABLET PO SCH (09:00)
[2018-04-28] MEDS: CLOPIDOGREL 75 MG (PLAVIX) TABLET PO SCH (09:00)
[2018-04-28] MEDS: PANTOPRAZOLE 40 MG (PROTONIX) TAB PO SCH (09:00)
[2018-04-28] MEDS: NICOTINE 21 MG (NICODERM) PATCH TD SCH (09:01)
--- NOTE | 2018-04-28 11:23 | Progress Note-Hospitalist ---
Subjective HPI/CC On Admission Date Seen by Provider: Apr 28, 2018 Time Seen by Provider: 11:19 This is a 77-year-old white male recently discharged after an admission for mental status changes. The patient was brought to the emergency room by EMS and at the time of my interview this morning is no one present to give additional history. The patient himself is unable to give me any additional history but he knows his name and that he said to the hospital. Other than that he won't answer questions and does not follow commands well. He sits hunched forward with his mouth open drooling. Subjective/Events-last exam Pt is very confused. He does not know why he is in the hospital. He doesn't know that he had been here previously. I did called his daughter to discuss his living situation and discussed discharge planning. Focused Exam Lactate Level 04/26/18 04:51: Lactic Acid Level 0.91 Objective Exam Vital Signs Vital Signs Date Time Temp Pulse Resp B/P (MAP) Pulse Ox O2 Delivery O2 Flow Rate FiO2 04/28/18 11:53 98.3 76 20 158/70 (99) 98 Room Air Capillary Refill : Less Than 3 Seconds General Appearance: No Apparent Distress, Chronically ill Respiratory: Lungs Clear, No Respiratory Distress Cardiovascular: Regular Rate, Rhythm, No Murmur Gastrointestinal: Normal Bowel Sounds, Non Tender, Soft Neurologic/Psychiatric: Alert, Disoriented Results/Procedures Lab Laboratory Tests 04/28/18 06:07 Patient resulted labs reviewed. Imaging: Reviewed Imaging Report Assessment/Plan Assessment and Plan Assess & Plan/Chief Complaint ANGEL and AMS Diagnosis/Problems Diagnosis/Problems (1) ANGEL (acute kidney injury) Status: Acute Assessment & Plan: Improving Will DC IVF and monitor volume status with oral intake only Monitor I/Os as able (2) Altered mental status Status: Acute Assessment & Plan: Improving but not back to baseline Qualifiers: Altered mental status type: disorientation Qualified Codes: R41.0 - Disorientation, unspecified (3) Insulin dependent diabetes mellitus Status: Chronic Assessment & Plan: Continue on Sliding Scale A Will add Levemir nightly as fasting still >200 (4) Dementia Status: Chronic Assessment & Plan: Time spent 1112 to 1138 on the phone with patient's out of town daughter to discuss discharge plan Discussed worsening status over the past few months Currently still not back to baseline Discharged home and had 24/7 care by family but still had multiple falls and poor oral intake Discussed possibility of SNF placement Does not have DPOA assigned and pt unwilling to consider behavioral unit placement Daughter also relayed that he has been reluctant to seek care or go to hospital since his Discussed option of hospice as well given patient's desire to seek comfort measures Will have family meeting tomorrow Qualifiers: Dementia type: vascular dementia Dementia behavioral disturbance: with behavioral disturbance Qualified Codes: F01.51 - Vascular dementia with behavioral disturbance (5) Tobacco abuse Status: Chronic Assessment & Plan: Smokes 3ppd Continue Nicotine patch Clinical Quality Measures DVT/VTE Risk/Contraindication: Risk Factor Score Per Nursin RFS Level Per Nursing on Admit: 4+=Very High BEVERLY LARA MD Apr 28, 2018 11:23
--- NOTE | 2018-04-28 11:53 | Physical Therapy Evaluation ---
PT Evaluation-General Medical Diagnosis Admission Date Apr 26, 2018 at 05:00 Medical Diagnosis: AMS Onset Date: Apr 26, 2018 Therapy Diagnosis Therapy Diagnosis: weakness; abn gait Height/Weight Height (Feet): 5 Height (Inches): 4.00 Weight (Pounds): 164 Weight (Ounces): 6.0 Precautions Precautions/Isolations: Fall Prevention Weight Bear Status Right Lower Extremity: Right Weight Bearing/Tolerated Left Lower Extremity: Left Weight Bearing/Tolerated Referral Physician: Milton Reason for Referral: Evaluation/Treatment Medical History Pertinent Medical History: DM, Dementia, GERD, HTN Additional Medical History anxiety Current History Pt admitted with diagnosis of AMS and found to be in ARF. Reviewed History: Yes Social History Home: Single Level Current Living Status: Children Entry Into Home: Stairs With Railing Prior/Core FIM Prior Level of Function Functional [place] Measure 0=Not Assessed/NA 4=Minimal Assistance 1=Total Assistance 5=Supervision or Setup 2=Maximal Assistance 6=Modified [place] 3=Moderate Assistance 7=Complete [place] Bed Mobility: 7 Transfers (B,C,W/C) (FIM): 7 Gait: 7 Per patient report; he also reports that he still drives. PT Evaluation-Current Subjective Agreeable to PT. no complaints. Pain Numeric Pain Scale: 0-No Pain Location: No Pain Reported Objective Patient Orientation: Person, Confused (slightly), Place, Time, Situation Problem Solving: Fair (due to light confusion) Attachments: IV ROM/Strength ROM Lower Extremities WFL Strength Lower Extremities WFL Integumentary/Posture Integumentary Refer to nursing notes. Bowel Incontinence: No Bladder Incontinence: No Posture symmetrical Neuromuscular (Tone, Coordination, Reflexes) intact and functional Sensory Vision: Functional Hearing: Functional Hand Dominance: Right Sensation Right Lower Extremit: Intact Sensation Left Lower Extremity: Intact Transfers Functional [place] Measure 0=Not Assessed/NA 4=Minimal Assistance 1=Total Assistance 5=Supervision or Setup 2=Maximal Assistance 6=Modified [place] 3=Moderate Assistance 7=Complete [place] Transfers (B, C, W/C) (FIM): 5 Sit to/from Stand: 5 SBA for safety. Gait Mode of Locomotion: Walk Anticipated Mode of Locomotion: Walk Gait (FIM): 5 Distance (FIM): 3=150 ft Distance: 200 ft Gait Level of Assist: 5 (SBA for safety) Gait Assistive Device: FWW Comments/Gait Description Tends to keep left knee straight during ambulation. Safe and steady; no noted LOB with gait this visit. Balance Sitting Static: Good Sitting Dynamic: Good Standing Static: Good Standing Dynamic: Fair Treatment PT eval this date. Assessment/Needs Recent hospital stay due to AMS. will benefit from short term PT to work on functional safety and mobility to allow him to return to his PLOF with safe mobility. Rehab Potential: Good PT Buddhist Monk Goals Buddhist Monk Goals PT Buddhist Monk Goals Time Frame: May 02, 2018 Transfers (B,C,W/C) (FIM): 7 Gait (FIM): 6 Gait distance (FIM): 3=150 ft Gait Assistive Device: FWW PT Plan Problem List Problem List: Activity Tolerance, Functional Strength, Safety, Balance, Gait, Transfer, Bed Mobility Treatment/Plan Treatment Plan: Continue Plan of Care Treatment Plan: Bed Mobility, Education, Functional Activity Jerilyn, Functional Strength, Gait, Safety, Therapeutic Exercise, Transfers Treatment Duration: May 02, 2018 Frequency: 6 times per week Estimated Hrs Per Day: .25 hour per day Patient and/or Family Agrees t: Yes Safety Risks/Education Patient Education: Transfer Techniques, Safety Issues Teaching Recipient: Patient Teaching Methods: Discussion Response to Teaching: Reinforcement Needed Time/GCodes Time In: 1130 Time Out: 1151 Total Billed Treatment Time: 21 Total Billed Treatment visit EVL 21 NINFA RUBIN PT Apr 28, 2018 11:53
--- NOTE | 2018-04-28 15:28 | Occupational Therapy Eval ---
OT Evaluation-General/PLF Medical Diagnosis Admission Date Apr 26, 2018 at 05:00 Medical Diagnosis: AMS Onset Date: Apr 26, 2018 Therapy Diagnosis Therapy Diagnosis: decreased self care, decr funct mobility Height/Weight Height (Feet): 5 Height (Inches): 4.00 Weight (Pounds): 164 Weight (Ounces): 6.0 Precautions Precautions/Isolations: Fall Prevention, Contact/Enteric Isolation Safety Interventions: Diversional Activity, Reorient-Attempt, Move Closer to Desk Referral Physician: Milton Referral Reason: Evaluation/Treatment Medical History Pertinent Medical History: Arthritis, CAD, COPD, DM, Dementia, GERD, HTN, Neuropathy, PVD, Renal Insufficiency, Smoking (4 PPD) Additional Medical History Hx alcohol abuse. Cardiac cath and stent. Left fem-tib bypass. Chronic edema. BPH. Cataract R. [place] Current History Admitted with confusion and lethargy. Has acute renal failure, dehydration, inability to care for himself, dementia Reviewed History: Yes Social History Home: Single Level Current Living Status: Children (daughter) Entry Into Home: Stairs With Railing ADL-Prior Level of Function ADL PLOF Comments Pt reported that he has been able to care for his basic self care needs but it is unclear if he is an accurate historian. 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 No pain mentioned but he winced when moving R leg. Unable to identify location of pain or rate it. Appearance Alert to name, and location Mental Status/Objective Attachments: Saline Lock Current Dentures/Partials: No (no teeth) Hand Dominance: Right Upper Extremity ROM Grossly WFL bilat Upper Extremity Strength Grossly 4/5 bilat ADL-Treatment ADL-Current Pt was able to move from supine to sit EOB but did wince with pain when he moved his R leg. He could get slipper socks off and on but needed skilled cues for alternate technique to don sock on L foot. he could scoot up in bed and stood with SBA to sidestep. He also was able to get a drink of water. Nursing reported that he toileted SBA, FWW. Coban wrap on R hand over IV is tight and hand is edematous distal to wrap. Nursing notified and changing dressing. He has a sitter for safety Functional [place] Measure 0=Not Assessed/NA 4=Minimal Assistance 1=Total Assistance 5=Supervision or Setup 2=Maximal Assistance 6=Modified [place] 3=Moderate Assistance 7=Complete IndependenceIRFPAI Quality Coding Scale 6 Independent with activity with or without an assistive device 5 Patient requires set up or clean up by helper. Patient completes activity by themselves 4 Supervision or touching assist (CGA). [place] provide cues , steadying assist 3 The helper provides less than half the effort to complete the activity 2 The helper provides more than half the effort to complete the activity 1 Dependent. The helper does all the effort to complete an activity 7 Patient refused to complete or attempt activity 9 The patient did not perform the activity before the current illness or injury 88 Not attempted due to Medical conditions or safety concerns Grooming (FIM): 5 Toileting (FIM): 5 Education OT Patient Education: Modified ADL techniques, Purpose of tx/functional activities, Rehab process, Transfer techniques Teaching Recipient: Patient Teaching Methods: Discussion Response to Teaching: Return Demonstration, Reinforcement Needed OT Fpc Goals Fpc Goals Time Frame: May 05, 2018 Eating (FIM): 6 Grooming(FIM): 6 Bathing(FIM): 5 Upper Body Dressing(FIM): 5 Lower Body Dressing(FIM): 5 Toileting(FIM): 6 Toilet/Commode Transfer(FIM): 6 Shower Transfer(FIM): 5 Additional Goals: 1-Demonstrate ADL Tasks, 2-Verbalize Understanding, 3- ImproveStrength/Jerilyn 1=Demonstrate adherence to instructed precautions during ADL tasks. 2=Patient will verbalize/demonstrate understanding of assistive devices/ modifications for ADL. 3=Patient will improve strength/tolerance for activity to enable patient to perform ADL's. OT Education/Plan Problem List/Assessment Assessment: Decreased Safety Aware, Decreased UE Strength, Dependent Transfers , Impaired Cognition, Impaired Self-Care Skills Pt would benefit from skilled OT to increase his independence in basic self care Discharge Recommendations Plan/Recommendations: Continue POC Treatment Plan/Plan of Care Treatment,Training & Education: Yes Patient would benefit from OT for education, treatment and training to promote independence in ADL's, mobility, safety and/or upper extremity function for ADL' s. Plan of Care: ADL Retraining, Functional Mobility, UE Funct Exercise/Act, UE Neuromus Re-Ed/Coord Treatment Duration: May 05, 2018 Frequency: 5 times per week Estimated Hrs Per Day: .25 hour per day (to .5) Agreement: Yes Rehab Potential: Good Time/GCodes Start Time: 14:17 Stop Time: 14:37 Total Time Billed (hr/min): 20 Billed Treatment Time visit, 20 minutes evaluation moderate intensity DEANA HAYES OT Apr 28, 2018 15:28
[2018-04-28] MEDS: SIMvastatin 10 MG (ZOCOR) TAB PO SCH (22:49)
[2018-04-28] MEDS: inSUlin DETERMIR 1 UNIT/0.01 ML (LEVEMIR) CHARGE PER UNIT SQ SCH (22:50)
[2018-04-29 03:15] VITALS: BP 148/62
[2018-04-29] MEDS: ZIPRASIDONE 20 MG INJ (GEODON) VIAL IM PRN (05:07)
[2018-04-29] MEDS: WATER (STERILE) FOR INJECTION 20 ML VIAL IV PRN (05:08)
[2018-04-29] MEDS: inSUlin ASPART (NovoLOG) 1 UNIT/0.01 ML (CHARGE PER UNIT) SC SCH ×4 (05:14→23:17)
[2018-04-29 07:57] VITALS: BP 165/75
[2018-04-29] MEDS: NICOTINE 21 MG (NICODERM) PATCH TD SCH (08:06)
[2018-04-29] MEDS: CLOPIDOGREL 75 MG (PLAVIX) TABLET PO SCH (08:07)
[2018-04-29] MEDS: lisINopril 5 MG (PRINIVIL) TABLET PO SCH (08:07)
[2018-04-29] MEDS: amLODIPine 5 MG (NORVASC) TAB PO SCH (08:07)
[2018-04-29] MEDS: ENOXAPARIN 40 MG/0.4 ML (LOVENOX) SYR SC SCH (08:07)
[2018-04-29] MEDS: PANTOPRAZOLE 40 MG (PROTONIX) TAB PO SCH (08:07)
[2018-04-29] MEDS: ZIPRASIDONE 20 MG (GEODON) CAP PO SCH ×2 (08:07→18:27)
--- NOTE | 2018-04-29 10:17 | Physical Therapy Daily Note ---
PT Daily Note-Current Subjective Patient agrees to PT. No c/o. Pain Numeric Pain Scale: 0-No Pain Location: No Pain Reported Mental Status Patient Orientation: Confused Transfers Functional [place] Measure 0=Not Assessed/NA 4=Minimal Assistance 1=Total Assistance 5=Supervision or Setup 2=Maximal Assistance 6=Modified [place] 3=Moderate Assistance 7=Complete IndependenceIRFPAI Quality Coding Scale 6 Independent with activity with or without an assistive device 5 Patient requires set up or clean up by helper. Patient completes activity by themselves 4 Supervision or touching assist (CGA). [place] provide cues , steadying assist 3 The helper provides less than half the effort to complete the activity 2 The helper provides more than half the effort to complete the activity 1 Dependent. The helper does all the effort to complete an activity 7 Patient refused to complete or attempt activity 9 The patient did not perform the activity before the current illness or injury 88 Not attempted due to Medical conditions or safety concerns Transfers (B, C, W/C) (FIM): 7 Scootin Rollin Supine to/from Sit: 7 Sit to/from Stand: 7 Bed to/from Chair: 7 Weight Bearing Right Lower Extremity: Right Weight Bearing/Tolerated Left Lower Extremity: Left Weight Bearing/Tolerated Gait Training Gait (FIM): 1 Distance (FIM): 1=up to 49 ft Distance: 45' x 3 Gait Level of Assist: 6 Gait Assistive Device: FWW patient ambulates with and without FWW without difficulty Assessment Patient is currently at [facility] with gross motor skills safely and does not require continued skilled therapy. PT to dismiss patient from services at this time. PT Residential Goals Residential Goals PT Telegraphic Instrument Supervisor Goals Time Frame: May 02, 2018 Transfers (B,C,W/C) (FIM): 7 Gait (FIM): 6 Gait distance (FIM): 3=150 ft Gait Assistive Device: FWW PT Plan Treatment/Plan Treatment Plan: Discontinue PT, goals met Treatment Plan: Bed Mobility, Education, Functional Activity Jerilyn, Functional Strength, Gait, Safety, Therapeutic Exercise, Transfers Treatment Duration: May 02, 2018 Frequency: 6 times per week Estimated Hrs Per Day: .25 hour per day Patient and/or Family Agrees t: Yes Time/GCodes Time In: 921 Time Out: 935 Total Billed Treatment Time: 14 Total Billed Treatment 1 visit FA 14 min ROGELIO BHARDWAJ PT Apr 29, 2018 10:17
[2018-04-29] MEDS ORDERED: VANCOMYCIN ORAL SUSPENSION 60 ML BOTTLE PO SCH (10:45)
--- NOTE | 2018-04-29 10:48 | Occupational Ther Daily Note ---
OT Current Status-Daily Note Subjective Pt alert, sitting up in recliner. Pt required encouragement to participate in therapy. Pt stated that if he didn't have to work with his foot he would do something. No c/o pain. Pt kept talking about going to the hospital and when told he was in a hospital he said he knew he was. Then would say he would go to the hospital if that didn't work he would go to the one in [place]. Mental Status/Objective Patient Orientation: Person Functional [place] Measure 0=Not Assessed/NA 4=Minimal Assistance 1=Total Assistance 5=Supervision or Setup 2=Maximal Assistance 6=Modified [place] 3=Moderate Assistance 7=Complete [place] Other Treatment Pt stated that he had a shower last night, nrsg confirmed. Encouragement and physical/visual cues to complete UE exercises. Pt completed 4 UE exercises slowly and took increased time between each one. B shldr flexion approximately 90 degrees. After therapy, physician and nrsg in room. All needs met in room. OT Short Term Goals Short Term Goals 1=Demonstrate adherence to instructed precautions during ADL tasks. 2=Patient will verbalize/demonstrate understanding of assistive devices/ modifications for ADL. 3=Patient will improve strength/tolerance for activity to enable patient to perform ADL's. OT Harvesting Contractor Goals Harvesting Contractor Goals Time Frame: May 05, 2018 Eating (FIM): 6 Grooming(FIM): 6 Bathing(FIM): 5 Upper Body Dressing(FIM): 5 Lower Body Dressing(FIM): 5 Toileting(FIM): 6 Toilet/Commode Transfer(FIM): 6 Shower Transfer(FIM): 5 Additional Goals: 1-Demonstrate ADL Tasks, 2-Verbalize Understanding, 3- ImproveStrength/Jerilyn 1=Demonstrate adherence to instructed precautions during ADL tasks. 2=Patient will verbalize/demonstrate understanding of assistive devices/ modifications for ADL. 3=Patient will improve strength/tolerance for activity to enable patient to perform ADL's. OT Education/Plan Problem List/Assessment Pt would benefit from skilled OT to increase his independence in basic self care Discharge Recommendations Plan/Recommendations: Continue POC Treatment Plan/Plan of Care Patient would benefit from OT for education, treatment and training to promote independence in ADL's, mobility, safety and/or upper extremity function for ADL' s. Plan of Care: ADL Retraining, Functional Mobility, UE Funct Exercise/Act, UE Neuromus Re-Ed/Coord Treatment Duration: May 05, 2018 Frequency: 5 times per week Estimated Hrs Per Day: .25 hour per day (to .5) Agreement: Yes Rehab Potential: Good Time/GCodes Start Time: 10:20 Stop Time: 10:43 Total Time Billed (hr/min): 23 Billed Treatment Time 1 visit-EX 2 (23 min) NINFA PHAM Apr 29, 2018 10:48
--- NOTE | 2018-04-29 10:53 | Progress Note-Hospitalist ---
Subjective HPI/CC On Admission Date Seen by Provider: Apr 29, 2018 Time Seen by Provider: 10:47 This is a 77-year-old white male recently discharged after an admission for mental status changes. The patient was brought to the emergency room by EMS and at the time of my interview this morning is no one present to give additional history. The patient himself is unable to give me any additional history but he knows his name and that he said to the hospital. Other than that he won't answer questions and does not follow commands well. He sits hunched forward with his mouth open drooling. Subjective/Events-last exam More alert today. Recognized me as his doctor but otherwise still confused. Informed of c diff infection and he denied any BMs today or yesterday. Objective Exam Vital Signs Vital Signs Date Time Temp Pulse Resp B/P (MAP) Pulse Ox O2 Delivery O2 Flow Rate FiO2 04/29/18 08:59 Room Air 04/29/18 07:57 82 20 165/75 (105) 99 04/29/18 03:15 98.3 Capillary Refill : Less Than 3 Seconds General Appearance: No Apparent Distress, Chronically ill Respiratory: Lungs Clear, No Respiratory Distress Cardiovascular: Regular Rate, Rhythm, No Murmur Gastrointestinal: Normal Bowel Sounds, Non Tender, Soft; No Distended, No Guarding Neurologic/Psychiatric: Alert, Disoriented Results/Procedures Lab Patient resulted labs reviewed. Imaging: Reviewed Imaging Report Assessment/Plan Assessment and Plan Assess & Plan/Chief Complaint ANGEL and AMS Diagnosis/Problems Diagnosis/Problems (1) ANGEL (acute kidney injury) Status: Acute Assessment & Plan: Resolved Tolerating oral intake (2) C. difficile diarrhea Status: Acute Assessment & Plan: Oral Vanc started (3) Altered mental status Status: Acute Assessment & Plan: Improving but not back to baseline per family Family meeting today Qualifiers: Altered mental status type: disorientation Qualified Codes: R41.0 - Disorientation, unspecified (4) Insulin dependent diabetes mellitus Status: Chronic Assessment & Plan: Continue on Sliding Scale A Levemir given last night Trend Has a history of labile BS so will tolerate high BS for now (5) Dementia Status: Chronic Assessment & Plan: Discussed worsening status over the past few months with daughter on 04/28 Currently still not back to baseline Discharged home last admission and had 24/7 care by family but still had multiple falls and poor oral intake Discussed possibility of SNF placement Does not have DPOA assigned and pt unwilling to consider behavioral unit placement Daughter also relayed that he has been reluctant to seek care or go to hospital since his Discussed option of hospice as well given patient's desire to seek comfort measures Will have family meeting today at 3pm Qualifiers: Dementia type: vascular dementia Dementia behavioral disturbance: with behavioral disturbance Qualified Codes: F01.51 - Vascular dementia with behavioral disturbance (6) Tobacco abuse Status: Chronic Assessment & Plan: Smokes 3ppd Continue Nicotine patch Clinical Quality Measures DVT/VTE Risk/Contraindication: Risk Factor Score Per Nursin RFS Level Per Nursing on Admit: 4+=Very High BEVERLY LARA MD Apr 29, 2018 10:53 am
[2018-04-29] MEDS: VANCOMYCIN ORAL 250 MG/5 ML 120 ML PO SCH ×4 (12:07→18:27)
[2018-04-29 12:30] VITALS: BP 150/60
[2018-04-29 15:45] VITALS: BP 162/77
[2018-04-29 19:58] VITALS: BP 164/74
[2018-04-29] MEDS: SIMvastatin 10 MG (ZOCOR) TAB PO SCH (23:14)
[2018-04-29] MEDS: inSUlin DETERMIR 1 UNIT/0.01 ML (LEVEMIR) CHARGE PER UNIT SQ SCH (23:14)
[2018-04-30 00:18] VITALS: BP 160/71
[2018-04-30] MEDS: VANCOMYCIN ORAL 250 MG/5 ML 120 ML PO SCH ×6 (01:16→12:37)
[2018-04-30 03:54] VITALS: BP 163/70
[2018-04-30 06:03] LABS: BASOPHILS % (AUTO) 0 % (0-10); EOSINOPHILS # (AUTO) 0.2 10^3/uL (0.0-0.3); EOSINOPHILS % (AUTO) 3 % (0-10); HEMATOCRIT 36 % (40-54); LYMPHOCYTES # (AUTO) 0.9 X 10^3 (1.0-4.0); LYMPHOCYTES % (AUTO) 13 % (12-44); MEAN CORPUSCULAR HEMOGLOBIN 31 PG (25-34); MEAN CORPUSCULAR HGB CONC 34 G/DL (32-36); MEAN CORPUSCULAR VOLUME 93 FL (80-99); MEAN PLATELET VOLUME 10.9 FL (7.4-10.4); MONOCYTES # (AUTO) 0.6 X 10^3 (0.0-1.0); MONOCYTES % (AUTO) 8 % (0-12); NEUTROPHILS # (AUTO) 5.1 X 10^3 (1.8-7.8); NEUTROPHILS % (AUTO) 75 % (42-75); PLATELET COUNT 171 10^3/uL (130-400); RED BLOOD COUNT 3.83 10^6/uL (4.35-5.85); RED CELL DISTRIBUTION WIDTH 14.6 % (10.0-14.5); WHITE BLOOD COUNT 6.8 10^3/uL (4.3-11.0)
[2018-04-30 06:35] LABS: CALCIUM 9.3 MG/DL (8.5-10.1); CREATININE SERUM 1.36 MG/DL (0.60-1.30); POTASSIUM 3.7 MMOL/L (3.6-5.0)
[2018-04-30] MEDS: ZIPRASIDONE 20 MG (GEODON) CAP PO SCH (06:52)
[2018-04-30] MEDS: inSUlin ASPART (NovoLOG) 1 UNIT/0.01 ML (CHARGE PER UNIT) SC SCH ×2 (06:52→12:28)
[2018-04-30 08:00] VITALS: BP 180/80
[2018-04-30] MEDS: ENOXAPARIN 40 MG/0.4 ML (LOVENOX) SYR SC SCH (09:25)
[2018-04-30] MEDS: NICOTINE 21 MG (NICODERM) PATCH TD SCH (09:26)
[2018-04-30] MEDS: PANTOPRAZOLE 40 MG (PROTONIX) TAB PO SCH (09:26)
[2018-04-30] MEDS: CLOPIDOGREL 75 MG (PLAVIX) TABLET PO SCH (09:26)
[2018-04-30] MEDS: amLODIPine 5 MG (NORVASC) TAB PO SCH (09:26)
[2018-04-30] MEDS: lisINopril 5 MG (PRINIVIL) TABLET PO SCH (09:26)
--- NOTE | 2018-04-30 11:05 | Occupational Ther Daily Note ---
OT Current Status-Daily Note Subjective Pt alert, sitting on EOB. Sitter in room. Pt confused, required encouragement to participate with therapy. Pt continuously asked for cigarette, explained to pt that there were no cigarettes. Pt did not realize he was in the hospital, asked to lay down in the other room. YOST explained he was sitting on his bed at [facility] in [place]. Same conversations throughout the treatment session. Mental Status/Objective Patient Orientation: Person, Confused Functional [place] Measure 0=Not Assessed/NA 4=Minimal Assistance 1=Total Assistance 5=Supervision or Setup 2=Maximal Assistance 6=Modified [place] 3=Moderate Assistance 7=Complete [place] Attachments: IV ADL-Treatment Pt agrees to 'wash up'. Pt's movements are slow and unsteady. Pt would be using FWW then reach for something to steady self. Verbal and physical cues to place hand on FWW and to keep FWW close when ambulating. Assist to doff R sock , doffed L sock after encouragement. Pt wanted YOST to complete all dressing for pt. Mod A for sit to stands. Pt stood to doff pants and shirt, attempted to redirect and have pt sit for safety, would not sit. After set up, pt completed shower with supervision for safety using shower bench, grabbar and hand held shower. Pt onned shirt by self after set up. Assist to don lower body clothing. Pt ambulated back to bed and sat EOB. Took increased time to direct pt to lay down in bed, see subjective note. After therapy, pt lying in bed asking for cigarette with call light in reach. All needs met in room. Safety measures in place. Bathing (FIM): 5 Bathing Location: L Arm, R Arm, L Upper Leg, R Upper Leg, L Lower Leg ( including foot), R Lower Leg (including foot), Chest, Abdomen, Buttocks, Perineal Area Upper Body (FIM): 5 Lower Body Dressing (FIM): 2 Toilet/Commode Transfer (FIM): 4 Shower Transfer(FIM): 4 OT Short Term Goals Short Term Goals 1=Demonstrate adherence to instructed precautions during ADL tasks. 2=Patient will verbalize/demonstrate understanding of assistive devices/ modifications for ADL. 3=Patient will improve strength/tolerance for activity to enable patient to perform ADL's. OT Manager Of Case Management Goals Manager Of Case Management Goals Time Frame: May 05, 2018 Eating (FIM): 6 Grooming(FIM): 6 Bathing(FIM): 5 Upper Body Dressing(FIM): 5 Lower Body Dressing(FIM): 5 Toileting(FIM): 6 Toilet/Commode Transfer(FIM): 6 Shower Transfer(FIM): 5 Additional Goals: 1-Demonstrate ADL Tasks, 2-Verbalize Understanding, 3- ImproveStrength/Jerilyn 1=Demonstrate adherence to instructed precautions during ADL tasks. 2=Patient will verbalize/demonstrate understanding of assistive devices/ modifications for ADL. 3=Patient will improve strength/tolerance for activity to enable patient to perform ADL's. OT Education/Plan Problem List/Assessment Pt would benefit from skilled OT to increase his independence in basic self care Discharge Recommendations Plan/Recommendations: Continue POC Treatment Plan/Plan of Care Patient would benefit from OT for education, treatment and training to promote independence in ADL's, mobility, safety and/or upper extremity function for ADL' s. Plan of Care: ADL Retraining, Functional Mobility, UE Funct Exercise/Act, UE Neuromus Re-Ed/Coord Treatment Duration: May 05, 2018 Frequency: 5 times per week Estimated Hrs Per Day: .25 hour per day (to .5) Agreement: Yes Rehab Potential: Good Time/GCodes Start Time: 09:35 Stop Time: 10:40 Total Time Billed (hr/min): 65 Billed Treatment Time 1 visit-ADL 4 (65 min) NINFA PHAM Apr 30, 2018 11:05
--- NOTE | 2018-04-30 11:34 | Discharge Summary-Hospitalist ---
Diagnosis/Chief Complaint Date of Admission Apr 26, 2018 at 05:00 Date of Discharge Admission Diagnosis 1. Acute renal failure 2. Dehydration 3. Type II diabetes on insulin 4. Mental status changes acute on chronic 5. Inability to care for self 6. 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 History of hypertension 8. History of COPD Plan to admit for IV fluid hydration social work consult and discharge to full care facility Discharge Diagnosis (1) ANGEL (acute kidney injury) Status: Acute Assessment & Plan: Back to baseline (2) C. difficile diarrhea Status: Acute Assessment & Plan: Oral Vanc started (3) Altered mental status Status: Acute Assessment & Plan: Continues to improve Has baseline dementia Had family meeting with all children yesterday and they are pursuing enrollment in hospice Discussed with Sascha today and he believes they met with two hospice agencies but he is not sure who they picked (4) Insulin dependent diabetes mellitus Status: Chronic Assessment & Plan: Continue on Sliding Scale A Levemir given last night Trend Has a history of labile BS so will tolerate high BS for now (5) Dementia Status: Chronic Assessment & Plan: Discussed worsening status over the past few months with daughter on 04/28 Currently still not back to baseline Discharged home last admission and had 24/7 care by family but still had multiple falls and poor oral intake Discussed possibility of SNF placement Does not have DPOA assigned and pt unwilling to consider behavioral unit placement Daughter also relayed that he has been reluctant to seek care or go to hospital since his Discussed option of hospice as well given patient's desire to seek comfort measures Had family meeting on 04/29- family interested in pursuing hospice Informed patient of that today and he was agreeable as well (6) Tobacco abuse Status: Chronic Assessment & Plan: Smokes 3ppd Continue Nicotine patch Discharge Summary Discharge Physical Exam Allergies: Coded Allergies: NKANo Known Allergies (Unverified Allergy, Mild, 06/21/09) Vitals & I&Os Vital Signs Date Time Temp Pulse Resp B/P (MAP) Pulse Ox O2 Delivery O2 Flow Rate FiO2 04/30/18 17:10 77 18 189/85 97 Room Air 04/30/18 12:00 97.5 General Appearance: Alert Respiratory: Clear to Auscultation Cardiovascular: Regular Rate Hospital Course Pt was admitted for ANGEL and altered mental status which resolved with IVF. Discussions were had with his family regarding his prognosis and decline since his . The family felt very strongly about keeping him home as long as they were able in accordance with his wishes. They ultimately elected hospice and were discharged home. Labs (last 24 hrs) Microbiology 04/28/18 C. difficile DNA Amplification - Final, Complete Patient resulted labs reviewed. Pending Labs Imaging: Reviewed Imaging Report Discussion & Recommendations Discharge Planning: >30 minutes discharge planning Discharge Home Medications: Active Scripts Active Ziprasidone HCl 20 Mg Capsule 20 Mg PO BID WITH MEALS Levemir (Insulin Determir) 1,000 Units/10 Ml Soln 10 Unit SQ HS Reported Allopurinol 100 Mg Tablet 200 Mg PO DAILY TAKE 2 (100 MG) TABLETS DAILY Alprazolam 0.25 Mg Tablet 0.25 Mg PO HS PRN Pantoprazole Sodium 40 Mg Tablet.dr 40 Mg PO DAILY Instructions to patient/family Please see electronic discharge instructions given to patient. Clinical Quality Measures DVT/VTE Risk/Contraindication: Risk Factor Score Per Nursin RFS Level Per Nursing on Admit: 4+=Very High Problem Qualifiers (1) Altered mental status: Altered mental status type: disorientation Qualified Codes: R41.0 - Disorientation, unspecified (2) Dementia: Dementia type: vascular dementia Dementia behavioral disturbance: with behavioral disturbance Qualified Codes: F01.51 - Vascular dementia with behavioral disturbance BEVERLY LARA MD Apr 30, 2018 11:34
[2018-04-30] MEDS ORDERED: INSU100V5 SQ (11:35)
[2018-04-30 12:00] VITALS: BP 189/85
[2018-04-30] MEDS: ZIPRASIDONE 20 MG INJ (GEODON) VIAL IM PRN (13:26)
[2018-04-30] MEDS: WATER (STERILE) FOR INJECTION 20 ML VIAL IV PRN (13:27)
[2018-04-30] MEDS ORDERED: RELABEL FOR HOME USE MC SCH (14:00)
--- NOTE | 2018-04-30 14:00 | Discharge Inst-Simple/Standard ---
Discharge Inst-Standard Discharge Medications New, Converted or Re-Newed RX: RX Given to Pt/Family Patient Instructions/Follow Up Plan of Care/Instructions/FU: Please continue to take your medications as written. Please follow up with the hospice agencies this evening for education and possible enrollment. Activity as Tolerated: Yes Discharge Diet: No Restrictions Return to The Hospital For: If you feel you are getting worse. Planned Outpatient Orders/Ref. Pneu Vac Indicated: Yes BEVERLY LARA MD Apr 30, 2018 2:00 pm
[2018-04-30] MEDS ORDERED: ZIPR20CA24 PO (15:08)
[2018-04-30 17:10] VITALS: BP 189/85
== END 2018-04-30 17:10 | disposition hospice, home (50) | DRG 683 ==
LOC: EDUNIT# 03:36 → ER 03:38 → ICU 05:00 → 4TH 16:33
PROVIDERS: ADMIT Internal Medicine; ATTEND Internal Medicine
DX: N17.9 Acute kidney failure, unspecified (principal); A04.72 Enterocolitis due to Clostridium difficile, not specified as recurrent; F01.51 Vascular dementia, unspecified severity, with behavioral disturbance; E86.0 Dehydration; I10 Essential (primary) hypertension; E83.42 Hypomagnesemia; R41.0 Disorientation, unspecified; J44.9 Chronic obstructive pulmonary disease, unspecified; E11.51 Type 2 diabetes mellitus with diabetic peripheral angiopathy without gangrene; E11.42 Type 2 diabetes mellitus with diabetic polyneuropathy; I25.10 Atherosclerotic heart disease of native coronary artery without angina pectoris; F17.210 Nicotine dependence, cigarettes, uncomplicated; E78.00 Pure hypercholesterolemia, unspecified; R63.4 Abnormal weight loss; F41.9 Anxiety disorder, unspecified; M19.91 Primary osteoarthritis, unspecified site; H91.90 Unspecified hearing loss, unspecified ear; N40.0 Benign prostatic hyperplasia without lower urinary tract symptoms; K21.9 Gastro-esophageal reflux disease without esophagitis; K44.9 Diaphragmatic hernia without obstruction or gangrene; Z91.19 Patient's noncompliance with other medical treatment and regimen; Z95.5 Presence of coronary angioplasty implant and graft; Z79.4 Long term (current) use of insulin; Z74.2 Need for assistance at home and no other household member able to render care; Z95.828 Presence of other vascular implants and grafts; Z86.14 Personal history of Methicillin resistant Staphylococcus aureus infection
CPT/HCPCS: 36415; 70450; 71045; 80048; 80053; 80198; 80320; 80329; 82140; 82962; 83605; 83735; 84443; 84484; 85025; 85027; 85610; 85730; 87324; 87449; 87493; 93005

== ENCOUNTER 2018-08-27 08:17 | Emergency (ER) | payer MEDICARE, MEDICAID ==
[~2018-08-27] VITALS: Ht 175.3 cm; Wt 79.4 kg
[~2018-08-27 08:17] MED LIST changes: +AMLO5TAB7 PO; +INSU100V5 SQ; -IPRA3AMP IH; +IPRA3AMP31 IH; +ZIPR20CA24 PO
--- OUTSIDE RECORDS SUMMARY | 2018-08-27 08:21 | XMS REPORT ---
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 Active 572133079 Problem Hypertension, benign I10 Active 04707269 Problem Chronic systolic congestive heart failure I50.22 Active 508968797 ALLERGIES No Information ENCOUNTERS Encounter Location Date Diagnosis [place] [address] [address] [id number] [place] [phone] Aug, [place] [address] [phone] Jul, Bilateral edema of lower extremity R60.0 [place] [id number] [place] [phone] Jul, PVD (peripheral vascular disease) I73.9 [place] [id number] [place] [address] 07 Jul, 2018 PVD (peripheral vascular disease) I73.9 ; 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 ; Tobacco abuse Z72.0 ; Tobacco abuse counseling Z71.6 ; Panlobular emphysema J43.1 ; Hypertension, benign I10 ; Chronic systolic congestive heart failure I50.22 and Unsteady gait R26.81 [place] [address] [place] [address] [id number] [place] [address] Jun, [facility] [address] [facility] [id number] [place] [address] Oct, [facility] [address] [facility] [id number] [place] [address] Oct, IMMUNIZATIONS No Known Immunizations SOCIAL HISTORY Never Assessed REASON FOR VISIT Home Health PLAN OF CARE VITAL SIGNS MEDICATIONS Medication Instructions Dosage Frequency Start Date End Date Duration Status Support Compression Sock Mens - wear on nivia lower extremities 24h Jul Active RESULTS No Results PROCEDURES No Known procedures INSTRUCTIONS MEDICATIONS ADMINISTERED No Known Medications MEDICAL (GENERAL) HISTORY Type Description Date Medical History dementia Medical History COPD Medical History Hypertension Surgical History Prostate surgery
--- OUTSIDE RECORDS SUMMARY | 2018-08-27 08:21 | XMS REPORT ---
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 Active 240872577 Problem Hypertension, benign I10 Active 26026804 Problem Chronic systolic congestive heart failure I50.22 Active 910638467 ALLERGIES No Known Allergies ENCOUNTERS Encounter Location Date Diagnosis [place] [address] [place] [id number] [place] [phone] Aug, [place] [address] [id number] [place] [address] Jul, Bilateral edema of lower extremity R60.0 [place] [address] [place] [id number] [place] [address] Jul, PVD (peripheral vascular disease) I73.9 [facility] [id number] [place] [address] 07 Jul, 2018 PVD (peripheral vascular disease) I73.9 ; 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 ; Tobacco abuse Z72.0 ; Tobacco abuse counseling Z71.6 ; Panlobular emphysema J43.1 ; Hypertension, benign I10 ; Chronic systolic congestive heart failure I50.22 and Unsteady gait R26.81 [place] [address] [place] [address] [id number] [place] [address] Jun, [facility] [address] [facility] [id number] [place] [address] Oct, [facility] [address] [facility] [id number] [place] [address] Oct, IMMUNIZATIONS No Known Immunizations SOCIAL HISTORY Never Assessed REASON FOR VISIT Establish Care, Daughter reports the pt has severe edema in his feet -Omar HERNANDEZ PLAN OF CARE Activity Details Follow Up 4 Weeks Reason:diabetes 2 VITAL SIGNS Height 66 in 2018-07-25 Weight 155.7 lbs 2018-07-25 Temperature 98.1 degrees Fahrenheit 2018-07-25 Heart Rate 78 bpm 2018-07-25 Respiratory Rate 20 2018-07-25 Oximetry on room air:94 % 2018-07-25 BMI 25.13 kg/m2 2018-07-25 Blood pressure systolic 148 mmHg 2018-07-25 Blood pressure diastolic 70 mmHg 2018-07-25 MEDICATIONS Medication Instructions Dosage Frequency Start Date End Date Duration Status True Metrix Blood Glucose Test - USE TO TEST THREE TIMES DAILY 33 Active Quetiapine Fumarate 50 mg Oral 2 times a day 1 tablet 12h Active Lisinopril 5 MG TAKE 1 TABLET BY MOUTH ONCE DAILY 30 Active Allopurinol 100 MG TAKE 2 TABLETS BY MOUTH ONCE DAILY 30 Active Lorazepam 0.5 MG Orally Once a day, at night 1 tablet at bedtime as needed Jul, Active Wheel Chair K1 Basic Desk Arm - as directed Jul, Active Senexon-S 8.6-50 MG Oral 2 times a day 3 tablets as needed 12h Active Commode Bedside - as directed Jul, lifetime Active Morphine Sulfate ER 15 mg Oral 3 times a day 1 tablet 8h Jul, Active Furosemide 40 MG TAKE 1 TABLET BY MOUTH ONCE DAILY 30 Active Oxycodone HCl 5 mg Orally 3 times a day 1 tablet as needed 8h Jul, Active Cane - as directed Jul, Active RESULTS No Results PROCEDURES Procedure Date Ordered Result Body Site [facility] VISIT ESTABLISHED PATIENT Jul 25, 2018 INSTRUCTIONS MEDICATIONS ADMINISTERED No Known Medications MEDICAL (GENERAL) HISTORY Type Description Date Medical History dementia Medical History COPD Medical History Hypertension Surgical History Prostate surgery
--- OUTSIDE RECORDS SUMMARY | 2018-08-27 08:21 | XMS REPORT ---
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 Active 264128335 Problem Hypertension, benign I10 Active 13052133 Problem Chronic systolic congestive heart failure I50.22 Active 969163267 ALLERGIES No Information ENCOUNTERS Encounter Location Date Diagnosis [place] [address] [place] [id number] [place] [phone] Aug, [place] [address] [place] [address] [id number] [place] [address] Jul, 2018 PVD (peripheral vascular disease) I73.9 [place] [address] [place] [address] [id number] [place] [address] 07 Jul, 2018 PVD (peripheral vascular disease) I73.9 ; 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 ; Tobacco abuse Z72.0 ; Tobacco abuse counseling Z71.6 ; Panlobular emphysema J43.1 ; Hypertension, benign I10 ; Chronic systolic congestive heart failure I50.22 and Unsteady gait R26.81 [facility] [address] [place] [address] [id number] [place] [address] Jun, [place] [address] [place] [id number] [place] [phone] Oct, [place] [id number] [place] [address] Oct, IMMUNIZATIONS No Known Immunizations SOCIAL HISTORY Never Assessed REASON FOR VISIT home health PLAN OF CARE VITAL SIGNS MEDICATIONS Unknown Medications RESULTS No Results PROCEDURES No Known procedures INSTRUCTIONS MEDICATIONS ADMINISTERED No Known Medications MEDICAL (GENERAL) HISTORY Type Description Date Medical History dementia Medical History COPD Medical History Hypertension Surgical History Prostate surgery
--- OUTSIDE RECORDS SUMMARY | 2018-08-27 08:21 | XMS REPORT | Clinical Summary ---
Author Author [facility] Organization [facility] Address Unknown Phone Unavailable Care Team Providers Care Delimer Name Role Phone PCP Unavailable Allergies Not on File Current Medications Not on file Active Problems Not on file Social History Tobacco Use Types Packs/Day Years Used Date Never Assessed Sex Assigned at Date Recorded Not on file Last Filed Vital Signs Not on file Plan of Treatment Not on file Results Not on filefrom Last 3 Months
[2018-08-27 08:42] LABS: BASOPHILS % (AUTO) 0 % (0-10); EOSINOPHILS % (AUTO) 0 % (0-10); HEMATOCRIT 32 % (40-54); HEMOGLOBIN 10.9 G/DL (13.3-17.7); LYMPHOCYTES # (AUTO) 0.4 X 10^3 (1.0-4.0); LYMPHOCYTES % (AUTO) 6 % (12-44); MEAN CORPUSCULAR HEMOGLOBIN 34 PG (25-34); MEAN CORPUSCULAR HGB CONC 34 G/DL (32-36); MEAN CORPUSCULAR VOLUME 98 FL (80-99); MEAN PLATELET VOLUME 10.9 FL (7.4-10.4); MONOCYTES # (AUTO) 0.2 X 10^3 (0.0-1.0); MONOCYTES % (AUTO) 3 % (0-12); NEUTROPHILS # (AUTO) 6.3 X 10^3 (1.8-7.8); NEUTROPHILS % (AUTO) 91 % (42-75); PLATELET COUNT 166 10^3/uL (130-400); RED BLOOD COUNT 3.25 10^6/uL (4.35-5.85); RED CELL DISTRIBUTION WIDTH 16.8 % (10.0-14.5); WHITE BLOOD COUNT 6.9 10^3/uL (4.3-11.0)
--- NOTE | 2018-08-27 08:50 | Diagnostic Imaging Report ---
PROCEDURE: CT head without contrast. TECHNIQUE: Multiple contiguous axial images were obtained through the brain without the use of intravenous contrast. INDICATION: Altered mental status. Comparison made with prior examination of 04/26/2018. FINDINGS: There is prominence of the ventricles and sulci. There is no hydrocephalus or cerebral edema. There is no midline shift or mass-effect. There is no intracranial mass, hemorrhage, or extra-axial fluid collection. There is some diffuse decreased attenuation of the periventricular white matter which is nonspecific. The visualized paranasal sinuses and mastoid air cells are clear. There are no regional areas of decreased attenuation appreciated to suggest an acute CVA. IMPRESSION: 1. No acute intracranial process. 2. Age-appropriate atrophy. 3. Decreased attenuation of the periventricular white matter which is nonspecific, however, likely reflects senescent change and/or chronic small vessel ischemic disease. If there is high clinical concern for an acute CVA further evaluation with MRI should be considered. Dictated by: Dictated on workstation # [id number]
--- NOTE | 2018-08-27 08:59 | Diagnostic Imaging Report ---
Indication: Altered mental status. Frontal chest obtained at 848 hours a.m. is compared to 04/26/2018. Heart is mildly enlarged. Mediastinal silhouette is unremarkable. There are mild chronic-appearing increased basilar markings with improved aeration compared to the previous study. There is no new infiltrate or pneumothorax or pleural fluid. Impression: Mild cardiomegaly. Chronic-appearing increased basilar markings with improved aeration of the lung bases compared to the previous study. There is no definite new infiltrate. Dictated by: Dictated on workstation # [id number]
[2018-08-27 09:03] LABS: ALANINE AMINOTRANSFERASE 18 U/L (0-55); ALBUMIN 3.5 GM/DL (3.2-4.5); ALKALINE PHOSPHATASE 89 U/L (40-136); BILIRUBIN,TOTAL 0.4 MG/DL (0.1-1.0); BUN/CREATININE RATIO 20; CALCIUM 9.8 MG/DL (8.5-10.1); CARBON DIOXIDE 28 MMOL/L (21-32); CHLORIDE 102 MMOL/L (98-107); CREATININE SERUM 1.76 MG/DL (0.60-1.30); GFR ESTIMATED 38; GLUCOSE 265 MG/DL (70-105); MAGNESIUM 1.7 MG/DL (1.8-2.4); POTASSIUM 4.9 MMOL/L (3.6-5.0); SODIUM 139 MMOL/L (135-145); TOTAL PROTEIN 6.3 GM/DL (6.4-8.2)
[2018-08-27 09:06] LABS: ANISOCYTOSIS SLIGHT; BAND NEUTROPHILS 2 %; BASOPHILS % (MANUAL) 0 %; EOSINOPHILS % (MANUAL) 0 %; LYMPHOCYTES % (MANUAL) 5 %; MONOCYTES % (MANUAL) 0 %; NEUTROPHILS % (MANUAL) 93 %
[2018-08-27 09:23] LABS: TSH (THYROID ANALYZER) 0.77 UIU/ML (0.35-4.94)
[2018-08-27] MEDS ORDERED: NS IV 1000 ML 1,000 ML IV ONE (09:56)
[2018-08-27] MEDS ORDERED: cefTRIAXone FOR IV USE 1,000 MG in NS (IVPB) 50 ML IV ONE (12:00)
[2018-08-27 12:01] LABS: BILIRUBIN,URINE NEGATIVE (NEGATIVE); CLARITY,URINE CLEAR; COLOR,URINE YELLOW; GLUCOSE, URINE (UA) 1+ (NEGATIVE); KETONES,URINE NEGATIVE (NEGATIVE); LEUKOCYTE ESTERASE ,URINE NEGATIVE (NEGATIVE); NITRITE,URINE NEGATIVE (NEGATIVE); PH,URINE 7 (5-9); PROTEIN,URINE 3+ (NEGATIVE); UROBILINOGEN,URINE NORMAL (NORMAL)
[2018-08-27 12:09] LABS: BACTERIA,URINE NEGATIVE /HPF; SQUAMOUS EPITHELIAL CELL,UR RARE /HPF
--- NOTE | 2018-08-27 13:23 | ED General ---
General Chief Complaint: Altered Mental Status Stated Complaint: CONFUSED Nursing Triage Note: PT ARRIVED PER EMS, PT FAMILY STATES PT DIFF TO AWAKEN, PT HAS ALTERED MENTAL STATUS. PT KNOWS , AND THAT HE IS IN HOSP. PT IS URINE SOAKED. Nursing Sepsis Screen: No Definite Risk Source of Information: Patient, EMS, Family Exam Limitations: No Limitations History of Present Illness Date Seen by Provider: Aug 27, 2018 Time Seen by Provider: 08:17 Initial Comments This 77-year-old gentleman presents to the emergency room via EMS with complaint of altered mental status. Family reported that he was very difficult to wake this morning. He seemed "lethargic" yesterday. Patient is confused upon arrival but conversational. His pants are urine soaked. Patient has home health once a week that addresses his lower extremity edema. He lives at home and is cared for by his family including his daughter. He is afebrile and denies any pain. Allergies and Home Medications Allergies Coded Allergies: NKANo Known Allergies (Unverified Allergy, Mild, 06/21/09) Home Medications Allopurinol 100 Mg Tablet, 200 MG PO DAILY, (Reported) TAKE 2 (100 MG) TABLETS DAILY Alprazolam 0.25 Mg Tablet, 0.25 MG PO HS PRN for ANXIETY, (Reported) Cephalexin 500 Mg Capsule, 500 MG PO BID Prescribed by: CINDY FAIR on 08/27/18 1327 Insulin Determir 1,000 Units/10 Ml Soln, 10 UNIT SQ HS Prescribed by: BEVERLY LARA on 04/30/18 1135 Pantoprazole Sodium 40 Mg Tablet.dr, 40 MG PO DAILY, (Reported) Ziprasidone HCl 20 Mg Capsule, 20 MG PO BID WITH MEALS Prescribed by: BEVERLY LARA on 04/30/18 1508 Patient Home Medication List Home Medication List Reviewed: Yes Review of Systems Review of Systems Constitutional: no symptoms reported EENTM: no symptoms reported Respiratory: no symptoms reported Cardiovascular: see HPI, edema Gastrointestinal: no symptoms reported Genitourinary: see HPI Musculoskeletal: no symptoms reported Skin: no symptoms reported Psychiatric/Neurological: See HPI Hematologic/Lymphatic: No Symptoms Reported Immunological/Allergic: no symptoms reported Past Oqptick-Tfibqt-Rcdnwm Hx Patient Social History Type Used: Cigarettes 2nd Hand Smoke Exposure: Yes Recent Foreign Travel: No Contact w/Someone Who Travel: No Recent Infectious Disease Expo: No Recent Hopitalizations: No Immunizations Up To Date Tetanus Booster (TDap): Less than 5yrs Date of Pneumonia Vaccine: Nov 18, 2009 Date of Influenza Vaccine: Sep 28, 2015 Seasonal Allergies Seasonal Allergies: No Past Medical History Surgeries: Yes (CARDIAC CATH/STENT, HIATAL HERNIA REPAIR; TURP; LEFT FEM-TIB BYPASS) Abdominal, Cardiac, Coronary Stent, Transurethral Resection, Vascular Surgery Respiratory: Yes COPD Cardiac: Yes (LEFT FEMORAL ANEURYSM; CARDIAC STENT; LEFT FEM-TIB BYPASS) Aneurysm, Chronic Edema/Swelling, Coronary Artery Disease, High Cholesterol, Hypertension, Peripheral Vascular Neurological: Yes (PERIPHERAL NEUROPATHY) Dementia, Neuropathy Reproductive Disorders: No Sexually Transmitted Disease: No Genitourinary: Yes Benign Prostatic Hyperpl, Prostate Problems Gastrointestinal: Yes Gastroesophageal Reflux, Hiatal Hernia Musculoskeletal: Yes Arthritis Endocrine: Yes Diabetes, Insulin dep HEENT: Yes (RIGHT CORNEA OPACIFIED) Cataract Loss of Vision: Right Hearing Impairment: Hard of Hearing Cancer: No Psychosocial: Yes Anxiety Integumentary: Yes (MRSA) Blood Disorders: No Family Medical History Cancer 19 FATHER 19 MOTHER Family history: Cardiovascular disease Family history: Diabetes mellitus G8 SISTER 19 MOTHER Family history: Hypertension G8 BROTHER Heart Disease, Cancer, Diabetes, Hypertension Physical Exam Vital Signs Vital Signs - First Documented 08/27/18 08:20 Temp 97.8 Pulse 72 Resp 18 B/P (MAP) 151/70 (97) Pulse Ox 93 O2 Delivery Room Air Capillary Refill : Less Than 3 Seconds Height, Weight, BMI Height: 5'9.00" Weight: 175lbs. 6.0oz. 79.410220di; 28.2 BMI Method:Estimated General Appearance: No Apparent Distress, WD/WN HEENT: Normal ENT Inspection, Pharynx Normal, Other (right eye blindness) Neck: Normal Inspection Respiratory: Lungs Clear, Normal Breath Sounds, No Accessory Muscle Use, No Respiratory Distress Cardiovascular: Regular Rate, Rhythm, No Murmur, Other (pitting edema of the lower extremities bilaterally) Gastrointestinal: Normal Bowel Sounds, Non Tender, Soft Extremity: Normal Inspection, Pedal Edema, Swelling, Other (warm erythema of the distal right lower leg and foot. 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 Norm as Tested, Other (disoriented to place and month) Skin: Normal Color, Warm/Dry Progress/Results/Core Measures Suspected Sepsis Recent Fever Within 48 Hours: No Infection Criteria Present: None New/Unexplained Altered Menta: No Sepsis Screen: No Definite Risk SIRS Temperature:97.8 Pulse: 72 Respiratory Rate: 18 Laboratory Tests 08/27/18 08:30: White Blood Count 6.9 Blood Pressure 151 /70 Mean: 97 Laboratory Tests 08/27/18 08:30: Creatinine 1.76H, Platelet Count 166, Total Bilirubin 0.4 Results/Orders Lab Results Laboratory Tests Test 08/27/18 08:30 08/27/18 11:50 Range/Units White Blood Count 6.9 4.3-11.0 10^3/uL Red Blood Count 3.25 L 4.35-5.85 10^6/uL Hemoglobin 10.9 L 13.3-17.7 G/DL Hematocrit 32 L 40-54 % Mean Corpuscular Volume 98 80-99 FL Mean Corpuscular Hemoglobin 34 25-34 PG Mean Corpuscular Hemoglobin Concent 34 32-36 G/DL Red Cell Distribution Width 16.8 H 10.0-14.5 % Platelet Count 166 130-400 10^3/uL Mean Platelet Volume 10.9 H 7.4-10.4 FL Neutrophils (%) (Auto) 91 H 42-75 % Lymphocytes (%) (Auto) 6 L 12-44 % Monocytes (%) (Auto) 3 0-12 % Eosinophils (%) (Auto) 0 0-10 % Basophils (%) (Auto) 0 0-10 % Neutrophils # (Auto) 6.3 1.8-7.8 X 10^3 Lymphocytes # (Auto) 0.4 L 1.0-4.0 X 10^3 Monocytes # (Auto) 0.2 0.0-1.0 X 10^3 Eosinophils # (Auto) 0.0 0.0-0.3 10^3/uL Basophils # (Auto) 0.0 0.0-0.1 10^3/uL Neutrophils % (Manual) 93 % Lymphocytes % (Manual) 5 % Monocytes % (Manual) 0 % Eosinophils % (Manual) 0 % Basophils % (Manual) 0 % Band Neutrophils 2 % Anisocytosis SLIGHT Sodium Level 139 135-145 MMOL/L Potassium Level 4.9 3.6-5.0 MMOL/L Chloride Level 102 98-107 MMOL/L Carbon Dioxide Level 28 21-32 MMOL/L Anion Gap 9 5-14 MMOL/L Blood Urea Nitrogen 36 H 7-18 MG/DL Creatinine 1.76 H 0.60-1.30 MG/DL Estimat Glomerular Filtration Rate 38 BUN/Creatinine Ratio 20 Glucose Level 265 H 70-105 MG/DL Calcium Level 9.8 8.5-10.1 MG/DL Corrected Calcium 10.2 H 8.5-10.1 MG/DL Magnesium Level 1.7 L 1.8-2.4 MG/DL Total Bilirubin 0.4 0.1-1.0 MG/DL Aspartate Amino Transf (AST/SGOT) 18 5-34 U/L Alanine Aminotransferase (ALT/SGPT) 18 0-55 U/L Alkaline Phosphatase 89 40-136 U/L C-Reactive Protein High Sensitivity 5.37 H 0.00-0.50 MG/DL B-Type Natriuretic Peptide 62.4 <100.0 PG/ML Total Protein 6.3 L 6.4-8.2 GM/DL Albumin 3.5 3.2-4.5 GM/DL TSH [facility] Testing 0.77 0.35-4.94 UIU/ML Serum Alcohol < 10 <10 MG/DL Urine Color YELLOW Urine Clarity CLEAR Urine pH 7 5-9 Urine Specific [place] 1.005 L 1.016-1.022 Urine Protein 3+ H NEGATIVE Urine Glucose (UA) 1+ H NEGATIVE Urine Ketones NEGATIVE NEGATIVE Urine Nitrite NEGATIVE NEGATIVE Urine Bilirubin NEGATIVE NEGATIVE Urine Urobilinogen NORMAL NORMAL MG/DL Urine Leukocyte Esterase NEGATIVE NEGATIVE Urine RBC (Auto) NEGATIVE NEGATIVE Urine RBC 2-5 H /HPF Urine WBC NONE /HPF Urine Squamous Epithelial Cells RARE /HPF Urine Crystals NONE /LPF Urine Bacteria NEGATIVE /HPF Urine Casts NONE /LPF Urine Mucus NEGATIVE /LPF Urine Culture Indicated NO My Orders Orders - CINDY BARRIOS MD Alcohol (08/27/18 08:24) Cbc With Automated Diff (08/27/18 08:24) Comprehensive Metabolic Panel (08/27/18 08:24) Hs C Reactive Protein (08/27/18 08:24) Magnesium (08/27/18 08:24) Thyroid Analyzer (08/27/18 08:24) Ua Culture If Indicated (08/27/18 08:24) Saline Lock/Iv-Start (08/27/18 08:24) Chest 1 View, Ap/Pa Only (08/27/18 08:24) Ct Head Wo (08/27/18 08:24) BNP (08/27/18 08:26) Manual Differential (08/27/18 08:30) Saline Lock/Iv-Start (08/27/18 09:56) Ns Iv 1000 Ml (Sodium Chloride 0.9%) (08/27/18 09:56) Ceftriaxone For Iv Use (Rocephin For I (08/27/18 12:00) Us Venous Lower Ext Rt (08/27/18 11:57) Medications Given in ED Current Medications Medications Dose Ordered Sig/Kuldeep Route Start Time Stop Time Status Last Admin Dose Admin Ceftriaxone Sodium 1000 mg/ Sodium Chloride 50 ml @ 100 mls/hr ONCE ONCE IV 08/27/18 12:00 08/27/18 12:29 DC 08/27/18 13:05 100 MLS/HR Sodium Chloride 1,000 ml @ 0 mls/hr Q0M ONCE IV 08/27/18 09:56 08/27/18 09:57 DC 08/27/18 11:04 1,000 MLS/HR Vital Signs/I&O 08/27/18 08:20 Temp 97.8 Pulse 72 Resp 18 B/P (MAP) 151/70 (97) Pulse Ox 93 O2 Delivery Room Air Capillary Refill : Less Than 3 Seconds Blood Pressure Mean: 97 Progress Note : Progress Note Patient had a bump in his creatinine. A liter of IV fluid was administered. No source of infection was found. Labs were otherwise fairly unremarkable. Patient did have a warm erythema to the right lower extremity this seemed to worsen over his ER course. An ultrasound was obtained and was negative for DVT. He was given a gram of Rocephin to treat possible cellulitis. Keflex was prescribed as further treatment. Departure Impression Primary Impression: Confusion Additional Impressions: Cellulitis of right lower extremity Acute renal insufficiency Disposition: 01 HOME, SELF-CARE Condition: Improved Departure-Patient Inst. Decision time for Depature: 13:25 Referrals: ESTRELLITA العراقي MD (PCP/Family) Primary Care Physician Patient Instructions: Cellulitis (Skin Infection), Adult (DC) Add. Discharge Instructions: Keep the legs elevated toward the level of the heart is much as possible. Complete the antibiotics as prescribed. Follow-up with your doctor as soon as possible. Return to care if symptoms are worsening. All discharge instructions reviewed with patient and/or family. Voiced understanding. Scripts Cephalexin (Keflex) 500 Mg Capsule 500 MG PO BID, #20 CAP Prov: CINDY BARRIOS MD 08/27/18 Copy Copies To 1: ESTRELLITA العراقي MD, JOSHUA T MD Aug 27, 2018 13:23
--- NOTE | 2018-08-27 13:26 | Diagnostic Imaging Report ---
INDICATION: Right leg swelling, pain. TECHNIQUE: Grayscale with color-flow and Doppler waveform evaluation of the right lower extremity deep venous system. CORRELATION STUDY: None FINDINGS: Color and grayscale sonographic images demonstrate no intraluminal defect within the visualized portion of the common femoral, superficial femoral and/or popliteal veins to suggest thrombus formation. These vessels demonstrate normal response to compression and augmentation. No soft tissue fluid collection. IMPRESSION: 1. Negative for deep venous thrombosis of the right leg. Dictated by: Dictated on workstation # [id number]
[2018-08-27] MEDS ORDERED: CEPH-507 PO (13:27)
[2018-08-27 16:22] VITALS: BP 151/70
== END 2018-08-27 16:22 | disposition home or self-care (01) ==
LOC: EDUNIT# 08:17 → ER 08:17
DX: L03.115 Cellulitis of right lower limb (principal); N17.9 Acute kidney failure, unspecified; R41.0 Disorientation, unspecified; R41.82 Altered mental status, unspecified; M79.604 Pain in right leg; J44.9 Chronic obstructive pulmonary disease, unspecified; I25.10 Atherosclerotic heart disease of native coronary artery without angina pectoris; E78.00 Pure hypercholesterolemia, unspecified; I10 Essential (primary) hypertension; I73.9 Peripheral vascular disease, unspecified; F03.90 Unspecified dementia, unspecified severity, without behavioral disturbance, psychotic disturbance, mood disturbance, and anxiety; K21.9 Gastro-esophageal reflux disease without esophagitis; E11.42 Type 2 diabetes mellitus with diabetic polyneuropathy; F41.9 Anxiety disorder, unspecified; Z87.448 Personal history of other diseases of urinary system; Z86.14 Personal history of Methicillin resistant Staphylococcus aureus infection; Z82.49 Family history of ischemic heart disease and other diseases of the circulatory system; Z79.4 Long term (current) use of insulin; Z79.52 Long term (current) use of systemic steroids; Z77.22 Contact with and (suspected) exposure to environmental tobacco smoke (acute) (chronic); Z95.5 Presence of coronary angioplasty implant and graft; Z98.890 Other specified postprocedural states; Z87.19 Personal history of other diseases of the digestive system; Z90.79 Acquired absence of other genital organ(s)
CPT/HCPCS: 36415; 70450; 71045; 80053; 80320; 81000; 83735; 83880; 84443; 85007; 85027; 86141

== ENCOUNTER 2018-09-19 17:38 | Observation (INO) | payer MEDICARE, MEDICAID ==
[~2018-09-19] VITALS: Ht 165.1 cm; Wt 66.7 kg
[~2018-09-19 17:38] MED LIST changes: +CEPH-507 PO
--- OUTSIDE RECORDS SUMMARY | 2018-09-19 17:45 | XMS REPORT ---
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 Active 614302143 Problem Type 2 diabetes mellitus with hyperglycemia E11.65 Active 35559371 Problem Hypertension, benign I10 Active 18810646 Problem Chronic systolic congestive heart failure I50.22 Active 191080678 Problem Panlobular emphysema J43.1 Active 7151799 Problem PVD (peripheral vascular disease) I73.9 Active 181165359 ALLERGIES No Known Allergies ENCOUNTERS Encounter Location Date Diagnosis [facility] [id number] [place] [phone] Sep, [facility] [address] [address] Aug, [facility] [id number] [place] [address] 95970- 0485 Aug, [facility] [id number] [place] [address] 26811- 1283 Aug, Chronic systolic congestive heart failure I50.22 [facility] [id number] [place] [address] [phone]- 6840 Aug, Bilateral edema of lower extremity R60.0 [facility] [id number] [place] [address] 53909- 3102 Aug, [facility] [id number] [place] [address] 86240- 4926 Aug, Chronic systolic congestive heart failure I50.22 ; Panlobular emphysema J43.1 ; Coronary artery disease involving coronary bypass graft of [place] heart without angina pectoris I25.810 ; Type 2 diabetes mellitus with hyperglycemia E11.65 and jail current use of insulin Z79.4 [place] [id number] [place] [address] 76066- 0571 Aug, [place] [id number] [place] [address] 72175- 4327 Aug, [place] [id number] [place] [address] 10158- 6061 Jul, Bilateral edema of lower extremity R60.0 [place] [id number] [place] [address] 90682- 6888 19 Jul, 2018 PVD (peripheral vascular disease) I73.9 [place] [id number] [place] [address] 60597- 3677 07 Jul, 2018 PVD (peripheral vascular disease) I73.9 ; Coronary artery disease involving coronary bypass graft of [place] heart without angina pectoris I25.810 ; Tobacco abuse Z72.0 ; Tobacco abuse counseling Z71.6 ; Panlobular emphysema J43.1 ; Hypertension, benign I10 ; Chronic systolic congestive heart failure I50.22 and Unsteady gait R26.81 [place] [address] [place] [address] 37293- 3097 Jun, [place] [id number] [place] [address] 20226- 5604 Oct, [place] [id number] [place] [address] 60477- 8282 Oct, IMMUNIZATIONS No Known Immunizations SOCIAL HISTORY Never Assessed REASON FOR VISIT Prior Authorization Request PLAN OF CARE VITAL SIGNS MEDICATIONS Unknown Medications RESULTS No Results PROCEDURES No Known procedures INSTRUCTIONS MEDICATIONS ADMINISTERED No Known Medications MEDICAL (GENERAL) HISTORY Type Description Date Medical History dementia Medical History COPD Medical History Hypertension Surgical History Prostate surgery
--- OUTSIDE RECORDS SUMMARY | 2018-09-19 17:45 | XMS REPORT ---
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 Active 060634043 Problem Type 2 diabetes mellitus with hyperglycemia E11.65 Active 64455242 Problem Hypertension, benign I10 Active 97297339 Problem Chronic systolic congestive heart failure I50.22 Active 313096820 Problem Panlobular emphysema J43.1 Active 3226982 Problem PVD (peripheral vascular disease) I73.9 Active 381794171 ALLERGIES No Information ENCOUNTERS Encounter Location Date Diagnosis [place] [address] [address] Sep, [facility] [id number] [place] [address] 98727- 6003 Aug, Confusion R41.0 [facility] [id number] [place] [address] 66143- 4400 Aug, [facility] [id number] [place] [address] 32493- 9118 Aug, [facility] [address] 78[address]- [address] Aug, Chronic systolic congestive heart failure I50.22 [facility] [id number] [place] [address] 45784- 8719 Aug, Bilateral edema of lower extremity R60.0 [place] [address], [place] [address] Aug, [place] [id number] [place] [address] 34632- 8552 Aug, Chronic systolic congestive heart failure I50.22 ; Panlobular emphysema J43.1 ; Coronary artery disease involving coronary bypass graft of [place] heart without angina pectoris I25.810 ; Type 2 diabetes mellitus with hyperglycemia E11.65 and keno terminal operator current use of insulin Z79.4 [place] [id number] [place] [address] 56348- 5489 Aug, [place] [address] 86698- 3551 Aug, [place] [id number] [place] [address] 71558- 9373 Jul, Bilateral edema of lower extremity R60.0 [place] [id number] [place] [address] 64878- 8070 19 Jul, 2018 PVD (peripheral vascular disease) I73.9 [place] [id number] [place] [address] 71237- 5633 07 Jul, 2018 PVD (peripheral vascular disease) I73.9 ; Coronary artery disease involving coronary bypass graft of [place] heart without angina pectoris I25.810 ; Tobacco abuse Z72.0 ; Tobacco abuse counseling Z71.6 ; Panlobular emphysema J43.1 ; Hypertension, benign I10 ; Chronic systolic congestive heart failure I50.22 and Unsteady gait R26.81 [place] [address] [address] Jun, [place] [id number] [place] [address] 53900- 2038 Oct, [place] [id number] [place] [address] 90508- 7809 Oct, IMMUNIZATIONS No Known Immunizations SOCIAL HISTORY Never Assessed REASON FOR VISIT Home Health PLAN OF CARE Activity Details Pending Test UA W/CULTURE IF INDICATED (OUTSIDE LAB) VITAL SIGNS MEDICATIONS Unknown Medications RESULTS No Results PROCEDURES No Known procedures INSTRUCTIONS MEDICATIONS ADMINISTERED No Known Medications MEDICAL (GENERAL) HISTORY Type Description Date Medical History dementia Medical History COPD Medical History Hypertension Surgical History Prostate surgery
--- OUTSIDE RECORDS SUMMARY | 2018-09-19 17:45 | XMS REPORT ---
Author Author CHELSI MA Organization [facility] Address [address] [place] [address] Care Team Providers Care Foreclosure Paralegal Name Role Phone CHELSI MA Unavailable PROBLEMS Type Condition ICD9-CM Code [id number] Code Onset Dates Condition Status SNOMED Code Problem Unsteady gait R26.81 Active 55591334 Problem Coronary artery disease involving coronary bypass graft of [place] heart without angina pectoris I25.810 Active 420067027 Problem senior care current use of insulin Z79.4 Active 589341208 Problem Type 2 diabetes mellitus with hyperglycemia E11.65 Active 54522440 Problem Hypertension, benign I10 Active 14419654 Problem Chronic systolic congestive heart failure I50.22 Active 201780345 Problem Panlobular emphysema J43.1 Active 5005953 Problem PVD (peripheral vascular disease) I73.9 Active 946176368 ALLERGIES No Information ENCOUNTERS Encounter Location Date Diagnosis [facility] [address] [address] Sep, [facility] [id number] [place] [address] 07923- 0272 Aug, [facility] [id number] [place] [address] 63918- 5701 Aug, [facility] [id number] [place] [address] 38719- 8780 Aug, Chronic systolic congestive heart failure I50.22 [facility] [address] [address]- [address] Aug, Bilateral edema of lower extremity R60.0 [facility] [id number] [place] [address] 65368- 9040 Aug, [facility] [address] 95272- [address]116 Aug, Chronic systolic congestive heart failure I50.22 ; Panlobular emphysema J43.1 ; Coronary artery disease involving coronary bypass graft of [place] heart without angina pectoris I25.810 ; Type 2 diabetes mellitus with hyperglycemia E11.65 and senior care current use of insulin Z79.4 [place] [id number] [place] [address] 44962- 6085 Aug, [place] [id number] [place] [address] 17380- 1813 Aug, [place] [id number] [place] [address] 55925- 7846 Jul, Bilateral edema of lower extremity R60.0 [place] [id number] [place] [address] 09445- 2929 19 Jul, 2018 PVD (peripheral vascular disease) I73.9 [place] [id number] [place] [address] 23751- 1979 07 Jul, 2018 PVD (peripheral vascular disease) I73.9 ; Coronary artery disease involving coronary bypass graft of [place] heart without angina pectoris I25.810 ; Tobacco abuse Z72.0 ; Tobacco abuse counseling Z71.6 ; Panlobular emphysema J43.1 ; Hypertension, benign I10 ; Chronic systolic congestive heart failure I50.22 and Unsteady gait R26.81 [place] [id number] [place] [address] 77452- 0037 Jun, [place] [id number] [place] [address] 35209- 7452 Oct, [place] [id number] [place] [address] 85727- 3972 Oct, IMMUNIZATIONS No Known Immunizations SOCIAL HISTORY Never Assessed REASON FOR VISIT [facility] PLAN OF CARE VITAL SIGNS MEDICATIONS Medication Instructions Dosage Frequency Start Date End Date Duration Status Restoril 30 MG Orally Once a day 1 capsule at bedtime as needed 24h Aug Active RESULTS No Results PROCEDURES No Known procedures INSTRUCTIONS MEDICATIONS ADMINISTERED No Known Medications MEDICAL (GENERAL) HISTORY Type Description Date Medical History dementia Medical History COPD Medical History Hypertension Surgical History Prostate surgery
--- OUTSIDE RECORDS SUMMARY | 2018-09-19 17:45 | XMS REPORT ---
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 Active 831296679 Problem Type 2 diabetes mellitus with hyperglycemia E11.65 Active 19496378 Problem Hypertension, benign I10 Active 27630366 Problem Chronic systolic congestive heart failure I50.22 Active 608895905 Problem Panlobular emphysema J43.1 Active 6522768 Problem PVD (peripheral vascular disease) I73.9 Active 230481223 ALLERGIES No Information ENCOUNTERS Encounter Location Date Diagnosis [facility] [id number] [place] [address] 79146- 6937 Sep, [facility] [address] [place] [address] 24425- 7169 Aug, [facility] [id number] [place] [address] 66513- 1635 Aug, [facility] [id number] [place] [address] 43844- 5480 Aug, Chronic systolic congestive heart failure I50.22 [facility] [id number] [place] [address] 50429- 3569 Aug, Bilateral edema of lower extremity R60.0 [facility] [id number] [place] [address] 21634- 0689 Aug, [facility] [id number] [place] [address] 10293- 3060 08 Aug, 2018 Chronic systolic congestive heart failure I50.22 ; Panlobular emphysema J43.1 ; Coronary artery disease involving coronary bypass graft of [place] heart without angina pectoris I25.810 ; Type 2 diabetes mellitus with hyperglycemia E11.65 and jail current use of insulin Z79.4 [place] [id number] [place] [address] 82295- 1182 Aug, [facility] [facility] [id number] [place] [address] 96103- 4948 Aug, [place] [id number] [place] [address] 32259- 0641 27 Jul, 2018 Bilateral edema of lower extremity R60.0 [place] [id number] [place] [address] 46282- 6237 19 Jul, 2018 PVD (peripheral vascular disease) I73.9 [place] [id number] [place] [address] 29888- 5837 07 Jul, 2018 PVD (peripheral vascular disease) I73.9 ; Coronary artery disease involving coronary bypass graft of [place] heart without angina pectoris I25.810 ; Tobacco abuse Z72.0 ; Tobacco abuse counseling Z71.6 ; Panlobular emphysema J43.1 ; Hypertension, benign I10 ; Chronic systolic congestive heart failure I50.22 and Unsteady gait R26.81 [place] [id number] [place] [address] 93261- 1119 Jun, [place] [id number] [place] [address] 76781- 1948 Oct, [place] [id number] [place] [address] 74513- 3430 Oct, IMMUNIZATIONS No Known Immunizations SOCIAL HISTORY Never Assessed REASON FOR VISIT patient PLAN OF CARE VITAL SIGNS MEDICATIONS Medication Instructions Dosage Frequency Start Date End Date Duration Status Keflex 500 mg Orally 4 times a day 1 capsule 6h Aug, Sep, 10 day(s) Active RESULTS No Results PROCEDURES No Known procedures INSTRUCTIONS MEDICATIONS ADMINISTERED No Known Medications MEDICAL (GENERAL) HISTORY Type Description Date Medical History dementia Medical History COPD Medical History Hypertension Surgical History Prostate surgery
--- OUTSIDE RECORDS SUMMARY | 2018-09-19 17:45 | XMS REPORT ---
Author Author CHELSI MA Organization [facility] [place] Address [address] [place] [address] Care Team Providers Care Wrecking Supervisor Name Role Phone CHELSI MA Unavailable PROBLEMS Type Condition ICD9-CM Code WOW54-UJ Code Onset Dates Condition Status SNOMED Code Problem Unsteady gait R26.81 Active 61540756 Problem 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 Active 868077175 Problem nursing home current use of insulin Z79.4 Active 030635251 Problem Type 2 diabetes mellitus with hyperglycemia E11.65 Active 31868093 Problem Hypertension, benign I10 Active 04717344 Problem Chronic systolic congestive heart failure I50.22 Active 939780685 Problem Panlobular emphysema J43.1 Active 9075168 Problem PVD (peripheral vascular disease) I73.9 Active [id number] ALLERGIES No Information ENCOUNTERS Encounter Location Date Diagnosis [place] [id number] [place] [address] 97109- 4009 Aug, [facility] [place] [id number] [place] [address] 24190- 3562 Aug, [facility] [place] [address] [place] [address] Aug, [facility] [place] [id number] [place] [address] 98851- 9601 Aug, Chronic systolic congestive heart failure I50.22 ; Panlobular emphysema J43.1 ; 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 ; Type 2 diabetes mellitus with hyperglycemia E11.65 and nursing home current use of insulin Z79.4 [facility] [place] [address] [place] [address] 67233- 0245 Aug, [facility] [place] [id number] [address] 9429 08 Aug, 2018 [place] [id number] [place] [address] 92185- 0157 27 Jul, 2018 Bilateral edema of lower extremity R60.0 [place] [id number] [place] [address] 00622- 8842 19 Jul, 2018 PVD (peripheral vascular disease) I73.9 [place] [id number] [place] [address] 07791- 3337 07 Jul, 2018 PVD (peripheral vascular disease) I73.9 ; 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 ; Tobacco abuse Z72.0 ; Tobacco abuse counseling Z71.6 ; Panlobular emphysema J43.1 ; Hypertension, benign I10 ; Chronic systolic congestive heart failure I50.22 and Unsteady gait R26.81 [place] [id number] [place] [address] 22506- 5478 Jun, [place] [id number] [place] [address] 67304- 3297 Oct, [place] [id number] [place] [address] 08293- 2246 Oct, IMMUNIZATIONS No Known Immunizations SOCIAL HISTORY Never Assessed REASON FOR VISIT PLAN OF CARE VITAL SIGNS MEDICATIONS Unknown Medications RESULTS No Results PROCEDURES No Known procedures INSTRUCTIONS MEDICATIONS ADMINISTERED No Known Medications MEDICAL (GENERAL) HISTORY Type Description Date Medical History dementia Medical History COPD Medical History Hypertension Surgical History Prostate surgery
--- OUTSIDE RECORDS SUMMARY | 2018-09-19 17:45 | XMS REPORT | Clinical Summary ---
Author Author [facility] Organization [facility] Address Unknown Phone Unavailable Care Team Providers Care Drawing Box Tender Name Role Phone PCP Unavailable Allergies Not [...]
--- OUTSIDE RECORDS SUMMARY | 2018-09-19 17:45 | XMS REPORT ---
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 Active 294916583 Problem senior living current use of insulin Z79.4 Active 246068886 Problem Type 2 diabetes mellitus with hyperglycemia E11.65 Active 99969911 Problem Hypertension, benign I10 Active 12827048 Problem Chronic systolic congestive heart failure I50.22 Active 154968153 Problem Panlobular emphysema J43.1 Active 0605914 Problem PVD (peripheral vascular disease) I73.9 Active 414912093 ALLERGIES No Information ENCOUNTERS Encounter Location Date Diagnosis [place] [id number] [place] [address] 82917- 7425 Aug, [facility] [id number] [place] [address] 00338- 0129 Aug, [facility] [address] [address] 7216 Aug, [facility] [id number] [place] [address] 47133- 1416 Aug, Chronic systolic congestive heart failure I50.22 ; Panlobular emphysema J43.1 ; 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 pectoris I25.810 ; Type 2 diabetes mellitus with hyperglycemia E11.65 and senior living current use of insulin Z79.4 [facility] [address] [place] [address] 47022- 2073 Aug, [facility] [id number] [address]- 9381 08 Aug, 2018 [place] [id number] [place] [address] 05142- 0258 27 Jul, 2018 Bilateral edema of lower extremity R60.0 [place] [id number] [place] [address] 57847- 1733 19 Jul, 2018 PVD (peripheral vascular disease) I73.9 [place] [id number] [place] [address] 28552- 6375 07 Jul, 2018 PVD (peripheral vascular disease) I73.9 ; 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 pectoris I25.810 ; Tobacco abuse Z72.0 ; Tobacco abuse counseling Z71.6 ; Panlobular emphysema J43.1 ; Hypertension, benign I10 ; Chronic systolic congestive heart failure I50.22 and Unsteady gait R26.81 [place] [id number] [place] [address] 35925- 2316 Jun, [place] [id number] [place] [address] 31711- 2943 Oct, [place] [id number] [place] [address] 77679- 6850 Oct, IMMUNIZATIONS No Known Immunizations SOCIAL HISTORY Never Assessed REASON FOR VISIT ED visit PLAN OF CARE VITAL SIGNS MEDICATIONS Unknown Medications RESULTS No Results PROCEDURES No Known procedures INSTRUCTIONS MEDICATIONS ADMINISTERED No Known Medications MEDICAL (GENERAL) HISTORY Type Description Date Medical History dementia Medical History COPD Medical History Hypertension Surgical History Prostate surgery
[2018-09-19] MEDS ORDERED: RT-ALBUTEROL SULF 2.5 MG/3 ML PRE-MIX VIAL INH STA (18:08)
[2018-09-19] MEDS ORDERED: ASPIRIN 81 MG CHEW (CHILDREN'S ASA) PO ONE (18:15)
[2018-09-19 18:17] LABS: BASOPHILS % (AUTO) 1 % (0-10); EOSINOPHILS # (AUTO) 0.1 10^3/uL (0.0-0.3); EOSINOPHILS % (AUTO) 2 % (0-10); HEMATOCRIT 38 % (40-54); HEMOGLOBIN 12.7 G/DL (13.3-17.7); LYMPHOCYTES # (AUTO) 0.9 X 10^3 (1.0-4.0); LYMPHOCYTES % (AUTO) 12 % (12-44); MEAN CORPUSCULAR HEMOGLOBIN 33 PG (25-34); MEAN CORPUSCULAR HGB CONC 33 G/DL (32-36); MEAN CORPUSCULAR VOLUME 100 FL (80-99); MEAN PLATELET VOLUME 12.6 FL (7.4-10.4); MONOCYTES # (AUTO) 0.2 X 10^3 (0.0-1.0); MONOCYTES % (AUTO) 2 % (0-12); NEUTROPHILS # (AUTO) 6.3 X 10^3 (1.8-7.8); NEUTROPHILS % (AUTO) 83 % (42-75); PLATELET COUNT 129 10^3/uL (130-400); RED BLOOD COUNT 3.83 10^6/uL (4.35-5.85); RED CELL DISTRIBUTION WIDTH 15.4 % (10.0-14.5); WHITE BLOOD COUNT 7.6 10^3/uL (4.3-11.0)
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
[2018-09-19 18:24] LABS: INR 0.9 (0.8-1.4); PROTHROMBIN TIME PATIENT 11.6 SEC (12.2-14.7)
[2018-09-19 18:27] LABS: ALANINE AMINOTRANSFERASE 19 U/L (0-55); ALBUMIN 3.7 GM/DL (3.2-4.5); ALKALINE PHOSPHATASE 79 U/L (40-136); BILIRUBIN,TOTAL 0.3 MG/DL (0.1-1.0); BUN/CREATININE RATIO 30; CALCIUM 9.7 MG/DL (8.5-10.1); CARBON DIOXIDE 22 MMOL/L (21-32); CHLORIDE 101 MMOL/L (98-107); CREATININE SERUM 1.86 MG/DL (0.60-1.30); GFR ESTIMATED 35; MAGNESIUM 1.6 MG/DL (1.8-2.4); SODIUM 138 MMOL/L (135-145); TOTAL PROTEIN 6.1 GM/DL (6.4-8.2)
[2018-09-19 18:29] LABS: GLUCOSE 418 MG/DL (70-105)
[2018-09-19] MEDS ORDERED: inSUlin (REGULAR) HUMAN 1 UNIT/0.01 ML (CHARGE PER UNIT) SC ONE (19:00)
[2018-09-19] MEDS ORDERED: NS IV 1000 ML 1,000 ML IV SCH (19:00)
[2018-09-19] MEDS ORDERED: meTOprolol 5 MG/5 ML (LOPRESSOR) VIAL IV ONE (19:00)
[2018-09-19] MEDS ORDERED: MAGNESIUM 1 GM/100 ML IVPB 100 ML IV ONE (19:00)
--- NOTE | 2018-09-19 19:25 | Diagnostic Imaging Report ---
EXAMINATION: Portable erect AP chest at 07:09 p.m. INDICATION: Chest pain. FINDINGS: The heart size is at the upper limits of normal, but the heart does seem less prominent than noted on the prior exam of 08/27/2018. The lungs are clear. There is no evidence for failure, pneumonia, or for a pleural effusion. A few small calcified granulomas are again seen in both lungs. Mediastinum is not widened. The osseous structures are intact. IMPRESSION: There is no evidence for an acute cardiopulmonary abnormality. Dictated by: Dictated on workstation # [id number]
[2018-09-19] MEDS ORDERED: inSUlin (REGULAR) HUMAN 1 UNIT/0.01 ML (CHARGE PER UNIT) IV ONE (19:30)
--- NOTE | 2018-09-19 20:29 | Diagnostic Imaging Report ---
PROCEDURE: CT head without contrast. TECHNIQUE: Multiple contiguous axial images were obtained through the brain without the use of intravenous contrast. INDICATION: Fell, headache There is no mass, shift of the midline or hemorrhage to suggest an acute intracranial abnormality. The ventricles are not not abnormally dilated and similar in size to the prior exam of 08/27/2018. The senescent changes seen on the prior study including cortical atrophy and periventricular encephalomalacia are again evident and no different. The bone windows show no sign of a fracture or of a destructive lesion. The orbits are symmetrical and within normal limits. The sinuses where visualized are clear. IMPRESSION: 1. There is no evidence for an acute intracranial abnormality. When compared to the previous study, there has been no significant change. 2. If clinical concern regarding an underlying abnormality persists, then MRI would be recommended for further study. Dictated by: Dictated on workstation # [id number]
[2018-09-19] MEDS ORDERED: ENOXAPARIN 80 MG/0.8 ML (LOVENOX) SYR SC ONE (21:00)
[2018-09-19 21:05] LABS: BILIRUBIN,URINE NEGATIVE (NEGATIVE); CLARITY,URINE CLEAR; COLOR,URINE YELLOW; GLUCOSE, URINE (UA) 4+ (NEGATIVE); KETONES,URINE NEGATIVE (NEGATIVE); LEUKOCYTE ESTERASE ,URINE NEGATIVE (NEGATIVE); NITRITE,URINE NEGATIVE (NEGATIVE); PH,URINE 6 (5-9); PROTEIN,URINE 3+ (NEGATIVE); UROBILINOGEN,URINE NORMAL (NORMAL)
[2018-09-19 21:11] LABS: SQUAMOUS EPITHELIAL CELL,UR RARE /HPF
--- OUTSIDE RECORDS SUMMARY | 2018-09-19 21:33 | XMS REPORT | Clinical Summary ---
Author Author [facility] Organization [facility] Address Unknown Phone Unavailable Care Team Providers Care Data Entry Representative Name Role Phone PCP Unavailable Allergies Not [...]
[2018-09-19] MEDS ORDERED: SENN1TAB8 (21:47)
[2018-09-19] MEDS ORDERED: OXYC-529 (21:47)
[2018-09-19] MEDS ORDERED: INSU100I29 (21:47)
[2018-09-19] MEDS ORDERED: LISI-556 (21:47)
[2018-09-19] MEDS ORDERED: FURO40TA4 (21:47)
[2018-09-19 21:50] VITALS: BP 160/58
[2018-09-19 22:05] VITALS: BP 145/84
[2018-09-19 22:20] VITALS: BP 129/85
[2018-09-19] MEDS ORDERED: morphine INJ 4 MG/ML 1 ML (VIAL/SYRINGE) IV PRN (22:30)
[2018-09-19] MEDS ORDERED: ALPRAZolam 0.25 MG (XANAX) TAB PO PRN (22:30)
[2018-09-19 22:35] VITALS: BP 159/70
[2018-09-19] MEDS: 1/2 NS W/KCL 20 MEQ/L 1,000 ML IV SCH (23:03)
[2018-09-20] VITALS (7 sets, daily range): BP systolic 135–170; BP diastolic 66–93
[2018-09-20] MEDS ORDERED: LORazepam INJ 2 MG/ML (ATIVAN) VIAL IVP ONE (01:45)
[2018-09-20 05:30] LABS: BASOPHILS % (AUTO) 0 % (0-10); EOSINOPHILS # (AUTO) 0.2 10^3/uL (0.0-0.3); EOSINOPHILS % (AUTO) 2 % (0-10); HEMATOCRIT 34 % (40-54); HEMOGLOBIN 11.4 G/DL (13.3-17.7); LYMPHOCYTES # (AUTO) 1.5 X 10^3 (1.0-4.0); LYMPHOCYTES % (AUTO) 19 % (12-44); MEAN CORPUSCULAR HEMOGLOBIN 34 PG (25-34); MEAN CORPUSCULAR HGB CONC 34 G/DL (32-36); MEAN CORPUSCULAR VOLUME 100 FL (80-99); MEAN PLATELET VOLUME 12.4 FL (7.4-10.4); MONOCYTES # (AUTO) 0.5 X 10^3 (0.0-1.0); MONOCYTES % (AUTO) 6 % (0-12); NEUTROPHILS # (AUTO) 5.9 X 10^3 (1.8-7.8); NEUTROPHILS % (AUTO) 73 % (42-75); PLATELET COUNT 133 10^3/uL (130-400); RED BLOOD COUNT 3.38 10^6/uL (4.35-5.85); RED CELL DISTRIBUTION WIDTH 15.4 % (10.0-14.5); WHITE BLOOD COUNT 8.1 10^3/uL (4.3-11.0)
[2018-09-20 05:54] LABS: CREATININE SERUM 1.44 MG/DL (0.60-1.30); POTASSIUM 4.3 MMOL/L (3.6-5.0)
[2018-09-20] MEDS ORDERED: CLOPIDOGREL 75 MG (PLAVIX) TABLET PO ONE ×2 (06:45→08:00)
[2018-09-20] MEDS ORDERED: meTOprolol SUCCINATE 100 MG (TOPROL XL) TAB PO ONE (06:45)
[2018-09-20] MEDS ORDERED: ASPIRIN 81 MG CHEW (CHILDREN'S ASA) PO ONE (06:45)
[2018-09-20] MEDS: inSUlin ASPART (NovoLOG) 1 UNIT/0.01 ML (CHARGE PER UNIT) SC SCH ×4 (07:00→20:28)
[2018-09-20] MEDS: PANTOPRAZOLE 20 MG TABLET (PROTONIX) PO SCH (07:20)
[2018-09-20] MEDS ORDERED: FLU QUADRIvalent (5+ YOA) 2018-2019 (AFLURIA) 0.5 ML IM ONE (07:30)
[2018-09-20] MEDS: 1/2 NS W/KCL 20 MEQ/L 1,000 ML IV SCH ×3 (08:02→20:26)
[2018-09-20] MEDS ORDERED: IOHEXOL 350 MG/ML 100 ML (OMNIPAQUE 350) VIAL IV ONE (08:30)
[2018-09-20] MEDS ORDERED: NS 250 ML (IVPB) BAG IV ONE (08:30)
[2018-09-20] MEDS: lisINopril 5 MG (PRINIVIL) TABLET PO SCH (08:48)
[2018-09-20] MEDS: NICOTINE 21 MG (NICODERM) PATCH TD SCH (08:51)
[2018-09-20] MEDS ORDERED: ASPIRIN E.C. 81 MG (ECOTRIN) TAB PO SCH (09:00)
[2018-09-20] MEDS: ENOXAPARIN 80 MG/0.8 ML (LOVENOX) SYR SC SCH (09:00)
[2018-09-20] MEDS ORDERED: meTOprolol TARTRATE 25 MG (LOPRESSOR) TABLET PO SCH (09:00)
--- NOTE | 2018-09-20 12:36 | Consultation-Cardiology ---
HPI-Cardiology Cardiology Consultation: Date of Consultation 09/20/18 Time Seen by a Provider: 12:30 Date of Admission Attending Physician Fernanda Ortiz DO Admitting Physician [facility] Consulting Physician ANNELISE PIERRE MD, MA, FACP, FACC, FSCAI, CCDS HPI: Chief Complaint: CC: Confusion, agitation, chest discomfort 78 yo man admitted to [facility] after he was brought to the ER by his daughter with whom he lives for eval of confusion. Had also reported some chest discomfort to his daughter who gave him s/l NTG that made the chest discomfort worse and she did not give any more. Apparently, has had no discomfort since admission and also did not report chest discomfort while in ER. Was admitted because of confusion and some agitation. He himself has no recollection of the event and cannot provide any meaningful history He states that he has longstanding shortness of breath. Denies cp or palp or syncope When asked about leg swelling, he state he has always had it Currently is requiring constant supervision for confusion and wandering off ( care provider in the room at this time) Review of Systems-Cardiology Review of Systems Constitutional: other (A meaningful and trustworthy review of systems cannot be obtained because of patient poor memory and dementia. To the extent it could be obtained is described above and below) Eyes: other (chronic loss of vision in the R eye (has corneal opacity, but does not know how that happened)); No vision change Ears/Nose/Throat: No ear discharge, No nasal drainage, No recent hearing loss Respiratory: As described under HPI Cardiovascular: As described under HPI Gastrointestinal: No constipation, No diarrhea, No nausea, No vomiting Genitourinary: No dysuria, No hematuria Musculoskeletal: back pain (chronic) Skin: other (chronic swelling and reddish discoloration of the legs) Psychiatric/Neurological: No seizure, No focal weakness, No syncope Hematologic: No bleeding abnormalities WSE-Uagbaw-Vgcvdi Hx Patient Social History Alcohol Use: Denies Use Recreational Drug Use: No Smoking Status: Current Everyday Smoker Type Used: Cigarettes 2nd Hand Smoke Exposure: Yes Recent Foreign Travel: No Recent Infectious Disease Expo: No Hospitalization with Isolation: Denies Physical Abuse Screen: No Sexual Abuse: No Immunizations Up To Date Tetanus Booster (TDap): Less than 5yrs Date of Pneumonia Vaccine: Nov 18, 2009 Date of Influenza Vaccine: Sep 28, 2015 Past Medical History PMH As described under Assessment. Family Medical History Family Medical History: No reported history of CAD or premature SCD. Family History: Cancer 19 FATHER 19 MOTHER Family history: Cardiovascular disease Family history: Diabetes mellitus G8 SISTER 19 MOTHER Family history: Hypertension G8 BROTHER Allergies and Home Medications Allergies Coded Allergies: NKANo Known Allergies (Unverified Allergy, Mild, 06/21/09) Home Medications Allopurinol 100 Mg Tablet, 200 MG PO DAILY, (Reported) TAKE 2 (100 MG) TABLETS DAILY Alprazolam 0.25 Mg Tablet, 0.25 MG PO HS PRN for ANXIETY, (Reported) Cephalexin 500 Mg Capsule, 500 MG PO BID Prescribed by: CINDY FAIR on 08/27/18 1327 Insulin Determir 1,000 Units/10 Ml Soln, 10 UNIT SQ HS Prescribed by: BEVERLY LARA on 04/30/18 1135 Pantoprazole Sodium 40 Mg Tablet.dr, 40 MG PO DAILY, (Reported) Ziprasidone HCl 20 Mg Capsule, 20 MG PO BID WITH MEALS Prescribed by: BEVERLY LARA on 04/30/18 1508 Patient Home Medication List Home Medication List Reviewed: Yes Physical Exam-Cardiology Physical Exam Vital Signs/I&O 09/20/18 09/20/18 09/20/18 09/20/18 04:00 07:00 08:22 12:00 Temp 97.7 97.5 97.7 Pulse 74 64 66 93 Resp 16 16 17 B/P (MAP) 170/74 (106) 165/71 (102) 163/72 (102) Pulse Ox 100 97 94 O2 Delivery Nasal Cannula Nasal Cannula Room Air O2 Flow Rate 2.00 2.00 2.00 09/20/18 00:00 Intake Total 1100 ml Balance 1100 ml Capillary Refill : Less Than 3 SecondsGreater Than 3 Seconds Constitutional: No AAO x 3; well-developed, well-nourished, other (appearance some unkempt; poor memory; unable to provide any reliable history) HEENT: other (R corneal opacity, dental caries, several missing teeth) Neck: carotid pulses are 2 + bilaterally, with good upstrokes Respiratory: other (fair air entry, diminished at the bases, prolonged exp) Cardiovascular: regular rate-rhythm, S1 and S2, systolic murmur (faint MADIE at card base) Gastrointestinal: No tender; soft; No guarding, No rebound; audible bowel sounds Extremities: other (bilat leg swelling with reddish and flaky skin on the legs ; NED-wrap on L leg not removed at time of this exam; overgrown and tobacco- stained hand nails) Neurologic/Psychiatric: other (Disoriented, poor memory, able to move all limbs equally) Data Review Labs Laboratory Tests 09/19/18 18:00: White Blood Count 7.6, Red Blood Count 3.83L, Hemoglobin 12.7L, Hematocrit 38L, Mean Corpuscular Volume 100H, Mean Corpuscular Hemoglobin 33, Mean Corpuscular Hemoglobin Concent 33, Red Cell Distribution Width 15.4H, Platelet Count 129L, Mean Platelet Volume 12.6H, Neutrophils (%) (Auto) 83H, Lymphocytes (%) (Auto) 12, Monocytes (%) (Auto) 2, Eosinophils (%) (Auto) 2, Basophils (%) (Auto) 1, Neutrophils # (Auto) 6.3, Lymphocytes # (Auto) 0.9L, Monocytes # (Auto) 0.2, Eosinophils # (Auto) 0.1, Basophils # (Auto) 0.0, Prothrombin Time 11.6L, INR Comment 0.9, Activated Partial Thromboplast Time 21L, D-Dimer 2.05H, Sodium Level 138, Potassium Level 5.0, Chloride Level 101, Carbon Dioxide Level 22, Anion Gap 15H, Blood Urea Nitrogen 56H, Creatinine 1.86H, Estimat Glomerular Filtration Rate 35, BUN/Creatinine Ratio 30, Glucose Level 418*H, Calcium Level 9.7, Corrected Calcium 9.9, Magnesium Level 1.6L, Total Bilirubin 0.3, Aspartate Amino Transf (AST/SGOT) 14, Alanine Aminotransferase (ALT/SGPT) 19, Alkaline Phosphatase 79, Myoglobin 62.0, Troponin I < 0.30, B-Type Natriuretic Peptide 35.5, Total Protein 6.1L, Albumin 3.7 09/19/18 19:07: Urine Color YELLOW, Urine Clarity CLEAR, Urine pH 6, Urine Specific [place] 1.010L, Urine Protein 3+H, Urine Glucose (UA) 4+H, Urine Ketones NEGATIVE, Urine Nitrite NEGATIVE, Urine Bilirubin NEGATIVE, Urine Urobilinogen NORMAL, Urine Leukocyte Esterase NEGATIVE, Urine RBC (Auto) NEGATIVE, Urine RBC NONE, Urine WBC NONE, Urine Squamous Epithelial Cells RARE, Urine Crystals NONE, Urine Bacteria NONE, Urine Casts NONE, Urine Mucus NEGATIVE, Urine Culture Indicated NO 09/20/18 04:55: White Blood Count 8.1, Red Blood Count 3.38L, Hemoglobin 11.4L, Hematocrit 34L, Mean Corpuscular Volume 100H, Mean Corpuscular Hemoglobin 34, Mean Corpuscular Hemoglobin Concent 34, Red Cell Distribution Width 15.4H, Platelet Count 133, Mean Platelet Volume 12.4H, Neutrophils (%) (Auto) 73, Lymphocytes (%) (Auto) 19 , Monocytes (%) (Auto) 6, Eosinophils (%) (Auto) 2, Basophils (%) (Auto) 0, Neutrophils # (Auto) 5.9, Lymphocytes # (Auto) 1.5, Monocytes # (Auto) 0.5, Eosinophils # (Auto) 0.2, Basophils # (Auto) 0.0, Sodium Level 140, Potassium Level 4.3, Chloride Level 105, Carbon Dioxide Level 23, Anion Gap 12, Blood Urea Nitrogen 45H, Creatinine 1.44H, Estimat Glomerular Filtration Rate 47, BUN/ Creatinine Ratio 31, Glucose Level 211H, Calcium Level 9.0, Troponin I 0.44*H, Triglycerides Level 244H, Cholesterol Level 209H, LDL Cholesterol Direct 142H, VLDL Cholesterol 49H, HDL Cholesterol 35L 09/20/18 06:14: Glucometer 240H 09/20/18 11:49: Glucometer 143H Laboratory Tests 09/19/18 18:00 09/20/18 04:55 A/P-Cardiology Assessment/Admission Diagnosis Ac on chronic mental status changes. Dementia. Unable to provide care to self Probably small acute NTEMI, stable clinically CAD with h/o LCX stenting in 2010: Promus 3x15 in LCX and Promus 3x2 in OM Leg cellulitis and recently diagnosed UTI, being managed by the [facility] CKD 3-4. Hospitalization in April 2918 with ac renal failure Echo of 09/20/18: LVEF 60-65%, mod dil of LA, PASP WNL DM II, being managed by the [facility] Hypertension Hyperlipidemia H/o PAD with h/o bilat fem-pop at [facility], several years ago. 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 (pt does not recall reason) Chronic tobacco use and h/o COPD, managed by the [facility] Discussion and Recomendations * This is a complex management issue due to multiple comorbidities (see above) * It appears best to manage conservatively as far as possible * Treat with DAPT and BB and statin * Monitor labs * I tried to explain his CV issues to him, but his insight into his medical issue is little and comprehension quite limited, too (at least at this time) Clinical Quality Measures DVT/VTE Risk/Contraindication: Risk Factor Score Per Nursin RFS Level Per Nursing on Admit: 3=High ANNELISE PIERRE MD [facility] CCDS Sep 20, 2018 12:36
[2018-09-20] MEDS ORDERED: FAMO20TA5 PO (13:51)
[2018-09-20] MEDS ORDERED: CEPH-507 PO (13:51)
[2018-09-20] MEDS ORDERED: MELA5TAB14 PO (13:51)
[2018-09-20] MEDS ORDERED: DEXA4TAB PO (13:51)
[2018-09-20] MEDS ORDERED: LORA1TAB PO (13:51)
[2018-09-20] MEDS ORDERED: QUET50TA55 PO (13:51)
[2018-09-20] MEDS ORDERED: MORP-33 PO (13:51)
[2018-09-20] MEDS ORDERED: TEMA15CA PO (13:51)
--- NOTE | 2018-09-20 14:06 | History & Physicial (CHS) ---
HPI History of Present Illness: This is a 78 yo male patient of Ajith Fritz APRN at [facility] who presents to the ER with complaints of chest pain. Pt is a poor historian so history obtain from hospital and clinic record. According to his daughter (who the pt lives with) pt has been acting "out of it" for 2 days. He was treated for cellulitis and a UTI as an OP with Keflex. He had onset of chest pain yesterday afternoon, nitro made the pain worse. Pt has hx of COPD but does not wear oxygen at home. He reports no increase in SOA from baseline. Daughter also reports increase in falls recently. CT in ER showed chronic age related changes but negative for acute changes. Pt reports no chest pain at this time. His initial troponin was negative but repeat was increased to 0.44. Date seen by provider: Sep 20, 2018 Time Seen by Provider: 12:00 Attending Physician Fernanda Wong DO [facility] Consult Date of Admission Sep 19, 2018 at 21:00 Home Medications Home Medications Reviewed patient Home Medication Reconciliation performed by pharmacy medication reconciliations gem technician and/or nursing. Patients Allergies have been reviewed. Allergies Coded Allergies: NKANo Known Allergies (Unverified Allergy, Mild, 06/21/09) LZG-Ftzxyt-Royvqg Hx Patient Social History Alcohol Use: Denies Use Recreational Drug Use: No Smoking Status: Current Everyday Smoker Type Used: Cigarettes 2nd Hand Smoke Exposure: Yes Recent Foreign Travel: No Contact w/other who traveled: No Recent Hopitalizations: No Recent Infectious Disease Expo: No Physical Abuse Screen: No Sexual Abuse: No Immunizations Up To Date Tetanus Booster (TDap): Less than 5yrs Date of Pneumonia Vaccine: Nov 18, 2009 Date of Influenza Vaccine: Sep 28, 2015 Past Medical History hx MRSA COPD GERD hx of hiatal hernia 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 BPH s/p TURP CAD s/p cardiac stent PVD s/p fem/tib bypass Arthritis cataract hearing loss anxiety hypertension CHF Family Medical History Significant Family History: Heart Disease, Cancer, Diabetes, Hypertension Family History: Cancer 19 FATHER 19 MOTHER Family history: Cardiovascular disease Family history: Diabetes mellitus G8 SISTER 19 MOTHER Family history: Hypertension G8 BROTHER Review of Systems ([facility]) Constitutional: see HPI Reviewed Test Results Reviewed Test Results Lab Laboratory Tests 09/19/18 18:00: White Blood Count 7.6, Red Blood Count 3.83L, Hemoglobin 12.7L, Hematocrit 38L, Mean Corpuscular Volume 100H, Mean Corpuscular Hemoglobin 33, Mean Corpuscular Hemoglobin Concent 33, Red Cell Distribution Width 15.4H, Platelet Count 129L, Mean Platelet Volume 12.6H, Neutrophils (%) (Auto) 83H, Lymphocytes (%) (Auto) 12, Monocytes (%) (Auto) 2, Eosinophils (%) (Auto) 2, Basophils (%) (Auto) 1, Neutrophils # (Auto) 6.3, Lymphocytes # (Auto) 0.9L, Monocytes # (Auto) 0.2, Eosinophils # (Auto) 0.1, Basophils # (Auto) 0.0, Prothrombin Time 11.6L, INR Comment 0.9, Activated Partial Thromboplast Time 21L, D-Dimer 2.05H, Sodium Level 138, Potassium Level 5.0, Chloride Level 101, Carbon Dioxide Level 22, Anion Gap 15H, Blood Urea Nitrogen 56H, Creatinine 1.86H, Estimat Glomerular Filtration Rate 35, BUN/Creatinine Ratio 30, Glucose Level 418*H, Calcium Level 9.7, Corrected Calcium 9.9, Magnesium Level 1.6L, Total Bilirubin 0.3, Aspartate Amino Transf (AST/SGOT) 14, Alanine Aminotransferase (ALT/SGPT) 19, Alkaline Phosphatase 79, Myoglobin 62.0, Troponin I < 0.30, B-Type Natriuretic Peptide 35.5, Total Protein 6.1L, Albumin 3.7 09/19/18 19:07: Urine Color YELLOW, Urine Clarity CLEAR, Urine pH 6, Urine Specific [place] 1.010L, Urine Protein 3+H, Urine Glucose (UA) 4+H, Urine Ketones NEGATIVE, Urine Nitrite NEGATIVE, Urine Bilirubin NEGATIVE, Urine Urobilinogen NORMAL, Urine Leukocyte Esterase NEGATIVE, Urine RBC (Auto) NEGATIVE, Urine RBC NONE, Urine WBC NONE, Urine Squamous Epithelial Cells RARE, Urine Crystals NONE, Urine Bacteria NONE, Urine Casts NONE, Urine Mucus NEGATIVE, Urine Culture Indicated NO 09/20/18 04:55: White Blood Count 8.1, Red Blood Count 3.38L, Hemoglobin 11.4L, Hematocrit 34L, Mean Corpuscular Volume 100H, Mean Corpuscular Hemoglobin 34, Mean Corpuscular Hemoglobin Concent 34, Red Cell Distribution Width 15.4H, Platelet Count 133, Mean Platelet Volume 12.4H, Neutrophils (%) (Auto) 73, Lymphocytes (%) (Auto) 19 , Monocytes (%) (Auto) 6, Eosinophils (%) (Auto) 2, Basophils (%) (Auto) 0, Neutrophils # (Auto) 5.9, Lymphocytes # (Auto) 1.5, Monocytes # (Auto) 0.5, Eosinophils # (Auto) 0.2, Basophils # (Auto) 0.0, Sodium Level 140, Potassium Level 4.3, Chloride Level 105, Carbon Dioxide Level 23, Anion Gap 12, Blood Urea Nitrogen 45H, Creatinine 1.44H, Estimat Glomerular Filtration Rate 47, BUN/ Creatinine Ratio 31, Glucose Level 211H, Calcium Level 9.0, Troponin I 0.44*H, Triglycerides Level 244H, Cholesterol Level 209H, LDL Cholesterol Direct 142H, VLDL Cholesterol 49H, HDL Cholesterol 35L 09/20/18 06:14: Glucometer 240H 09/20/18 11:49: Glucometer 143H Radiology Date of Exam: 09/19/18 CHEST 1 VIEW, AP/PA ONLY EXAMINATION: Portable erect AP chest at 07:09 p.m. INDICATION: Chest pain. FINDINGS: The heart size is at the upper limits of normal, but the heart does seem less prominent than noted on the prior exam of 08/27/2018. The lungs are clear. There is no evidence for failure, pneumonia, or for a pleural effusion. A few small calcified granulomas are again seen in both lungs. Mediastinum is not widened. The osseous structures are intact. IMPRESSION: There is no evidence for an acute cardiopulmonary abnormality. Date of Exam: 09/19/18 CT HEAD WO PROCEDURE: CT head without contrast. TECHNIQUE: Multiple contiguous axial images were obtained through the brain without the use of intravenous contrast. INDICATION: Fell, headache There is no mass, shift of the midline or hemorrhage to suggest an acute intracranial abnormality. The ventricles are not not abnormally dilated and similar in size to the prior exam of 08/27/2018. The senescent changes seen on the prior study including cortical atrophy and periventricular encephalomalacia are again evident and no different. The bone windows show no sign of a fracture or of a destructive lesion. The orbits are symmetrical and within normal limits. The sinuses where visualized are clear. IMPRESSION: 1. There is no evidence for an acute intracranial abnormality. When compared to the previous study, there has been no significant change. 2. If clinical concern regarding an underlying abnormality persists, then MRI would be recommended for further study. Physical Exam-(CHC) Physical Exam Vital Signs VS - Last 72 Hours, by Label 09/19/18 09/19/18 09/19/18 09/19/18 17:38 17:38 18:46 21:00 Temp 98.2 Pulse 92 Resp 14 B/P (MAP) 192/95 (127) Pulse Ox 99 96 99 O2 Delivery Room Air Room Air Room Air Nasal Cannula O2 Flow Rate 2.00 09/19/18 09/19/18 09/19/18 09/19/18 21:34 21:50 22:05 22:20 Temp 98.6 97.0 Pulse 77 76 71 68 Resp 16 20 B/P (MAP) 177/82 (113) 160/58 (92) 145/84 (104) 129/85 (100) Pulse Ox 95 100 98 98 O2 Delivery Nasal Cannula Nasal Cannula Nasal Cannula Nasal Cannula O2 Flow Rate 2.00 2.00 2.00 09/19/18 09/19/18 09/20/18 09/20/18 22:35 22:43 00:00 01:00 Temp 97.5 Pulse 69 75 77 Resp 16 B/P (MAP) 159/70 (99) 149/93 (111) Pulse Ox 98 100 O2 Delivery Nasal Cannula Nasal Cannula Nasal Cannula O2 Flow Rate 2.00 2.00 09/20/18 09/20/18 09/20/18 09/20/18 01:00 04:00 07:00 08:22 Temp 97.7 97.7 97.5 Pulse 75 74 64 66 Resp 16 16 16 B/P (MAP) 155/81 (105) 170/74 (106) 165/71 (102) Pulse Ox 100 100 97 O2 Delivery Nasal Cannula Nasal Cannula Nasal Cannula O2 Flow Rate 2.00 2.00 2.00 09/20/18 09/20/18 12:00 13:00 Temp 97.7 Pulse 93 65 Resp 17 B/P (MAP) 163/72 (102) Pulse Ox 94 O2 Delivery Room Air O2 Flow Rate 2.00 Capillary Refill : Less Than 3 SecondsGreater Than 3 Seconds General Appearance: WD/WN, no apparent distress HEENT: PERRL/EOMI, other (R eye clouded) Respiratory: normal breath sounds, no respiratory distress, no accessory muscle use Cardiovascular: regular rate, rhythm Gastrointestinal: soft Extremities: pedal edema Neurologic/Psychiatric: alert, normal mood/affect Skin: normal color, warm/dry Assessment/Plan Assessment/Plan Admission Dx Chest pain hx CAD s/p stent Admission Status: Observation Assessment & Plan 1. Chest pain - Pt admitted for observation. - unable to obtain CTA to r/o PE due to elevated creatinine - low index of suspicion for PE based on physical exam - initial troponin negative; repeat increased to 0.44 - Dr. Jaramillo consulted; 2D echo ordered, started on Lovenox, ASA, Plavix 2. hx CAD s/p stent - see #1 3. COPD 4. DM Type 2 - initial BS in the 400's; improved with initiation of Levemir 5. CKD - Cr on admission1.86, improved to 1.44 after IVF 6. Recent hx of UTI and cellulitis - UA does not show evidence of UTI at this time. - started on Rocephin in the ER to cover. Clinical Quality Measures DVT/VTE Risk/Contraindication: Risk Factor Score Per Nursin RFS Level Per Nursing on Admit: 3=High FERNANDA WONG DO Sep 20, 2018 14:05
[2018-09-20] MEDS: QUEtiapine 25 MG (SEROquel) TAB IMMEDIATE RELEASE PO SCH (20:27)
[2018-09-20] MEDS: ATORVASTATIN 40 MG (LIPITOR) TABLET PO SCH (20:27)
[2018-09-20] MEDS: morphine ER 15 MG (MS CONTIN) TAB PO SCH (20:27)
[2018-09-20] MEDS: inSUlin DETERMIR 1 UNIT/0.01 ML (LEVEMIR) CHARGE PER UNIT SQ SCH (20:28)
[2018-09-21] VITALS: BP 158/64
[2018-09-21] MEDS: 1/2 NS W/KCL 20 MEQ/L 1,000 ML IV SCH ×5 (02:06→21:52)
[2018-09-21 04:00] VITALS: BP 146/79
[2018-09-21] MEDS: inSUlin ASPART (NovoLOG) 1 UNIT/0.01 ML (CHARGE PER UNIT) SC SCH ×4 (06:55→23:28)
[2018-09-21 08:00] VITALS: BP 126/60
[2018-09-21] MEDS: NICOTINE 21 MG (NICODERM) PATCH TD SCH (08:35)
[2018-09-21] MEDS: FUROSEMIDE 40 MG (LASIX) TAB PO SCH (08:35)
[2018-09-21] MEDS: TEMAZEPAM 15 MG (RESTORIL) CAP PO SCH (08:35)
[2018-09-21] MEDS: FAMOTIDINE 20 MG (PEPCID) TABLET PO SCH (08:36)
[2018-09-21] MEDS: QUEtiapine 25 MG (SEROquel) TAB IMMEDIATE RELEASE PO SCH ×2 (08:36→21:49)
[2018-09-21] MEDS: CLOPIDOGREL 75 MG (PLAVIX) TABLET PO SCH (08:36)
[2018-09-21] MEDS: DEXAMETHASONE 4 MG TAB (DECADRON) PO SCH (08:36)
[2018-09-21] MEDS: ASPIRIN 81 MG CHEW (CHILDREN'S ASA) PO SCH (08:36)
[2018-09-21] MEDS: morphine ER 15 MG (MS CONTIN) TAB PO SCH ×3 (08:37→21:49)
[2018-09-21] MEDS: lisINopril 5 MG (PRINIVIL) TABLET PO SCH (08:37)
[2018-09-21] MEDS: ALLOPURINOL 100 MG (ZYLOPRIM) TAB PO SCH (08:37)
[2018-09-21] MEDS: meTOprolol SUCCINATE 100 MG (TOPROL XL) TAB PO SCH (08:37)
[2018-09-21] MEDS: PANTOPRAZOLE 20 MG TABLET (PROTONIX) PO SCH (08:41)
[2018-09-21] MEDS: ENOXAPARIN 80 MG/0.8 ML (LOVENOX) SYR SC SCH (08:45)
[2018-09-21 11:51] VITALS: BP 159/74
--- NOTE | 2018-09-21 12:17 | Progress Note-Cardiology ---
Cardiology SOAP Progress Note Subjective: Does not report any symptoms States feels well Objective: I&O/Vital Signs 09/21/18 09/21/18 09/21/18 09/21/18 01:03 04:00 07:00 08:00 Temp 98.7 98.9 Pulse 59 73 69 69 Resp 18 24 B/P (MAP) 146/79 (101) 126/60 (82) Pulse Ox 97 98 O2 Delivery Room Air Room Air 09/21/18 09/21/18 08:30 11:51 Temp 98.5 Pulse 65 Resp 22 B/P (MAP) 159/74 (102) Pulse Ox 99 O2 Delivery Room Air Room Air 09/21/18 00:00 Intake Total 2620 ml Balance 2620 ml Weight (Pounds): 147 Weight (Ounces): 0.0 Weight (Calculated Kilograms): 66.340155 Constitutional: No AAO x 3; well-developed, well-nourished, other (appearance some unkempt; poor memory; unable to provide any reliable history) Respiratory: other (fair air entry, diminished at the bases, prolonged exp) Cardiovascular: regular rate-rhythm, S1 and S2, systolic murmur (faint MADIE at card base) Gastrointestional: No tender; soft; No guarding, No rebound; audible bowel sounds Extremities: other (bilat leg swelling with reddish and flaky skin on the legs ; NED-wrap on L leg not removed at time of this exam; overgrown and tobacco- stained hand nails) Neurologic/Psychiatric: other (Disoriented, poor memory, able to move all limbs equally) Results/Procedures: Labs Laboratory Tests 09/20/18 16:06: Glucometer 230H 09/20/18 20:08: Glucometer 144H 09/21/18 05:45: Glucometer 126H 09/21/18 10:36: Glucometer 149H Laboratory Tests 09/19/18 18:00 09/20/18 04:55 A/P: Assessment: Ac on chronic mental status changes. Dementia. Unable to provide care to self Probably small acute NTEMI, stable clinically CAD with h/o LCX stenting in 2010: Promus 3x15 in LCX and Promus 3x2 in OM Leg cellulitis and recently diagnosed UTI, being managed by the [facility] CKD 3-4. Hospitalization in April 2018 with ac renal failure Echo of 09/20/18: LVEF 60-65%, mod dil of LA, PASP WNL DM II, being managed by the [facility] Hypertension Hyperlipidemia H/o PAD with h/o bilat fem-pop at [place], [place], several years ago. 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
--- NOTE | 2018-09-21 14:08 | Progress Note (SOAP) ---
Subjective Subjective/Events-last exam Patient has no complaints. Continues to be unable to answer questions but has not been combative. Spoke with daughter, Randi, regarding plans for DC. She lives at home. There is another relative that also has healthcare needs that also live in the home. Daughter and several other family members are care givers take turns staying at the home so patient has 24h support. Daughter reports that his baseline is short-term memory loss and likes to wander but not combative as he had become prior to admission. Daughter would like for patient to return home. Review of Systems Date Seen by Provider: Sep 21, 2018 Time Seen by Provider: 11:10 Objective Exam Last Set of Vital Signs Vital Signs Date Time Temp Pulse Resp B/P (MAP) Pulse Ox O2 Delivery O2 Flow Rate FiO2 09/21/18 13:00 61 09/21/18 11:51 98.5 22 159/74 (102) 99 Room Air 09/20/18 20:00 2.00 Capillary Refill : Less Than 3 SecondsGreater Than 3 Seconds I&O Intake and Output 09/21/18 00:00 Intake Total 4130 ml Output Total 400 ml Balance 3730 ml Intake Oral 1130 ml IV Total 3000 ml Output Urine Total 400 ml # Voids 9 # Bowel Movements 1 General: Alert, Cooperative, No Acute Distress Lungs: Clear to Auscultation Heart: Regular Rate Skin: Other (removed bandage from L leg, skin very dry and flaking; small skin lesion over the L achilles tendon which was ttp, no erythema noted) Psych/Mental Status: Mood NL Results/Procedures Lab Laboratory Tests 09/20/18 16:06: Glucometer 230H 09/20/18 20:08: Glucometer 144H 09/21/18 05:45: Glucometer 126H 09/21/18 10:36: Glucometer 149H Radiology Date of Exam: 09/19/18 CHEST 1 VIEW, AP/PA ONLY EXAMINATION: Portable erect AP chest at 07:09 p.m. INDICATION: Chest pain. FINDINGS: The heart size is at the upper limits of normal, but the heart does seem less prominent than noted on the prior exam of 08/27/2018. The lungs are clear. There is no evidence for failure, pneumonia, or for a pleural effusion. A few small calcified granulomas are again seen in both lungs. Mediastinum is not widened. The osseous structures are intact. IMPRESSION: There is no evidence for an acute cardiopulmonary abnormality. Date of Exam: 09/19/18 CT HEAD WO PROCEDURE: CT head without contrast. TECHNIQUE: Multiple contiguous axial images were obtained through the brain without the use of intravenous contrast. INDICATION: Fell, headache There is no mass, shift of the midline or hemorrhage to suggest an acute intracranial abnormality. The ventricles are not not abnormally dilated and similar in size to the prior exam of 08/27/2018. The senescent changes seen on the prior study including cortical atrophy and periventricular encephalomalacia are again evident and no different. The bone windows show no sign of a fracture or of a destructive lesion. The orbits are symmetrical and within normal limits. The sinuses where visualized are clear. IMPRESSION: 1. There is no evidence for an acute intracranial abnormality. When compared to the previous study, there has been no significant change. 2. If clinical concern regarding an underlying abnormality persists, then MRI would be recommended for further study. Assessment/Plan Assessment/Plan Assessment & Plan 1. Chest pain with probable small acute NSTEMI, stable clinically - Pt admitted for observation. - unable to obtain CTA to r/o PE due to elevated creatinine - low index of suspicion for PE based on physical exam - initial troponin negative; repeat increased to 0.44 - Dr. Jaramillo consulted; 2D echo ordered, started on Lovenox, ASA, Plavix 09/21 - Dr. Jaramillo recommends medical management 2. hx CAD s/p stent 2010 - see #1 - Echo of 09/20/18: LVEF 60-65%, mod dil of LA, PASP WNL - Treat with DAPT and BB and statin 3. COPD 4. DM Type 2 - initial BS in the 400's; improved with initiation of Levemir 09/21 - BS better controlled 5. CKD - Cr on admission1.86, improved to 1.44 after IVF 6. Recent hx of UTI and cellulitis - UA does not show evidence of UTI at this time. - started on Rocephin in the ER to cover. 09/21 - no evidence of cellulitis at this time 7. H/o PAD with h/o bilat fem-pop at [place], [place], several years ago. R leg u/s of 09/17/16 showed occluded SFA and patent R fem-pop graft DISP: anticipate DC home tomorrow under the care of his family. Will consult Electrical Wiring Lineman in the am to assist with DC planning. Clinical Quality Measures DVT/VTE Risk/Contraindication: Risk Factor Score Per Nursin RFS Level Per Nursing on Admit: 3=High RAFAELA WONG DO Sep 21, 2018 14:07
[2018-09-21 16:00] VITALS: BP 132/63
[2018-09-21 19:36] VITALS: BP 159/69
[2018-09-21] MEDS: ATORVASTATIN 40 MG (LIPITOR) TABLET PO SCH (21:49)
[2018-09-21] MEDS: inSUlin DETERMIR 1 UNIT/0.01 ML (LEVEMIR) CHARGE PER UNIT SQ SCH (21:49)
[2018-09-22] VITALS: BP 146/64
[2018-09-22 04:00] VITALS: BP 172/72
[2018-09-22] MEDS: 1/2 NS W/KCL 20 MEQ/L 1,000 ML IV SCH ×2 (04:34→13:50)
[2018-09-22] MEDS: inSUlin ASPART (NovoLOG) 1 UNIT/0.01 ML (CHARGE PER UNIT) SC SCH ×2 (05:46→12:07)
[2018-09-22 08:00] VITALS: BP 139/85
[2018-09-22] MEDS: QUEtiapine 25 MG (SEROquel) TAB IMMEDIATE RELEASE PO SCH (08:30)
[2018-09-22] MEDS: TEMAZEPAM 15 MG (RESTORIL) CAP PO SCH (08:30)
[2018-09-22] MEDS: CLOPIDOGREL 75 MG (PLAVIX) TABLET PO SCH (08:30)
[2018-09-22] MEDS: DEXAMETHASONE 4 MG TAB (DECADRON) PO SCH (08:30)
[2018-09-22] MEDS: FAMOTIDINE 20 MG (PEPCID) TABLET PO SCH (08:30)
[2018-09-22] MEDS: PANTOPRAZOLE 20 MG TABLET (PROTONIX) PO SCH (08:30)
[2018-09-22] MEDS: meTOprolol SUCCINATE 100 MG (TOPROL XL) TAB PO SCH (08:30)
[2018-09-22] MEDS: ASPIRIN 81 MG CHEW (CHILDREN'S ASA) PO SCH (08:31)
[2018-09-22] MEDS: FUROSEMIDE 40 MG (LASIX) TAB PO SCH (08:31)
[2018-09-22] MEDS: ALLOPURINOL 100 MG (ZYLOPRIM) TAB PO SCH (08:31)
[2018-09-22] MEDS: morphine ER 15 MG (MS CONTIN) TAB PO SCH ×2 (08:31→12:08)
[2018-09-22] MEDS: NICOTINE 21 MG (NICODERM) PATCH TD SCH (08:38)
[2018-09-22] MEDS: ENOXAPARIN 80 MG/0.8 ML (LOVENOX) SYR SC SCH (08:39)
[2018-09-22] MEDS: lisINopril 5 MG (PRINIVIL) TABLET PO SCH (08:39)
[2018-09-22] MEDS ORDERED: ATOR40TA PO (09:13)
[2018-09-22] MEDS ORDERED: CLOP75TA28 PO (09:13)
[2018-09-22] MEDS ORDERED: METO-395 PO (09:13)
--- NOTE | 2018-09-22 09:21 | Discharge Summary ---
Diagnosis/Chief Complaint Date of Admission Sep 19, 2018 at 21:00 Date of Discharge Sep 22, 2018 Admission Diagnosis Admission Diagnosis Chest pain hx CAD s/p stent Discharge Diagnosis 1. Chest pain with probable small acute NSTEMI, stable clinically - Pt admitted for observation. - unable to obtain CTA to r/o PE due to elevated creatinine - low index of suspicion for PE based on physical exam - initial troponin negative; repeat increased to 0.44 - Dr. Jaramillo consulted; 2D echo ordered, started on Lovenox, ASA, Plavix 09/21 - Dr. Jaramillo recommends medical management 2. hx CAD s/p stent 2010 - see #1 - Echo of 09/20/18: LVEF 60-65%, mod dil of LA, PASP WNL - Treat with DAPT and BB and statin 3. COPD 4. DM Type 2 - initial BS in the 400's; improved with initiation of Levemir 09/21 - BS better controlled 5. CKD - Cr on admission1.86, improved to 1.44 after IVF 6. Recent hx of UTI and cellulitis - UA does not show evidence of UTI at this time. - started on Rocephin in the ER to cover. 09/21 - no evidence of cellulitis at this time 7. H/o PAD with h/o bilat fem-pop at [place], [place], several years ago. R leg u/s of 09/17/16 showed occluded SFA and patent R fem-pop graft DISP: DC home under the care of his family. Installation Supervisor consulted to assist with DC planning. RX for Metoprolol, atorvastatin and Plavix sent to [facility]. Continued other home medications as previous. Recommend working on tapering benzodiazepines and opioids as OP to safer doses to avoid side effects and the potential for accidental overdose. Chief Complaint/HPI Chief Complaint/HPI This is a 78 yo male patient of Ajith Fritz APRN at [facility] who presents to the ER with complaints of chest pain. Pt is a poor historian so history obtain from hospital and clinic record. According to his daughter (who the pt lives with) pt has been acting "out of it" for 2 days. He was treated for cellulitis and a UTI as an OP with Keflex. He had onset of chest pain yesterday afternoon, nitro made the pain worse. Pt has hx of COPD but does not wear oxygen at home. He reports no increase in SOA from baseline. Daughter also reports increase in falls recently. CT in ER showed chronic age related changes but negative for acute changes. Pt reports no chest pain at this time. His initial troponin was negative but repeat was increased to 0.44. Discharge Summary-Simple/Stand Consultations Discharge Physical Examination Allergies: Coded Allergies: SELMAANo Known Allergies (Unverified Allergy, Mild, 06/21/09) Vitals & I&Os Vital Sign - Last 12Hours Date Time Temp Pulse Resp B/P (MAP) Pulse Ox O2 Delivery O2 Flow Rate FiO2 09/22/18 08:35 Room Air 09/22/18 08:00 98.6 62 20 139/85 (103) 100 09/20/18 20:00 2.00 Intake and Output 09/22/18 00:00 Intake Total 3340 ml Balance 3340 ml General Appearance: Alert, Cooperative Psych/Mental Status: Mood NL Hospital Course See final discharge diagnosis. Labs Laboratory Tests 09/19/18 18:00: White Blood Count 7.6, Red Blood Count 3.83L, Hemoglobin 12.7L, Hematocrit 38L, Mean Corpuscular Volume 100H, Mean Corpuscular Hemoglobin 33, Mean Corpuscular Hemoglobin Concent 33, Red Cell Distribution Width 15.4H, Platelet Count 129L, Mean Platelet Volume 12.6H, Neutrophils (%) (Auto) 83H, Lymphocytes (%) (Auto) 12, Monocytes (%) (Auto) 2, Eosinophils (%) (Auto) 2, Basophils (%) (Auto) 1, Neutrophils # (Auto) 6.3, Lymphocytes # (Auto) 0.9L, Monocytes # (Auto) 0.2, Eosinophils # (Auto) 0.1, Basophils # (Auto) 0.0, Prothrombin Time 11.6L, INR Comment 0.9, Activated Partial Thromboplast Time 21L, D-Dimer 2.05H, Sodium Level 138, Potassium Level 5.0, Chloride Level 101, Carbon Dioxide Level 22, Anion Gap 15H, Blood Urea Nitrogen 56H, Creatinine 1.86H, Estimat Glomerular Filtration Rate 35, BUN/Creatinine Ratio 30, Glucose Level 418*H, Calcium Level 9.7, Corrected Calcium 9.9, Magnesium Level 1.6L, Total Bilirubin 0.3, Aspartate Amino Transf (AST/SGOT) 14, Alanine Aminotransferase (ALT/SGPT) 19, Alkaline Phosphatase 79, Myoglobin 62.0, Troponin I < 0.30, B-Type Natriuretic Peptide 35.5, Total Protein 6.1L, Albumin 3.7 09/19/18 19:07: Urine Color YELLOW, Urine Clarity CLEAR, Urine pH 6, Urine Specific [place] 1.010L, Urine Protein 3+H, Urine Glucose (UA) 4+H, Urine Ketones NEGATIVE, Urine Nitrite NEGATIVE, Urine Bilirubin NEGATIVE, Urine Urobilinogen NORMAL, Urine Leukocyte Esterase NEGATIVE, Urine RBC (Auto) NEGATIVE, Urine RBC NONE, Urine WBC NONE, Urine Squamous Epithelial Cells RARE, Urine Crystals NONE, Urine Bacteria NONE, Urine Casts NONE, Urine Mucus NEGATIVE, Urine Culture Indicated NO 09/20/18 04:55: White Blood Count 8.1, Red Blood Count 3.38L, Hemoglobin 11.4L, Hematocrit 34L, Mean Corpuscular Volume 100H, Mean Corpuscular Hemoglobin 34, Mean Corpuscular Hemoglobin Concent 34, Red Cell Distribution Width 15.4H, Platelet Count 133, Mean Platelet Volume 12.4H, Neutrophils (%) (Auto) 73, Lymphocytes (%) (Auto) 19 , Monocytes (%) (Auto) 6, Eosinophils (%) (Auto) 2, Basophils (%) (Auto) 0, Neutrophils # (Auto) 5.9, Lymphocytes # (Auto) 1.5, Monocytes # (Auto) 0.5, Eosinophils # (Auto) 0.2, Basophils # (Auto) 0.0, Sodium Level 140, Potassium Level 4.3, Chloride Level 105, Carbon Dioxide Level 23, Anion Gap 12, Blood Urea Nitrogen 45H, Creatinine 1.44H, Estimat Glomerular Filtration Rate 47, BUN/ Creatinine Ratio 31, Glucose Level 211H, Calcium Level 9.0, Troponin I 0.44*H, Triglycerides Level 244H, Cholesterol Level 209H, LDL Cholesterol Direct 142H, VLDL Cholesterol 49H, HDL Cholesterol 35L 09/20/18 06:14: Glucometer 240H 09/20/18 11:49: Glucometer 143H 09/20/18 16:06: Glucometer 230H 09/20/18 20:08: Glucometer 144H 09/21/18 05:45: Glucometer 126H 09/21/18 10:36: Glucometer 149H 09/21/18 15:12: Glucometer 398H 09/21/18 19:54: Glucometer 149H 09/22/18 05:33: Glucometer 113H Radiology Reviewed Date of Exam: 09/19/18 CHEST 1 VIEW, AP/PA ONLY EXAMINATION: Portable erect AP chest at 07:09 p.m. INDICATION: Chest pain. FINDINGS: The heart size is at the upper limits of normal, but the heart does seem less prominent than noted on the prior exam of 08/27/2018. The lungs are clear. There is no evidence for failure, pneumonia, or for a pleural effusion. A few small calcified granulomas are again seen in both lungs. Mediastinum is not widened. The osseous structures are intact. IMPRESSION: There is no evidence for an acute cardiopulmonary abnormality. Date of Exam: 09/19/18 CT HEAD WO PROCEDURE: CT head without contrast. TECHNIQUE: Multiple contiguous axial images were obtained through the brain without the use of intravenous contrast. INDICATION: Fell, headache There is no mass, shift of the midline or hemorrhage to suggest an acute intracranial abnormality. The ventricles are not not abnormally dilated and similar in size to the prior exam of 08/27/2018. The senescent changes seen on the prior study including cortical atrophy and periventricular encephalomalacia are again evident and no different. The bone windows show no sign of a fracture or of a destructive lesion. The orbits are symmetrical and within normal limits. The sinuses where visualized are clear. IMPRESSION: 1. There is no evidence for an acute intracranial abnormality. When compared to the previous study, there has been no significant change. 2. If clinical concern regarding an underlying abnormality persists, then MRI would be recommended for further study. Discharge Instructions to patient/family Discharge [facility] Discharge Medications New, Converted or Re-Newed RX: Transmitted to Pharmacy ([facility]) New Medications: Atorvastatin Calcium (Lipitor) 40 Mg Tablet 40 MG PO HS, #30 TAB 1 Refill Clopidogrel Bisulfate (Clopidogrel) 75 Mg Tablet 75 MG PO DAILY, #30 TAB 1 Refill Metoprolol Succinate (Metoprolol Succinate) 100 Mg Tab.er.24h 100 MG PO DAILY, #30 TAB 1 Refill Continued Medications: Allopurinol (Allopurinol) 100 Mg Tablet 200 MG PO DAILY, TAB TAKE 2 (100 MG) TABLETS DAILY Cephalexin (Keflex) 500 Mg Capsule 500 MG PO 4 times daily, #40 CAP Dexamethasone (Dexamethasone) 4 Mg Tablet 4 MG PO DAILY Famotidine (Famotidine) 20 Mg Tablet 20 MG PO BID Furosemide (Furosemide) 40 Mg Tablet Insulin Determir (Levemir) 1,000 Units/10 Ml Soln 10 UNIT SQ HS, #1 VIAL Lisinopril (Lisinopril) 5 Mg Tablet Lorazepam (Lorazepam) 1 Mg Tablet 1 MG PO BID Melatonin (Melatonin) 5 Mg Tablet 5 MG PO QHS, #30 TAB Morphine Sulfate (Morphine Sulfate ER) 15 Mg Tablet.er 15 MG PO TID Oxycodone HCl (Oxycodone HCl) 5 Mg Tablet Pantoprazole Sodium (Pantoprazole Sodium) 40 Mg Tablet.dr 40 MG PO DAILY Quetiapine Fumarate (Quetiapine Fumarate) 50 Mg Tablet 50 MG PO BID Sennosides/Docusate Sodium (Senexon-S Tablet) 1 Each Tablet Temazepam (Temazepam) 15 Mg Capsule 15 MG PO DAILY Ziprasidone HCl (Ziprasidone HCl) 20 Mg Capsule 20 MG PO BID WITH MEALS, #30 CAP Patient Instructions Goal/Follow Up Appt: Follow up with Ajith Fritz APRN at [facility] 09/26/18 at 11:40am Activity & Diet Discharge Diet: No Restrictions Discharge Medications Reviewed and agree with Discharge Medication list on patient's Discharge Instruction sheet Clinical Quality Measures DVT/VTE Risk/Contraindication: Risk Factor Score Per Nursin RFS Level Per Nursing on Admit: 3=High RAFAELA WONG DO Sep 22, 2018 09:21
--- NOTE | 2018-09-22 09:30 | Progress Note-Cardiology ---
Cardiology SOAP Progress Note Subjective: In bed. Denies c/o CP this morning. C/O SOB, but feels this is not new. No c/ o palpitations. Objective: I&O/Vital Signs 09/22/18 09/22/18 09/22/18 09/22/18 01:00 04:00 07:00 07:25 Temp 98.0 Pulse 53 63 58 Resp 18 B/P (MAP) 172/72 (105) Pulse Ox 100 O2 Delivery Room Air Room Air 09/22/18 09/22/18 08:00 08:35 Temp 98.6 Pulse 62 Resp 20 B/P (MAP) 139/85 (103) Pulse Ox 100 O2 Delivery Room Air Room Air 09/22/18 00:00 Intake Total 3340 ml Balance 3340 ml Weight (Pounds): 147 Weight (Ounces): 0.0 Weight (Calculated Kilograms): 66.133931 Constitutional: No AAO x 3; well-developed, well-nourished, other (appearance some unkempt; poor memory; unable to provide any reliable history) Respiratory: other (fair air entry, diminished at the bases, prolonged exp) Cardiovascular: regular rate-rhythm, S1 and S2, systolic murmur (faint MADIE at card base) Gastrointestional: No tender; soft; No guarding, No rebound; audible bowel sounds Extremities: other (bilat leg swelling with reddish and flaky skin on the legs ; NED-wrap on L leg not removed at time of this exam; overgrown and tobacco- stained hand nails) Neurologic/Psychiatric: other (Disoriented, poor memory, able to move all limbs equally) Skin: No rash, No ulcerations Results/Procedures: Labs Laboratory Tests 09/21/18 15:12: Glucometer 398H 09/21/18 19:54: Glucometer 149H 09/22/18 05:33: Glucometer 113H 09/22/18 11:46: Glucometer 250H A/P: Assessment: Ac on chronic mental status changes. Dementia. Unable to provide care to self Probably small acute NTEMI, stable clinically CAD with h/o LCX stenting in 2010: Promus 3x15 in LCX and Promus 3x2 in OM Leg cellulitis and recently diagnosed UTI, [place] [facility] [place] 3-4. Hospitalization in April 2018 with ac renal failure Echo of 09/20/18: LVEF 60-65%, mod dil of LA, PASP WNL DM II, [place] [facility] [place] Hyperlipidemia H/o PAD with h/o bilat fem-pop at [place], [place], several years ago. 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 Does not appear to be in distress Lungs: fair air entry, diminished at the bases; prolonged exp phase Cor: reg Ext: no c/c/e A&R * As documented in our note above that I updated (italics) * Outpt f/u advised NOE MIRZA Sep 22, 2018 09:30 ANNELISE PIERRE MD FACP [facility] Sep 22, 2018 12:34
--- NOTE | 2018-09-22 10:22 | D/C HH Face to Face Order ---
D/C Face to Face Orders Instructions for Patient Via [employer], Patient Instructions/FollowUp: Follow-up with Ajith at [facility] 09/26/18 at 11:40am Physician to follow Patient: Ajith Fritz APRN/Dr. Orozco Discharge Diet for Home: No Restrictions Patient Data-Allergies,Ht & Wt Patient Allergies: Coded Allergies: NKANo Known Allergies (Unverified Allergy, Mild, 06/21/09) Height (Feet): 5 Height (Inches): 5.00 Weight (Pounds): 147 Weight (Ounces): 0.0 Home Health Need/Face to Face Date of Face to Face: Sep 22, 2018 Clinical Findings: Other-list in note Confusion, falls I have seen Pt [id number]: Yes Discharged To: Home Diagnosis/Conditions: Confusion, short-term memory loss Falls Patient is Homebound due to: CognItive deficits Homebound Status Due to the above stated illness, injury or surgical procedure (medical condition or diagnosis) and associated clinical findings, the patient is homebound because of his/her inability to leave home except with aid of a supportive device and/or person AND leaving the home requires a considerable and taxing effort or is medically contraindicated. Pt req the following assistanc: Cane (need to assess) Home Health Nursing Orders Home Health Services Order: Nursing Services, Physical Therapy-Evaluate & Treat Home Health Infusion Therapy Site Location: Hand Therapy Orders Therapy Orders: OT (must have SN or PT order), Physical Therapy Therapy Specific Orders: Eval assistive deivces, Increase strength/endurance Certify Stmt I certify that this patient is under my care and that I, a nurse practitioner or a physician; a carpenter assistant installer working with me, had a face to face encounter that - meets the physician face to face encounter requirements with this patient as dated. RAFAELA WONG DO Sep 22, 2018 10:22
== END 2018-09-22 09:13 | disposition home health service (06) ==
LOC: EDUNIT# 17:38 → ER 17:41 → 4TH 21:00 → UNDOADMOB 21:00 → 4TH 21:50 → UNDODISOB 09-22 14:30
PROVIDERS: ADMIT Family Medicine; ATTEND Family Medicine
DX: R07.9 Chest pain, unspecified (principal); L03.116 Cellulitis of left lower limb; J44.9 Chronic obstructive pulmonary disease, unspecified; F17.210 Nicotine dependence, cigarettes, uncomplicated; E11.40 Type 2 diabetes mellitus with diabetic neuropathy, unspecified; I25.10 Atherosclerotic heart disease of native coronary artery without angina pectoris; I12.9 Hypertensive chronic kidney disease with stage 1 through stage 4 chronic kidney disease, or unspecified chronic kidney disease; N18.3 Chronic kidney disease, stage 3 (moderate); E11.22 Type 2 diabetes mellitus with diabetic chronic kidney disease; E78.5 Hyperlipidemia, unspecified; N40.0 Benign prostatic hyperplasia without lower urinary tract symptoms; F41.9 Anxiety disorder, unspecified; F03.90 Unspecified dementia, unspecified severity, without behavioral disturbance, psychotic disturbance, mood disturbance, and anxiety; I70.201 Unspecified atherosclerosis of native arteries of extremities, right leg; R29.6 Repeated falls; K21.9 Gastro-esophageal reflux disease without esophagitis; R79.89 Other specified abnormal findings of blood chemistry; Z87.440 Personal history of urinary (tract) infections; Z79.4 Long term (current) use of insulin; Z95.5 Presence of coronary angioplasty implant and graft; Z95.820 Peripheral vascular angioplasty status with implants and grafts
CPT/HCPCS: 36415; 70450; 71045; 80048; 80053; 80061; 81000; 82962; 83735; 83874; 83880; 84484; 85025; 85379; 85610; 85730; 93005; 93041; 93306; 94640; 96361; 96365; 96372; 96375; G0378

== ENCOUNTER 2018-10-02 06:54 | Inpatient (IN) | payer MEDICARE, MEDICAID ==
[2018-10-02] VITALS (11 sets, daily range): BP systolic 103–138; BP diastolic 48–73
[~2018-10-02] VITALS: Ht 165.1 cm; Wt 74.1 kg
[~2018-10-02 06:54] MED LIST changes: +ATOR40TA PO; +DEXA4TAB PO; +FAMO20TA5 PO; +INSU100I29 SC; +LORA1TAB PO; +MELA5TAB14 PO; +METO-395 PO; +OXYC-529 PO; +QUET50TA55 PO; +SENN1TAB8; +TEMA15CA PO
[2018-10-02] MEDS ORDERED: ASPIRIN 81 MG CHEW (CHILDREN'S ASA) PO ONE (07:00)
--- NOTE | 2018-10-02 07:13 | ED Chest Pain ---
General Stated Complaint: CP Source: patient Exam Limitations: no limitations History of Present Illness Date Seen by Provider: Oct 02, 2018 Time Seen by Provider: 06:50 Initial Comments Here with report of chest pain at some point during the night. He apparently took 2 nitroglycerin and this resolved his chest pain. Currently states he has no chest pain. His family wanted him checked out. Patient did not really want to calm. Denies symptoms currently but is a terrible historian. Did have recent hospitalization for non-ST elevation IL and he does not remember that. Here by EMS. Timing/Duration: 1-3 hours, resolved prior to arrival, gone now Severity/Quality: mild Location: central Radiation: no radiation Activities at Onset: none Prior CP/Workup: angina, echocardiography, heart attack Modifying Factors: improves with nitroglycerin ASA po CALL CENTER SPECIALIST: Yes NTG SL CALL CENTER SPECIALIST: Yes Associated Symptoms: No back pain, No diaphoresis; edema; No nausea/vomiting, No shortness of breath Allergies and Home Medications Allergies Coded Allergies: NKANo Known Allergies (Unverified Allergy, Mild, 06/21/09) Home Medications Allopurinol 100 Mg Tablet, 200 MG PO DAILY, (Reported) TAKE 2 (100 MG) TABLETS DAILY Atorvastatin Calcium 40 Mg Tablet, 40 MG PO HS Prescribed by: RAFAELA WONG on 09/22/18912 Cephalexin 500 Mg Capsule, 500 MG PO 4 times daily Prescribed by: RAFAELA WONG on 09/20/18 135 Clopidogrel Bisulfate 75 Mg Tablet, 75 MG PO DAILY Prescribed by: RAFAELA WONG on 09/22/18912 Dexamethasone 4 Mg Tablet, 4 MG PO DAILY, (Reported) Famotidine 20 Mg Tablet, 20 MG PO BID, (Reported) Insulin Determir 1,000 Units/10 Ml Soln, 10 UNIT SQ HS Prescribed by: BEVERLY LARA on 04/30/18 1135 Lorazepam 1 Mg Tablet, 1 MG PO BID, (Reported) Melatonin 5 Mg Tablet, 5 MG PO QHS Prescribed by: RAFAELA WONG on 09/20/18 135 Metoprolol Succinate 100 Mg Tab.er.24h, 100 MG PO DAILY Prescribed by: RAFAELA WONG on 09/22/18912 Morphine Sulfate 15 Mg Tablet.er, 15 MG PO TID, (Reported) Pantoprazole Sodium 40 Mg Tablet.dr, 40 MG PO DAILY, (Reported) Quetiapine Fumarate 50 Mg Tablet, 50 MG PO BID, (Reported) Temazepam 15 Mg Capsule, 15 MG PO DAILY, (Reported) Ziprasidone HCl 20 Mg Capsule, 20 MG PO BID WITH MEALS Prescribed by: BEVERLY LARA on 04/30/18 1508 Patient Home Medication List Home Medication List Reviewed: Yes Review of Systems Review of Systems Constitutional: see HPI; No chills, No fever EENTM: See HPI Respiratory: Denies Cough, Denies Shortness of Air Cardiovascular: Chest Pain, Edema; Denies Lightheadedness Gastrointestinal: Denies Nausea, Denies Vomiting Musculoskeletal: no symptoms reported Skin: no symptoms reported Other Comments Review of systems Limited due to poor historian from patient standpoint. All Other Systems Reviewed Negative Unless Noted: Yes Past Nubbdje-Gtixek-Azvxwt Hx Past Med/Social Hx: Reviewed Nursing Past Med/Soc Hx Patient Social History Alcohol Use: Denies Use Recreational Drug Use: No Smoking Status: Current Everyday Smoker Type Used: Cigarettes 2nd Hand Smoke Exposure: Yes Recent Foreign Travel: No Contact w/Someone Who Travel: No Recent Hopitalizations: No Immunizations Up To Date Tetanus Booster (TDap): Less than 5yrs Date of Pneumonia Vaccine: Nov 18, 2009 Date of Influenza Vaccine: Sep 28, 2015 Seasonal Allergies Seasonal Allergies: No Past Medical History Surgeries: Yes (CARDIAC CATH/STENT, HIATAL HERNIA REPAIR; TURP; LEFT FEM-TIB BYPASS) Abdominal, Cardiac, Coronary Stent, Transurethral Resection, Vascular Surgery Respiratory: Yes COPD Cardiac: Yes (LEFT FEMORAL ANEURYSM;CARDIAC CATH-STENT; LEFT FEM-TIB BYPASS) Aneurysm, Chronic Edema/Swelling, Coronary Artery Disease, High Cholesterol, Hypertension, Peripheral Vascular Neurological: Yes (PERIPHERAL NEUROPATHY) Dementia, Neuropathy Reproductive Disorders: No Sexually Transmitted Disease: No Genitourinary: Yes Benign Prostatic Hyperpl, Prostate Problems Gastrointestinal: Yes Gastroesophageal Reflux, Hiatal Hernia Musculoskeletal: Yes Arthritis Endocrine: Yes Diabetes, Insulin dep HEENT: Yes (RIGHT CORNEA OPACIFIED) Cataract Loss of Vision: Right Hearing Impairment: Hard of Hearing Cancer: No Psychosocial: Yes Anxiety Integumentary: Yes (MRSA) Blood Disorders: No Family Medical History Reviewed Nursing Family Hx Cancer 19 FATHER 19 MOTHER Family history: Cardiovascular disease Family history: Diabetes mellitus G8 SISTER 19 MOTHER Family history: Hypertension G8 BROTHER Heart Disease, Cancer, Diabetes, Hypertension Physical Exam Vital Signs Vital Signs - First Documented 10/02/18 07:41 Temp 97.1 Pulse 73 Resp 20 B/P (MAP) 134/63 (86) Pulse Ox 99 O2 Delivery Room Air Capillary Refill : Height, Weight, BMI Height: 5'5.00" Weight: 147lbs. 0.0oz. 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 Left pupil reactive but sluggish.) Neck: Non Tender, Supple Cardiovascular: Regular Rate, Rhythm, No Murmur Gastrointestinal: Non Tender, Soft Extremity: Normal Range of Motion, Non Tender, Pedal Edema (2+ bilateral lower extremity edema to the level of the knees) Neurologic/Psychiatric: Alert, Oriented x3 Skin: Normal Color, Warm/Dry Progress/Results/Core Measures Results/Orders Lab Results Laboratory Tests Test 10/02/18 07:14 10/02/18 07:25 Range/Units Glucometer 420 *H 70-110 MG/DL White Blood Count 5.7 4.3-11.0 10^3/uL Red Blood Count 3.05 L 4.35-5.85 10^6/uL Hemoglobin 10.2 L 13.3-17.7 G/DL Hematocrit 31 L 40-54 % Mean Corpuscular Volume 101 H 80-99 FL Mean Corpuscular Hemoglobin 33 25-34 PG Mean Corpuscular Hemoglobin Concent 33 32-36 G/DL Red Cell Distribution Width 14.9 H 10.0-14.5 % Platelet Count 124 L 130-400 10^3/uL Mean Platelet Volume 12.0 H 7.4-10.4 FL Neutrophils (%) (Auto) 75 42-75 % Lymphocytes (%) (Auto) 14 12-44 % Monocytes (%) (Auto) 10 0-12 % Eosinophils (%) (Auto) 1 0-10 % Basophils (%) (Auto) 0 0-10 % Neutrophils # (Auto) 4.3 1.8-7.8 X 10^3 Lymphocytes # (Auto) 0.8 L 1.0-4.0 X 10^3 Monocytes # (Auto) 0.5 0.0-1.0 X 10^3 Eosinophils # (Auto) 0.1 0.0-0.3 10^3/uL Basophils # (Auto) 0.0 0.0-0.1 10^3/uL Prothrombin Time 12.9 12.2-14.7 SEC INR Comment 1.0 0.8-1.4 Activated Partial Thromboplast Time 29 24-35 SEC Sodium Level 138 135-145 MMOL/L Potassium Level 4.3 3.6-5.0 MMOL/L Chloride Level 104 98-107 MMOL/L Carbon Dioxide Level 23 21-32 MMOL/L Anion Gap 11 5-14 MMOL/L Blood Urea Nitrogen 50 H 7-18 MG/DL Creatinine 1.75 H 0.60-1.30 MG/DL Estimat Glomerular Filtration Rate 38 BUN/Creatinine Ratio 29 Glucose Level 409 *H 70-105 MG/DL Calcium Level 8.9 8.5-10.1 MG/DL Corrected Calcium 9.5 8.5-10.1 MG/DL Magnesium Level 1.8 1.8-2.4 MG/DL Total Bilirubin 0.2 0.1-1.0 MG/DL Aspartate Amino Transf (AST/SGOT) 10 5-34 U/L Alanine Aminotransferase (ALT/SGPT) 11 0-55 U/L Alkaline Phosphatase 75 40-136 U/L Myoglobin 55.9 10.0-92.0 NG/ML Troponin I 0.49 *H <0.30 NG/ML Total Protein 5.4 L 6.4-8.2 GM/DL Albumin 3.2 3.2-4.5 GM/DL Lipase 12 8-78 U/L My Orders Orders - BENOIT ALEMAN MD Cbc With Automated Diff (10/02/18 07:00) Magnesium (10/02/18 07:00) Chest 1 View, Ap/Pa Only (10/02/18 07:00) Ekg Tracing (10/02/18 07:00) Cardiac Profile 1 (10/02/18 07:00) Comprehensive Metabolic Panel (10/02/18 07:00) Myoglobin Serum (10/02/18 07:00) Protime With Inr (10/02/18 07:00) Partial Thromboplastin Time (10/02/18 07:00) O2 (10/02/18 07:00) Monitor-Rhythm Ecg Trace Only (10/02/18 07:00) Lipid Panel (10/03/18 06:00) Aspirin Chewable Tablet (Baby Aspirin Ch (10/02/18 07:00) Saline Lock/Iv-Start (10/02/18 07:00) Lipase (10/02/18 07:00) Accucheck Stat ONCE (10/02/18 07:05) Insulin (Regular) Human (Humulin R (Per (10/02/18 08:38) Medications Given in ED Current Medications Medications Dose Ordered Sig/Kuldeep Route Start Time Stop Time Status Last Admin Dose Admin Aspirin 324 mg ONCE ONCE PO 10/02/18 07:00 10/02/18 07:02 DC 10/02/18 07:39 324 MG Vital Signs/I&O 10/02/18 07:41 Temp 97.1 Pulse 73 Resp 20 B/P (MAP) 134/63 (86) Pulse Ox 99 O2 Delivery Room Air Progress Progress Note : Progress Note Seen and evaluated. IV, labs, EKG and chest x-ray ordered. No nitroglycerin as patient is pain-free. Aspirin ordered. Fingerstick blood sugar due to the diabetes history. Monitor patient. 0820: Troponin elevated. EKG does have some findings concerning for lateral ischemia. I did discuss the case with Dr. Jaramillo and he accepts patient for consult. Cardiac step down. Nothing by mouth. Patient did receive ASA. I did discuss the case with Dr. Katz, on- call for [facility]. She accepts patient for admission, inpatient status due to non-ST elevation IL findings. Patient agrees with plan. Initial ECG Impression Date: Oct 02, 2018 Initial ECG Impression Time: 07:12 Initial ECG Rate: 66 Initial ECG Rhythm: Normal Sinus Comment Sinus rhythm with normal axis. Inverted T waves in the lateral leads in V2 through V3 6 that her change from 09/20/18. No evidence of ST elevation IL but does have some concerns for depression in the lateral leads. Interpreted by me. Diagnostic Imaging Diagonstic Imaging: Xray Plain Films/CT/US/NM/MRI: chest Comments NAME: GIANCARLO DE LOS SANTOS MED REC#: [id number] PT STATUS: REG ER : 11/20/1925 PHYSICIAN: BENOIT ALEMAN MD ADMIT DATE: 10/02/18/ER Signed Date of Exam: 10/02/18 CHEST PA/LAT (2 VIEW) INDICATION: Shortness of breath. PA and lateral chest. Heart size and pulmonary vascularity are normal. Lungs are clear. There are no effusions or pneumothoraces. IMPRESSION: Negative chest. Dictated by: Dictated on workstation # [id number] Dict: 10/02/1821 Trans: 10/02/18751 Interpreted by: BENOIT ELIAS MD Electronically signed by: BENOIT ELIAS MD 10/02/18 0752 Departure Communication (Admissions) Time/Spoke to Admitting Phy: 08:30 Time/Spoke to Consulting Phy: 08:20 Impression Primary Impression: Non-ST elevation IL (NSTEMI) Additional Impression: Uncontrolled diabetes mellitus Qualified Codes: E11.65 - Type 2 diabetes mellitus with hyperglycemia Disposition: ADMITTED INPATIENT Condition: Stable Admissions Decision to Admit Reason: Admit from ER (General) Decision to Admit/Date: Oct 02, 2018 Time/Decision to Admit Time: 08:20 Departure-Patient Inst. Referrals: [facility] (PCP) Primary Care Physician CHELSI MA (Family) Primary Care Physician BENOIT ALEMAN MD Oct 02, 2018 07:13
--- NOTE | 2018-10-02 07:30 | Diagnostic Imaging Report ---
INDICATION: Chest pain Portable chest 7:24 AM Heart size and pulmonary vascularity are normal. Lungs are clear. There are no effusions or pneumothoraces. IMPRESSION: Negative chest. Dictated by: Dictated on workstation # [id number]
[2018-10-02 07:44] LABS: BASOPHILS % (AUTO) 0 % (0-10); EOSINOPHILS # (AUTO) 0.1 10^3/uL (0.0-0.3); EOSINOPHILS % (AUTO) 1 % (0-10); HEMATOCRIT 31 % (40-54); HEMOGLOBIN 10.2 G/DL (13.3-17.7); LYMPHOCYTES # (AUTO) 0.8 X 10^3 (1.0-4.0); LYMPHOCYTES % (AUTO) 14 % (12-44); MEAN CORPUSCULAR HEMOGLOBIN 33 PG (25-34); MEAN CORPUSCULAR HGB CONC 33 G/DL (32-36); MEAN CORPUSCULAR VOLUME 101 FL (80-99); MONOCYTES # (AUTO) 0.5 X 10^3 (0.0-1.0); MONOCYTES % (AUTO) 10 % (0-12); NEUTROPHILS # (AUTO) 4.3 X 10^3 (1.8-7.8); NEUTROPHILS % (AUTO) 75 % (42-75); PLATELET COUNT 124 10^3/uL (130-400); RED BLOOD COUNT 3.05 10^6/uL (4.35-5.85); RED CELL DISTRIBUTION WIDTH 14.9 % (10.0-14.5); WHITE BLOOD COUNT 5.7 10^3/uL (4.3-11.0)
[2018-10-02 07:57] LABS: PROTHROMBIN TIME PATIENT 12.9 SEC (12.2-14.7)
[2018-10-02 08:02] LABS: ALBUMIN 3.2 GM/DL (3.2-4.5); BILIRUBIN,TOTAL 0.2 MG/DL (0.1-1.0); CALCIUM 8.9 MG/DL (8.5-10.1); CREATININE SERUM 1.75 MG/DL (0.60-1.30); MAGNESIUM 1.8 MG/DL (1.8-2.4); POTASSIUM 4.3 MMOL/L (3.6-5.0); TOTAL PROTEIN 5.4 GM/DL (6.4-8.2)
[2018-10-02 08:09] LABS: MYOGLOBIN SERUM 55.9 NG/ML (10.0-92.0)
[2018-10-02] MEDS ORDERED: inSUlin (REGULAR) HUMAN 1 UNIT/0.01 ML (CHARGE PER UNIT) SC STA (08:38)
[2018-10-02] MEDS: NS IV 1000 ML 1,000 ML IV SCH ×4 (10:37→20:14)
[2018-10-02] MEDS: morphine INJ 4 MG/ML 1 ML (VIAL/SYRINGE) IVP PRN ×3 (10:37→22:22)
[2018-10-02] MEDS ORDERED: MELA5CAP PO (10:51)
[2018-10-02] MEDS ORDERED: METO-395 PO (10:51)
[2018-10-02] MEDS ORDERED: MULT-1102 PO (10:51)
[2018-10-02] MEDS ORDERED: ASPI-983 PO (10:51)
[2018-10-02] MEDS ORDERED: ATOR40TA70 PO (10:51)
[2018-10-02] MEDS ORDERED: SENN-120 PO (10:51)
[2018-10-02] MEDS ORDERED: CLOP75TA69 PO (10:54)
[2018-10-02] MEDS ORDERED: CEPH500C PO (10:57)
[2018-10-02 11:05] LABS: MYOGLOBIN SERUM 58.2 NG/ML (10.0-92.0)
--- NOTE | 2018-10-02 13:05 | Consultation-Cardiology ---
HPI-Cardiology Cardiology Consultation: Date of Consultation 10/02/18 Time Seen by a Provider: 12:30 Date of Admission Attending Physician Jayleen Katz MD Admitting Physician [facility] Consulting Physician ANNELISE PIERRE MD, MA, FACP, FACC, FSCAI, CCDS HPI: Chief Complaint: CC: Chest discomfort 78 yo man who is admitted with chest discomfort and evidence of small NSTEMI ( based on card enzymes). Had been admitted with worsening of chronic confusion earlier this month and had had mild troponin elevation at that time, as well. Was managed conservatively Has poor memory. Does not recall events of this am or last night well, but had reported episodes of chest discomfort to the ER physician this am and had stated had taken s/l NTG last night with relief of symptoms. Cannot recall any details of chest discomfort at this time. Does not report cp at this time and wishes to eat. Has chronic exertional shortness of breath Has had bilat leg swelling and redness of the skin of the legs for a long time ( exact duration) cannot be determined. Records indicate that he has been treated for UTI and leg cellulitis by his pcp lately Review of Systems-Cardiology Review of Systems Constitutional: other (ROS, as recored in HPI and below, is unreliable becaus of poor memory on the part of the patient) Eyes: blindness (R eye); No vision change Ears/Nose/Throat: No ear discharge, No nasal drainage, No recent hearing loss Respiratory: As described under HPI Cardiovascular: As described under HPI Gastrointestinal: No diarrhea Genitourinary: No dysuria, No hematuria Musculoskeletal: back pain (chronic) Skin: rash (bilat leg redness and flaking of skin, chronic) Psychiatric/Neurological: No seizure, No focal weakness, No syncope Hematologic: No bleeding abnormalities All Other Systems Reviewed Negative Unless Noted: Yes ZSM-Ftisxj-Ntotrs Hx Patient Social History Alcohol Use: Denies Use Recreational Drug Use: No Smoking Status: Current Everyday Smoker Type Used: Cigarettes 2nd Hand Smoke Exposure: Yes Recent Foreign Travel: No Recent Infectious Disease Expo: No Hospitalization with Isolation: Denies Immunizations Up To Date Tetanus Booster (TDap): Less than 5yrs Date of Pneumonia Vaccine: Nov 18, 2009 Date of Influenza Vaccine: Sep 28, 2015 Past Medical History PMH As described under Assessment. Family Medical History Family Medical History: No reported history of CAD or premature SCD. Family History: Cancer 19 FATHER 19 MOTHER Family history: Cardiovascular disease Family history: Diabetes mellitus G8 SISTER 19 MOTHER Family history: Hypertension G8 BROTHER Allergies and Home Medications Allergies Coded Allergies: NKANo Known Allergies (Unverified Allergy, Mild, 06/21/09) Home Medications Allopurinol 100 Mg Tablet, 200 MG PO DAILY, (Reported) Aspirin 81 Mg Tablet.dr, 81 MG PO DAILY, (Reported) Atorvastatin Calcium 40 Mg Tablet, 40 MG PO HS, (Reported) Cephalexin 500 Mg Capsule, 500 MG PO QID, (Reported) 10 DAY SUPPLY FILLED 09-23-18 Clopidogrel Bisulfate 75 Mg Tablet, 75 MG PO DAILY, (Reported) Dexamethasone 4 Mg Tablet, 4 MG PO DAILY, (Reported) Famotidine 20 Mg Tablet, 20 MG PO BID, (Reported) Furosemide 40 Mg Tablet, 40 MG PO DAILY, (Reported) Insulin Detemir 100 Unit/1 Ml Insuln.pen, 10 UNITS SC HS, (Reported) Lisinopril 5 Mg Tablet, 5 MG PO DAILY, (Reported) Melatonin 5 Mg Capsule, 5 MG PO HS, (Reported) Metoprolol Succinate 100 Mg Tab.er.24h, 100 MG PO DAILY, (Reported) Morphine Sulfate 15 Mg Tablet.er, 15 MG PO TID, (Reported) Multivit-Min/Folic/Vit K/Lycop 1 Each Tablet, 1 TAB PO DAILY, (Reported) Oxycodone HCl 5 Mg Tablet, 5 MG PO TID, (Reported) Pantoprazole Sodium 40 Mg Tablet.dr, 40 MG PO DAILY, (Reported) Quetiapine Fumarate 50 Mg Tablet, 50 MG PO BID, (Reported) Sennosides/Docusate Sodium 1 Each Tablet, 2 TAB PO TID, (Reported) Temazepam 15 Mg Capsule, 15 MG PO HS, (Reported) Patient Home Medication List Home Medication List Reviewed: Yes Physical Exam-Cardiology Physical Exam Vital Signs/I&O 10/02/18 10/02/18 10/02/18 10/02/18 06:54 07:41 09:40 10:13 Temp 97.1 Pulse 73 60 67 Resp 20 16 B/P (MAP) 134/63 (86) 141/60 (87) Pulse Ox 94 99 94 O2 Delivery Nasal Cannula Room Air O2 Flow Rate 2.00 2.00 10/02/18 10/02/18 10/02/18 10/02/18 10:15 11:15 11:45 12:00 Temp 97.2 Pulse 71 64 69 66 Resp 14 15 22 B/P (MAP) 110/73 (85) 138/63 (88) 108/60 (76) 116/50 (72) Pulse Ox 99 98 98 98 O2 Delivery Room Air Room Air Room Air Room Air 10/02/18 12:15 Pulse 64 Resp 16 B/P (MAP) 112/48 (69) Pulse Ox 98 O2 Delivery Room Air Capillary Refill : Less Than 3 Seconds Constitutional: well-developed, well-nourished, other (poor memory, does appear oriented to place and person and time (at this time)) HEENT: other (corneal opacity on the R, L pupil is round and reactive) Neck: carotid pulses are 2 + bilaterally Respiratory: No accessory muscle use; other (prolonged exp phase, scattered rhonchi and wheezes) Cardiovascular: regular rate-rhythm, S1 and S2, systolic murmur (soft MADIE at card base) Gastrointestinal: No tender; soft; No guarding; audible bowel sounds Extremities: swelling (mod bilat leg swelling); No clubbing, No cyanosis Neurologic/Psychiatric: other (able to move limbs equally, poor memory, poor comprehension) Skin: rash on exposed areas (bilat redness of the skin of lower legs with flaking of the skin) Data Review Labs Laboratory Tests 10/02/18 07:14: Glucometer 420*H 10/02/18 07:25: White Blood Count 5.7, Red Blood Count 3.05L, Hemoglobin 10.2L, Hematocrit 31L, Mean Corpuscular Volume 101H, Mean Corpuscular Hemoglobin 33, Mean Corpuscular Hemoglobin Concent 33, Red Cell Distribution Width 14.9H, Platelet Count 124L, Mean Platelet Volume 12.0H, Neutrophils (%) (Auto) 75, Lymphocytes (%) (Auto) 14 , Monocytes (%) (Auto) 10, Eosinophils (%) (Auto) 1, Basophils (%) (Auto) 0, Neutrophils # (Auto) 4.3, Lymphocytes # (Auto) 0.8L, Monocytes # (Auto) 0.5, Eosinophils # (Auto) 0.1, Basophils # (Auto) 0.0, Prothrombin Time 12.9, INR Comment 1.0, Activated Partial Thromboplast Time 29, Sodium Level 138, Potassium Level 4.3, Chloride Level 104, Carbon Dioxide Level 23, Anion Gap 11, Blood Urea Nitrogen 50H, Creatinine 1.75H, Estimat Glomerular Filtration Rate 38 , BUN/Creatinine Ratio 29, Glucose Level 409*H, Calcium Level 8.9, Corrected Calcium 9.5, Magnesium Level 1.8, Total Bilirubin 0.2, Aspartate Amino Transf ( AST/SGOT) 10, Alanine Aminotransferase (ALT/SGPT) 11, Alkaline Phosphatase 75, Myoglobin 55.9, Troponin I 0.49*H, Total Protein 5.4L, Albumin 3.2, Lipase 12 10/02/18 10:36: Myoglobin 58.2, Troponin I 0.54*H Laboratory Tests 10/02/18 07:25 A/P-Cardiology Assessment/Admission Diagnosis Ac NSTEMI Chronic dementia. Unable to provide care to self CAD with h/o LCX stenting in 2010: Promus 3x15 in LCX and Promus 3x2 in OM Chronic leg celIulitis and recent UTI, being managed by the [facility] CKD 3-4. Hospitalization in April 2018 with ac renal failure Echo of 09/20/18: LVEF 60-65%, mod dil of LA, PASP WNL DM II, being managed by the [facility] Hypertension Hyperlipidemia H/o PAD with h/o bilat fem-pop at [place], [place], several years ago. 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 Under these circumstances, card cath (and possible PCI) appear reasonable. His risk for complication is considerable, in particular contrast nephropathy (given that he has baseline CKD 3-4). I have tried to discuss all of this with him in detail, but his comprehension is poor. I have tried to call his daughters, including the one he lives with, but have not been successful. I have discussed the case with Dr Katz who concurs with cath. We are are tentatively scheduling for tomorrow am and will proceed if family concurs * Treatment for CAD and NSTEMI is with DAPT, bb, statin * iv fluids to reduce risk of contrast nephropathy, in case of cath Clinical Quality Measures AMI/AHF: ASA po Prior to arrival: ANNELISE Garcia MD FACP FACC CCDS Oct 02, 2018 13:05
[2018-10-02] MEDS ORDERED: CLOPIDOGREL 75 MG (PLAVIX) TABLET PO NR (13:57)
[2018-10-02] MEDS: NICOTINE 21 MG (NICODERM) PATCH TD SCH (14:46)
[2018-10-02] MEDS: inSUlin ASPART (NovoLOG) 1 UNIT/0.01 ML (CHARGE PER UNIT) SC SCH ×2 (15:02→21:19)
[2018-10-02] MEDS ORDERED: FLU QUADRIvalent (5+ YOA) 2018-2019 (AFLURIA) 0.5 ML IM ONE (15:15)
--- NOTE | 2018-10-02 16:52 | History & Physicial (CHS) ---
HPI History of Present Illness: 69 yo male who is unable to provide any meaningful history- states he does not know why he is here and only wants to eat. Per ER report, he came in due to chest pain and was found to have elevated troponin. He has had multiple recent visits for chest pain. Source: patient Exam Limitations: clinical condition Date seen by provider: Oct 02, 2018 Time Seen by Provider: 12:25 Attending Physician Juan Manuel Katz MD PCP Center/[facility] [place] Consult Date of Admission Oct 02, 2018 at 9:01 am Home Medications Home Medications Reviewed patient Home Medication Reconciliation performed by pharmacy medication reconciliations jewelry technician and/or nursing. Patients Allergies have been reviewed. Allergies Coded Allergies: NKANo Known Allergies (Unverified Allergy, Mild, 06/21/09) CNB-Msbema-Cffopz Hx Patient Social History Alcohol Use: Denies Use Recreational Drug Use: No Smoking Status: Current Everyday Smoker Type Used: Cigarettes 2nd Hand Smoke Exposure: Yes Recent Foreign Travel: No Contact w/other who traveled: No Recent Hopitalizations: Yes Recent Infectious Disease Expo: No Physical Abuse Screen: No Sexual Abuse: No Immunizations Up To Date Tetanus Booster (TDap): Less than 5yrs Date of Pneumonia Vaccine: Nov 18, 2009 Date of Influenza Vaccine: Sep 28, 2015 Past Medical History PMHx: hx MRSA COPD GERD hx of hiatal hernia 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 BPH s/p TURP CAD s/p cardiac stent PVD s/p fem/tib bypass Arthritis cataract hearing loss anxiety hypertension CHF Family Medical History Significant Family History: Heart Disease, Cancer, Diabetes, Hypertension Family History: Cancer 19 FATHER 19 MOTHER Family history: Cardiovascular disease Family history: Diabetes mellitus G8 SISTER 19 MOTHER Family history: Hypertension G8 BROTHER Review of Systems (CHC) Constitutional: other (unable to obtain due to patient condition) Reviewed Test Results Reviewed Test Results Lab Laboratory Tests Test 10/02/18 07:14 10/02/18 07:25 10/02/18 10:36 10/02/18 15:00 Range/Units Glucometer 420 *H 238 H 70-110 MG/DL White Blood Count 5.7 4.3-11.0 10^3/uL Red Blood Count 3.05 L 4.35-5.85 10^6/uL Hemoglobin 10.2 L 13.3-17.7 G/DL Hematocrit 31 L 40-54 % Mean Corpuscular Volume 101 H 80-99 FL Mean Corpuscular Hemoglobin 33 25-34 PG Mean Corpuscular Hemoglobin Concent 33 32-36 G/DL Red Cell Distribution Width 14.9 H 10.0-14.5 % Platelet Count 124 L 130-400 10^3/uL Mean Platelet Volume 12.0 H 7.4-10.4 FL Neutrophils (%) (Auto) 75 42-75 % Lymphocytes (%) (Auto) 14 12-44 % Monocytes (%) (Auto) 10 0-12 % Eosinophils (%) (Auto) 1 0-10 % Basophils (%) (Auto) 0 0-10 % Neutrophils # (Auto) 4.3 1.8-7.8 X 10^3 Lymphocytes # (Auto) 0.8 L 1.0-4.0 X 10^3 Monocytes # (Auto) 0.5 0.0-1.0 X 10^3 Eosinophils # (Auto) 0.1 0.0-0.3 10^3/uL Basophils # (Auto) 0.0 0.0-0.1 10^3/uL Prothrombin Time 12.9 12.2-14.7 SEC INR Comment 1.0 0.8-1.4 Activated Partial Thromboplast Time 29 24-35 SEC Sodium Level 138 135-145 MMOL/L Potassium Level 4.3 3.6-5.0 MMOL/L Chloride Level 104 98-107 MMOL/L Carbon Dioxide Level 23 21-32 MMOL/L Anion Gap 11 5-14 MMOL/L Blood Urea Nitrogen 50 H 7-18 MG/DL Creatinine 1.75 H 0.60-1.30 MG/DL Estimat Glomerular Filtration Rate 38 BUN/Creatinine Ratio 29 Glucose Level 409 *H 70-105 MG/DL Calcium Level 8.9 8.5-10.1 MG/DL Corrected Calcium 9.5 8.5-10.1 MG/DL Magnesium Level 1.8 1.8-2.4 MG/DL Total Bilirubin 0.2 0.1-1.0 MG/DL Aspartate Amino Transf (AST/SGOT) 10 5-34 U/L Alanine Aminotransferase (ALT/SGPT) 11 0-55 U/L Alkaline Phosphatase 75 40-136 U/L Myoglobin 55.9 58.2 10.0-92.0 NG/ML Troponin I 0.49 *H 0.54 *H <0.30 NG/ML Total Protein 5.4 L 6.4-8.2 GM/DL Albumin 3.2 3.2-4.5 GM/DL Lipase 12 8-78 U/L Test 10/02/18 16:26 Range/Units Radiology CXR 10/02 unremarkable Physical Exam-(CHC) Physical Exam Vital Signs VS - Last 72 Hours, by Label 10/02/18 10/02/18 10/02/18 10/02/18 06:54 07:41 09:40 10:00 Temp 97.1 Pulse 73 60 Resp 20 16 B/P (MAP) 134/63 (86) 141/60 (87) Pulse Ox 94 99 94 O2 Delivery Nasal Cannula Room Air Room Air O2 Flow Rate 2.00 2.00 10/02/18 10/02/18 10/02/18 10/02/18 10:13 10:15 11:15 11:45 Temp 97.2 Pulse 67 71 64 69 Resp 14 15 B/P (MAP) 110/73 (85) 138/63 (88) 108/60 (76) Pulse Ox 99 98 98 O2 Delivery Room Air Room Air Room Air 10/02/18 10/02/18 10/02/18 10/02/18 12:00 12:15 13:00 13:00 Pulse 66 64 67 64 Resp 22 16 13 B/P (MAP) 116/50 (72) 112/48 (69) 103/62 (76) Pulse Ox 98 98 90 O2 Delivery Room Air Room Air Room Air 10/02/18 10/02/18 10/02/18 10/02/18 14:45 15:22 16:00 16:18 Temp 99.2 Pulse 73 66 Resp 18 B/P (MAP) 113/69 (84) 132/58 (82) Pulse Ox 99 99 O2 Delivery Room Air Room Air Capillary Refill : Less Than 3 Seconds General Appearance: no apparent distress HEENT: other (right eye clouded and externally rotated) Respiratory: lungs clear, normal breath sounds Cardiovascular: regular rate, rhythm, no murmur Gastrointestinal: normal bowel sounds, non tender Extremities: pedal edema Neurologic/Psychiatric: alert, other (oriented only to self) Skin: other (erythematous legs with peeling skin) Assessment/Plan Assessment/Plan Admission Dx NSTEMI ANGEL Admission Status: Inpatient Order (span 2 midnights) Reason for Inpatient Admission: NSTEMI with acute on chronic kidney insufficiency at high risk for complications. (1) Non-ST elevation [place] (NSTEMI) Status: Acute Assessment & Plan: Cardiology consulted, appreciate recommendations. (2) ANGEL (acute kidney injury) Status: Acute Assessment & Plan: Unsure etiology, possibly hypovolemic. IVF and repeat. (3) Macrocytic anemia Status: Acute Assessment & Plan: Check folate and B12. (4) CKD (chronic kidney disease) Status: Chronic Assessment & Plan: Baseline creatinine appears to be around 1.4 Qualifiers: Qualified Codes: N18.3 - Chronic kidney disease, stage 3 (moderate) (5) Thrombocytopenia Status: Acute Assessment & Plan: Acute but has had intermittently in past. Monitor. (6) Dementia Status: Chronic Assessment & Plan: Unable to provide meaningful history or understand procedure. Given his repeat visits for chest pain and now with elevated troponin , agree cardiac catheterization is indicated, but he is at risk for complications given his acute on chronic kidney disease. If family not able to be reached to discuss, agree with Dr. Jaramillo that proceeding with cath in the am is indicated. (7) HTN (hypertension) Status: Chronic Qualifiers: Qualified Codes: I10 - Essential (primary) hypertension (8) Uncontrolled diabetes mellitus Status: Chronic Assessment & Plan: Sliding scale insulin. Diabetic diet. Qualifiers: Qualified Codes: E11.65 - Type 2 diabetes mellitus with hyperglycemia (9) DVT prophylaxis Status: Acute Assessment & Plan: Hold pharmacologic for now for anticipated procedure tomorrow. Clinical Quality Measures AMI/AHF: ASA po Prior to arrival: No DVT/VTE Risk/Contraindication: Risk Factor Score Per Nursin RFS Level Per Nursing on Admit: 3=High JUAN MANUEL KATZ MD Oct 02, 2018 4:52 pm
[2018-10-02] MEDS ORDERED: RT-ALBUTEROL/IPRATROPIUM 3 ML (DUONEB) VIAL INH PRN (17:00)
[2018-10-02] MEDS: RT-ALBUTEROL/IPRATROPIUM 3 ML (DUONEB) VIAL INH SCH (20:14)
[2018-10-02] MEDS: ATORVASTATIN 40 MG (LIPITOR) TABLET PO SCH (20:14)
[2018-10-03] VITALS (21 sets, daily range): BP systolic 96–171; BP diastolic 49–100
[2018-10-03 03:58] LABS: BASOPHILS % (AUTO) 0 % (0-10); EOSINOPHILS # (AUTO) 0.1 10^3/uL (0.0-0.3); EOSINOPHILS % (AUTO) 2 % (0-10); HEMATOCRIT 27 % (40-54); HEMOGLOBIN 8.6 G/DL (13.3-17.7); LYMPHOCYTES # (AUTO) 0.9 X 10^3 (1.0-4.0); LYMPHOCYTES % (AUTO) 21 % (12-44); MEAN CORPUSCULAR HEMOGLOBIN 33 PG (25-34); MEAN CORPUSCULAR HGB CONC 32 G/DL (32-36); MEAN CORPUSCULAR VOLUME 102 FL (80-99); MONOCYTES # (AUTO) 0.4 X 10^3 (0.0-1.0); MONOCYTES % (AUTO) 9 % (0-12); NEUTROPHILS # (AUTO) 3.1 X 10^3 (1.8-7.8); NEUTROPHILS % (AUTO) 68 % (42-75); PLATELET COUNT 113 10^3/uL (130-400); RED CELL DISTRIBUTION WIDTH 15.2 % (10.0-14.5); WHITE BLOOD COUNT 4.5 10^3/uL (4.3-11.0)
[2018-10-03 04:26] LABS: ALBUMIN 2.7 GM/DL (3.2-4.5); BILIRUBIN,TOTAL 0.2 MG/DL (0.1-1.0); CALCIUM 7.1 MG/DL (8.5-10.1); CREATININE SERUM 1.17 MG/DL (0.60-1.30); POTASSIUM 3.6 MMOL/L (3.6-5.0); TOTAL PROTEIN 4.4 GM/DL (6.4-8.2)
[2018-10-03] MEDS: NS IV 1000 ML 1,000 ML IV SCH ×2 (04:32)
[2018-10-03] MEDS: inSUlin ASPART (NovoLOG) 1 UNIT/0.01 ML (CHARGE PER UNIT) SC SCH ×4 (04:45→21:39)
[2018-10-03] MEDS ORDERED: LIDOCAINE 1% INJ 20 ML 20 ML VIAL ONE ×3 (06:35→09:13)
[2018-10-03] MEDS ORDERED: HEParin (CATH LAB) 2,000 ML IV ONE (06:35)
[2018-10-03] MEDS ORDERED: MIDAZOLAM 5 MG/5 ML (VERSED) VIAL ONE ×2 (07:22→09:42)
[2018-10-03] MEDS ORDERED: fentaNYL INJECTION 100 MCG/2 ML AMP ONE (07:22)
[2018-10-03] MEDS: morphine INJ 4 MG/ML 1 ML (VIAL/SYRINGE) IVP PRN ×4 (08:06→15:28)
[2018-10-03] MEDS: CLOPIDOGREL 75 MG (PLAVIX) TABLET PO SCH (08:06)
[2018-10-03] MEDS: 1/2 NS IV SOLUTION 1,000 ML IV SCH ×2 (08:17→16:33)
[2018-10-03] MEDS: RT-ALBUTEROL/IPRATROPIUM 3 ML (DUONEB) VIAL INH SCH ×2 (08:29→20:00)
[2018-10-03] MEDS ORDERED: HEParin 1000 UNIT/ML (10ML VIAL) FOR BOLUS ONE (09:31)
[2018-10-03] MEDS ORDERED: EPTIFIBATIDE BOLUS 20 ML IV ONE (09:33)
[2018-10-03] MEDS ORDERED: NITRO DRIP 25000 MCG/D5W 250 ML IV ONE (09:51)
[2018-10-03] MEDS ORDERED: ONDANSETRON 4 MG/2 ML (SDV) Z0FRAN ONE (09:53)
[2018-10-03] MEDS ORDERED: ASPIRIN 81 MG CHEW (CHILDREN'S ASA) ONE (10:05)
[2018-10-03] MEDS ORDERED: CLOPIDOGREL 300 MG (PLAVIX) TABLET PO ONE (10:05)
[2018-10-03] MEDS ORDERED: ONDANSETRON 4 MG/2 ML (SDV) Z0FRAN IVP PRN (11:00)
[2018-10-03] MEDS: NICOTINE 21 MG (NICODERM) PATCH TD SCH (11:17)
[2018-10-03] MEDS ORDERED: NS IV 500 ML 500 ML ONE ×2 (11:20→21:03)
--- NOTE | 2018-10-03 11:40 | Progress Note-Cardiology ---
Cardiology SOAP Progress Note Subjective: Has continued to have chest discomfort that he is not able to describe in any detail Doesn't report shortness of breath or palp or syncope Objective: I&O/Vital Signs 10/03/18 10/03/18 10/03/18 10/03/18 00:00 00:00 01:00 04:00 Temp 97.0 Pulse 68 64 65 Resp 16 B/P (MAP) 124/74 (91) Pulse Ox 97 O2 Delivery Room Air Room Air 10/03/18 10/03/18 10/03/18 10/03/18 04:00 07:00 07:00 08:10 Pulse 80 64 B/P (MAP) 171/100 (123) Pulse Ox 99 O2 Delivery Room Air Room Air Room Air 10/03/18 10/03/18 10/03/18 10/03/18 08:10 08:12 08:30 10:30 Temp 97.6 Pulse 74 64 Resp 20 19 B/P (MAP) 171/100 (123) 120/100 (107) Pulse Ox 99 99 95 93 O2 Delivery Room Air Room Air Room Air 10/03/18 10/03/18 10/03/18 10/03/18 10:34 10:45 11:00 11:15 Pulse 64 68 64 61 Resp 17 17 19 B/P (MAP) 148/76 (100) 127/58 (81) 122/52 (75) Pulse Ox 93 98 96 O2 Delivery Room Air Room Air Room Air 10/03/18 00:00 Intake Total 515 ml Balance 515 ml Weight (Pounds): 150 Weight (Ounces): 0.0 Weight (Calculated Kilograms): 68.754561 Constitutional: well-developed, well-nourished, other (poor memory, does appear oriented to place and person and time (at this time)) Respiratory: No accessory muscle use; other (prolonged exp phase, scattered rhonchi and wheezes) Cardiovascular: regular rate-rhythm, S1 and S2, systolic murmur (soft MADIE at card base) Gastrointestional: No tender; soft; No guarding; audible bowel sounds Extremities: swelling (mod bilat leg swelling); No clubbing, No cyanosis Neurologic/Psychiatric: other (able to move limbs equally, poor memory, poor comprehension) Skin: rash on exposed areas (bilat redness of the skin of lower legs with flaking of the skin) Results/Procedures: Labs Laboratory Tests 10/02/18 15:00: Glucometer 238H 10/02/18 17:50: Troponin I 0.55*H 10/02/18 21:13: Glucometer 222H 10/03/18 03:25: Troponin I 0.49*H, White Blood Count 4.5, Red Blood Count 2.60L, Hemoglobin 8.6L , Hematocrit 27L, Mean Corpuscular Volume 102H, Mean Corpuscular Hemoglobin 33, Mean Corpuscular Hemoglobin Concent 32, Red Cell Distribution Width 15.2H, Platelet Count 113L, Mean Platelet Volume 12.0H, Neutrophils (%) (Auto) 68, Lymphocytes (%) (Auto) 21, Monocytes (%) (Auto) 9, Eosinophils (%) (Auto) 2, Basophils (%) (Auto) 0, Neutrophils # (Auto) 3.1, Lymphocytes # (Auto) 0.9L, Monocytes # (Auto) 0.4, Eosinophils # (Auto) 0.1, Basophils # (Auto) 0.0, Sodium Level 143, Potassium Level 3.6, Chloride Level 115#H, Carbon Dioxide Level 20L, Anion Gap 8, Blood Urea Nitrogen 36H, Creatinine 1.17, Estimat Glomerular Filtration Rate 60, BUN/Creatinine Ratio 31, Glucose Level 196H, Calcium Level 7.1L, Corrected Calcium 8.1L, Total Bilirubin 0.2, Aspartate Amino Transf (AST/SGOT) 12, Alanine Aminotransferase (ALT/SGPT) 9, Alkaline Phosphatase 60, Total Protein 4.4L, Albumin 2.7L, Triglycerides Level 128, Cholesterol Level 137, LDL Cholesterol Direct 87, VLDL Cholesterol 26, HDL Cholesterol 29L Laboratory Tests 10/02/18 07:25 10/03/18 03:25 A/P: Assessment: Ac NSTEMI. Card cath of 10/03/18 showed long 95% prox and mid LAD stenosis that involves the proximal diags (all vessels of small caliber); long 95% stenosis in large OM 1 reduced to <50% post balloon angioplasty; 60% stenosis in prox part of dominant RCA; mild mitral regurg, anterolateral hypokinesis, LVEF 45-50% Previous h/o CAD consists of a h/o LCX stenting in 2010: Promus 3x15 in LCX and Promus 3x2 in OM Chronic dementia. Unable to provide care to self Chronic leg celIulitis and recent UTI, [facility] CKD 3. Hospitalization in April 2018 with ac renal failure Anemia of undetermined etiology, possibly due to CKD or due to impaired nutrition. W/u and treatment is with [facility] Echo of 09/20/18: LVEF 60-65%, mod dil of LA, PASP WNL DM II, being managed by the [facility] Hypertension Hyperlipidemia H/o PAD with h/o bilat fem-pop at [place], [place], several years ago. 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 Plan: * Complex management due to multiple comorbidities, including dementia * I had a long discussion with family regarding treatment options for CAD before , during, and after the card cath procedure. Best treatment option appears CABG , but he is not a good candidate (given advance dementia). PCI to LCX was carried out, but was difficult due to marked patient agitation. LAD PCI, if undertaken, will be very complex due to long length of the lesion, small caliber of the vessel, and patient's inability to tolerate any procedure longer than a few min (as he demonstrated during the LCX PCI). I have discussed all the issues with the family and the plan is to treat conservatively at this time * We recommend treatment of anemia to restore Hgb>10. This will likely help angina * Treatment for CAD and NSTEMI is with DAPT, bb, statin * iv fluids to reduce risk of contrast nephropathy * Dr Yarbrough covering Card Svce over the weekend Clinical Quality Measures AMI/AHF: ASA po Prior to arrival: ANNELISE Garcia MD FACP [facility] CCDS Oct 03, 2018 11:40
[2018-10-03] MEDS ORDERED: NS IV 1000 ML 1,000 ML IV SCH (11:42)
[2018-10-03] MEDS ORDERED: PATIENT MAY USE OWN MEDS, ALL PO SCH (11:45)
[2018-10-03] MEDS: ISOSORBIDE MONONITRATE 60 MG (IMDUR) TAB PO SCH ×2 (11:51→12:48)
--- NOTE | 2018-10-03 12:14 | CARDIAC CATHETERIZATION ---
DATE OF SERVICE: 10/03/2018 CARDIAC CATHETERIZATION AND CORONARY INTERVENTION REPORT The patient is a 78-year-old man with known coronary artery disease and multiple coronary artery disease risk factors, who has presented with acute non-ST elevation myocardial infarction. He has continued to have unstable angina. Previously, given dementia and chronic kidney disease stage III to IV, the treatment plan had been conservative. Given continuing symptoms, we discussed the option of invasive management with possible percutaneous intervention. The family provided informed consent. The patient himself suffers from dementia. PROCEDURE: He was brought to the cardiac catheterization laboratory in a fasting state. Both groins were prepared and draped in the usual sterile fashion. 1% lidocaine was used as local anesthesia. We used the Seldinger technique to advance a 6-Gabonese sheath into the left femoral artery. We used a 23 cm 6-Gabonese sheath. The long sheath was used because the patient has significant tortuosity and calcification and disease within the iliac and femoral arterial systems. All catheter exchanges were made over a Storq wire. We used a 5-Gabonese JL4 catheter for left coronary angiography, 5-Gabonese JR4 catheter for right coronary angiography and 5-Gabonese pigtail catheter for left heart catheterization, left ventricular angiography. PERCUTANEOUS INTERVENTION TO THE LEFT CIRCUMFLEX ARTERY: Following completion of the diagnostic procedure, we called in the patient's daughter with whom he lives to the control room and discussed the findings of cardiac catheterization. Cardiac catheterization had indicated severe 3-vessel coronary artery disease and the ideal treatment option would be coronary artery bypass surgery. However, the patient suffers from advanced dementia and the family did not want any surgical interventions. They requested that percutaneous intervention to be pursued as far as possible. Accordingly, with the plan to intervene on left circumflex artery first and then consider percutaneous intervention on the left anterior descending artery, we proceeded with percutaneous intervention. We used 6-Gabonese JL4 guide catheter to engage the left coronary artery. We advanced a BMW wire across along up to 95% stenosis in the first large obtuse marginal branch of the left circumflex artery and the tip was placed in the distal vessel. We were not directly able to advance a stent because of proximal vessel tortuosity and calcification. We carried out balloon angioplasty at the site of the lesion with Emerge 2.0 x 30 mm balloon. Multiple balloon inflations were performed. The stenosis in the large first obtuse marginal branch was reduced from 95% to less than 50% and there was normal antegrade flow throughout the vessel. The patient had become very agitated during the procedure and was requiring 2 people to hold him down and multiple medications to keep him on the table. We felt that the results of balloon angioplasty were acceptable and we did not attempt stent advancement because the results were quite acceptable. Angioplasty equipment was removed. Angiography of the right femoral artery was carried out through the sheath. The sheath was sutured in place. The patient was transferred to the floor for manual sheath removal. HEMODYNAMICS: Left ventricular end-diastolic pressure following coronary angiography was 24 mmHg. There was no significant pressure gradient on pullback across the aortic valve. Ascending aortic pressure is 123/52 with a mean of 81 mmHg. LEFT VENTRICULAR ANGIOGRAPHY: Left ventricular angiography was carried out in the right anterior oblique projection. There is anterolateral hypokinesis. Left ventricular ejection fraction is 45 to 50%. There is mild mitral regurgitation. CORONARY ANGIOGRAPHY: Marked coronary calcification is seen. Left main coronary artery does not exhibit significant obstructive disease. Left anterior descending artery has severe long lesion in its mid portion following the origin of the first septal principal research economist. This is up to 95% stenosis that also involves the diagonal branches. The left circumflex artery primarily consists of a large obtuse marginal branch that had 95% mid vessel stenosis. This was a long stenosis to which successful balloon angioplasty was carried out that reduced the stenosis to less than 50%. The right coronary artery is dominant. It had 60% proximal stenosis. CONCLUSIONS: Multivessel coronary artery disease consisting of a very long 90% proximal and mid vessel stenosis of a small caliber left anterior descending artery that also involves the origin of diagonal branches, long 95% stenosis within a large obtuse marginal branch of the left circumflex artery, and 60% proximal stenosis of a dominant right coronary artery. Successful balloon angioplasty was carried out to the first obtuse marginal branch of the left circumflex artery that reduced the stenosis to less than 50%. DISCUSSION AND RECOMMENDATION: This is a very complex medical problem because of multivessel coronary artery disease, continuing risk factors, the patient's advanced dementia, and the patient unable to tolerate long percutaneous procedures. We did offer the option of referral for consideration of coronary artery bypass surgery to the family, but they did not accept it. Our plan was to secure good flow in obtuse marginal and right coronary prior to considering percutaneous intervention of the left anterior descending. The right coronary artery has only moderate disease, but the left circumflex artery had severe disease consisting of long 95% stenosis and a large obtuse marginal branch of the right coronary artery. To this, we carried out successful balloon angioplasty, but the patient was so agitated that stent deployment was not possible. Nevertheless, good results were planned simply with balloon angioplasty. He was very agitated and not suitable for percutaneous intervention to the left anterior descending artery. We have discussed this issue in detail with family. For the time being, at least, they wish to be managed conservatively after we discussed the details of today's findings and subsequent intervention. Job ID: [id number] DocumentID: [id number] Dictated Date: 10/03/2018 11:18:19 Mica Plate Layer Hand Date: 10/03/2018 12:13:07 Dictated By: ANNELISE PIERRE MD, MA, FACP, FACC, MTDD
[2018-10-03] MEDS ORDERED: ATROPINE INJECTION 1 MG/10 ML SYR (ABBOTT) ONE (13:13)
[2018-10-03] MEDS ORDERED: LORazepam INJ 2 MG/ML (ATIVAN) VIAL ONE (13:43)
[2018-10-03] MEDS ORDERED: LORazepam INJ 2 MG/ML (ATIVAN) VIAL IVP PRN (13:45)
--- NOTE | 2018-10-03 15:15 | Progress Note (SOAP) ---
Subjective Subjective/Events-last exam Catheterization done this morning with marked stenosis not amenable to treatment. Patient wants to go home yon. Review of Systems Date Seen by Provider: Oct 03, 2018 Time Seen by Provider: 08:10 Objective Exam Last Set of Vital Signs Vital Signs Date Time Temp Pulse Resp B/P (MAP) Pulse Ox O2 Delivery O2 Flow Rate FiO2 10/03/18 13:00 62 14 115/49 (71) 95 Room Air 10/03/18 11:46 97.1 10/02/18 09:40 2.00 Capillary Refill : Less Than 3 Seconds I&O Intake and Output 10/03/18 00:00 Intake Total 515 ml Balance 515 ml Intake Oral 390 ml IV Total 125 ml # Voids 3 Daily Weight Change No General: Alert, No Acute Distress Lungs: Clear to Auscultation, Normal Air Movement Heart: Regular Rate, No Murmurs Abdomen: Normal Bowel Sounds, Soft Extremities: Other (erythema and edema of both lower legs) Neuro: Other (oriented only to self) Results/Procedures Lab Laboratory Tests 10/02/18 17:50: Troponin I 0.55*H 10/02/18 21:13: Glucometer 222H 10/03/18 03:25: Troponin I 0.49*H, White Blood Count 4.5, Red Blood Count 2.60L, Hemoglobin 8.6L , Hematocrit 27L, Mean Corpuscular Volume 102H, Mean Corpuscular Hemoglobin 33, Mean Corpuscular Hemoglobin Concent 32, Red Cell Distribution Width 15.2H, Platelet Count 113L, Mean Platelet Volume 12.0H, Neutrophils (%) (Auto) 68, Lymphocytes (%) (Auto) 21, Monocytes (%) (Auto) 9, Eosinophils (%) (Auto) 2, Basophils (%) (Auto) 0, Neutrophils # (Auto) 3.1, Lymphocytes # (Auto) 0.9L, Monocytes # (Auto) 0.4, Eosinophils # (Auto) 0.1, Basophils # (Auto) 0.0, Sodium Level 143, Potassium Level 3.6, Chloride Level 115#H, Carbon Dioxide Level 20L, Anion Gap 8, Blood Urea Nitrogen 36H, Creatinine 1.17, Estimat Glomerular Filtration Rate 60, BUN/Creatinine Ratio 31, Glucose Level 196H, Calcium Level 7.1L, Corrected Calcium 8.1L, Total Bilirubin 0.2, Aspartate Amino Transf (AST/SGOT) 12, Alanine Aminotransferase (ALT/SGPT) 9, Alkaline Phosphatase 60, Total Protein 4.4L, Albumin 2.7L, Triglycerides Level 128, Cholesterol Level 137, LDL Cholesterol Direct 87, VLDL Cholesterol 26, HDL Cholesterol 29L 10/03/18 12:41: Glucometer 242H 10/03/18 12:43: Activated Partial Thromboplast Time 53H Radiology CXR 10/02 unremarkable Assessment/Plan Assessment/Plan (1) Non-ST elevation [place] (NSTEMI) Status: Acute Assessment & Plan: Cardiology consulted, appreciate recommendations. 10/03 cath done this am, see below. (2) Multi-vessel coronary artery stenosis Status: Acute Assessment & Plan: Severe stenosis with LAD severe long segment 95% occlusion that involves diagonal branch. Left circumflex with large obtuse marginal branch with 95% stenosis improved to less than 50% with balloon. Right coronary dominant with 60% stenosis. Could not tolerate stenting to marginal branch, plan was to try staged intervention, but unable to tolerate minimal intervention today. Dr. Jaramillo discussed with family and they do not want to consider bypass which is reasonable given his dementia and comorbidities. When I discussed further with daughter, she states he was on hospice previously and they were already looking into resuming hospice services, and believes that would be what he would desire. Hospice consulted, plan for d/c tomorrow. (3) ANGEL (acute kidney injury) Status: Resolved Assessment & Plan: Unsure etiology, possibly hypovolemic. IVF and repeat. (4) Macrocytic anemia Status: Acute Assessment & Plan: Check folate and B12. (5) CKD (chronic kidney disease) Status: Chronic Assessment & Plan: Baseline creatinine appears to be around 1.4 Qualifiers: Qualified Codes: N18.3 - Chronic kidney disease, stage 3 (moderate) (6) Thrombocytopenia Status: Acute Assessment & Plan: Acute but has had intermittently in past. Monitor. (7) Dementia Status: Chronic Assessment & Plan: 10/02 Unable to provide meaningful history or understand procedure. Given his repeat visits for chest pain and now with elevated troponin , agree cardiac catheterization is indicated, but he is at risk for complications given his acute on chronic kidney disease. If family not able to be reached to discuss, agree with Dr. Jaramillo that proceeding with cath in the am is indicated. (8) HTN (hypertension) Status: Chronic Qualifiers: Qualified Codes: I10 - Essential (primary) hypertension (9) Uncontrolled diabetes mellitus Status: Chronic Assessment & Plan: Sliding scale insulin. Diabetic diet. Qualifiers: Qualified Codes: E11.65 - Type 2 diabetes mellitus with hyperglycemia (10) DVT prophylaxis Status: Acute Assessment & Plan: Hold pharmacologic for now for anticipated procedure tomorrow. Resume enoxaparin when okay per Dr. Jaramillo. Clinical Quality Measures AMI/AHF: ASA po Prior to arrival: No DVT/VTE Risk/Contraindication: Risk Factor Score Per Nursin RFS Level Per Nursing on Admit: 3=High JUAN MANUEL ESTEVEZ MD Oct 03, 2018 3:15 pm
[2018-10-03 18:06] LABS: HEMOGLOBIN 9.7 G/DL (13.3-17.7)
[2018-10-03] MEDS ORDERED: NON-FORMULARY MEDICATION 1 EA EA (Quetiapine Fumarate 50 MG) PO SCH (21:00)
[2018-10-03] MEDS ORDERED: NON-FORMULARY MEDICATION 1 EA EA (Temazepam 15 MG) PO SCH (21:00)
[2018-10-03] MEDS ORDERED: NON-FORMULARY MEDICATION 1 EA EA (Melatonin 5 MG) PO SCH (21:00)
[2018-10-03] MEDS ORDERED: NON-FORMULARY MEDICATION 1 EA EA (Famotidine 20 MG) PO SCH (21:00)
[2018-10-03] MEDS: MELATONIN 3 MG TABLET PO SCH (21:07)
[2018-10-03] MEDS: QUEtiapine 25 MG (SEROquel) TAB IMMEDIATE RELEASE PO SCH (21:08)
[2018-10-03] MEDS: morphine ER 15 MG (MS CONTIN) TAB PO SCH (21:08)
[2018-10-03] MEDS: TEMAZEPAM 7.5 MG CAP (RESTORIL) PO SCH (21:08)
[2018-10-03] MEDS: FAMOTIDINE 20 MG (PEPCID) TABLET PO SCH (21:08)
[2018-10-03] MEDS: ATORVASTATIN 40 MG (LIPITOR) TABLET PO SCH (21:08)
[2018-10-04] VITALS (18 sets, daily range): BP systolic 95–159; BP diastolic 44–98
[2018-10-04] MEDS: 1/2 NS IV SOLUTION 1,000 ML IV SCH ×2 (01:25→08:00)
[2018-10-04 03:36] LABS: HEMOGLOBIN 10.7 G/DL (13.3-17.7); MEAN PLATELET VOLUME 12.5 FL (7.4-10.4); RED BLOOD COUNT 3.31 10^6/uL (4.35-5.85); RED CELL DISTRIBUTION WIDTH 18.7 % (10.0-14.5); WHITE BLOOD COUNT 4.8 10^3/uL (4.3-11.0)
[2018-10-04 04:00] LABS: CALCIUM 8.4 MG/DL (8.5-10.1); CREATININE SERUM 1.26 MG/DL (0.60-1.30); POTASSIUM 4.2 MMOL/L (3.6-5.0)
[2018-10-04] MEDS: PANTOPRAZOLE 40 MG (PROTONIX) TAB PO SCH (05:57)
[2018-10-04] MEDS: inSUlin ASPART (NovoLOG) 1 UNIT/0.01 ML (CHARGE PER UNIT) SC SCH ×4 (05:57→20:18)
[2018-10-04] MEDS: LORazepam INJ 2 MG/ML (ATIVAN) VIAL IVP PRN (07:49)
[2018-10-04] MEDS: NICOTINE 21 MG (NICODERM) PATCH TD SCH (07:49)
[2018-10-04] MEDS: ALLOPURINOL 100 MG (ZYLOPRIM) TAB PO SCH (07:50)
[2018-10-04] MEDS: morphine ER 15 MG (MS CONTIN) TAB PO SCH ×3 (07:50→20:18)
[2018-10-04] MEDS: ISOSORBIDE MONONITRATE 60 MG (IMDUR) TAB PO SCH (07:50)
[2018-10-04] MEDS: FUROSEMIDE 40 MG (LASIX) TAB PO SCH (07:50)
[2018-10-04] MEDS: QUEtiapine 25 MG (SEROquel) TAB IMMEDIATE RELEASE PO SCH ×2 (07:52→20:19)
[2018-10-04] MEDS: CLOPIDOGREL 75 MG (PLAVIX) TABLET PO SCH (07:55)
[2018-10-04] MEDS: PATCH REMOVAL TP SCH (08:24)
[2018-10-04] MEDS ORDERED: ALLOPURINOL 200 MG PO SCH (09:00)
[2018-10-04] MEDS ORDERED: VERAPAMIL 5 MG/2 ML (CALAN) VIAL IV ONE ×2 (09:11→11:33)
[2018-10-04] MEDS ORDERED: HEParin 1000 UNIT/ML (10ML VIAL) FOR BOLUS ONE (09:11)
[2018-10-04] MEDS ORDERED: NITRO DRIP 25000 MCG/D5W 250 ML IV ONE ×2 (09:11→11:33)
[2018-10-04] MEDS ORDERED: HEParin (CATH LAB) 2,000 ML IV ONE (09:14)
[2018-10-04] MEDS ORDERED: LIDOCAINE 1% INJ 20 ML 20 ML VIAL ONE (09:14)
[2018-10-04] MEDS: RT-ALBUTEROL/IPRATROPIUM 3 ML (DUONEB) VIAL INH SCH ×2 (09:33→19:59)
--- NOTE | 2018-10-04 10:32 | Cardiology Progress Note ---
Cardiology SOAP Progress Note Subjective: No chest pain this morning Objective: I&O/Vital Signs 10/04/18 10/04/18 10/04/18 10/04/18 04:00 04:00 07:00 07:45 Temp 97.8 Pulse 70 80 Resp 18 B/P (MAP) 121/73 (89) Pulse Ox 97 O2 Delivery Room Air Room Air Room Air 10/04/18 10/04/18 10/04/18 10/04/18 08:00 08:29 08:43 09:34 Temp 98.0 Pulse 70 Resp 18 B/P (MAP) 136/65 (88) Pulse Ox 95 95 98 O2 Delivery Room Air Room Air Room Air 10/04/18 10/04/18 10/04/18 11:12 11:32 13:00 Temp 96.7 Pulse 89 71 Resp 16 B/P (MAP) 135/66 (89) Pulse Ox 97 O2 Delivery Room Air Room Air 10/04/18 00:00 Intake Total 300 ml Output Total 775 ml Balance -475 ml Weight (Pounds): 161 Weight (Ounces): 0.0 Weight (Calculated Kilograms): 73.842287 Constitutional: well-developed, well-nourished, other (poor memory, does appear oriented to place and person and time (at this time)) Respiratory: No accessory muscle use; other (prolonged exp phase, scattered rhonchi and wheezes) Cardiovascular: regular rate-rhythm, S1 and S2, systolic murmur (soft MADIE at card base) Gastrointestional: No tender; soft; No guarding; audible bowel sounds Extremities: No normal range of motion, No non-tender, No normal inspection, No pedal edema, No calf tenderness, No normal capillary refill, No pelvis stable , No calf tenderness, No inflammation, No pedal edema, No slow capillary refill ; swelling (mod bilat leg swelling); No other, No abrasion, No clubbing, No cyanosis, No ecchymosis, No laceration, No no lower extremity edema bilateral, No significant edema, No tenderness, No wound Neurologic/Psychiatric: no motor/sensory deficits, disoriented x 3, other ( able to move limbs equally, poor memory, poor comprehension) Skin: No normal color, No warm/dry, No cyanosis, No cool, No diaphoresis, No damp, No ecchymosis, No jaundice, No mottled, No pallor, No rash, No tattoos/ piercings, No ulcerations; rash on exposed areas (bilat redness of the skin of lower legs with flaking of the skin); No ulcerations on exposed areas, No other Results/Procedures: Labs Laboratory Tests 10/03/18 17:10: Glucometer 166H 10/03/18 17:28: Hemoglobin 9.7L, Hematocrit 29L, Troponin I 0.53*H 10/04/18 03:10: Hemoglobin 10.7L, Hematocrit 32L, Troponin I 0.70*H, White Blood Count 4.8, Red Blood Count 3.31L, Mean Corpuscular Volume 96, Mean Corpuscular Hemoglobin 32, Mean Corpuscular Hemoglobin Concent 34, Red Cell Distribution Width 18.7H, Platelet Count 98L, Mean Platelet Volume 12.5H, Sodium Level 139, Potassium Level 4.2, Chloride Level 109H, Carbon Dioxide Level 20L, Anion Gap 10, Blood Urea Nitrogen 30H, Creatinine 1.26, Estimat Glomerular Filtration Rate 55, BUN/ Creatinine Ratio 24, Glucose Level 172H, Calcium Level 8.4L 10/04/18 09:21: Glucometer 180H 10/04/18 15:13: Glucometer 168H A/P: Assessment/Dx: Assessment: Ac NSTEMI. Card cath of 10/03/18 showed long 95% prox and mid LAD stenosis that involves the proximal diags (all vessels of small caliber); long 95% stenosis in large OM 1 reduced to <50% post balloon angioplasty; 60% stenosis in prox part of dominant RCA; mild mitral regurg, anterolateral hypokinesis, LVEF 45-50% . Plan for repeat PCI to left circumflex artery and LAD today with anesthesia. Previous h/o CAD consists of a h/o LCX stenting in 2010: Promus 3x15 in LCX and Promus 3x2 in OM Chronic dementia. Unable to provide care to self Chronic leg celIulitis and recent UTI, being managed by the [email or web address] CKD 3. Hospitalization in April 2018 with ac renal failure Anemia of undetermined etiology, possibly due to CKD or due to impaired nutrition. W/u and treatment is with the [facility] Echo of 09/20/18: LVEF 60-65%, mod dil of LA, PASP WNL DM II, being managed by the [facility] Hypertension Hyperlipidemia H/o PAD with h/o bilat fem-pop at [place], [place], several years ago. 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 PCI to LCX was carried out, but was difficult due to marked patient agitation. LAD, left circumflex artery PCI with anesthesia today. * We recommend treatment of anemia to restore Hgb>10. This will likely help angina * Treatment for CAD and NSTEMI is with DAPT, bb, statin * iv fluids to reduce risk of contrast nephropathy Thank you for your consultation. Please call me if you have any questions. Erik Yarbrough MD, FACP, FACC, FSCAI, FHRS, CCDS Interventional Cardiology Cardiac Electrophysiology Vascular Medicine and Endovascular Interventions Clinical Quality Measures AMI/AHF: ASA po Prior to arrival: Katherine Courtney MD Oct 04, 2018 10:32 am
[2018-10-04] MEDS ORDERED: PROPOFOL INJECTION 50 ML IV ONE (10:54)
[2018-10-04] MEDS ORDERED: KETAMINE HCL 100 MG/ML 5 ML VIAL ONE (10:54)
[2018-10-04] MEDS ORDERED: MIDAZOLAM 2 MG/2 ML (VERSED) VIAL ONE (10:54)
[2018-10-04] MEDS ORDERED: ROCURONIUM 10 MG/ML 5 ML SYRINGE IV ONE (12:10)
[2018-10-04] MEDS ORDERED: NS IV 1000 ML 1,000 ML ONE (12:34)
--- NOTE | 2018-10-04 14:08 | Cardiac Procedure Note-CS/ASA ---
Pre-Procedure Note Pre-Op Procedure Note H&P Reviewed The H&P was reviewed, patient examined and no changes noted. Date H&P Reviewed: Oct 04, 2018 Time H&P Reviewed: 11:00 Conscious Sedation Pre-Proced Time 11:00 ASA Score 3 For ASA 3 and 4: Consider anesthesia and medical clearance. Also, for patients with a history of failed moderate sedation consider anesthesia. Airway Lungs Heart ASA score ASA 1: a normal healthy patient ASA 2: a patient with a mild systemic disease (mid diabetes, controlled hypertension, obesity ASA 3: a patient with a severe systemic disease that limits activity (angina , COPD, prior Myocardial infarction) ASA 4: a patient with an incapacitating disease that is a constant threat to life (CHF, renal failure) ASA 5: a moribund patient not expected to survive 24 hrs. (ruptured aneurysm) ASA 6: a declared brain patient whose organs are being harvested. For emergent operations, add the letter E after the classification Mallampati Classification Grade 1 Sedation Plan Analgesia, Amnesia, Plan communicated to team members, Discussed options with patient/fam, Discussed risks with patient/fam The patient is an appropriate candidate to undergo the planned procedure, sedation, and anesthesia. The patient immediately re-assessed prior to indication. Katherine GIVENS MD Oct 04, 2018 2:08 pm
--- NOTE | 2018-10-04 14:28 | Coronary Angiography & PCI ---
Coronary Angiography & PCI DATE OF PROCEDURE: 10/04/18 INDICATION: Non-STEMI, recurrent chest pain post PTCA. PREOPERATIVE DIAGNOSIS: Non-STEMI, recurrent chest pain post PTCA. POSTOPERATIVE DIAGNOSIS: Successful PCI to the left circumflex artery and LAD. HISTORY: This is a 78-year-old gentleman with history of dementia, smoking, CAD. Presents with non-STEMI. Initially he was treated with medical therapy but chest pain was refractory to medical therapy therefore Dr. Jaramillo performed coronary angiography and PTCA to the left circumflex artery which was severely diseased. However the patient became very agitated and therefore the procedure was stopped. No stent was placed. LAD was not intervened upon. LAD had severe diffuse disease in the proximal and midsegment with anterior wall motion abnormalities suggesting that LAD could be the likely culprit artery. Patient developed further chest pain post PTCA. Troponins continue to rise. Therefore the case was discussed and the plan was to perform PCI with anesthesia support and via the radial approach. PROCEDURES PERFORMED: 1. PCI to the OM 1 artery with drug-eluting stent. 2. PCI to the proximal/mid LAD with drug-eluting stents. COMPLICATIONS: None. SPECIMENS: None. ESTIMATED BLOOD LOSS: 10 mL ANESTHESIA: Conscious sedation, propofol. Provided by our anesthesia colleagues. ANTICOAGULATION: IV heparin CONTRAST: 280 mL. FLUOROSCOPY: 18.2 min. FLOUROSCOPY DOSE: [id number] mgy. PROCEDURE DETAILS: The patient is a 78 male and was brought to the garden labourer after informed consent was taken. All the risks and complications were explained in detail; this included the risk of bleeding, vascular damage, stroke , GA and even . The patient was draped and prepped in the usual sterile fashion. Access was gained in the right radial artery with a 6 Syriac sheath. EBU 3.5 guide catheter, whisper extra-support and BMW, IV heparin for anticoagulation. ACT x 3 done. First ACT > 400. second "error", third ACT 213 seconds. FINDINGS: 1.Left main: Patent. 2.LAD: Severe 95% proximal and mid stenosis with diffuse disease distally. 3.Left circumflex artery: Severe 80% stenosis. INTERVENTION DETAILS: We first crossed the OM1 stenosis with a extra-support whisper wire. A BMW wire was used as a tracy wire since there was significant proximal tortuosity. We then took a Xience Desi 2.75X 33 mm and deployed it at 14 pete. Overlap with the previous stent was done with the same stent balloon at 16 pete. Excellent results. The BMW wire was taken out. The whisper wire was also taken out and post-angiogram showed excellent results. There is mild ostial left circumflex artery disease which was left alone. We then focused on the LAD disease which was a long lesion. We first attempted with the whisper wire but were not able to cross the lesion. With difficulty we were able to cross the lesion with a BMW wire. The whisper wire was taken out. We then took emerge 2.0X 15 balloon and performed predilatation in the entire length of the stenosis from mid LAD till the proximal LAD. Significant residual stenosis and small amount of dissection was noted. We then took a Xience Desi 2.25x33 ALPA and deployed it at 9 pete for 30 seconds. With then took another Xience Desi 2.75x15 mm and didn't overlap in the proximal segment of the LAD with the previous stent. The stent was deployed at 16 pete for 22 seconds. Overlap with the mid LAD stent was done with the same stent balloon at 14 and 16 pete respectively. BMW wire was taken out. Intracoronary nitroglycerin was given with excellent ELLE-3 flow and no residual stenosis. Diffuse disease distal to the stent was left alone. Patient tolerated the procedure well and did not have any complication. CONCLUSIONS: 1. Successful PCI with drug-eluting stent to the OM1. 2. Successful PCI with 2 overlapping drug-eluting stents to proximal/mid LAD. 3. Long-term dual antiplatelet therapy. 4. Smoking cessation strongly recommended. 5. Generous IV fluids. M. Compa Yarbrough MD, FACP, FACC, [facility] Interventional Cardiology Katherine YARBROUGH MD Oct 04, 2018 2:28 pm
[2018-10-04] MEDS ORDERED: morphine INJ 10 MG/ML 1ML (SYR OR VIAL) IVP ONE (14:30)
[2018-10-04] MEDS ORDERED: ONDANSETRON 4 MG/2 ML (SDV) Z0FRAN IVP PRN (14:30)
[2018-10-04] MEDS: NS IV 1000 ML 1,000 ML IV SCH (15:10)
[2018-10-04] MEDS ORDERED: NITROGLYCERIN 2% OINT 1 GM UNIT DOSE PACKET TOP NR (15:30)
--- NOTE | 2018-10-04 17:13 | Progress Note (SOAP) ---
Subjective Subjective/Events-last exam Patient sleepy this AM. Plan for cath this AM. Denies any current chest pain. Review of Systems Date Seen by Provider: Oct 04, 2018 Time Seen by Provider: 10:05 Pulmonary: Cough Cardiovascular: Palpitations, Edema; No: Chest Pain Gastrointestinal: No: Nausea, Vomiting, Abdominal Pain Neurological: Weakness Objective Exam Last Set of Vital Signs Vital Signs Date Time Temp Pulse Resp B/P (MAP) Pulse Ox O2 Delivery O2 Flow Rate FiO2 10/04/18 16:20 Room Air 10/04/18 16:08 96.0 10/04/18 15:45 77 16 145/74 (97) 98 10/04/18 15:00 5.00 Capillary Refill : Less Than 3 Seconds I&O Intake and Output 10/04/18 00:00 Intake Total 1450 ml Output Total 775 ml Balance 675 ml Intake Oral 200 ml IV Total 1250 ml Output Urine Total 775 ml General: Alert Lungs: Other (Diminished breath sounds) Heart: Regular Rate, No Murmurs Abdomen: Normal Bowel Sounds, Soft, No Tenderness, No Masses Extremities: No Tenderness/Swelling, Other (2+ pitting edema bilaterally) Results/Procedures Lab Laboratory Tests 10/03/18 17:28: Hemoglobin 9.7L, Hematocrit 29L, Troponin I 0.53*H 10/04/18 03:10: Hemoglobin 10.7L, Hematocrit 32L, Troponin I 0.70*H, White Blood Count 4.8, Red Blood Count 3.31L, Mean Corpuscular Volume 96, Mean Corpuscular Hemoglobin 32, Mean Corpuscular Hemoglobin Concent 34, Red Cell Distribution Width 18.7H, Platelet Count 98L, Mean Platelet Volume 12.5H, Sodium Level 139, Potassium Level 4.2, Chloride Level 109H, Carbon Dioxide Level 20L, Anion Gap 10, Blood Urea Nitrogen 30H, Creatinine 1.26, Estimat Glomerular Filtration Rate 55, BUN/ Creatinine Ratio 24, Glucose Level 172H, Calcium Level 8.4L 10/04/18 09:21: Glucometer 180H 10/04/18 15:13: Glucometer 168H Radiology CXR 10/02 unremarkable Assessment/Plan Assessment/Plan (1) Non-ST elevation [place] (NSTEMI) Status: Acute Assessment & Plan: Cardiology consulted, appreciate recommendations. 10/04: Plan for repeat cath this AM for intervention (2) Multi-vessel coronary artery stenosis Status: Acute Assessment & Plan: Severe stenosis with LAD severe long segment 95% occlusion that involves diagonal branch. Left circumflex with large obtuse marginal branch with 95% stenosis improved to less than 50% with balloon. Right coronary dominant with 60% stenosis. Could not tolerate stenting to marginal branch, plan was to try staged intervention, but unable to tolerate minimal intervention today. Dr. Jaramillo discussed with family and they do not want to consider bypass which is reasonable given his dementia and comorbidities. When I discussed further with daughter, she states he was on hospice previously and they were already looking into resuming hospice services, and believes that would be what he would desire. Hospice consulted, plan for d/c tomorrow. (3) ANGEL (acute kidney injury) Status: Resolved Assessment & Plan: Unsure etiology, possibly hypovolemic. IVF and repeat. (4) Macrocytic anemia Status: Acute Assessment & Plan: Check folate and B12. (5) CKD (chronic kidney disease) Status: Chronic Assessment & Plan: Baseline creatinine appears to be around 1.4 Qualifiers: Qualified Codes: N18.3 - Chronic kidney disease, stage 3 (moderate) (6) Thrombocytopenia Status: Acute Assessment & Plan: Acute but has had intermittently in past. Monitor. (7) Dementia Status: Chronic Assessment & Plan: 10/02 Unable to provide meaningful history or understand procedure. Given his repeat visits for chest pain and now with elevated troponin , agree cardiac catheterization is indicated, but he is at risk for complications given his acute on chronic kidney disease. If family not able to be reached to discuss, agree with Dr. Jaramillo that proceeding with cath in the am is indicated. (8) HTN (hypertension) Status: Chronic Qualifiers: Qualified Codes: I10 - Essential (primary) hypertension (9) Uncontrolled diabetes mellitus Status: Chronic Assessment & Plan: Sliding scale insulin. Diabetic diet. Qualifiers: Qualified Codes: E11.65 - Type 2 diabetes mellitus with hyperglycemia (10) DVT prophylaxis Status: Acute Clinical Quality Measures AMI/AHF: ASA po Prior to arrival: No DVT/VTE Risk/Contraindication: Risk Factor Score Per Nursin RFS Level Per Nursing on Admit: 3=High DELVIN GILBERT MD Oct 04, 2018 17:13
[2018-10-04] MEDS: TEMAZEPAM 7.5 MG CAP (RESTORIL) PO SCH (20:18)
[2018-10-04] MEDS: FAMOTIDINE 20 MG (PEPCID) TABLET PO SCH (20:18)
[2018-10-04] MEDS: ATORVASTATIN 40 MG (LIPITOR) TABLET PO SCH (20:19)
[2018-10-04] MEDS: MELATONIN 3 MG TABLET PO SCH (20:19)
[2018-10-05] VITALS: BP 115/61
[2018-10-05] MEDS: NS IV 1000 ML 1,000 ML IV SCH (00:08)
[2018-10-05 04:00] VITALS: BP 124/59
[2018-10-05 05:28] LABS: BASOPHILS % (AUTO) 1 % (0-10); EOSINOPHILS # (AUTO) 0.2 10^3/uL (0.0-0.3); EOSINOPHILS % (AUTO) 3 % (0-10); HEMATOCRIT 38 % (40-54); HEMOGLOBIN 12.9 G/DL (13.3-17.7); LYMPHOCYTES # (AUTO) 0.9 X 10^3 (1.0-4.0); LYMPHOCYTES % (AUTO) 15 % (12-44); MEAN CORPUSCULAR HEMOGLOBIN 33 PG (25-34); MEAN CORPUSCULAR HGB CONC 34 G/DL (32-36); MEAN CORPUSCULAR VOLUME 99 FL (80-99); MEAN PLATELET VOLUME 12.6 FL (7.4-10.4); MONOCYTES # (AUTO) 0.6 X 10^3 (0.0-1.0); MONOCYTES % (AUTO) 10 % (0-12); NEUTROPHILS # (AUTO) 4.1 X 10^3 (1.8-7.8); NEUTROPHILS % (AUTO) 71 % (42-75); PLATELET COUNT 98 10^3/uL (130-400); RED BLOOD COUNT 3.86 10^6/uL (4.35-5.85); RED CELL DISTRIBUTION WIDTH 18.9 % (10.0-14.5); WHITE BLOOD COUNT 5.8 10^3/uL (4.3-11.0)
[2018-10-05 05:52] LABS: ALBUMIN 3.2 GM/DL (3.2-4.5); BILIRUBIN,TOTAL 0.5 MG/DL (0.1-1.0); CREATININE SERUM 1.48 MG/DL (0.60-1.30); TOTAL PROTEIN 5.5 GM/DL (6.4-8.2)
[2018-10-05] MEDS: inSUlin ASPART (NovoLOG) 1 UNIT/0.01 ML (CHARGE PER UNIT) SC SCH ×2 (05:59→09:00)
[2018-10-05] MEDS: LORazepam INJ 2 MG/ML (ATIVAN) VIAL IVP PRN ×2 (06:05→08:19)
[2018-10-05] MEDS: PANTOPRAZOLE 40 MG (PROTONIX) TAB PO SCH (06:11)
[2018-10-05 07:42] VITALS: BP 162/78
[2018-10-05] MEDS: QUEtiapine 25 MG (SEROquel) TAB IMMEDIATE RELEASE PO SCH (08:20)
[2018-10-05] MEDS: CLOPIDOGREL 75 MG (PLAVIX) TABLET PO SCH (08:21)
[2018-10-05] MEDS: FUROSEMIDE 40 MG (LASIX) TAB PO SCH (08:21)
[2018-10-05] MEDS: morphine ER 15 MG (MS CONTIN) TAB PO SCH (08:21)
[2018-10-05] MEDS: ALLOPURINOL 100 MG (ZYLOPRIM) TAB PO SCH (08:21)
[2018-10-05] MEDS: ISOSORBIDE MONONITRATE 60 MG (IMDUR) TAB PO SCH (08:22)
[2018-10-05] MEDS: NICOTINE 21 MG (NICODERM) PATCH TD SCH (08:27)
[2018-10-05] MEDS: PATCH REMOVAL TP SCH (08:36)
[2018-10-05] MEDS: RT-ALBUTEROL/IPRATROPIUM 3 ML (DUONEB) VIAL INH SCH (09:53)
[2018-10-05] MEDS ORDERED: ISM60TCR PO (10:51)
[2018-10-05 11:00] VITALS: BP 141/75
--- NOTE | 2018-10-05 11:13 | Cardiology Progress Note ---
Cardiology SOAP Progress Note Subjective: No further chest pain since yesterday. Objective: I&O/Vital Signs 10/05/18 10/05/18 10/05/18 10/05/18 04:00 04:00 07:00 07:00 Temp 97.1 Pulse 81 83 83 Resp 20 14 B/P (MAP) 124/59 (80) Pulse Ox 95 95 O2 Delivery Room Air Room Air 10/05/18 10/05/18 10/05/18 10/05/18 07:42 08:00 09:00 09:56 Temp 97.1 Pulse 88 Resp 25 B/P (MAP) 162/78 (106) Pulse Ox 96 96 96 O2 Delivery Room Air Room Air Room Air Room Air 10/05/18 10/05/18 10/05/18 10/05/18 10:40 11:00 12:00 12:00 Temp 97.9 Pulse 72 86 87 Resp 14 19 B/P (MAP) 141/75 (97) 141/75 (97) Pulse Ox 96 94 96 O2 Delivery Room Air Room Air Room Air 10/05/18 00:00 Intake Total 620 ml Output Total 1750 ml Balance -1130 ml Weight (Pounds): 163 Weight (Ounces): 5.0 Weight (Calculated Kilograms): 74.159713 Constitutional: well-developed, well-nourished, other (poor memory, does appear oriented to place and person and time (at this time)) Respiratory: No accessory muscle use; other (prolonged exp phase, scattered rhonchi and wheezes) Cardiovascular: regular rate-rhythm, S1 and S2, systolic murmur (soft MADIE at card base) Gastrointestional: No tender; soft; No guarding; audible bowel sounds Extremities: No normal range of motion, No non-tender, No normal inspection, No pedal edema, No calf tenderness, No normal capillary refill, No pelvis stable , No calf tenderness, No inflammation, No pedal edema, No slow capillary refill ; swelling (mod bilat leg swelling); No other, No abrasion, No clubbing, No cyanosis, No ecchymosis, No laceration, No no lower extremity edema bilateral, No significant edema, No tenderness, No wound Neurologic/Psychiatric: no motor/sensory deficits, disoriented x 3, other ( able to move limbs equally, poor memory, poor comprehension) Skin: No normal color, No warm/dry, No cyanosis, No cool, No diaphoresis, No damp, No ecchymosis, No jaundice, No mottled, No pallor, No rash, No tattoos/ piercings, No ulcerations; rash on exposed areas (bilat redness of the skin of lower legs with flaking of the skin); No ulcerations on exposed areas, No other Results/Procedures: Labs Laboratory Tests 10/04/18 15:13: Glucometer 168H 10/04/18 19:47: Glucometer 248H 10/05/18 05:20: White Blood Count 5.8, Red Blood Count 3.86L, Hemoglobin 12.9#L, Hematocrit 38L , Mean Corpuscular Volume 99, Mean Corpuscular Hemoglobin 33, Mean Corpuscular Hemoglobin Concent 34, Red Cell Distribution Width 18.9H, Platelet Count 98L, Mean Platelet Volume 12.6H, Neutrophils (%) (Auto) 71, Lymphocytes (%) (Auto) 15 , Monocytes (%) (Auto) 10, Eosinophils (%) (Auto) 3, Basophils (%) (Auto) 1, Neutrophils # (Auto) 4.1, Lymphocytes # (Auto) 0.9L, Monocytes # (Auto) 0.6, Eosinophils # (Auto) 0.2, Basophils # (Auto) 0.0, Sodium Level 139, Potassium Level 4.0, Chloride Level 111H, Carbon Dioxide Level 17L, Anion Gap 11, Blood Urea Nitrogen 25H, Creatinine 1.48H, Estimat Glomerular Filtration Rate 46, BUN/ Creatinine Ratio 17, Glucose Level 141H, Calcium Level 9.0, Corrected Calcium 9.6, Total Bilirubin 0.5, Aspartate Amino Transf (AST/SGOT) 29, Alanine Aminotransferase (ALT/SGPT) 13, Alkaline Phosphatase 85, Troponin I 3.71*H, Total Protein 5.5L, Albumin 3.2 10/05/18 08:54: Glucometer 221H A/P: Assessment/Dx: Assessment: Ac NSTEMI. Card cath of 10/03/18 showed long 95% prox and mid LAD stenosis that involves the proximal diags (all vessels of small caliber); long 95% stenosis in large OM 1 reduced to <50% post balloon angioplasty; 60% stenosis in prox part of dominant RCA; mild mitral regurg, anterolateral hypokinesis, LVEF 45-50% . PCI done yesterday. Previous h/o CAD consists of a h/o LCX stenting in 2010: Promus 3x15 in LCX and Promus 3x2 in OM Chronic dementia. Unable to provide care to self Chronic leg celIulitis and recent UTI, being managed by the [facility] CKD 3. Hospitalization in April 2018 with ac renal failure Anemia of undetermined etiology, possibly due to CKD or due to impaired nutrition. W/u and treatment is with the [facility] Echo of 09/20/18: LVEF 60-65%, mod dil of LA, PASP WNL DM II, being managed by the [facility] Hypertension Hyperlipidemia H/o PAD with h/o bilat fem-pop at [place], [place], several years ago. 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 * I had a long discussion with family regarding treatment options for CAD .Best treatment option appears CABG, but he is not a good candidate (given advance dementia). PTCA to LCX was carried out by Dr. Jaramillo on 10/03/2018, but was difficult due to marked patient agitation, therefore only PTCA was done and PCI was deferred. I discussed at length with Dr. Jaramillo and the staff, the decision was to perform PCI with anesthesia support. We performed PCI on 2017 with anesthesia and through right radial approach. PCI of the left circumflex artery was done with drug-eluting stent. LAD intervention was complex due to severe tortuous stenosis in the proximal and midsegment, diffuse disease distally. The proximal/mid segment was treated with overlapping drug- eluting stents with ELLE 3 flow distally. Good angiographic results. Diffuse distal disease was left alone. Troponin still elevated, likely due to complex multivessel PCI and distal embolization. * We recommend treatment of anemia to restore Hgb>10. This will likely help angina * Treatment for CAD and NSTEMI is with DAPT, bb, statin * iv fluids to reduce risk of contrast nephropathy. * I'm told by the nursing staff that the patient will be transitioned to hospice care. I agree with hospice care. Hopefully multivessel PCI will provide symptomatic relief for this particular patient. Thank you for your consultation. Please call me if you have any questions. Erik Yarbrough MD, FACP, FACC, FSCAI, FHRS, CCDS Interventional Cardiology Cardiac Electrophysiology Vascular Medicine and Endovascular Interventions Clinical Quality Measures AMI/AHF: ASA po Prior to arrival: Katherine Courtney MD Oct 05, 2018 11:13 am
[2018-10-05 12:00] VITALS: BP 141/75
--- NOTE | 2018-10-05 12:00 | Discharge Summary ---
Diagnosis/Chief Complaint Date of Admission Oct 02, 2018 at 9:01 am Date of Discharge Discharge Diagnosis Problems/Diagnosis: (1) Non-ST elevation RI (NSTEMI) Assessment & Plan: Cardiology consulted, appreciate recommendations. 10/03 cath done this am, see below. Status: Acute (2) Multi-vessel coronary artery stenosis Assessment & Plan: Severe stenosis with LAD severe long segment 95% occlusion that involves diagonal branch. Left circumflex with large obtuse marginal branch with 95% stenosis improved to less than 50% with balloon. Right coronary dominant with 60% stenosis. Could not tolerate stenting to marginal branch, plan was to try staged intervention, but unable to tolerate minimal intervention today. Dr. Jaramillo discussed with family and they do not want to consider bypass which is reasonable given his dementia and comorbidities. When I discussed further with daughter, she states he was on hospice previously and they were already looking into resuming hospice services, and believes that would be what he would desire. Hospice consulted, plan for d/c tomorrow. Status: Acute (3) ANGEL (acute kidney injury) Assessment & Plan: Unsure etiology, possibly hypovolemic. IVF and repeat. Status: Resolved Resolution Date/Time: 10/03/18 @ 3:14 pm (4) Macrocytic anemia Assessment & Plan: Check folate and B12. Status: Acute (5) CKD (chronic kidney disease) Assessment & Plan: Baseline creatinine appears to be around 1.4 Qualifiers: Qualified Codes: N18.3 - Chronic kidney disease, stage 3 (moderate) Status: Chronic (6) Thrombocytopenia Assessment & Plan: Acute but has had intermittently in past. Monitor. Status: Acute (7) Dementia Assessment & Plan: 10/02 Unable to provide meaningful history or understand procedure. Given his repeat visits for chest pain and now with elevated troponin , agree cardiac catheterization is indicated, but he is at risk for complications given his acute on chronic kidney disease. If family not able to be reached to discuss, agree with Dr. Jaramillo that proceeding with cath in the am is indicated. Status: Chronic (8) HTN (hypertension) Qualifiers: Qualified Codes: I10 - Essential (primary) hypertension Status: Chronic (9) Uncontrolled diabetes mellitus Assessment & Plan: Sliding scale insulin. Diabetic diet. Qualifiers: Qualified Codes: E11.65 - Type 2 diabetes mellitus with hyperglycemia Status: Chronic (10) DVT prophylaxis Assessment & Plan: Hold pharmacologic for now for anticipated procedure tomorrow. Resume enoxaparin when okay per Dr. Jaramillo. Status: Acute Chief Complaint/HPI Chief Complaint/HPI 69 yo male who is unable to provide any meaningful history- states he does not know why he is here and only wants to eat. Per ER report, he came in due to chest pain and was found to have elevated troponin. He has had multiple recent visits for chest pain. Discharge Summary-Simple/Stand Consultations Discharge Physical Examination Allergies: Coded Allergies: NKANo Known Allergies (Unverified Allergy, Mild, 06/21/09) Vitals & I&Os Vital Sign - Last 12Hours Date Time Temp Pulse Resp B/P (MAP) Pulse Ox O2 Delivery O2 Flow Rate FiO2 10/05/18 10:40 72 96 10/05/18 09:56 Room Air 10/05/18 07:42 97.1 25 162/78 (106) 10/04/18 15:00 5.00 Intake and Output 10/05/18 00:00 Intake Total 620 ml Output Total 1750 ml Balance -1130 ml Hospital Course See final discharge diagnosis. Radiology Reviewed CXR 10/02 unremarkable Discharge Instructions to patient/family Please see electronic discharge instructions given to patient. Discharge Medications Reviewed and agree with Discharge Medication list on patient's Discharge Instruction sheet Clinical Quality Measures AMI/AHF: ASA po Prior to arrival: No DVT/VTE Risk/Contraindication: Risk Factor Score Per Nursin RFS Level Per Nursing on Admit: 3=High DELVIN GILBERT MD Oct 05, 2018 12:00 pm
--- NOTE | 2018-10-05 12:05 | Discharge Instructions ---
Discharge [facility] Discharge Medications New, Converted or Re-Newed RX: Transmitted to Pharmacy New Medications: Isosorbide Mononitrate (Isosorbide Mononitrate ER) 60 Mg Tab 60 MG PO DAILY for 30 Days, TAB 3 Refills Continued Medications: Allopurinol (Allopurinol) 100 Mg Tablet 200 MG PO DAILY, TAB Aspirin (Aspirin EC) 81 Mg Tablet.dr 81 MG PO DAILY, TAB Atorvastatin Calcium (Atorvastatin Calcium) 40 Mg Tablet 40 MG PO HS, TAB Clopidogrel Bisulfate (Plavix) 75 Mg Tablet 75 MG PO DAILY, TAB Dexamethasone (Dexamethasone) 4 Mg Tablet 4 MG PO DAILY, TAB Furosemide (Furosemide) 40 Mg Tablet 40 MG PO DAILY, TAB Lisinopril (Lisinopril) 5 Mg Tablet 5 MG PO DAILY, TAB Melatonin (Melatonin) 5 Mg Capsule 5 MG PO HS, CAP Metoprolol Succinate (Metoprolol Succinate) 100 Mg Tab.er.24h 100 MG PO DAILY, TAB Morphine Sulfate (Morphine Sulfate ER) 15 Mg Tablet.er 15 MG PO TID, TAB Oxycodone HCl (Oxycodone HCl) 5 Mg Tablet 5 MG PO TID, TAB Pantoprazole Sodium (Pantoprazole Sodium) 40 Mg Tablet.dr 40 MG PO DAILY, TAB Quetiapine Fumarate (Quetiapine Fumarate) 50 Mg Tablet 50 MG PO BID, TAB Sennosides/Docusate Sodium (Senna Plus Tablet) 1 Each Tablet 2 TAB PO TID, TAB Temazepam (Temazepam) 15 Mg Capsule 15 MG PO HS, CAP Discontinued Medications: Cephalexin (Cephalexin) 500 Mg Capsule 500 MG PO QID for 10 Days, CAP 10 DAY SUPPLY FILLED 09-23-18 Famotidine (Famotidine) 20 Mg Tablet 20 MG PO BID, TAB Insulin Detemir (Levemir Flextouch) 100 Unit/1 Ml Insuln.pen 10 UNITS SC HS, EA Multivit-Min/Folic/Vit K/Lycop (Men's Multivitamin Tablet) 1 Each Tablet 1 TAB PO DAILY, TAB Patient Instructions Goal/Follow Up Appt: Home with Hospice, will set up home visit Patient Instructions: - Please review medication list as meds have changed Activity & Diet Discharge Diet: No Restrictions Activity as Tolerated: Yes Copy Copies To 1: LOUISE ACE MD, HOLLY R MD Oct 05, 2018 12:05 pm
[2018-10-05 13:25] VITALS: BP 141/75
--- NOTE | 2018-10-05 14:15 | Anesthesia-General Post-Op ---
MAC Post Op Complications Complications None Follow Up Care/Instructions Patient Instructions None needed. Anesthesiology Discharge Order Discharge Order Patient Discharged to home. No complications reported by nursing. LISSY RUEDA CRNA Oct 05, 2018 14:15
== END 2018-10-05 13:25 | disposition hospice, home (50) | DRG 247 ==
LOC: EDUNIT# 06:54 → ER 06:56 → ICU 09:01
PROVIDERS: ADMIT Family Medicine; ATTEND Family Medicine
PROC: 02703ZZ Dilation of Coronary Artery, One Artery, Percutaneous Approach (ICD-10-PCS; 2018-10-03)
PROC: 4A023N7 Measurement of Cardiac Sampling and Pressure, Left Heart, Percutaneous Approach (ICD-10-PCS; 2018-10-03)
PROC: B2111ZZ Fluoroscopy of Multiple Coronary Arteries using Low Osmolar Contrast (ICD-10-PCS; 2018-10-03)
PROC: B2151ZZ Fluoroscopy of Left Heart using Low Osmolar Contrast (ICD-10-PCS; 2018-10-03)
PROC: 027136Z Dilation of Coronary Artery, Two Arteries with Three Drug-eluting Intraluminal Devices, Percutaneous Approach (ICD-10-PCS; principal; 2018-10-04)
DX: I21.4 Non-ST elevation (NSTEMI) myocardial infarction (principal); I25.110 Atherosclerotic heart disease of native coronary artery with unstable angina pectoris; I12.9 Hypertensive chronic kidney disease with stage 1 through stage 4 chronic kidney disease, or unspecified chronic kidney disease; N18.3 Chronic kidney disease, stage 3 (moderate); E11.42 Type 2 diabetes mellitus with diabetic polyneuropathy; E11.65 Type 2 diabetes mellitus with hyperglycemia; Z79.4 Long term (current) use of insulin; F03.90 Unspecified dementia, unspecified severity, without behavioral disturbance, psychotic disturbance, mood disturbance, and anxiety; N28.9 Disorder of kidney and ureter, unspecified; D53.9 Nutritional anemia, unspecified; D69.6 Thrombocytopenia, unspecified; F17.210 Nicotine dependence, cigarettes, uncomplicated; J44.9 Chronic obstructive pulmonary disease, unspecified; I70.201 Unspecified atherosclerosis of native arteries of extremities, right leg; L03.115 Cellulitis of right lower limb; L03.116 Cellulitis of left lower limb; R47.01 Aphasia; E78.5 Hyperlipidemia, unspecified; N40.0 Benign prostatic hyperplasia without lower urinary tract symptoms; K21.9 Gastro-esophageal reflux disease without esophagitis; K44.9 Diaphragmatic hernia without obstruction or gangrene; F41.9 Anxiety disorder, unspecified; I34.0 Nonrheumatic mitral (valve) insufficiency; H54.61 Unqualified visual loss, right eye, normal vision left eye; Z95.5 Presence of coronary angioplasty implant and graft
CPT/HCPCS: 36415; 71045; 80048; 80053; 80061; 82607; 82746; 82962; 83690; 83735; 83874; 84484; 85014; 85018; 85025; 85027; 85347; 85610; 85730; 86850; 86900; 86901; 86920; 93005; 93041; 93458; 94640

== ENCOUNTER → 2018-10-31 | Outpatient (CLI) | payer MEDICARE, MEDICAID ==
[~2018-10-31] MED LIST changes: +CLOP75TA69 PO; +ISM60TCR PO; +MELA5CAP PO; +MULT-1102 PO; +SENN-120 PO
== END ==
LOC: LABNPT 16:33
PROVIDERS: ATTEND Internal Medicine
DX: R35.0 Frequency of micturition (principal); R39.15 Urgency of urination; F41.9 Anxiety disorder, unspecified
CPT/HCPCS: 87077; 87088; 87186